=== PATIENT | female | born 1970 | race Caucasian/White ===

== ENCOUNTER → 2019-09-09 09:34 | Outpatient (CLI) | payer BC, SELFPAY ==
[2019-09-09 10:50] LABS: Anion Gap 9 (5-15); BUN 16 mg/dL (7-18); BUN/Creat Ratio 20.2 RATIO (10-20); Chloride 97 mmol/L (98-107); Creatinine, Serum 0.79 mg/dL (0.55-1.02); EST Glomerular Filtration Rate 81 mL/min (>60); Est Glom Filt Rate - Afr Amer 98 mL/min (>60); Glucose 99 mg/dL (74-106); Potassium 3.7 mmol/L (3.5-5.1); Sodium Level 136 mmol/L (136-145)
== END ==
PROVIDERS: Family Provider Family Medicine; PCP Family Medicine; Referring Provider Nurse Practitioner Adult Health; Visit Provider Nurse Practitioner Adult Health
DX: R11.0 Nausea (principal)
CPT/HCPCS: 36415; 80048

== ENCOUNTER → 2019-12-26 10:57 | Outpatient (CLI) | payer BC, SELFPAY ==
[2019-12-26 13:06] LABS: Anion Gap 6 (5-15); BUN 17 mg/dL (7-18); BUN/Creat Ratio 21.9 RATIO (10-20); Calcium,Total 9.4 mg/dL (8.5-10.1); Chloride 108 mmol/L (98-107); Creatinine, Serum 0.78 mg/dL (0.55-1.02); EST Glomerular Filtration Rate 83 mL/min (>60); Est Glom Filt Rate - Afr Amer 101 mL/min (>60); Glucose 98 mg/dL (74-106); Potassium 3.8 mmol/L (3.5-5.1); Sodium Level 141 mmol/L (136-145)
[2019-12-26 13:08] LABS: Vitamin D,25 Hydroxy 19.8 ng/mL
== END ==
PROVIDERS: PCP Family Medicine; Referring Provider Family Medicine; Visit Provider Family Medicine
DX: I10 Essential (primary) hypertension (principal); E55.9 Vitamin D deficiency, unspecified
CPT/HCPCS: 36415; 80048; 82306

== ENCOUNTER → 2020-04-18 14:22 | Outpatient (CLI) | payer BC, SELFPAY ==
[2020-04-19 10:42] LABS: Hepatitis B Surface Antibody Non-Reactive; Hepatitis B Surface Antigen Non-Reactive (Nonreactive); Hepatitis C Antibody Non-Reactive (Nonreactive)
[2020-04-20 11:34] LABS: Hepatitis B Core AB IgM Negative (Negative)
[2020-04-20 15:19] LABS: ANTINUCLEAR ANTIBODIES DIRECT Negative (Negative)
== END ==
PROVIDERS: PCP Family Medicine; Referring Provider Internal Medicine Rheumatology; Visit Provider Internal Medicine Rheumatology
DX: M06.4 Inflammatory polyarthropathy (principal); I10 Essential (primary) hypertension; M79.7 Fibromyalgia; J45.909 Unspecified asthma, uncomplicated; R51 Headache; L30.9 Dermatitis, unspecified
CPT/HCPCS: 36415; 86038; 86705; 86706; 86803; 87340

== ENCOUNTER → 2020-05-10 | Outpatient (CLI) | payer BC, SELFPAY ==
[2020-05-16 03:51] LABS: Calprotectin, Stool 19 ug/g (0-120); Fats, Neutral Normal (.); Fats, Total Normal (.)
== END | disposition home or self-care (01) ==
PROVIDERS: Referring Provider Internal Medicine; Visit Provider Internal Medicine
DX: Z12.11 Encounter for screening for malignant neoplasm of colon (principal); K52.9 Noninfective gastroenteritis and colitis, unspecified; R10.84 Generalized abdominal pain
CPT/HCPCS: 82705; 83993; 87493

== ENCOUNTER → 2020-05-23 12:01 | Outpatient (CLI) | payer BC, SELFPAY ==
[2020-05-23 15:20] LABS: Absolute Lymphocyte Count 2.48 X10^3/uL (0.83-4.51); Absolute Neutrophil Count 4.9 X10^3/uL (2.0-7.7); Basophil# 0.04 X10^3/uL; Basophil% 0.5 % (0-1); Eosinophils% 2.5 % (0-5); Hematocrit 43.4 % (37-47); Hemoglobin 13.4 g/dL (12.0-15.0); Lymphocyte # 2.48 X10^3/ul (4.0); Lymphocyte % 30.5 % (19-41); Mean Corp Hgb Conc 30.9 g/dL (32-36); Mean Corpuscular Hgb 25.3 pg (27.0-32.0); Mean Platelet Vol. 9.3 fl (6.2-12.0); Monocyte# 0.45 X10^3/uL; Monocyte% 5.5 % (0-10); NRBC Flagged by Analyzer 0 % (0-5); Neutrophil # 4.94 X10^3/uL (2.7-7.7); Neutrophil % 60.6 % (47-70); Platelet Count 310 K/mm3 (150-450); RBC Distribution Width CV 15.1 % (11.6-14.6); RBC Distribution Width SD 44.2 fl (35.1-43.9); Red Blood Count 5.29 M/mm3 (4.2-5.4); White Blood Count 8.1 K/mm3 (4.4-11.0)
[2020-05-23 15:40] LABS: ALB/GLOB Ratio 0.8 RATIO (0.9-2.4); AST(SGOT) 11 U/L (15-37); Alanine Aminotransfer ALT/SGPT 19 U/L (13-56); Albumin, Serum 3.4 g/dL (3.2-5.0); Alkaline Phosphatase 101 U/L (45-117); Anion Gap 6 (5-15); BUN 10 mg/dL (7-18); BUN/Creat Ratio 13.4 RATIO (10-20); Calcium,Total 8.8 mg/dL (8.5-10.1); Chloride 106 mmol/L (98-107); Creatinine, Serum 0.74 mg/dL (0.55-1.02); EST Glomerular Filtration Rate 87 mL/min (>60); Est Glom Filt Rate - Afr Amer 105 mL/min (>60); Globulin 4.5 g/dL (2.2-4.2); Glucose 81 mg/dL (74-106); Potassium 3.8 mmol/L (3.5-5.1); Protein, Total 7.9 g/dL (6.4-8.2); Sodium Level 137 mmol/L (136-145)
== END ==
PROVIDERS: Referring Provider Internal Medicine Rheumatology; Visit Provider Internal Medicine Rheumatology
DX: M06.4 Inflammatory polyarthropathy (principal); M79.7 Fibromyalgia; I10 Essential (primary) hypertension; J45.909 Unspecified asthma, uncomplicated; R51 Headache; L30.9 Dermatitis, unspecified; Z79.899 Other long term (current) drug therapy
CPT/HCPCS: 36415; 80053; 85025

== ENCOUNTER → 2020-07-24 16:03 | Outpatient (CLI) | payer BC, SELFPAY ==
[2020-07-24 18:11] LABS: Absolute Lymphocyte Count 2.43 X10^3/uL (0.83-4.51); Absolute Neutrophil Count 6.4 X10^3/uL (2.0-7.7); Basophil# 0.05 X10^3/uL; Basophil% 0.5 % (0-1); Eosinophil# 0.18 X10^3/uL; Eosinophils% 1.9 % (0-5); Hematocrit 44.4 % (37-47); Hemoglobin 13.5 g/dL (12.0-15.0); Lymphocyte # 2.43 X10^3/ul (4.0); Lymphocyte % 25.6 % (19-41); Mean Corp Hgb Conc 30.4 g/dL (32-36); Mean Corpuscular Hgb 25.8 pg (27.0-32.0); Mean Corpuscular Volume 84.7 fL (81-99); Mean Platelet Vol. 8.9 fl (6.2-12.0); Monocyte# 0.37 X10^3/uL; Monocyte% 3.9 % (0-10); NRBC Flagged by Analyzer 0 % (0-5); Neutrophil # 6.44 X10^3/uL (2.7-7.7); Neutrophil % 67.8 % (47-70); Platelet Count 337 K/mm3 (150-450); RBC Distribution Width CV 15.3 % (11.6-14.6); RBC Distribution Width SD 46.8 fl (35.1-43.9); Red Blood Count 5.24 M/mm3 (4.2-5.4); White Blood Count 9.5 K/mm3 (4.4-11.0)
[2020-07-24 18:34] LABS: ALB/GLOB Ratio 0.7 RATIO (0.9-2.4); AST(SGOT) 16 U/L (15-37); Alanine Aminotransfer ALT/SGPT 18 U/L (13-56); Albumin, Serum 3.4 g/dL (3.2-5.0); Alkaline Phosphatase 112 U/L (45-117); Anion Gap 6 (5-15); BUN 7 mg/dL (7-18); Chloride 105 mmol/L (98-107); Creatinine, Serum 0.77 mg/dL (0.55-1.02); EST Glomerular Filtration Rate 83 mL/min (>60); Est Glom Filt Rate - Afr Amer 101 mL/min (>60); Globulin 4.6 g/dL (2.2-4.2); Glucose 86 mg/dL (74-106); Sodium Level 137 mmol/L (136-145)
== END ==
PROVIDERS: Referring Provider Internal Medicine Rheumatology; Visit Provider Internal Medicine Rheumatology
DX: M06.4 Inflammatory polyarthropathy (principal); I10 Essential (primary) hypertension; J45.909 Unspecified asthma, uncomplicated; M79.7 Fibromyalgia; L30.9 Dermatitis, unspecified; R51 Headache; Z79.899 Other long term (current) drug therapy
CPT/HCPCS: 36415; 80053; 85025

== ENCOUNTER → 2023-02-06 | Outpatient (CLI) | payer BC, SELFPAY ==
--- NOTE | 2023-02-06 15:46 | MRI_ITS ---
STUDY: MRA OF THE HEAD WITHOUT CONTRAST REASON FOR EXAM: Female, 52 years old. POLYCYSTIC KIDNEY TECHNIQUE: 3-D [id number] (TOF) imaging was performed with MIPs. The study was performed unenhanced. COMPARISON: None. FINDINGS: Normal bilateral petrous carotid arteries. Normal right cavernous carotid artery with a normal supraclinoid bifurcation. Normal left cavernous carotid artery with a normal supraclinoid bifurcation. Normal right A1 segments of the anterior cerebral artery. Normal left A1 segments of the anterior cerebral artery. Normal intact anterior communicating artery (ACOM). Normal bilateral A2 segments of the anterior cerebral arteries. Normal right M1 and M2 segments of the middle cerebral arteries, with a normal M1 bifurcation. Normal left M1 and M2 segments of the middle cerebral arteries, with a normal M1 bifurcation. Posterior communicating arteries are not visualized consistent with normal variant Normal bilateral vertebral arteries. Normal basilar artery with a normal basilar bifurcation. The visualized bilateral superior cerebellar (SCA) arteries are normal. Normal bilateral P1, P2 and visualized P3 segments of the posterior cerebral arteries. There is no demonstrated aneurysm of the [place]. There is no major vessel occlusion or hemodynamically significant stenosis. There is no demonstrated abnormality of the visualized brain. MRI/MRA Head ONLY without Contrast IMPRESSION: Normal MRA of the head Electronically Signed: Faraz Boo MD at 16:21 EDT ,
== END | disposition home or self-care (01) ==
DX: Q61.3 Polycystic kidney, unspecified (principal)
CPT/HCPCS: 70544

== ENCOUNTER → 2024-08-22 | Outpatient (CLI) | payer BC, SELFPAY ==
--- NOTE | 2024-08-22 15:40 | MRI_ITS ---
STUDY: MRI BRAIN WITH AND WITHOUT CONTRAST REASON FOR EXAM: Female, 54 years old. NEW ONSET HEADACHE TECHNIQUE: Standardized multiplanar fat and water weighted pulse sequences were obtained. IV 27cc clariscan was administered for the contrast portion of the examination. COMPARISON: None. FINDINGS: Normal size of the ventricles and extra-axial spaces for the patient''s age. Normal white matter tracts of the supratentorial brain. Normal bilateral basal ganglia. Normal thalami. There is no extra-axial fluid accumulation. Normal flow voids within the major intracranial circulation suggesting patency by spin echo criteria. Normal venous enhancement. There is no enhancing intra-axial or extra-axial abnormality. Partial empty sella deformity of uncertain clinical significance. Normal, infundibular stalk, optic chiasm and hypothalamus. Normal tectal plate and pineal gland. Normal midbrain, becki and medulla. Normal cerebellum. Normal basal cisterns. Normal bilateral temporal bones. Normal bilateral internal auditory canals. No demonstrated orbital abnormality, within the constraints of a routine brain study. Normal visualized paranasal sinuses. Normal calvarium and skull base. Normal visualized soft tissue structures. Normal visualized upper cervical spine. MRI/Brain W/WO Contrast IMPRESSION: Partial empty sella deformity of uncertain clinical significance. Otherwise normal unenhanced MRI of the brain. Electronically Signed: Faraz Boo MD at 17:02 EDT ,
[2024-08-22 16:17] LABS: CREATININE FINGERSTICK < 1.0 mg/dL (0.55-1.02); EGFR FINGERSTICK > 60.0000 mL/min (>60)
--- OUTSIDE RECORDS SUMMARY | 2024-08-22 19:30 | XMS RPT_ITS | CCD ---
Author Organization [facility] ion Partnership [facility] Care Team Providers Care Night Shift Manager Name Role Phone Sayda Fall Primary Care Provider Dy DO, Emma Primary Care Provider [phone] Unavailable Primary Care Provider Unavailabl e Dy DO, Emma Primary Care Provider [phone] DY, EMMA Primary Care Unavailable SUZE VILLARREAL Attending Unavailable Dy DO, Emma K Primary Care Provider Pascual Sanchez MD Unavailable Dy DO, Emma K Primary Care Provider Pascual Sanchez MD A Unavailable Jackie DE - Anna LU Unavailable [phone] PASCUAL SANCHEZ Attending Unavailable DY, EMMA Primary Care Unavailable PASCUAL SANCHEZ Attending Unavailable DY, EMMA Primary Care Unavailable DY, EMMA Primary Care Unavailable ANNA RODRIGUEZ Attending Unavailable PASCUAL SANCHEZ Attending Unavailable DY, EMMA Primary Care Unavailable PASCUAL SANCHEZ Attending Unavailable PASCUAL SANCHEZ Admitting Unavailable DY, EMMA Primary Care Unavailable PASCUAL SANCHEZ Referring Unavailable DY, EMMA Primary Care Unavailable Dy DO, Emma Primary Care Provider [phone] DY, EMMA Primary Care Unavailable DY, EMMA Referring Unavailable ALAMIR, AMIR Referring Unavailable DY, EMMA Primary Care Unavailable ALAMIR, AMIR Referring Unavailable DY, EMMA Primary Care Unavailable DY, EMMA Primary Care Unavailable ALAMIR, AMIR Attending Unavailable DY, EMMA Primary Care Unavailable ALAMIR, AMIR Referring Unavailable YULIANA CUBA Attending Unavailable EMMA CONTE Primary Care Unavailable Allergies Allergy Classification Reported Allergen(s) Allergy Type Date of Onset Reaction(s) Facility (20 sources) Codeine; Translations: [CODEINE] Drug Allergy 7 Vomiting [facility] Work Phone: (13 sources) Penicillins; Translations: [PENICILLINS] Propensity to adverse reactions [facility] Work Phone: (18 sources) all cillins [Other] Propensity to adverse reactions 7 [facility] Work Phone: (15 sources) Penicillins Propensity to adverse reactions 7 [facility] Work Phone: (1 source) OTHER; Translations: [OTHER] Propensity to adverse reactions (disorder) 7 [facility] Other [facility] (11 sources) Penicillins Drug Intolerance 7 [facility] Medications Current Medications Medication Drug Class(es) Dates Sig (Normalized) Sig (Original) acetaminophen 500 mg oral tablet (11 sources) Start: 03-09-2023 take 2 tablets by mouth every eight hours as needed for pain acetaminophen (Tylenol) 500 MG tablet Take 2 tablets (1,000 mg) by mouth every 8 hours as needed for mild pain (1-3). 30 tablet 0 03/09/2023 Active Start: 03-09-2023 End: 03-09-2023 acetaminophen (Tylenol) tabl et 1,000 mg take 1 tablet by sis th every eight hours as needed acetaminophen (TYLENOL ARTHRITIS PAIN) 650 mg CR tablet Take 650 mg by mouth every 8 hours as needed for pain. Active End: 03-09-2023 acetaminophen (Tylenol) 500 MG tablet Take by mouth every 8 hours as needed for mild pain (1-3). 0 03/09/2023 Discontinued (Reorder) albuterol 0.83 mg/ml inhalation solution (6 sources) beta2-Adrenergic Agonist Start: 03-09-2023 albut jaden (2.5 MG/3ML) 0.083% nebulizer solution 2.5 mg take 2 puff(s) by in halation every six hours as needed for wheezing albuterol 108 (90 Base) MCG/ACT inhaler Inhale 2 puffs every 6 hours as needed for wheezing. 0 Active allopurinol 300 mg oral tablet (20 sources) Xanthine Oxidase Inhibitor Start: 04-22-2022 End: 12-03-2022 take 1 tablet by mouth once daily allopurinol (ZYLOPRIM) 300 mg tablet Take 1 tablet by mouth once daily. 90 tablet 3 12/03/2022 Active Comment on above: Take 1 tablet by sis th once daily. 24 hr buPROPion hydrochloride 150 mg extended release oral tablet (14 sources) Aminoketone Start: 05-30-2023 take 1 tablet by mouth once daily in the morning buPROPion XL (WELLBUTRIN XL) 150 mg 24 hr tablet Take 150 mg by mouth every morning. 05/30/2023 Active buPROPion (Wellb utrin) 100 MG tablet Take 150 mg by mouth every morning. 0 Active Comment on above: Take 150 mg by mouth every morning. docusate sodium 100 mg oral capsule (2 sources) Start : 03-09 End: 03-19 take 1 capsule by mouth twice daily as needed for constipation docusate sodium (Colace) 100 MG capsule Take 1 capsule (100 mg) by mouth 2 times daily as needed for constipation for up to 10 days. 20 capsule 0 03/09/2023 03/19/2023 Active doxycycline monohydrate 100 mg oral tablet (1 source) Tetracycline-clas s Drug Start : 06-26 End: 07-03 take 1 tablet by mouth twice daily doxycycline monohydrate 100 mg tablet Indications: Other acute nonsuppurative otitis media of left ear, recurrence not specified Take 1 tablet by mouth twice daily for 7 days. 14 tablet 0 06/26/2023 07/03/2023 Active Comment on above: Take 1 tablet by sis th twice daily for 7 days. escitalopram 20 mg oral tablet (20 sources) Serotonin Reuptake Inhibitor Start : 02-11 take 1 tablet by mouth once daily escitalopram oxalate (LEXAPRO) 20 mg tablet Take 1 tablet by mouth once daily. 02/11/2022 Active Comment on above: Take 1 tablet by sis once daily. ferrous sulfate 325 mg oral tablet (1 source) Start : 08-01 take 1 tablet by mouth twice daily ferrous sulfate 325 mg (65 mg iron) tablet Take 1 tablet by mouth two times a day. 180 tablet 3 08/01/2024 Active 120 actuat fluticasone propionate 0.115 mg/actuat / salmeterol 0.021 mg/actuat metered dose inhaler (4 sources) Corticosteroid, beta2-Adrenergic Agonist take 2 puff(s) by inhalation in the morning fluticasone-salmeterol (Advair) 115-21 MCG/ACT inhaler Inhale 2 puffs in the morning and 2 puffs in the evening. Rinse mouth with water after use to reduce aftertaste and incidence of candidiasis. Do not swallow.. 0 Active hydroCHLOROthiazide 12.5 mg oral capsule (1 source) Thiazide Diuretic hydroCHLOROthi azide 12.5 mg capsule Take 12.5 mg by mouth as needed. Active ibuprofen 600 mg oral tablet (8 sources) Nonsteroidal Anti-inflammatory Drug Start : 03-09 End: 03-24 take 1 tablet by mouth every six hours as needed for pain ibuprofen 600 MG tablet Take 1 tablet (600 mg) by mouth every 6 hours as needed for mild pain (1-3) for up to 15 days. 30 tablet 0 03/09/2023 03/24/2023 Active End: 12-03-2022 take 2 capsules by mouth every six hours as needed Ibuprofen 200 mg cap Take 400 mg by mouth every 6 hours as needed for pain. 0 12/03/2022 Discontinued Comment on above: Take 400 mg by mouth every 6 hours as needed for pain. lidocaine hydrochloride 0.02 mg/mg topical gel (1 source) Antiarrhythmic, Amide Local Anesthetic Start: 2 End: 2 lidocaine urojet 2 % 6 mL topical gel (XYLOCAINE, GLYDO) lisinopril 20 mg oral tablet (20 sources) Angiotensin Converting Enzyme Inhibitor Start: 4 End: 5 take 1 tablet by mouth once daily lisinopril (ZESTRIL) 20 mg tablet Take 1 tablet by mouth once daily. 90 tablet 3 04/25/2024 04/25/2025 Active Start: 12-03-2022 End: 04-25-2024 take 1 tablet by mouth once daily lisinopril (ZESTRIL, PRINIVIL) 10 mg tablet Take 1 tablet by mouth once daily. 90 tablet 3 12/03/2022 04/25/2024 Discontinued Comment on above: Take 1 tablet by sis th once daily. 24 hr metoprolol succinate 50 mg extended release oral tablet (20 sources) beta-Adrenergic Rd Start: 04-25-2024 End: 04-25-2025 take 1 tablet by mouth once daily metoprolol succinate ER (TOPROL XL) 50 mg 24 hr tablet Take 1 tablet by mouth once daily. 90 tablet 3 04/25/2024 04/25/2025 Active Start: 12-03-2022 End: 04-25-2024 take 1 tablet by mouth once daily metoprolol succinate ER (TOPROL XL) 25 mg 24 hr tablet Take 1 tablet by mouth once daily. 90 tablet 3 12/03/2022 04/25/2024 Discontinued Start: 12-03-2022 take 1 tablet by sis th every twenty-four hours in the morning metoprolol succinate XL (Toprol-XL) 25 MG 24 hr tablet Take 25 mg by mouth in the morning. 0 12/03/2022 Active End: 12-03-2022 take 1 tablet by mouth once daily metoprolol succinate ER (TOPROL XL) 50 mg 24 hr tablet Take 50 mg by mouth once daily. 0 12/03/2022 Discontinued Comment on above: Take 50 mg by mouth once daily. Take 1 tablet by sis th once daily. nortriptyline 10 mg oral capsule (1 source) Tricyclic Antidepressant take 1 capsule by mouth once daily at bedtime nortriptyline (PAMELOR) 10 mg capsule Take 10 mg by mouth daily at bedtime. Active ofloxacin 3 mg/ml otic solution (1 source) Quinolone Antimicrobial Start: 06-26-20 End: 07-03-20 ofloxacin (FLOXIN) 0.3 % otic solution Indications: Acute otitis externa of left ear, unspecified type Use 5 Drops in both ears twice daily for 7 days. 4 mL 0 06/26/2023 07/03/2023 Active Comment on above: Use 5 Drops in both ears twice daily for 7 days. oxyCODONE hydrochloride 5 mg oral tablet (2 sources) Opioid Agonist Start: 03-09-20 End: 03-14-20 take 1 tablet by mouth every six hours as needed for pain oxyCODONE (Roxicodone) 5 MG immediate release tablet Indications: Acute post-operative pain Take 1 tablet (5 mg) by mouth every 6 hours as needed for moderate pain (4-6) or severe pain (7-10) for up to 5 days. 20 tablet 0 03/09/2023 03/14/2023 Active rosuvastatin calcium 5 mg oral tablet (14 sources) HMG-CoA Reductase Inhibitor Start: 05-30-20 take 1 tablet by mouth once rosuvastatin (CRESTOR) 5 mg tablet Take 1 tablet by mouth every afternoon. 05/30/2023 Active take 1 tablet by mouth once gloria y rosuvastatin (Crestor) 5 MG tablet Take 5 mg by mouth daily. 0 Active Comment on above: Take 1 tablet by sis th every afternoon. traMADol hydrochloride 50 mg oral tablet (20 sources) Opioid Agonist Start: End: 4 take 1 tablet by mouth every four hours as needed for pain traMADol (ULTRAM) 50 mg tablet Indications: Chronic bilateral thoracic back pain Take 1 tablet by mouth every 4 hours as needed for pain for up to 183 days. for pain. 40 tablet 5 04/25/2024 10/25/2024 Active Comment on above: Take 1 tablet by sis th every 4 hours as needed for pain. for pain. Completed/Discontinued Medications Medication Drug Class(es) Dates Sig (Normalized) Sig (Original) ALPRAZolam 0.25 mg disintegrating oral tablet (2 sources) Benzodiazepine Start: 03-09-2023 End: 03-09-2023 ALPRAZolam (Xanax) disintegrating tablet 0.25 mg calcium chloride 0.0014 meq/ml / potassium chloride 0.004 meq/ml / sodium chloride 0.103 meq/ml / sodium lactate 0.028 meq/ml injectable solution (4 sources) Start: 03-09-2023 End: 03-09-2023 lactated ringers infusion ciprofloxacin 500 mg oral tablet (1 source) Quinolone Antimicrobial Start: 03-05-2022 End: 03-05-2022 ciprofloxacin HCl 500 mg tab(s) (CIPRO) 1 ml diphenhydrAMINE hydrochloride 50 mg/ml cartridge (2 sources) Histamine-1 Receptor Antagonist Start: 03-09-2023 End: 03-09-2023 diphenhydrAMINE (BENADryl) injection 12.5 mg Ethinyl Estradiol / Levonorgestrel (4 sources) Progestin, Estrogen, Progestin-containin g Intrauterine Device Start: 12-12-2014 End: 02-11-2022 take 1 tablet by mouth once daily Levonorgestrel-Ethi nyl Estrad (JOLESSA) 0.15-30 mg-mcg per tablet Take 1 tablet by mouth once daily. 1 Package 0 12/12/2014 02/11/2022 Discontinued (Course of therapy completed) Start: 12-12-2014 take 1 tablet by sis th once daily Levonorgestrel-Ethinyl Estrad (JOLESSA) 0.15-30 mg-mcg per tablet Take 1 tablet by mouth once daily. 1 Package 0 12/12/2014 Active Comment on above: Take 1 tablet by sis th once daily. famotidine 20 mg oral tablet (2 sources) Histamine-2 Receptor Antagonist Start: 03-09-2023 End: 03-09-2023 famotidine (Pepcid) tablet 20 mg gabapentin 100 mg oral capsule (2 sources) Anti-epileptic Agent Start: 03-09-2023 End: 03-09-2023 gabapentin (Neurontin) capsule 100 mg 1 ml HYDROmorphone hydrochloride 1 mg/ml cartridge (4 sources) Opioid Agonist Start: 03-09-2023 End: 03-09-2023 HYDROmorphone (Dilaudid) injection 0.5 mg Start: 03-09-2023 End: 03-09-2023 HYDROmorphone (Dilaudid) inj ection 0.25 mg hyoscyamine sulfate 0.125 mg sublingual tablet (12 sources) Start: 02-21-2022 End: 12-03-2022 take 0.125 mg under the tongue every eight hours as needed hyoscyamine sublingual (LEVSIN/SL) 0.125 mg Dissolve 1 tablet under the tongue every 8 hours as needed (bladder spasms) for up to 30 doses. 30 tablet 0 02/21/2022 12/03/2022 Discontinued Comment on above: Dissolve 1 tablet un aileen the tongue every 8 hours as needed (bladder spasms) for up to 30 doses. isopropyl alcohol 0.7 ml/ml medicated pad (2 sources) Start: 03-09-2023 End: 03-09-2023 Nozin Nasal [employer] Developer Popswab 2 Swab labetalol (Normodyne,Trandate) injection 5 mg (2 sources) Start: 03-09-2023 End: 03-09-2023 labetalol (Normodyne,Trandate) injection 5 mg 1 ml LORazepam 2 mg/ml injection (2 sources) Benzodiazepine Start: 03-09-2023 End: 03-09-2023 LORazepam (Ativan) injection 0.5 mg 1 ml meperidine hydrochloride 25 mg/ml cartridge (2 sources) Opioid Agonist Start: 03-09-2023 End: 03-09-2023 meperidine (Demerol) injection 12.5 mg 2 ml ondansetron 2 mg/ml injection (2 sources) Serotonin-3 Receptor Antagonist Start: 03-09-2023 End: 03-09-2023 ondansetron (Zofran) injection 4 mg phenazopyridine hydrochloride 200 mg oral tablet (12 sources) Start: 02-21-2022 End: 12-03-2022 take 1 tablet by mouth every eight hours as needed phenazopyridine (PYRIDIUM) 200 mg tablet Take 1 tablet by mouth three times daily as needed (dysuria) for up to 10 doses. 10 tablet 0 02/21/2022 12/03/2022 Discontinued Comment on above: Take 1 tablet by sis three times daily as needed (dysuria) for up to 10 doses. 5 ml sodium chloride 9 mg/ml injection (20 sources) Start: 03-09-2023 End: 03-09-2023 sodium chloride 0.9% (NS) flush 10 mL Start: 03-09-2023 End: 03-09-2023 sodium chloride 0.9% (NS) fl ush 10 mL Start: 03-09-2023 End: 03-09-2023 sodium chloride 0.9 % bolus 500 mL Start: 03-09-2023 End: 03-09-2023 sodium chloride 0.9 % infusi on Start: 03-09-2023 End: 03-09-2023 sodium chloride 0.9% (NS) fl ush 10 mL tamsulosin hydrochloride 0.4 mg oral capsule (12 sources) alpha-Adrenergic Rd Start: 10-09-2022 End: 08-01-2024 take 1 capsule by mouth once daily at bedtime tamsulosin (FLOMAX) 0.4 mg Take 1 capsule by mouth daily at bedtime for 7 days. 7 capsule 10/09/2022 08/01/2024 Discontinued Comment on above: Take 1 capsule by mo uth daily at bedtime for 7 days. Problems Active Problems Problem Classification Problem Date Documented Date Episodic/Chronic Anxiety disorders (20 sources) Anxiety; Translations: [Anxiety disorder, unspecified] Onset: 2 02-11-2022 Chronic Chronic kidney disease (17 sources) Chronic kidney disease stage 3A ; Translations: [Stage 3a chronic kidney disease (HCC)] Onset: 3 Chronic Chronic kidney disease (2 sources) Chronic kidney disease; Translations: [Stage 3a chronic kidney disease (HCC)] Onset: 3 Deficiency and other anemia (2 sources) Anemia in chronic kidney disease; Translations: [Anemia of renal disease] Onset: 4 Chronic Deficiency and other anemia (1 source) Iron deficiency anemia, unspecified; Translations: [Iron deficiency anemia, unspecified iron deficiency anemia type] Onset: 4 Episodic Deficiency and other anemia (1 source) Iron deficiency anemia; Translations: [Iron deficiency anemia, unspecified] 08-01-2024 Episodic Diseases of mouth; excluding dental (1 source) Glossopyrosis ; Translations: [Glossodynia] Episodic Disorders of lipid metabolism (6 sources) Hyperlipidemia; Translations: [Hyperlipidemia, unspecified] Onset: 4 Chronic Essential hypertension (14 sources) Essential hypertension; Translations: [Essential (primary) hypertension] Onset: 3 Chronic Genitourinary congenital anomalies (20 sources) Cyst of kidney; Translations: [Cystic kidney disease, unspecified] Onset: 2 Chronic Menopausal disorders (5 sources) Postmenopausal bleeding; Translations: [Postmenopausal bleeding] Onset: 3 Chronic Nutritional deficiencies (7 sources) Vitamin D deficiency; Translations: [Vitamin D deficiency, unspecified] Onset: 4 Chronic Other aftercare (1 source) H/O: high risk medication; Translations: [Other lobsterman (current) drug therapy] 04-25-2024 Episodic Other diseases of kidney and ureters (1 source) Hyperparathyroidism due to renal insufficiency; Translations: [Secondary hyperparathyroidism of renal origin] Chronic Other ear and sense organ disorders (1 source) Impacted cerumen in left ear; Translations: [Impacted cerumen, left ear] Episodic Other ear and sense organ disorders (1 source) Acute otitis externa of left ear; Translations: [Unspecified acute noninfective otitis externa, left ear] 06-26-2023 Episodic Other gastrointestinal disorders (16 sources) Irritable bowel syndrome with diarrhea; Translations: [Irritable bowel syndrome with diarrhea] Onset: 2 Chronic Other nervous system disorders (1 source) Other chronic pain; Translations: [Chronic bilateral thoracic back pain] Onset: 3 Chronic Other nervous system disorders (1 source) Numbness of tongue; Translations: [Anesthesia of skin] Episodic Other nervous system disorders (2 sources) Acute postoperative pain; Translations: [Other acute postprocedural pain] Episodic Other nervous system disorders (2 sources) Other acute postprocedural pain; Translations: [Other acute postprocedural pain] Onset: 3 Episodic Other nutritional; endocrine; and metabolic disorders (20 sources) Severe obesity; Translations: [Morbid (severe) obesity due to excess calories] Onset: 2 02-11-2022 Chronic Other nutritional; endocrine; and metabolic disorders (1 source) Body mass index (BMI) 45.0-49.9, adult; Translations: [Class 3 severe obesity due to excess calories without serious comorbidity with body mass index (BMI) of 45.0 to 49.9 in adult ([facility])] Onset: 2 Chronic Other nutritional; endocrine; and metabolic disorders (1 source) Morbid (severe) obesity due to excess calories; Translations: [Class 3 severe obesity due to excess calories without serious comorbidity with body mass index (BMI) of 45.0 to 49.9 in adult ([facility])] Onset: 2 Chronic Other screening for suspected conditions (not mental disorders or infectious disease) (1 source) Mammography abnormal; Translations: [Other abnormal and inconclusive findings on diagnostic imaging of breast] 11-28-2022 Episodic Otitis media and related conditions (1 source) Acute secretory otitis media; Translations: [Other acute nonsuppurative otitis media, left ear] 06-26-2023 Episodic Residual codes; unclassified (20 sources) Obstructive sleep apnea syndrome; Translations: [Obstructive sleep apnea (adult) (pediatric)] Onset: 2 02-11-2022 Chronic Residual codes; unclassified (2 sources) Postoperative state; Translations: [Other specified postprocedural states] 04-02-2023 Episodic Residual codes; unclassified (2 sources) Other specified postprocedural states; Translations: [Other specified postprocedural states] Onset: 3 Episodic Residual codes; unclassified (1 source) FH: Cardiovascular disease; Translations: [Family history of ischemic heart disease and other diseases of the circulatory system] 05-21-2024 Episodic Residual codes; unclassified (1 source) Family history of ischemic heart disease and other diseases of the circulatory system; Translations: [Family history of ischemic heart disease and other diseases of the circulatory system] Onset: 4 Episodic Rheumatoid arthritis and related disease (17 sources) Rheumatoid arthritis of multiple joints; Translations: [Rheumatoid arthritis, unspecified] Onset: 2 Chronic Unclassified (2 sources) Post-op Visit; Translations: [Post-op Visit] Onset: 3 Unclassified (1 source) Class 3 severe obesity due to excess calories without serious comorbidity with body mass index (BMI) of 45.0 to 49.9 in adult (HCC); Translations: [Class 3 severe obesity due to excess calories without serious comorbidity with body mass index (BMI) of 45.0 to 49.9 in adult (HCC)] Onset: 2 Past or Other Problems Problem Classification Problem Date Documented Da te Episodic/Chronic Abdominal pain (5 sources) Pain in pelvis; Translations: [Pelvic and perineal pain] Onset: 02-05-2023 Episodic Calculus of urinary tract (20 sources) Kidney stone; Translations: [Calculus of kidney] Onset: 02-11-2022 Episodic Genitourinary symptoms and ill-defined conditions (13 sources) Polyuria; Translations: [Polyuria] Onset: 12-03-2022 Episodic Other aftercare (1 source) Other usp (current) drug therapy; Translations: [Long-term use of high-risk medication] Onset: 04-25-2024 Episodic Other connective tissue disease (16 sources) Fibromyalgia; Translations: [Fibromyalgia] Onset: 04-22-2022 Episodic Spondylosis; intervertebral disc disorders; other back problems (14 sources) Chronic thoracic back pain; Translations: [Pain in thoracic spine] Onset: 12-03-2022 Episodic Results Test Name Value Interpretation Reference Range Facility [facility] 08-01-2024 CNOV Office Visit ([id number]) JONNA CASILLAS ([id number]) 1970 F Date Time Provider Department 08/01/24 2:20 PM YULIANA CUBA [id number] During your visit today, we recorded the following information about you: Pulse Blood pressure Weight Height 86/minute 140/81 142 kg 1.702 m Yuliana Cuba MD 08/01/2024 3:18 PM Signed [facility] Subjective: No chest pain, no SOB, no fever or chills, no dysuria, no problems with urination, no nocturia, no nausea , no vomiting, no diarrhea, no change in physical activity, patient has very stressful work environment. She is about to start Mounjaro by her primary care physician. Physical Exam: General Appearance: alert oriented x3 NAD Head: normal cephalic Mucosa:moist Neck Veins:normal Heart:RRR and no M/R/G Chest::CTA Abdomen: Soft, nontender Extremities: Edema trace, Edema below knee, and Bilateral Radial Pulses: Normal Access: Not applicable Skin: Intact, Warm, Dry, and Good skin turgor Labs and X-rays reviewed I spent a total of 40/45 minutes on the date of the service which included [id number] patient care. ASSESSMENT/PLAN: 1. Stage 3a chronic kidney disease (HCC) - ICD9: 585.3, ICD10: N18.31 (primary diagnosis) Stable. - RENAL FUNCTION PANEL 2. ADPKD (autosomal dominant polycystic kidney disease) - ICD9: 753.13, ICD10: Q61.2 Long discussion took place today about the differences between PKD 1 and PKD 2 and the progression to kidney failure. I explained to the patient that her prognosis seems to be good considering that she has PKD 2 and also that she has no proteinuria and continued to have normal creatinine. Pt is asked for - Tight BP control - Tight BS control. - Tight Lipid control. - Diet with 70 gm's protein,2 gm salt, 2000 ADA calori and referred to dentition for that. - Avoidence of nephrotoxic agents. - Pt is on lisinopril. Keep the same dose for now. 3. Polyuria - ICD9: 788.42, ICD10: R35.89 Stable. 4. Kidney stone - ICD9: 592.0, ICD10: N20.0 No symptoms. 5. Essential hypertension - ICD9: 401.9, ICD10: I10 - Controlled. Patient had a fight with her daughter before she came and she came late so she was rushing in and that is why she explained that her blood pressure is elevated. Patient is not checking her blood pressure at home and I encouraged her to do it at least twice a week and told her the right conditions to check her blood pressure and to let me know if the majority of her blood pressure are not below 130/80. - Recommend home blood pressure monitoring, to bring results to next visit - Encouraged sodium restriction, DASH or Mediterranean diet - Recommend regular aerobic exercise 6. Chronic bilateral thoracic back pain - ICD9: 724.1, 338.29, ICD10: M54.6, G89.29 Patient has been using very little tramadol and she uses Tylenol when needed. Patient is encouraged to lose weight as that may help the most with her chronic lower back pain. 7. Class 3 severe obesity due to excess calories without serious comorbidity with body mass index (BMI) of 45.0 to 49.9 in adult (HCC) - ICD9: 278.01, V85.42, ICD10: E66.813, Z68.42, E66.01 Patient is considering going on Mounjaro as mentioned above. 8. Iron deficiency anemia, unspecified iron deficiency anemia type - ICD9: 280.9, ICD10: D50.9 Patient is asked to avoid taking iron with daily products. - COMPLETE BLOOD COUNT - IRON AND TIBC 9. Vitamin D deficiency - ICD9: 268.9, ICD10: E55.9 - VITAMIN D 25 HYDROXY - PTH INTACT 10. Hyperlipidemia, unspecified hyperlipidemia type - ICD9: 272.4, ICD10: E78.5 - LIPID PANEL BASIC Yuliana Cuba MD Allergies As of Date: 08/01/2024 Noted Allergy Reaction CODEINE 01/08/2007 11 - Vomiting PENICILLINS 11/02/2006 4 - Hives Date Reviewed: 08/01/2024 Reviewed by: Radha Garcia MA - Fully Assessed Reason for Visit: Chronic Kidney Disease [4078] Primary Visit Diagnosis:Stage 3a chronic kidney disease (HCC) [N18.31] Other Visit Diagnoses:ADPKD (autosomal dominant polycystic kidney disease) [Q61.2] Polyuria [R35.89] Kidney stone [N20.0] Essential hypertension [I10] Chronic bilateral thoracic back pain [M54.6, G89.29] Class 3 severe obesity due to excess calories without serious comorbidity with body mass index (BMI) of 45.0 to 49.9 in adult (HCC) [E66.813, Z68.42, E66.01] Iron deficiency anemia, unspecified iron deficiency anemia type [D50.9] Vitamin D deficiency [E55.9] Hyperlipidemia, unspecified hyperlipidemia type [E78.5] Order(s):ferrous sulfate 325 mg (65 mg iron) tabletTake 1 tablet by mouth two times a day.Disp: 180 tabletRfl: 3 RENAL FUNCTION PANEL [SQRFP] Order #: [id number] STANDING COMPLETE BLOOD COUNT [SQCBC] Order #: [id number] STANDING IRON AND TIBC [SQIRON] Order #: [id number] STANDING VITAMIN D 25 HYDROXY [SQVITD] Orde (more content not included)... [facility] SCREENINGon 07-29-2024 [facility] SCREENING * * *Final Report* * * DATE OF EXAM: Jul 29 2024 2:59PM KELLY 0581 - [facility] SCREENING / PROCEDURE REASON: screening * * * * Physician Interpretation * * * * RESULT: [address] [address] [place] [address] HISTORY: Patient is 54 years old and is seen for screening and is asymptomatic in both breasts. The patient has no personal history of cancer. COMPARISON STUDIES: The present examination has been compared to prior imaging studies dated 11/27/2022 (mammogram) and 12/30/2022 (mammogram). MAMMOGRAM TECHNIQUE: The study was acquired using full field digital technology and interpreted from soft copy. Digital Breast Tomosynthesis (DBT) images were obtained and used to assist in the interpretation of this examination. Computer-aided detection was utilized by the radiologist in the interpretation of this examination. MAMMOGRAM FINDINGS: There are scattered areas of fibroglandular density. There is a focal asymmetry in the middle depth region of the left breast at 12 o'clock. In the right breast, no suspicious masses, calcifications or other abnormalities are seen. IMPRESSION: Focal asymmetry in the left breast requires additional evaluation. A DIAGNOSTIC mammogram and possible ultrasound is recommended. BI-RADS Category 0: Incomplete: Needs Additional Imaging Evaluation RISK: Based on the Tyrer-Cuzick (TC) risk assessment model, this patient has a 7.7% lifetime risk of developing breast cancer, meaning they are at average risk for developing breast cancer. However, this is only an estimate based on available history provided on the patient's questionnaire. We encourage all patients talk with their providers about these results, further recommendations for managing breast health, and appropriate supplemental screening options if the patient has dense breast tissue. Interpreting Radiologist: Fahad Nieves M.D. Electronically signed on: 07/31/2024 Management Specialist: DANIEL Transcribe Date/Time: Jul 29 2024 2:31P Dictated by: FAHAD NIEVES MD This examination was interpreted and the report reviewed and electronically signed by: FAHAD NIEVES MD on Jul 31 2024 3:09PM EST [id number] CN Normal [facility] [place] 06-28-2024 SIN Telephone ([id number]) JONNA CASILLAS ([id number]) 1970 F Date Time Provider Department 06/28/24 YULIANA CUBA [id number] During your visit today, we recorded the following information about you: Brayan EdwardCHELLY 06/28/2024 2:30 PM Signed Pt call requesting a call back to go over lab work. [phone] Allergies As of Date: 06/28/2024 Noted Allergy Reaction CODEINE 01/08/2007 11 - Vomiting PENICILLINS 11/02/2006 4 - Hives Date Reviewed: 04/25/2024 Reviewed by: Radha Garcia MA - Fully Assessed Reason for Visit: Patient Question [3935] Prescriptions as of 06/28/2024 - lisinopril (ZESTRIL) 20 mg tablet Take 1 tablet by mouth once daily. - metoprolol succinate ER (TOPROL XL) 50 mg 24 hr tablet Take 1 tablet by mouth once daily. - traMADol (ULTRAM) 50 mg tablet Take 1 tablet by mouth every 4 hours as needed for pain for up to 183 days. for pain. - buPROPion XL (WELLBUTRIN XL) 150 mg 24 hr tablet Take 150 mg by mouth every morning. - rosuvastatin (CRESTOR) 5 mg tablet Take 1 tablet by mouth every afternoon. - allopurinol (ZYLOPRIM) 300 mg tablet Take 1 tablet by mouth once daily. - tamsulosin (FLOMAX) 0.4 mg Take 1 capsule by mouth daily at bedtime for 7 days. - escitalopram oxalate (LEXAPRO) 20 mg tablet Take 1 tablet by mouth once daily. Problem List As Of Date 06/28/2024 Noted Resolved Class 3 severe obesity due to excess calories w*02/11/2022 Anxiety [F41.9] 02/11/2022 Kidney stone [N20.0] 02/11/2022 RUPESH (obstructive sleep apnea) [G47.33] 02/11/2022 ADPKD (autosomal dominant polycystic kidney dis*04/22/2022 Irritable bowel syndrome with diarrhea [K58.0] 04/22/2022 Fibromyalgia [M79.7] 04/22/2022 Rheumatoid arthritis involving multiple sites (*04/22/2022 Polyuria [R35.89] 12/03/2022 Essential hypertension [I10] 12/03/2022 Stage 3a chronic kidney disease (HCC) [N18.31] 12/03/2022 Chronic bilateral thoracic back pain [M54.6, G8*12/03/2022 Encounter Status:Closed by EDWARD SCHMIDT on 06/28/24 [facility] MR Brain WO contraston 05-21 IMPRESSION: No evidence of an acute intracranial process. Minimal white matter hyperintensities which are nonspecific. Management Specialist: [facility] Transcribe Date/Time: May 21 2024 3:02P Dictated by : NICCI MONTEMAYOR MD This examination was interpreted and the report reviewed and electronically signed by: NICCI MONTEMAYOR MD on May 21 2024 3:05PM [facility] * * *Final Report* * * DATE OF EXAM: May 21 2024 2:28PM MM 0294 - MRI BRAIN WO IVCON / PROCEDURE REASON: Family history of ischemic heart disease and other diseases of the circulatory s * * * * Physician Interpretation * * * * EXAMINATION: MRI BRAIN WO IVCON CLINICAL HISTORY: Family history of ischemic heart disease and other diseases of the circulatory system TECHNIQUE: Routine noncontrast MRI protocol including diffusion images. MQ: MRBWO_2 COMPARISON: None. RESULT: Acute Change: There is no evidence of restricted diffusion to suggest an acute infarct. Hemorrhage: No evidence of prior parenchymal hemorrhage on the gradient echo images. Mass Lesion/ Mass Effect: No evidence of an intracranial mass or extra-axial fluid collection. No significant mass effect. Chronic Change: Bilateral frontal punctate T2/FLAIR hyperintensities, nonspecific but may reflect chronic microvascular disease, migraines among other etiologies. Parenchyma: No significant volume loss for age. The brain parenchyma is otherwise within normal limits of signal intensity and morphology. Ventricles: Normal caliber and morphology. Skull Base: Hypothalamic and pituitary region are grossly normal. Craniocervical junction is normal. No significant marrow replacement process. Vasculature: Major intracranial arterial structures, and dural venous sinuses show typical flow void, suggesting patency by spin echo criteria. Other: The visualized paranasal sinuses and mastoid air cells are clear. The orbits and extracranial soft tissues are unremarkable. Hyperostosis frontalis interna [facility] Provider, [facility] - 05/21/2024 * * *Final Report* * * DATE OF EXAM: May 21 2024 2:28PM MMM 0294 - MRI BRAIN WO IVCON / PROCEDURE REASON: Family history of ischemic heart disease and other diseases of the circulatory s * * * * Physician Interpretation * * * * EXAMINATION: MRI BRAIN WO IVCON CLINICAL HISTORY: Family history of ischemic heart disease and other diseases of the circulatory system TECHNIQUE: Routine noncontrast MRI protocol including diffusion images. MQ: MRBWO_2 COMPARISON: None. RESULT: Acute Change: There is no evidence of restricted diffusion to suggest an acute infarct. Hemorrhage: No evidence of prior parenchymal hemorrhage on the gradient echo images. Mass Lesion/ Mass Effect: No evidence of an intracranial mass or extra-axial fluid collection. No significant mass effect. Chronic Change: Bilateral frontal punctate T2/FLAIR hyperintensities, nonspecific but may reflect chronic microvascular disease, migraines among other etiologies. Parenchyma: No significant volume loss for age. The brain parenchyma is otherwise within normal limits of signal intensity and morphology. Ventricles: Normal caliber and morphology. Skull Base: Hypothalamic and pituitary region are grossly normal. Craniocervical junction is normal. No significant marrow replacement process. Vasculature: Major intracranial arterial structures, and dural venous sinuses show typical flow void, suggesting patency by spin echo criteria. Other: The visualized paranasal sinuses and mastoid air cells are clear. The orbits and extracranial soft tissues are unremarkable. Hyperostosis frontalis interna IMPRESSION IMPRESSION: No evidence of an acute intracranial process. Minimal white matter hyperintensities which are nonspecific. Management Specialist: [facility] Transcribe Date/Time: May 21 2024 3:02P Dictated by : NICCI MONTEMAYOR MD This examination was interpreted and the report reviewed and electronically signed by: NICCI MONTEMAYOR MD on May 21 2024 3:05PM EST [facility] Radiology Study observation (narrative) [facility] MR Brain WO contrastOrdered By: [facility] Provider on 05-21-2024 [facility] MRI BRAIN WO IVCONon 024 MRI BRAIN WO IVCON * * *Final Report* * * DATE OF EXAM: May 21 2024 2:28PM MMM 0294 - MRI BRAIN WO IVCON / PROCEDURE REASON: Family history of ischemic heart disease and other diseases of the circulatory s * * * * Physician Interpretation * * * * EXAMINATION: MRI BRAIN WO IVCON CLINICAL HISTORY: Family history of ischemic heart disease and other diseases of the circulatory system TECHNIQUE: Routine noncontrast MRI protocol including diffusion images. MQ: MRBWO_2 COMPARISON: None. RESULT: Acute Change: There is no evidence of restricted diffusion to suggest an acute infarct. Hemorrhage: No evidence of prior parenchymal hemorrhage on the gradient echo images. Mass Lesion/ Mass Effect: No evidence of an intracranial mass or extra-axial fluid collection. No significant mass effect. Chronic Change: Bilateral frontal punctate T2/FLAIR hyperintensities, nonspecific but may reflect chronic microvascular disease, migraines among other etiologies. Parenchyma: No significant volume loss for age. The brain parenchyma is otherwise within normal limits of signal intensity and morphology. Ventricles: Normal caliber and morphology. Skull Base: Hypothalamic and pituitary region are grossly normal. Craniocervical junction is normal. No significant marrow replacement process. Vasculature: Major intracranial arterial structures, and dural venous sinuses show typical flow void, suggesting patency by spin echo criteria. Other: The visualized paranasal sinuses and mastoid air cells are clear. The orbits and extracranial soft tissues are unremarkable. Hyperostosis frontalis interna IMPRESSION: No evidence of an acute intracranial process. Minimal white matter hyperintensities which are nonspecific. Management Specialist: [facility] Transcribe Date/Time: May 21 2024 3:02P Dictated by : NICCI MONTEMAYOR MD This examination was interpreted and the report reviewed and electronically signed by: NICCI MONTEMAYOR MD on May 21 2024 3:05PM EST [id number] [facility] 05-16-2024 [facility] Telephone ([id number]) JONNA CASILLAS ([id number]) 1970 F Date Time Provider Department 05/16/24 YULIANA CUBA [id number] During your visit today, we recorded the following information about you: Yuliana Cuba MD 05/16/2024 10:10 AM Signed I did speak with Mrs. Casillas on 05/13/2024 about recurrent headaches that she is having and I told her that I will be worried about any potential brain aneurysm considering that she has polycystic kidney disease. I did place the order for MRI of her brain and I asked the patient to come to the emergency room if the headache continues to be significant. MD Korey Dumont Amir, MD 05/16/2024 10:17 AM Signed I called patient again today and she informed me that she is scheduled to have the MRI of her brain on next Thursday. Patient told me that the headaches are not excruciating and she is able to tolerate them. I asked the patient if the pain is extreme and if she has any visual changes or any other neurological symptoms that she needs to come to the emergency room and get the MRI on an emergency basis. The patient does not think that her condition needs that urgency even though I explained to her that polycystic kidney disease brain aneurysm and possible rupture can potentially be disabling or life-threatening or fatal. The patient will think about this if she has any more symptoms and come to the emergency room otherwise patient will wait and get her MRI on next Thursday. I told patient that I will be out of town and that my partner Dr. Strong or our nurse practitioner covering for me will be available for her to discuss the results. Yuliana Cuba MD Allergies As of Date: 05/16/2024 Noted Allergy Reaction CODEINE 01/08/2007 11 - Vomiting PENICILLINS 11/02/2006 4 - Hives Date Reviewed: 04/25/2024 Reviewed by: Radha Garcia MA - Fully Assessed Prescriptions as of 05/18/2024 - lisinopril (ZESTRIL) 20 mg tablet Take 1 tablet by mouth once daily. - metoprolol succinate ER (TOPROL XL) 50 mg 24 hr tablet Take 1 tablet by mouth once daily. - traMADol (ULTRAM) 50 mg tablet Take 1 tablet by mouth every 4 hours as needed for pain for up to 183 days. for pain. - buPROPion XL (WELLBUTRIN XL) 150 mg 24 hr tablet Take 150 mg by mouth every morning. - rosuvastatin (CRESTOR) 5 mg tablet Take 1 tablet by mouth every afternoon. - allopurinol (ZYLOPRIM) 300 mg tablet Take 1 tablet by mouth once daily. - tamsulosin (FLOMAX) 0.4 mg Take 1 capsule by mouth daily at bedtime for 7 days. - escitalopram oxalate (LEXAPRO) 20 mg tablet Take 1 tablet by mouth once daily. Problem List As Of Date 05/16/2024 Noted Resolved Class 3 severe obesity due to excess calories w*02/11/2022 Anxiety [F41.9] 02/11/2022 Kidney stone [N20.0] 02/11/2022 RUPESH (obstructive sleep apnea) [G47.33] 02/11/2022 ADPKD (autosomal dominant polycystic kidney dis*04/22/2022 Irritable bowel syndrome with diarrhea [K58.0] 04/22/2022 Fibromyalgia [M79.7] 04/22/2022 Rheumatoid arthritis involving multiple sites (*04/22/2022 Polyuria [R35.89] 12/03/2022 Essential hypertension [I10] 12/03/2022 Stage 3a chronic kidney disease (HCC) [N18.31] 12/03/2022 Chronic bilateral thoracic back pain [M54.6, G8*12/03/2022 Encounter Status:Closed by YULIANA CUBA on 05/18/[address] [facility] [address] FLANK WO IVCONon 05-09-20 CT FLANK WO IVCON * * *Final Report* * * * * * SEE BOTTOM OF REPORT FOR ADDENDED TEXT * * * DATE OF EXAM: May 09 2024 3:54PM [facility] 0529 - CT FLANK WO IVCON / PROCEDURE REASON: Calculus of kidney * * * * Physician Interpretation * * * * * * * * * * * * ORIGINAL REPORT * * * * * * * * EXAMINATION: CT ABDOMEN AND PELVIS WITHOUT IV CONTRAST (Renal stone protocol) CLINICAL HISTORY: Unspecified flank pain. Hematuria. TECHNIQUE: Non-contrast imaging of the abdomen and pelvis was performed through the urinary tract. Study performed without intravenous or oral contrast to evaluate for urinary tract calculus. MQ: CTAbdPelvF_1 Contrast: IV contrast: None Oral contrast: None CT Radiation dose: Integrated dose-length product (DLP) for this visit = 699 mGy*cm. CT Dose Reduction Employed: Automated exposure control(AEC) and iterative recon COMPARISON: 10/09/2022 CT scan. RESULT: Limitations: Unenhanced imaging is limited for the evaluation of some renal and other intra-abdominal and pelvic pathology. Urinary Tract: Bilateral renal cysts are seen. Additional low-density foci cannot be characterized with certainty on these unenhanced scans and are likely additional cysts. Largest on the left is 6.6 cm. Right kidney and ureter: No calculus. No hydronephrosis. No finding to suggest solid mass in the unenhanced kidney. Left kidney and ureter: No calculus. No hydronephrosis. No finding to suggest solid mass in the unenhanced kidney. Bladder: No calculus. Abdomen and Pelvis: Liver: Numerous hepatic cysts are again seen. Grossly stable Biliary: The gallbladder is unremarkable. No biliary dilatation Spleen: No splenomegaly. Pancreas: Unremarkable. Adrenals: Normal. GI Tract: No bowel dilation. Lymph Nodes: No lymphadenopathy. Mesentery/peritoneum : No ascites. Vasculature: Arterial atherosclerotic disease without aneurysm. Pelvis: No mass or ascites. Bones and Soft Tissues: No acute abnormality. Lower thorax: Unremarkable. Localizer images: No additional findings. IMPRESSION: NO URINARY TRACT CALCULUS. NO HYDRONEPHROSIS. Multiple renal and hepatic cysts No persistent ureterolithiasis * * * * * * * * ADDENDUM #1 * * * * * * * * Right kidney measures 6.7 x 5.6 x 10.9 cm. In AP, transverse and sagittal dimensions respectively. Left kidney measures 9.9 x 6.5 x 11.7 cm. In AP, transverse and sagittal dimensions respectively. Management Specialist: [facility] Transcribe Date/Time: May 13 2024 10:04A Dictated by : IVY GONZALES MD This examination was interpreted and the report reviewed and electronically signed by: IVY GONZALES MD on May 10 2024 1:40PM EST This document has been addended by: IVY GONZALES MD on May 13 2024 10:07AM EST [id number] CN Normal [facility](OH[facility] 25-hydroxyvitamin D3 [Mass/Vol] 26.0 ng/mL Low 31.0-80.0 [facility] Comment on above: Order Comment: Speci men Type: BLOOD SPECIMEN Ordering Facility: [facility] Address: [address] [place] [address] Performed By: #### 1 989-3 #### [facility] CLIA [id number] [address] [place] [address] [place] ALBUMIN/CREATININE RATIO, UR INEon 04-26-2024 Albumin DL <= 20 mg/L (U) [Mass/Vol] mg/dL Normal [facility] Comment on above: Order Comment: Speci men Type: URINE SPECIMEN Ordering Facility: [facility] Address: [address] [place] [address] Performed By: #### U ACR #### [facility] CLIA [id number] [address] [place] [address] [place] Albumin/Creatinine (U) [Mass ratio] <11 Normal <30 [facility] Comment on above: Order Comment: Speci men Type: URINE SPECIMEN Ordering Facility: [facility] Address: [address] [place] [address] Result Comment: Adul t Male and Female Nephrotic Criteria: <30 mg/g is considered normal to mildly increased 30-300 mg/g is considered moderately increased >300 mg/g is considered severely increased KDIGO. (2013). KDIGO 2012 Clinical Practice Guideline for the Evaluation and Management of Chronic Kidney Disease. Official Journal of the International Society of Nephrology, 3(1), 1-150. Performed By: #### U ACR #### [facility] CLIA [id number] [address] [place] [address] [place] Creatinine (U) [Mass/Vol] 111.9 mg/dL Normal 20.0-300.0 [facility] Comment on above: Order Comment: Speci men Type: URINE SPECIMEN Ordering Facility: [facility] Address: [address] [place] [address] Performed By: #### U ACR #### [facility] CLIA [id number] [address] [place] [address] [place] CBC panel Auto (Bld)on 04-26 Erythrocyte distribution width (RBC) [Ratio] 15.6 % High 11.5-15.0 [facility] Comment on above: Order Comment: Speci men Type: BLOOD SPECIMEN Ordering Facility: [facility] Address: [address] [place] [address] Performed By: #### 5 8410-2 #### [facility] CLIA [id number] [address] [place] [address] [place] Hematocrit (Bld) [Volume fraction] 41.6 % Normal 36.0-46.0 [facility] Comment on above: Order Comment: Speci men Type: BLOOD SPECIMEN Ordering Facility: [facility] Address: [address] [place] [address] Performed By: #### 5 8410-2 #### [facility] [id number] [address] [place] [address] [place] Hemoglobin (Bld) [Mass/Vol] 12.9 g/dL Normal 11.5-15.5 [facility] Comment on above: Order Comment: Speci men Type: BLOOD SPECIMEN Ordering Facility: [facility] Address: [address] [place] [address] Performed By: #### 5 8410-2 #### [facility] [id number] [address] [place] [address] [place] MCH (RBC) [Entitic mass] 24.6 pg Low 26.0-34.0 [facility] Comment on above: Order Comment: Speci men Type: BLOOD SPECIMEN Ordering Facility: [facility] Address: [address] [place] [address] Performed By: #### 5 8410-2 #### [facility] [id number] [address] [place] [address] [place] MCHC (RBC) [Mass/Vol] 31.0 g/dL Normal 30.5-36.0 [facility] Comment on above: Order Comment: Speci men Type: BLOOD SPECIMEN Ordering Facility: [facility] Address: [address] [id number] Performed By: #### 5 8410-2 #### [facility] CLIA [id number] [address] [place] [address] [place] MCV (RBC) [Entitic vol] 79.2 fL Low 80.0-100.0 [facility] Comment on above: Order Comment: Speci men Type: BLOOD SPECIMEN Ordering Facility: [facility] Address: [address] [place], [place] [id number] Performed By: #### 5 8410-2 #### [facility] CLIA [id number] [address] [place] [address] [place] Nucleated RBC (Bld) [#/Vol] 10*3/uL Normal <0.01 [facility] Comment on above: Order Comment: Speci men Type: BLOOD SPECIMEN Ordering Facility: [facility] Address: [address] [place] [address] Performed By: #### 5 8410-2 #### [facility] CLIA [id number] [address] [place] [address] [place] Platelet mean volume (Bld) [Entitic vol] 8.9 fL Low 9.0-12.7 [facility] Comment on above: Order Comment: Speci men Type: BLOOD SPECIMEN Ordering Facility: [facility] Address: [address] [place] [address] Performed By: #### 5 8410-2 #### [facility] CLIA [id number] [address] [place] [address] [place] Platelets (Bld) [#/Vol] 285 10*3/uL Normal 150-400 [facility] Comment on above: Order Comment: Speci men Type: BLOOD SPECIMEN Ordering Facility: [facility] Address: [address] [place] [address] Performed By: #### 5 8410-2 #### [facility] CLIA [id number] [address] [place] [address] [place] RBC (Bld) [#/Vol] 5.25 10*6/uL High 3.90-5.20 [facility] Comment on above: Order Comment: Speci men Type: BLOOD SPECIMEN Ordering Facility: [facility] Address: [address] [place] [address] Performed By: #### 5 8410-2 #### [facility] CLIA [id number] [address] [place] [address] [place] WBC (Bld) [#/Vol] 7.15 10*3/uL Normal 3.70-11.00 [facility] Comment on above: Order Comment: Speci men Type: BLOOD SPECIMEN Ordering Facility: [facility] Address: [address] [place] [address] Performed By: #### 5 8410-2 #### [facility] CLIA [id number] [address] [place] [address] [place] Iron and Iron binding capaci ty panelon 04-26-2024 Iron [Mass/Vol] 44 ug/dL Normal 41-186 [facility] Comment on above: Order Comment: Speci men Type: BLOOD SPECIMEN Ordering Facility: [facility] Address: [address] [place] [address] Performed By: #### 2 4331-1 #### [facility] CLIA [id number] [address] [place] [address] [place] [facility] CLIA [id number] [address] [place] [address] [place] #### 97496-6, 2731-8 #### [facility] CLIA [id number] [address] [place] [address] [place] Iron binding capacity [Mass/Vol] 324 ug/dL Normal 232-386 [facility] Comment on above: Order Comment: Speci men Type: BLOOD SPECIMEN Ordering Facility: [facility] Address: [address] [place] [address] Performed By: #### 2 4331-1 #### [facility] CLIA [id number] [address] [place] [address] [place] [facility] CLIA [id number] [address] [place] [address] [place] #### 26063-3, 8 #### [facility] CLIA [id number] [address] [place] [address] [place] Iron/TIBC [Molar ratio] 13.6 % Low 15.0-57.0 [facility] Comment on above: Order Comment: Speci men Type: BLOOD SPECIMEN Ordering Facility: [facility] Address: [address] [place] [address] Performed By: #### 2 4331-1 #### [facility] CLIA [id number] [address] [place] [address] [place] [facility] CLIA [id number] [address] [place] [address] [place] #### 66382-1, 2731-05 #### [facility] CLIA [id number] [address] [place] [address] [place] Lipid 1996 panelon 4 Cholesterol [Mass/Vol] 194 mg/dL Normal <200 [facility] Comment on above: Order Comment: Speci men Type: BLOOD SPECIMEN Ordering Facility: [facility] Address: [address] [place] [address] Result Comment: <200 mg/dL, Desirable 200-239 mg/dL, Borderline high >239 mg/dL, High Performed By: #### 2 4331-1 #### [facility] CLIA [id number] [address] [id number] [place] [facility] CLIA [id number] [address] [place] [address] [place] #### 91979-9, 2738 #### [facility] CLIA [id number] [facility] [place] [address] [place] Cholesterol in HDL [Mass/Vol] 37 mg/dL Low >39 [facility] Comment on above: Order Comment: Speci men Type: BLOOD SPECIMEN Ordering Facility: [facility] Address: [address] [place] [address] Result Comment: 40-5 9 mg/dL, Acceptable >59 mg/dL, High: Negative risk factor for coronary heart disease <40 mg/dL, Low: Positive risk factor for coronary heart disease Performed By: #### 2 4331-1 #### [facility] CLIA [id number] [address] [place] [address] [place] [facility] CLIA [id number] [address] [place] [address] [place] #### 84110-1, 2731-05 #### [facility] CLIA [id number] [address] [place] [address] [place] Cholesterol in LDL [Mass/Vol] 111 mg/dL High <100 [facility] Comment on above: Order Comment: Speci men Type: BLOOD SPECIMEN Ordering Facility: [facility] Address: [address] [id number] Result Comment: <100 mg/dL, Optimal 100-129 mg/dL, Near optimal/above optimal 130-159 mg/dL, Borderline high 160-189 mg/dL, High >189 mg/dL, Very high Secondary prevention optimal LDL Cholesterol levels are recommended to be < 70 mg/dL Performed By: #### 2 4331-1 #### [facility] CLIA [id number] [address] [place] [address] [place] [facility] CLIA [id number] [address] [place] [address] [place] #### 49816-9, 2731-05 #### [facility] CLIA [id number] [facility] [place] [address] [place] Cholesterol in LDL/Cholesterol in HDL [Mass ratio] 3.00 {ratio} High <2.54 [facility] Comment on above: Order Comment: Speci men Type: BLOOD SPECIMEN Ordering Facility: [facility] Address: [address] [place] [address] Result Comment: Tatyana horan: 1. National Cholesterol Education Program ATP III Guideline At-A-Glance Quick Desk Reference: National Heart, Lung, and Blood Prosperity. National Institutes of Health. 2001: NIH Publication No. 01-3305. 2. An International Atherosclerosis Society position paper: global recommendations for the management of dyslipidemia: executive summary, Atherosclerosis. 2014: 232(2):410-413. Performed By: #### 2 4331-1 #### [facility] CLIA [id number] [address] [place] [address] [place] [facility] CLIA [id number] [address] [place] [address] [place] #### 80645-2, 2731-05 #### [facility] CLIA [id number] [address] [place] [address] [place] Cholesterol in VLDL [Mass/Vol] 46 mg/dL High <30 [facility] Comment on above: Order Comment: Speci men Type: BLOOD SPECIMEN Ordering Facility: [facility] Address: [address] [place] [address] Performed By: #### 2 4331-1 #### [facility] CLIA [id number] [facility] [place] [address] [place] [facility] CLIA [id number] [address] [place] [address] [place] #### 19845-9, 2731-05 #### [facility] CLIA [id number] [address] [place] [address] [place] Cholesterol non HDL [Mass/Vol] 157 mg/dL High <130 [facility] Comment on above: Order Comment: Speci men Type: BLOOD SPECIMEN Ordering Facility: [facility] Address: [address] [place] [address] Result Comment: <130 mg/dL, Optimal 130-159 mg/dL, Near optimal/above optimal 160-189 mg/dL, Borderline high 190-219 mg/dL, High >219 mg/dL, Very high Secondary prevention optimal non HDL Cholesterol levels are recommended to be <100 mg/dL Performed By: #### 2 4331-1 #### [facility] CLIA [id number] [address] [place] [address] [place] [facility] CLIA [id number] [address] [place] [address] [place] #### 34187-2, 2731-05 #### [facility] CLIA [id number] [address] [place] [address] [place] Cholesterol.total/Chol esterol in HDL [Mass ratio] 5.24 {ratio} High <5.10 [facility] Comment on above: Order Comment: Speci men Type: BLOOD SPECIMEN Ordering Facility: [facility] Address: [address] [place] [address] Performed By: #### 2 4331-1 #### [facility] CLIA [id number] [address] [place] [address] [place] [facility] CLIA [id number] [address] [place] [address] [place] #### 74386-7, 2731-05 #### [facility] CLIA [id number] [address] [place] [address] [place] FASTING TIME 12 hrs Normal [facility] Comment on above: Order Comment: Speci men Type: BLOOD SPECIMEN Ordering Facility: [facility] Address: [address] [place] [address] Performed By: #### 2 4331-1 #### [facility] CLIA [id number] [address] [place] [address] [place] [facility] CLIA [id number] [address] [place] [address] [place] #### 39071-9, 2738 #### [facility] CLIA [id number] [address] [place] [address] [place] Triglyceride [Mass/Vol] 232 mg/dL High <150 [facility] Comment on above: Order Comment: Speci men Type: BLOOD SPECIMEN Ordering Facility: [facility] Address: [address] [place], [place] [address] Result Comment: <150 mg/dL, Normal 150-199 mg/dL, Borderline high 200-499 mg/dL, High >499 mg/dL, Very high Performed By: #### 2 4331-1 #### [facility] CLIA [id number] [address] [place] [address] [place] [facility] CLIA [id number] [address] [place] [address] [place] #### 78320-8, 2738 #### [facility] CLIA [id number] [address] [place] [address] [place] PTH-Intact SerPl-ncon 07-0 Parathyrin.intact [Mass/Vol] 79 pg/mL High 15-65 [facility] Comment on above: Order Comment: Speci men Type: BLOOD SPECIMEN Ordering Facility: [facility] Address: [address] [id number] Performed By: #### 2 4331-1 #### [facility] CLIA [id number] [address] [place], [place] [address] [place] [address] [place] [facility] CLIA [id number] [address] [place] [address] [place] #### 39367-9, 2731-8 #### [facility] CLIA [id number] [address] [place] [address] [place] [address] [place] Renal function 2000 panelon 04-26-2024 Albumin [Mass/Vol] 4.0 g/dL Normal 3.9-4.9 [facility] Comment on above: Order Comment: Speci men Type: BLOOD SPECIMEN Ordering Facility: [facility] Address: [address] [place] [address] Performed By: #### 2 4362-6 #### [facility] CLIA [id number] [address] [place] [address] [place] Anion gap [Moles/Vol] 13 mmol/L Normal 8-15 [facility] Comment on above: Order Comment: Speci men Type: BLOOD SPECIMEN Ordering Facility: [facility] Address: [address] [place] [address] Performed By: #### 2 4362-6 #### [facility] CLIA [id number] [address] [place] [address] [place] Calcium [Mass/Vol] 9.3 mg/dL Normal 8.5-10.2 [facility] Comment on above: Order Comment: Speci men Type: BLOOD SPECIMEN Ordering Facility: [facility] Address: [address] [place] [address] Performed By: #### 2 4362-6 #### [facility] CLIA [id number] [address] [place] [address] [place] Chloride [Moles/Vol] 103 mmol/L Normal 98-107 [facility] Comment on above: Order Comment: Speci men Type: BLOOD SPECIMEN Ordering Facility: [facility] Address: [address] [place] [address] Performed By: #### 2 4362-6 #### [facility] [id number] [address] [place] [address] [place] CO2 [Moles/Vol] 23 mmol/L Normal 22-30 [facility] Comment on above: Order Comment: Speci men Type: BLOOD SPECIMEN Ordering Facility: [facility] Address: [address] [place] [address] Performed By: #### 2 4362-6 #### [facility] CLIA [id number] [address] [place] [address] [place] Creatinine [Mass/Vol] 0.65 mg/dL Normal 0.58-0.96 [facility] Comment on above: Order Comment: Speci men Type: BLOOD SPECIMEN Ordering Facility: [facility] Address: [address] [place] [address] Performed By: #### 2 4362-6 #### [facility] [id number] [address] [place] [address] Creatinine and Glomerular filtration rate.predicted panel (S/P/Bld) 104 mL/min/1.73m??? Normal >=60 [facility] Comment on above: Order Comment: Speci men Type: BLOOD SPECIMEN Ordering Facility: [facility] Address: [address] [place] [address] Result Comment: Ana Maria mated Glomerular Filtration Rate (eGFR) is calculated using the 2020 CKD-EPI creatinine equation. This equation utilizes serum creatinine, sex, and age as parameters. The creatinine assay has traceable calibration to isotope dilution-mass spectrometry. Refer to KDIGO guidelines for clinical interpretation. In patients with unstable renal function, e.g. those with acute kidney injury, the eGFR may not accurately reflect actual GFR. Performed By: #### 2 4362-6 #### [facility] [id number] [address] [place] [address] [place] Glucose [Mass/Vol] 124 mg/dL High 74-99 [facility] Comment on above: Order Comment: Yanelis kinney Type: BLOOD SPECIMEN Ordering Facility: [facility] Address: [address] [place] [address] Result Comment: The [place] Diabetes Association (ADA) provides guidance for cutoff values for fasting glucose and random glucose. The ADA defines fasting as no caloric intake for at least 8 hours. Fasting plasma glucose results between 100 to 125 mg/dL indicate increased risk for diabetes (prediabetes). Fasting plasma glucose results greater than or equal to 126 mg/dL meet the criteria for diagnosis of diabetes. In the absence of unequivocal hyperglycemia, results should be confirmed by repeat testing. In a patient with classic symptoms of hyperglycemia or hyperglycemic crisis, random plasma glucose results greater than or equal to 200 mg/dL meet the criteria for diagnosis of diabetes. Reference: Standards of Medical Care in Diabetes 2016, [place] [employer] Association. Diabetes Care. 2016.39(Suppl 1). Performed By: #### 2 4362-6 #### [facility] [id number] [address] [place] [address] [place] Phosphate [Mass/Vol] 2.8 mg/dL Normal 2.7-4.8 [facility] Comment on above: Order Comment: Yanelis kinney Type: BLOOD SPECIMEN Ordering Facility: [facility] Address: [address] [place] [address] Performed By: #### 2 4362-6 #### [facility] [id number] [address] [place] [address] [place] Potassium [Moles/Vol] 4.2 mmol/L Normal 3.7-5.1 [facility] Comment on above: Order Comment: Yanelis kinney Type: BLOOD SPECIMEN Ordering Facility: [facility] Address: [address] [place] [address] Performed By: #### 2 4362-6 #### [facility] CLIA [id number] [address] [place] [address] [place] Sodium [Moles/Vol] 139 mmol/L Normal 136-144 [facility] Comment on above: Order Comment: Speci men Type: BLOOD SPECIMEN Ordering Facility: [facility] Address: [address] [place] [address] Performed By: #### 2 4362-6 #### [facility] CLIA [id number] [address] [place] [address] [place] Urea nitrogen [Mass/Vol] 13 mg/dL Normal 7-21 [facility] Comment on above: Order Comment: Speci men Type: BLOOD SPECIMEN Ordering Facility: [facility] Address: [address] [place] [address] Performed By: #### 2 4362-6 #### [facility] CLIA [id number] [address] [place] [address] [place] Urinalysis complete panel (U )on 04-26-2024 BACTERIA UL 4755.6 uL High Negative [facility] Comment on above: Order Comment: Speci men Type: URINE SPECIMEN Ordering Facility: [facility] Address: [address] [place] [address] Performed By: #### 2 4356-8 #### [facility] CLIA [id number] [address] [place] [address] [place] Bilirubin Ql (U) Negative Normal Negative [facility] Comment on above: Order Comment: Speci men Type: URINE SPECIMEN Ordering Facility: [facility] Address: [address] [place] [address] Performed By: #### 2 4356-8 #### [facility] CLIA [id number] [address] [place] [address] [place] Clarity (Unsp spec) Clear Normal Clear [facility] Comment on above: Order Comment: Speci men Type: URINE SPECIMEN Ordering Facility: [facility] Address: [address] [place] [address] Performed By: #### 2 4356-8 #### [facility] CLIA [id number] [address] [place] [address] [place] [facility] Color (U) Yellow Normal Yellow [facility] Comment on above: Order Comment: Speci men Type: URINE SPECIMEN Ordering Facility: [facility] Address: [address] [place] [address] Performed By: #### 2 4356-8 #### [facility] CLIA [id number] [address] [place] [address] [place] Epithelial cells LM.HPF (Urine sed) [#/Area] Moderate Normal [facility] Comment on above: Order Comment: Speci men Type: URINE SPECIMEN Ordering Facility: [facility] Address: [address] [place] [address] Performed By: #### 2 4356-8 #### [facility] CLIA [id number] [address] [place] [address] [place] Glucose Test strip (U) [Mass/Vol] Negative Normal Negative [facility] Comment on above: Order Comment: Speci men Type: URINE SPECIMEN Ordering Facility: [facility] Address: [address] [place] [address] Performed By: #### 2 4356-8 #### [facility] CLIA [id number] [address] [place] [address] [place] Hemoglobin Ql (U) Negative Normal Negative [facility] Comment on above: Order Comment: Speci men Type: URINE SPECIMEN Ordering Facility: [facility] Address: [address] [place] [address] Performed By: #### 2 4356-8 #### [facility] CLIA [id number] [address] [place] [address] [place] Hyaline casts (Urine sed) [#/Area] 0 /[LPF] Normal 0 /LPF [facility] Comment on above: Order Comment: Speci men Type: URINE SPECIMEN Ordering Facility: [facility] Address: [address] [place] [address] Performed By: #### 2 4356-8 #### [facility] CLIA [id number] [address] [place], [place] [address] [place] Ketones Ql (U) Negative Normal Negative [facility] Comment on above: Order Comment: Speci men Type: URINE SPECIMEN Ordering Facility: [facility] Address: [address] [place] [address] Performed By: #### 2 4356-8 #### [facility] CLIA [id number] [address] [place] [address] [place] Leukocyte esterase Test strip Ql (U) Negative Normal Negative [facility] Comment on above: Order Comment: Speci men Type: URINE SPECIMEN Ordering Facility: [facility] Address: [address] [place] [address] Performed By: #### 2 4356-8 #### [facility] CLIA [id number] [address] [place] [address] [place] Nitrite Ql (U) Negative Normal Negative [facility] Comment on above: Order Comment: Speci men Type: URINE SPECIMEN Ordering Facility: [facility] Address: [address] [place] [address] Performed By: #### 2 4356-8 #### [facility] CLIA [id number] [address] [place], [place] [address] [place] pH (U) 5.5 [pH] Normal <8.5 [facility] Comment on above: Order Comment: Speci men Type: URINE SPECIMEN Ordering Facility: [facility] Address: [address] [place] [address] Performed By: #### 2 4356-8 #### [facility] CLIA [id number] [address] [place], [place] [address] [place] Protein (U) [Mass/Vol] Negative Normal Negative [facility] Comment on above: Order Comment: Speci men Type: URINE SPECIMEN Ordering Facility: [facility] Address: [address] [place] [address] Performed By: #### 2 4356-8 #### [facility] CLIA [id number] [address] [place] [address] [place] RBC LM.HPF (Urine sed) [#/Area] 0-2 /HPF Normal 0-2 /HPF [facility] Comment on above: Order Comment: Speci men Type: URINE SPECIMEN Ordering Facility: [facility] Address: [address] [place] [address] Performed By: #### 2 4356-8 #### [facility] CLIA [id number] [address] [place] [address] [place] Specific gravity (U) [Rel density] 1.019 Normal 1.005-1.030 [facility] Comment on above: Order Comment: Speci men Type: URINE SPECIMEN Ordering Facility: [facility] Address: [address] [place] [address] Performed By: #### 2 4356-8 #### [facility] CLIA [id number] [address] [place] [address] [place] Urobilinogen Ql (U) 0.2 EU/dL Normal 0.2-1.0 EU/dL [facility] Comment on above: Order Comment: Speci men Type: URINE SPECIMEN Ordering Facility: [facility] Address: [address] [place] [address] Performed By: #### 2 4356-8 #### [facility] CLIA [id number] [address] [place] [address] [place] WBC LM.HPF (Urine sed) [#/Area] 0-5 /HPF Normal 0-5 /HPF [facility] Comment on above: Order Comment: Speci men Type: URINE SPECIMEN Ordering Facility: [facility] Address: [address] [place] [address] Performed By: #### 2 4356-8 #### [facility] CLIA [id number] [address] [place] [address] [place] [address] [place] CNOVon 04-25-2024 CNOV Office Visit ([id number]) JONNA CASILLAS ([id number]) 1970 F Date Time Provider Department 04/25/24 1:40 PM YULIANA CUBA [id number] During your visit today, we recorded the following information about you: Pulse Blood pressure Weight Height 104/minute 143/81 142.4 kg 1.702 m Yuliana Cuba MD 04/25/2024 2:12 PM Signed [facility] Subjective: No chest pain, no SOB, no fever or chills, no dysuria, no problems with urination, no nocturia, no nausea , no vomiting, no diarrhea, no change in physical activity, patient had total abdominal hysterectomy in February 2023 because of fibroid tumors and concern about cancer but there was no cancer according to her. Patient also has irritable bowel syndrome. Patient continues to complain of significant and continuous pain in her back and abdomen day and night that does not seem to be episodic and denies any gross hematuria. Physical Exam: General Appearance: alert oriented x3 NAD Head: normal cephalic Mucosa:moist Neck Veins:normal Heart:RRR and no M/R/G Chest::CTA Abdomen: Soft, very mild generalized tenderness that is nonspecific and with no rigidity or rebound. Extremities: No Edema Radial Pulses: Normal Access: Not applicable Skin: Intact, Warm, Dry, and Good skin turgor Labs and X-rays reviewed I spent a total of 40/45 minutes on the date of the service which included [id number] patient care. ASSESSMENT/PLAN: 1. Stage 3a chronic kidney disease (HCC) - ICD9: 585.3, ICD10: N18.31 (primary diagnosis) No recent laboratory data. Clinically patient seems to be stable. - RENAL FUNCTION PANEL - URINALYSIS, WITH MICROSCOPIC - ALBUMIN/CREATININE RATIO, URINE - CT VOLUME MEASUREMENT -I ordered renasight testing for genetic checks. I recommended that patient does that with her daughter as well. 2. Kidney stone - ICD9: 592.0, ICD10: N20.0 No symptoms to suggest kidney stones. 3. Essential hypertension - ICD9: 401.9, ICD10: I10 - Uncontrolled -Because of mild tachycardia and also ADPKD, I asked patient to increase lisinopril to 20 mg daily and Toprol-XL to 50 mg daily. - Recommend home blood pressure monitoring, to bring results to next visit - Encouraged sodium restriction, DASH or Mediterranean diet - Recommend regular aerobic exercise 4. Chronic bilateral thoracic back pain - ICD9: 724.1, 338.29, ICD10: M54.6, G89.29 Observe. Patient is being followed by her PCP for pain management. 5. ADPKD (autosomal dominant polycystic kidney disease) - ICD9: 753.13, ICD10: Q61.2 - Kidney CT scan to check for kidney stones and also to measure CT volume for the polycystic kidney disease. - CT VOLUME MEASUREMENT 6. Anemia of renal disease - ICD9: 285.21, ICD10: N18.9, D63.1 - COMPLETE BLOOD COUNT - IRON AND TIBC 7. Hyperlipidemia, unspecified hyperlipidemia type - ICD9: 272.4, ICD10: E78.5 - LIPID PANEL BASIC 8. Vitamin D deficiency - ICD9: 268.9, ICD10: E55.9 - VITAMIN D 25 HYDROXY - PTH INTACT 9. Calculus of kidney - ICD9: 592.0, ICD10: N20.0 - CT FLANK WO IVCON 10. Long-term use of high-risk medication - ICD9: V58.69, ICD10: Z79.899 MD Korey Dumont Amir, MD 04/25/2024 2:22 PM Signed Addended by: YULIANA CUBA on: 04/25/2024 02:22 PM Modules accepted: Orders Yuliana Cuba MD 05/13/2024 10:20 AM Signed Addended by: YULIANA CUBA on: 05/13/2024 10:20 AM Modules accepted: Orders Allergies As of Date: 04/25/2024 Noted Allergy Reaction CODEINE 01/08/2007 11 - Vomiting PENICILLINS 11/02/2006 4 - Hives Date Reviewed: 04/25/2024 Reviewed by: Radha Garcia MA - Fully Assessed Reason for Visit: Chronic Kidney Disease [4078] Primary Visit Diagnosis:Stage 3a chronic kidney disease (HCC) [N18.31] Other Visit Diagnoses:Kidney stone [N20.0] Essential hypertension [I10] Chronic bilateral thoracic back pain [M54.6, G89.29] ADPKD (autosomal dominant polycystic kidney disease) [Q61.2] Anemia of renal disease [N18.9, D63.1] Hyperlipidemia, unspecified hyperlipidemia type [E78.5] Vitamin D deficiency [E55.9] Calculus of kidney [N20.0] Long-term use of high-risk medication [Z79.899] Family history of ischemic heart disease and other diseases of the circulatory system [Z82.49] Order(s):lisinopril (ZESTRIL) 20 mg tabletTake 1 tablet by mouth once daily.Disp: 90 tabletRfl: 3 metoprolol succinate ER (TOPROL XL) 50 mg 24 hr tabletTake 1 tablet by mouth once daily.Disp: 90 tabletRfl: 3 RENAL FUNCTION PANEL [SQRFP] Order #: [id number] STANDING URINALYSIS, WITH MICROSCOPIC [SQUAWMIC] Order #: [id number] STANDING ALBUMIN/CREATININE RATIO, URINE [SQUACR] Order #: [id number] STANDING COMPLETE BLOOD COUNT [SQCBC] Order #: [id number] STANDING IRON AND TIBC [SQIRON] Order #: [id number] STANDING LIPID PANEL BASIC [SQLIPB] Order #: [id number] STANDING VITAMIN D 25 HYDROXY (more content not included)... [address] 05-15-2023 36 Letter written and faxed to the number provided [facility] 05-14-2023 36 Name of caller: Jonna Contact phone number: [phone] Relationship to Patient: patient Provider: Dr. Bailey Practice: Drs. 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 None Family History Problem Relation Age of Onset Diabetes Mother Stroke Mother Heart murmur Father Hypertension Father Pancreatic cancer Brother 60 SIDS Brother 2 Polycystic kidney disease Daughter Thyroid cancer Maternal Grandmother 45 Family Status - Relation Status Age at Mother Alive Father Sister Alive Brother Brother Daughter Alive Maternal Grandmother Level of Service:09693 MS POSTOP FOLLOW UP VISIT RELATED TO ORIGINAL PX Reason for Visit and Comments: Follow-up [612286] - 4 week check Normal [facility] Progress Noteon 04-30-2023 Progress Note Chief Complaint Patient presents with Follow-up 4 week check History of the Present Illness: Jonna Casillas is a 52 y.o. who presents to the office for post-operative evaluation. She underwent ROBOTIC ASSISTED TOTAL LAPAROSCOPIC HYSTERECTOMY, BILATERAL SALPINGO OOPHORECTOMY, STAGING, BILATERAL SENTINEL LYMPHADENECTOMY on 03/09/23 and final pathology showed: Final Diagnosis A. UTERUS, HYSTERECTOMY AND BILATERAL SALPINGO-OOPHORECTOM Y: DISORDERED PROLIFERATIVE ENDOMETRIUM - ADENOMYOSIS - UNREMARKABLE CERVIX - UNREMARKABLE BILATERAL FALLOPIAN TUBES AND OVARIES - NEGATIVE FOR MALIGNANCY B. SENTINEL LYMPH NODE, LEFT PELVIC, SAMPLING: ONE LYMPH NODE, NEGATIVE FOR METASTATIC CARCINOMA C. SENTINEL LYMPH NODE, RIGHT PELVIC, SAMPLING: TWO LYMPH NODES, NEGATIVE FOR METASTATIC CARCINOMA Interval History: Since her surgery she has been doing well and is without complaints. She denies fevers, chills, nausea, vomiting, bowel or bladder dysfunction. Pain is well controlled. No drainage from incisions. No abnormal vaginal bleeding or discharge. Has been very fatigued. Has been walking everyday. Having some intermittent diarrhea. Requesting to have two more weeks off of work. Still having tenderness in right lower quadrant. Past Medical History: Diagnosis Date Anxiety Asthma Eczema Gout Headache Hyperlipidemia Irritable bowel syndrome RUPESH on CPAP Osteoarthritis hips Polycystic kidney disease Prediabetes Recurrent kidney stones Rheumatoid arthritis (HCC) no meds per pt preference Past Surgical History: Procedure Laterality Date BREAST BIOPSY Right benign SECTION (HISTORICAL) 2001 COLONOSCOPY 05/11/2020 CYST REMOVAL 1991 cyst removal from stomach HYSTERECTOMY KIDNEY STONE SURGERY 01/2022 very large LAPAROSCOPIC TOTAL HYSTERECTOMY (HISTORICAL) 03/09/2023 bilateral lymph node biopsies @MEDCMED@ Allergies Allergen Reactions Codeine Other reaction(s): Vomiting, Vomiting Penicillins Hives Review of Systems: As per the HPI, otherwise negative Vitals: 04/30/23 0802 BP: 132/84 Body mass index is 44.85 kg/m?. Physical Exam Constitutional: Appearance: Normal appearance. Pulmonary: Effort: Pulmonary effort is normal. Abdominal: General: Abdomen is flat. Palpations: Abdomen is soft. Comments: Well-healing laparoscopic incision's, without erythema, warmth, induration, or discharge. Genitourinary: Comments: .Surgically absent uterus, cervix and adnexa, the vagina is healthy healing well, no suture visible. Vaginal cuff is well-healed on speculum and bimanual examination. Vaginal cuff intact without erythema and discharge. Neurological: General: No focal deficit present. Mental Status: She is alert and oriented to person, place, and time. Psychiatric: Mood and Affect: Mood normal. Behavior: Behavior normal. Assessment/Plan: 52 y.o. s/p ROBOTIC ASSISTED TOTAL LAPAROSCOPIC HYSTERECTOMY, BILATERAL SALPINGO OOPHORECTOMY, STAGING, BILATERAL SENTINEL LYMPHADENECTOMY for Postmenopausal bleeding Pelvic and perineal pain. Doing well from a post-operative standpoint. Post-operative instructions reviewed. Patient was given a copy of the pathology report for her records. The patient had an opportunity to ask questions, all of which were answered to the best of my ability. She is in agreement with the above noted plan. 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 Answers submitted by the patient for this visit: Abdominal Pain Questionnaire (Submitted on 04/23/2023) Chief Complaint: Abdominal pain Chronicity: new Onset: more than 1 month ago Onset quality: sudden Frequency: daily Episode duration: 24 Hours Progression since onset: waxing and waning Pain location: generalized abdominal region Pain - numeric: 5/10 Pain quality: aching Radiates to: periumbilical region, left flank anorexia: No arthralgias: No belching: No constipation: No diarrhea: Yes dysuria: No fever: Yes flatus: No frequency: No headaches: Yes hematochezia: No hematuria: No melena: No myalgias: No nausea: Yes weight loss: No vomiting: No Aggravated by: certain positions Relieved by: nothing [facility] 36on 04-17-2023 36 Reports nephew landed on abd a few days ago, abd is sore, no discharge with incisions. No vomiting. Occasional nausea. Taking Tylenol and Motrin prn 4/10 pain currently. Abd is not larger, no discoloration. No vaginal discharge or bleeding. OV with Dr. Bailey 04/30/23. Pt has no further concerns, just wanted to update us with how she is feeling. Pt to call if she has any further concerns or questions. Pt verbalized understanding, no further questions. [facility] 36 Pt was last seen in [place] on April 02 with Anna. Pt mentioned that she is having a set back. Pt have some questions about her time off and questions about her April 02 appointment. Pt will like a call back [facility] Office Visiton 04-02-2023 Follow-up visit [id number] Jonna Casillas 1970 F Date Provider Department Center 04/02/2023 [id number], ROBIN*[facility] GASOLINE CATALYST OPERATOR None Family History Problem Relation Age of Onset Diabetes Mother Stroke Mother Heart murmur Father Hypertension Father Pancreatic cancer Brother 60 SIDS Brother 2 Polycystic kidney disease Daughter Thyroid cancer Maternal Grandmother 45 Family Status - Relation Status Age at Mother Alive Father Sister Alive Brother Brother Daughter Alive Maternal Grandmother Level of Service:[id number] MS POSTOP FOLLOW UP VISIT RELATED TO ORIGINAL PX Reason for Visit and Comments: Post-op Visit [559] - Post op [facility] Progress Noteon 04-02-2023 Progress Note Chief Complaint Patient presents with Post-op Visit Post op History of the Present Illness: Jonna Casillas is a 52 y.o. who presents to the office for post-operative evaluation. She underwent ROBOTIC ASSISTED TOTAL LAPAROSCOPIC HYSTERECTOMY, BILATERAL SALPINGO OOPHORECTOMY, STAGING, BILATERAL SENTINEL LYMPHADENECTOMY on 03/09/23 and final pathology showed: Final Diagnosis A. UTERUS, HYSTERECTOMY AND BILATERAL SALPINGO-OOPHORECTOM Y: DISORDERED PROLIFERATIVE ENDOMETRIUM - ADENOMYOSIS - UNREMARKABLE CERVIX - UNREMARKABLE BILATERAL FALLOPIAN TUBES AND OVARIES - NEGATIVE FOR MALIGNANCY B. SENTINEL LYMPH NODE, LEFT PELVIC, SAMPLING: ONE LYMPH NODE, NEGATIVE FOR METASTATIC CARCINOMA C. SENTINEL LYMPH NODE, RIGHT PELVIC, SAMPLING: TWO LYMPH NODES, NEGATIVE FOR METASTATIC CARCINOMA Interval History: Since her surgery she has been doing well and is without complaints. She denies fevers, chills, nausea, vomiting, bowel or bladder dysfunction. Pain is well controlled. No drainage from incisions. No abnormal vaginal bleeding or discharge. Patient states she recently carried in multiple bags of groceries and felt very tender in her abdominal area. Encouraged patient to rotate Advil and Tylenol. Past Medical History: Diagnosis Date Anxiety Asthma Eczema Gout Headache Hyperlipidemia Irritable bowel syndrome RUPESH on CPAP Osteoarthritis hips Polycystic kidney disease Prediabetes Recurrent kidney stones Rheumatoid arthritis (HCC) no meds per pt preference Past Surgical History: Procedure Laterality Date BREAST BIOPSY Right benign SECTION (HISTORICAL) 2001 COLONOSCOPY 05/11/2020 CYST REMOVAL 1991 cyst removal from stomach HYSTERECTOMY KIDNEY STONE SURGERY 01/2022 very large LAPAROSCOPIC TOTAL HYSTERECTOMY (HISTORICAL) 03/09/2023 bilateral lymph node biopsies @MEDCMED@ Allergies Allergen Reactions Codeine Other reaction(s): Vomiting, Vomiting Penicillins Hives Review of Systems: As per the HPI, otherwise negative Vitals: 04/02/23 1052 BP: 122/82 Temp: 36.3 ?C (97.3 ?F) Body mass index is 45.58 kg/m?. Physical Exam Constitutional: Appearance: Normal appearance. Pulmonary: Effort: Pulmonary effort is normal. Abdominal: General: Abdomen is flat. Palpations: Abdomen is soft. Comments: Well-healing laparoscopic incision's, without erythema, warmth, induration, or discharge. Genitourinary: Comments: deferred Neurological: General: No focal deficit present. Mental Status: She is alert and oriented to person, place, and time. Psychiatric: Mood and Affect: Mood normal. Behavior: Behavior normal. Assessment/Plan: 52 y.o. s/p ROBOTIC ASSISTED TOTAL LAPAROSCOPIC HYSTERECTOMY, BILATERAL SALPINGO OOPHORECTOMY, STAGING, BILATERAL SENTINEL LYMPHADENECTOMY for Postmenopausal bleeding Pelvic and perineal pain. Doing well from a post-operative standpoint. Post-operative instructions reviewed. Patient was given a copy of the pathology report for her records. The patient had an opportunity to ask questions, all of which were answered to the best of my ability. She is in agreement with the above noted plan. Follow up in 4 weeks to assess vaginal cuff. [facility] 36on 03-16-2023 36 Pt called in with questions to cytology atypical cells. Pt doing better everyday. Pt now has had diarrhea since doing MOM and prune juice. Pt states cleaned her out. Pain is under control. [facility] 36 Pt have a question about her hysterectomy on March 09. PT will like a call back [facility] 36on 03-11-2023 36 Pt called with benign pathology results and no further treatment indicated. Pt has not had BM in two days with stool softener and taking pain medication. Pt given the MOM and prune juice regimen. Pt to call back with no BM after taking. [facility] 36 ----- Message from Pascual Sanchez MD sent at 03/10/2023 4:34 PM EDT ----- Please call with BENIGN pathology results! No additional treatment indicated. Thanks! [facility] ABO and Rh group Confirm Nom (Bld)on 03-09-2023 ABO group Nom (Bld) O [facility] D Ag Ql (RBC) Negative [facility] Basic metabolic 1998 panelon 03-09-2023 Anion gap [Moles/Vol] 8 mmol/L 3 - 13 mmol/L [facility] Calcium [Mass/Vol] 9.0 mg/dL 8.4 - 10. 4 mg/dL [facility] Chloride [Moles/Vol] 103 mmol/L 98 - 10 7 mmol/L [facility] CO2 [Moles/Vol] 26 mmol/L 22 - 30 mmol/L [facility] Creatinine [Mass/Vol] 0.66 mg/dL 0.52 - 1.04 mg/dL [facility] GFR/1.73 sq M.predicted MDRD (S/P/Bld) [Vol rate/Area] - PINF [facility] Comment on above: Calculation based on the Chronic Kidney Disease Epidemiology Collaboration (CKD-EPI) equation refit without adjustment for race Glucose [Mass/Vol] 107 mg/dL High 70 - 100 mg/dL [facility] Interpretation and review of laboratory results Abnormal [facility] Potassium [Moles/Vol] 4.1 mmol/L 3.5 - 5.1 mmol/L [facility] Sodium [Moles/Vol] 138 mmol/L 135 - 145 mmol/L [facility] Urea nitrogen [Mass/Vol] 15 mg/dL 7 - 17 mg/dL [facility] Blood type and Crossmatch pa monica (Bld)on 03-09-2023 ABO group Nom (Bld) O [facility] Blood group antibody screen GEL Ql Negative [facility] [employer] D Ag Ql (RBC) Negative [facility] [employer]oy[employer] h [facility] ECG 12-LEADon 03-09-2023 ECG 12-LEAD IMPRESSION: Sinus rhythm Nonspecific T abnormalities, anterior leads Electronically Signed On 03-09-2023 12:32:48 EDT by Jamey Cooley Normal [facility] SHS HCG ( test) Ql (U)o n 03-09-2023 Beta HCG ( test) Ql (U) [id number] [facility] Interpretation and review of laboratory results Normal [facility] NEGATIVE QC Pass [facility] POSITIVE QC Pass [facility] Preg Test, Ur Negative Negative [facility] h [facility] Hemoglobin (Bld) [Mass/Vol]o n 03-09-2023 Hematocrit (Bld) [Volume fraction] 39.4 % 35.0 - 47.0 % [facility] Interpretation and review of laboratory results Normal [facility] - Hematology and Cell countson 03-09-2023 Hemoglobin (Bld) [Mass/Vol] 13.0 g/dL 11.7 - 16.0 g/dL [facility] No Panel InformationOrdered By: Jamey Cooley on 03-09-2023 P [place] 47 degrees [employer] Work Phone: MS Interval 156 ms [employer] Work Phone: QRS [place] 25 degrees [employer] Work Phone: QRSD Interval 96 ms [employer] Work Phone: QT Interval 374 ms [employer] Work Phone: QTC Interval 443 ms [employer] Work Phone: T Wave [place] 47 degrees [facility] [employer] Work Phone: [facility] [employer] Work Phone: No Panel Informationon 03-09 Sinus rhythm Nonspecific T abnormalities, anterior leads Electronically Signed On 03-09-2023 12:32:48 EDT by Jamey Cooley CV Jamey Sherman MD - 03/09/2023 IMPRESSION: Sinus rhythm Nonspecific T abnormalities, anterior leads Electronically Signed On 03-09-2023 12:32:48 EDT by Jamey Cooley [facility] Nursing Noteon 03-09-2023 Nursing Note Discharge instructions have been given, pt and daughter have verbalized understanding Normal [facility] Nursing Note Dr. Dominguez has been contacted about SpO2 and has given the Ok for discharge. Normal [facility] Nursing Note Pt has ambulated, voided, and tolerated both acts well. No visible clots were seen. Pts SpO2 was 87% after ambulation and 94% on 1L of O2. Normal [facility] Nursing Note Pt daughter at bedside, Pt using incentive spirometer. Normal [facility] Nursing Note Patient family/visitor updated by RN at this time. [facility] Nursing Note Daughter Kassandra has been updated via smart call messenger [facility] Op Noteon 03-09-2023 Op Note Date: 03/09/2023 Location: [facility] OR Name: Jonna Casillas, : 1970, Diagnosis Pre-op Diagnosis * Postmenopausal bleeding [N95.0] * Pelvic and perineal pain [R10.2] Post-op Diagnosis * Postmenopausal bleeding [N95.0] * Pelvic and perineal pain [R10.2] Procedures ROBOTIC ASSISTED TOTAL LAPAROSCOPIC HYSTERECTOMY, BILATERAL SALPINGO OOPHORECTOMY, STAGING, BILATERAL SENTINEL LYMPHADENECTOMY 65295 - MS LAPS TOTAL HYSTERECT 250 GM/< W/RMVL TUBE/OVARY Intraoperative injection of dye for sentinel lymph node identification Bilateral pelvic sentinel lymphadenectomy Surgeons * Pascual Sanchez - Primary Procedure Summary Anesthesia: General ASA: III Estimated Blood Loss: 50 mL Drains: [REMOVED] Urethral Catheter 16 Fr. (Removed) Specimens ID Source Type Tests Collected By Collected At [facility]? Priority Lab ID 1 Peritoneal Washings Wash NON-GYNECOLOGIC CYTOLOGY Pascual Sanchez MD 03/09/23 1027 No Routine Description: PELVIC WASHINGS 2 Uterus Tissue TISSUE EXAM Pascual Sanchez MD 03/09/23 1104 No Routine Description: UTERUS, CERVIX, AND BILATERAL TUBES AND OVARIES 3 Lymph Node, [place], All sites Tissue TISSUE EXAM Pascual Sanchez MD 03/09/23 1110 No Routine Description: LEFT PELVIC SENTINEL LYMPH NODE 4 Lymph Node, [place], All sites Tissue TISSUE EXAM Pascual Sanchez MD 03/09/23 1117 No Routine Description: RIGHT PELVIC SENTINEL LYMPH NODE Staff: Pipe Straightener: Fe Cruz RN; Karen Rosen RN Relief Scrub: Shivani Morton Scrub Person: Neel Scruggs Findings: Normal external genitalia, vagina and cervix. The uterus was normal size. Significant laparoscopic findings included a grossly normal upper abdomen including bilateral hemidiaphragms, liver capsule, stomach and omentum. Within the pelvis, the tubes and ovaries were grossly normal in appearance as was the uterine serosa. There were several enlarged lymph nodes noted in the bilateral obturator letitia basins. The sentinel lymph node on the left pelvic lymph node basin was along the external iliac vessels and slightly deeper on the right side more in the obturator letitia basin. The uterus was opened off the operative field. The endometrium was thickened and the side of the endometrium was firm. The differential diagnosis included malignancy and therefore the sentinel lymphadenectomy was performed. Complications: None apparent; patient tolerated the procedure well. Specimens Collected: Order Name Source Comment Collection Info Order Time BLOOD TYPE AND SCREEN GEL Blood, Venous HOLD. Specimen is valid for 3 days - nurse to verify valid specimen Collected By: Ibis Marin RN 03/09/2023 8:38 AM PROTHROMBIN TIME If patient on coumadin within 4 days prior. 03/09/2023 8:38 AM BASIC METABOLIC PANEL Blood, Venous Collected By: Ibis Marin RN 03/09/2023 8:38 AM HEMOGLOBIN AND HEMATOCRIT, BLOOD Blood, Venous Collected By: Ibis Marin RN 03/09/2023 8:38 AM NON-GYNECOLOGIC CYTOLOGY Peritoneal Washings Pre-op diagnosis: Postmenopausal bleeding [N95.0] Pelvic and perineal pain [R10.2] Collected By: Pascual Sanchez MD 03/09/2023 10:27 AM TISSUE EXAM Uterus Pre-op diagnosis: Postmenopausal bleeding [N95.0] Pelvic and perineal pain [R10.2] Collected By: Pascual Sanchez MD 03/09/2023 11:05 AM Wound Class: Class II: Clean-Contaminated Blood Products: None Prophylactic Antibiotics: Procedure appropriate prophylactic antibiotic(s) given within 1 hour of surgical incision (two hours if receiving Vancomycin or flouroquinolone) Description of procedure: After informed, written consent was obtained, the patient was identified in the preoperative holding area and taken to the operating room where anesthesia was found be adequate. She was then prepped and draped in the usual sterile fashion in the dorsal lithotomy position with Cullen stirrups. Care was taken to neither hyperextend or hyperflex the patient's hips or knees and her arms were tucked at the sides in a neutral position. A bivalve speculum was placed in patient's vagina and the anterior lip of the cervix was grasped with a single-tooth tenaculum. Indocyanine green was injected into the cervix at the 9 and 3 o'clock locations both 1 cm deep into the submucosal tissue. A total of 4 mL was injected. A VCare uterine manipulator was placed without difficulty and all other instruments were removed from the patient's vagina. The Cespedes catheter was placed using sterile technique. Attention was then turned to the patient's abdomen. Entry into the abdominal cavity was performed via the left upper quadrant approach with a 5 mm blunt Optiview trocar under direct visualization. Intra-abdominal placement confirmed prior to insufflating the abdomen with CO2 gas to a pressure of 15 mmHg. A survey of the patient's abdomen revealed the above-noted findings. The camera port, right lower quadrant and (more content not included)... [facility] Op Note Date: 03/09/2023 Location: [facility] OR Name: Jonna Casillas, : 1970, Diagnosis Pre-op Diagnosis * Postmenopausal bleeding [N95.0] * Pelvic and perineal pain [R10.2] Post-op Diagnosis * Postmenopausal bleeding [N95.0] * Pelvic and perineal pain [R10.2] Procedures ROBOTIC ASSISTED TOTAL LAPAROSCOPIC HYSTERECTOMY, BILATERAL SALPINGO OOPHORECTOMY, STAGING, BILATERAL SENTINEL LYMPHADENECTOMY 04747 - MS LAPS TOTAL HYSTERECT 250 GM/< W/RMVL TUBE/OVARY LYMPHADENECTOMY FOR STAGING PELVIC AND PARA-AORTIC 65898 - MS LMTD LMPHADEC STAGING SPX PEL&PARA-AORTIC Surgeons * Pascual Sanchez - Primary Procedure Summary Anesthesia: General ASA: III Estimated Blood Loss: 50 mL Drains: [REMOVED] Urethral Catheter 16 Fr. (Removed) Specimens ID Source Type Tests Collected By Collected At Frozen? Priority Lab ID 1 Peritoneal Washings Wash NON-GYNECOLOGIC CYTOLOGY Pascual Sanchez MD 03/09/23 1027 No Routine Description: PELVIC WASHINGS 2 Uterus Tissue TISSUE EXAM Pascual Sanchez MD 03/09/23 1104 No Routine Description: UTERUS, CERVIX, AND BILATERAL TUBES AND OVARIES 3 Lymph Node, [place], All sites Tissue TISSUE EXAM Pascual Sanchez MD 03/09/23 1110 No Routine Description: LEFT PELVIC SENTINEL LYMPH NODE 4 Lymph Node, [place], All sites Tissue TISSUE EXAM Pascual Sanchez MD 03/09/23 1117 No Routine Description: RIGHT PELVIC SENTINEL LYMPH NODE Staff: Pipe Straightener: Fe Cruz RN; Karen Rosen RN Relief Scrub: Shivani Morton Scrub Person: Neel Scruggs Findings: See dictated report Complications: None apparent; patient tolerated the procedure well. Specimens Collected: Order Name Source Comment Collection Info Order Time BLOOD TYPE AND SCREEN GEL Blood, Venous HOLD. Specimen is valid for 3 days - nurse to verify valid specimen Collected By: Ibis Marin RN 03/09/2023 8:38 AM PROTHROMBIN TIME If patient on coumadin within 4 days prior. 03/09/2023 8:38 AM BASIC METABOLIC PANEL Blood, Venous Collected By: Ibis Marin RN 03/09/2023 8:38 AM HEMOGLOBIN AND HEMATOCRIT, BLOOD Blood, Venous Collected By: Ibis aMrin RN 03/09/2023 8:38 AM NON-GYNECOLOGIC CYTOLOGY Peritoneal Washings Pre-op diagnosis: Postmenopausal bleeding [N95.0] Pelvic and perineal pain [R10.2] Collected By: Pascual Sanchez MD 03/09/2023 10:27 AM TISSUE EXAM Uterus Pre-op diagnosis: Postmenopausal bleeding [N95.0] Pelvic and perineal pain [R10.2] Collected By: Pascual Sanchez MD 03/09/2023 11:05 AM Wound Class: Class II: Clean-Contaminated Blood Products: None Prophylactic Antibiotics: Procedure appropriate prophylactic antibiotic(s) given within 1 hour of surgical incision (two hours if receiving Vancomycin or flouroquinolone) [facility] Vital signsOrdered By: Jamey Cooley on 03-09-2023 Heart rate 84 /min bpm [facility] [employer] Phone: 36on 03-02-2023 36 Patient does NOT want you to give any medical info to patients daughter after surgery. Patient said daughter was very upset and patient does Not want any further medical shared with her daughter. [facility] 36 Dagny please call Marlon in Pre adm testing [facility] PREPROCINSon 03-02-2023 PREPROCINS Medication List Accurate as of March 02, 2023 10:05 AM. Always use your most recent med list. acetaminophen 500 MG tablet Commonly known as: Tylenol Medication Adjustments for Surgery: Take morning of surgery Notes to patient: If needed albuterol 108 (90 Base) MCG/ACT inhaler Medication Adjustments for Surgery: Take morning of surgery Notes to patient: If needed allopurinol 300 MG tablet Commonly known as: Zyloprim Medication Adjustments for Surgery: Take night before surgery buPROPion 100 MG tablet Commonly known as: Wellbutrin Medication Adjustments for Surgery: Take morning of surgery escitalopram 20 MG tablet Commonly known as: Lexapro Medication Adjustments for Surgery: Take night before surgery fluticasone-salmeter ol 115-21 MCG/ACT inhaler Commonly known as: Advair Medication Adjustments for Surgery: Take morning of surgery Notes to patient: If needed lisinopril 10 MG tablet Medication Adjustments for Surgery: Take night before surgery metoprolol succinate XL 25 MG 24 hr tablet Commonly known as: Toprol-XL Medication Adjustments for Surgery: Take night before surgery rosuvastatin 5 MG tablet Commonly known as: Crestor Medication Adjustments for Surgery: Take night before surgery traMADol 50 MG tablet Commonly known as: Ultram Medication Adjustments for Surgery: Take morning of surgery Notes to patient: If needed Additional Instructions: NO SOLID FOOD AFTER MIDNIGHT; DRINK CLEAR LIQUIDS UNTIL 2 HOURS BEFORE SURGERY. NO ORANGE JUICE, NO DAIRY, NO BROTH, NO JELLO. DRINK [address] TO HOSPITAL. You may take your prescription pain medication. You may take Tylenol for pain. NO Motrin, ibuprofen or Advil for 24 hours prior to surgery or longer if instructed by your surgeon. NO Aleve or Naprosyn for 3 days prior to surgery or longer if instructed by your surgeon. DO NOT take aspirin or aspirin containing products for 5 days before surgery, or longer if instructed by your surgeon. Follow any instructions given to you by Dr. Bailey; call her office with any questions. Shower with an antibacterial soap such as Dial or Safeguard before coming to the hospital. No makeup, lotion, powder, deodorant or body spays. No hair products. Remove all jewelry and leave it at home. Wear loose comfortable clothing to go home in. You may brush your teeth morning of surgery. Do not wear contacts day of surgery. No marijuana (THC), smoking or alcohol for 24 hours prior to surgery. Please arrange for a responsible adult to drive you home after your surgery and that there is a responsible adult with you for 24 hours post discharge. If you have specific questions, please call your surgeon. You will receive a call the day before your surgery to verify your arrival time and date. You will be asked to arrive at least two hours prior to your scheduled surgery time. We encourage you to write down any questions you may have for the surgeon, anesthesiologist, or other members of the surgical team and bring it with you the day of surgery. Please bring photo ID and insurance information. GRAB SETTER AND PARKING IN THE MAIN DECK ARE FREE DAY OF SURGERY. PARKING IN THE DECK-- AFTER PARKING TAKE THE ELEVATOR TO LEVEL ONE AND TAKE THE BRIDGE TO THE HOSPITAL. GO TO THE RIGHT AND GO AROUND THE CORNER TO THE SAME DAY SURGERY DESK AND CHECK IN THERE. IF GOING IN THE MAIN ENTRANCE-- TURN LEFT AND GO DOWN THE HOWELL TO THE H ELEVATORS AND TAKE THEM TO ONE, LEFT OFF THE ELEVATOR AND GO AROUND TO THE SAME DAY DESK AND CHECK IN. [facility] 02-18-[address] Bailey's phone call. [facility] 36on 02-17-2023 36 Pt is returning a call for up coming surgery [address] 02-13-2023 36 Patient scheduled for hyst 03.09.2023 all info mailed to patient as well as spoke to her over the phone. [facility] 36 PAT: by phone 03.02.2023 at 9:30 am SX: 03.09.2023 at 10 am arrival at 8 am Post op 04.02.2023 at 10:20 am Folder and instructions given [place] [address]on 02-12-2023 36 You can call her. Let her know I am out of the office and will call her early next week to discuss in more detail. Thanks! [facility] 36 Is this Ok for me to call or does a nurse need to or MA? [place] [address] Message was NOT released to patient as written. Patient's further questions if applicable: Jonna states she would like a call back tomorrow, 02/13/23, any time between 7:30a - 4:00p to discuss her results. Please contact Jonna and advise. Were all questions from office addressed or relayed to the patient from encounter: No [place] [address] LM for patient to call to discuss U/S results. Markedly thickened. I would recommend robotic hysterectomy, bilateral salpingo-oophorectom y, possible staging based on intra-operative pathology. [facility] US PELVIS TRANSVAGINALon US PELVIS TRANSVAGINAL --- Gynecological Report (Signed Final 02/10/2023 01:29 pm) PATIENT INFO: ID #: [id number] : [birth year] (52 yrs)(F) Name: JONNA CASILLAS Visit Date: 02/09/2023 04:04 pm PERFORMED BY: Attending: Gurvinder Cartagena MD Performed By: Evelia Ledesma RDMS Referred By: PASCUAL SANCHEZ MD Location: [facility] [place] PHOTOGRAPHY INSTRUCTOR [facility] Visit Type: [facility] – [place] PHOTOGRAPHY INSTRUCTOR SERVICE(S) PROVIDED: Wire Spinner Transvaginal 89650 INDICATIONS: Postmenopausal bleeding N95.0 TECHNIQUE/SCAN QUALITY: Technique: Transvaginal and Transabdominal Approach Scan Quality: Technically poor study Technically limited due to body habitus / overlying bowel HISTORY: Age: 52 P: 2 Menses: Postmenopausal ;spotting since 07/2022 PREVIOUS PELVIC SURGERY: X 1 VITAL SIGNS: Weight (lb): 299 Height: 5'8 BMI: 45.46 HX COMMENTS: Non latex cover used.; spotting since 07/2022. UTERUS: Uterus: Heterogeneous Position: Anteverted Size (cm) L: 7.46 W: 5.06 H: 3.88 ENDOMETRIUM: Endometrium: Thickened and irregular Thickness(mm): 35.12 CERVIX: Nabothian cysts seen: CUL-DE-SAC: No free fluid was visualized RIGHT OVARY: Status: Not visualized Comment: The left/right ovary was not visualized transvaginally or transabdominally secondary to prominent bowel and/or patient body habitus. LEFT OVARY: Status: Not visualized Comment: The left/right ovary was not visualized transvaginally or transabdominally secondary to prominent bowel and/or patient body habitus. RECOMMENDATIONS: Images very limited. Consider endometrial sampling. Gurvinder Cartagena MD Electronically Signed Final Report 02/10/2023 01:29 pm IMPRESSION: ? Limited views / difficult to evaluate based on PBH and overlying bowel artifacts. Mottled echogenicity of the uterus with no discrete masses identified. This appearance may be seen with diffuse fibroid disease or adenomyosis. Endometrium thick irregular = 35.12 mm, minimal color doppler flow to endometrium. The presence of an endometrial polyp cannot be excluded. An SIS may be helpful if clinically indicated. Bilateral ovaries are not visualized transvaginal or transabdominal secondary to prominent bowel and/or patient body habitus. Follow up as clinically indicated. *Ultrasound cannot detect all pelvic or GASOLINE CATALYST OPERATOR abnormalities and normal findings cannot guarantee the absence of a problem.* Normal [facility] Office Visiton 02-05-2023 Follow-up visit [id number] Jonna Casillas 1970 F Date Provider Department Center 02/05/2023 [id number] SANCHEZ*[facility] GASOLINE CATALYST OPERATOR None No family history on file Level of Service:65855 MS OFFICE/OUTPATIENT NEW MODERATE MDM 45-59 MINUTES Reason for Visit and Comments: Other [Other] - Postmenopausal bleeding, patient is having abdominal pain Normal [facility] Progress Noteon 02-05-2023 Progress Note Chief Complaint Patient presents with Other Postmenopausal bleeding, patient is having abdominal pain HISTORY OF THE PRESENT ILLNESS: Jonna Casillas is a pleasant 52 y.o. female who presents in consultation at the request of Dr. Conte for evaluation and management of the above. She initially presented with complaints of postmenopausal bleeding. This has been present for approximately 8 months. Goes through several pads a day. Bright red. Pap 12/2022 - NILM, HR HPV negative CT A/P - left ureteral stone and hydronephrosis. Bilateral renal cysts were noted on CT however there was no measurements of the overall size of the kidneys. Nothing abnormal in terms of gynecologic organs. Patient unsure the size of her kidneys and liver. Had a lot of pain in back and flanks. Has pain in her her mid-pelvis and left groin. No past medical history on file. Nephrolithiasis Polycystic kidney disease Rheumatoid arthritis Hypertension Asthma Fibromyalgia Obstructive sleep apnea Prediabetes Hyperlipidemia No past surgical history on file. Cyst removal from abdominal wall (superficial) in 1990 delivery Pfannensteil Colonoscopy 2020 Lithotripsy Does well with anesthesia, no PONV. Gynecologic History: No LMP recorded. Menopause: 9 years ago HRT use: No Duration: N/A History of abnormal pap smears? Yes - follow up were normal. No h/o LEEP or CKC Last mammogram: history of abnormal mammogram. Has a metal clip in the right breat. Last colonoscopy: UTD and wnl. Obstetrical History: - daughter, 27 G2 - daughter, 21 planned surgery for uterine fibroids. No family history on file. Father-kidney disease which required renal transplant Paternal uncle with kidney disease status post renal transplant Daughter with polycystic kidney disease Pancreatic cancer - brother diagnosed at the age of 60, 7 weeks later. Thyroid cancer - maternal grandmother, at the age of 42 or 43 from the cancer. Social History Socioeconomic History Marital status: Single Spouse name: Not on file Number of children: Not on file Years of education: Not on file Highest education level: Not on file Occupational History Not on file Tobacco Use Smoking status: Never Smokeless tobacco: Never Substance and Sexual Activity Alcohol use: Never Drug use: Never Sexual activity: Not on file Other Topics Concern Not on file Social History Narrative Not on file Social Determinants of Health Financial Resource Strain: Not on file Food Insecurity: Not on file Transportation Needs: Not on file Physical Activity: Not on file Stress: Not on file Social Connections: Not on file Intimate Partner Violence: Not on file Housing Stability: Not on file 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 Current Outpatient Medications on File Prior to Visit Medication Sig Dispense Refill allopurinol (Zyloprim) 300 MG tablet Take 300 mg by mouth in the morning. lisinopril 10 MG tablet Take by mouth daily. metoprolol succinate XL (Toprol-XL) 25 MG 24 hr tablet Take 25 mg by mouth in the morning. traMADol (Ultram) 50 MG tablet Take 50 mg by mouth every 4 hours as needed. No current facility-administere d medications on file prior to visit. Lexapro 20mg daily Wellbutrin 150mg daily Allergies as of 02/05/2023 - Reviewed 02/05/2023 Allergen Reaction Noted Codeine 01/08/2007 Penicillins Hives 11/02/2006 Review of Systems A 12 point review of systems was performed and is as per the history of the present illness, all other systems were reviewed and are negative. Vitals: 02/05/23 1356 BP: (!) 134/90 Body mass index is 45.46 kg/m?. Physical Exam Vitals reviewed. Constitutional: General: She is not in acute distress. Appearance: Normal appearance. She is not ill-appearing, toxic-appearing or diaphoretic. HENT: Head: Normocephalic and atraumatic. Eyes: General: No scleral icterus. Extraocular Movements: Extraocular movements intact. Cardiovascular: Rate and Rhythm: Normal rate. Pulmonary: Effort: Pulmonary effort is normal. No respiratory distress. Abdominal: General: There is no distension. Palpations: Abdomen is soft. There is no mass. Tenderness: There is no abdominal tenderness. There is no guarding or rebound. Hernia: No hernia is present. Musculoskeletal: Right lower leg: No edema. Left lower leg: No edema. Skin: General: Skin is warm and dry. Coloration: Skin is not jaundiced or pale. Findings: No erythema. Neurological: General: No focal deficit present. Mental Status: She is alert. Motor: No weakness. Coordination: Coordination normal. Gait: Gait normal. Psychiatric: Mood and Affect: Mood normal. Behavior: Behavior normal. ASSESSMENT/PLAN: Diagnosis Plan 1. Post-menopausal bleeding US pelvis transvaginal 2. Pelvic pain Differential diagnosis discussed. Plan for pelvic u (more content not included)... Normal [facility] CRESENCIO ADARSHG W ABIMBOLA LTon 12-30-2 023 [facility] US BREAST LTD LTon 3 [facility] Comprehensive metabolic 2000 panelon 12-03-2022 Albumin [Mass/Vol] 4.2 g/dL 3.9 - 4.9 g/dL [facility] ALP [Catalytic activity/Vol] 118 U/L 34 - 123 U/L [facility] ALT [Catalytic activity/Vol] 8 U/L 7 - 38 U/L [facility] Anion gap [Moles/Vol] 11 mmol/L 9 - 18 mmol/L [facility] AST [Catalytic activity/Vol] 12 U/L Low 13 - 35 U/L [facility] Bilirubin [Mass/Vol] 0.3 mg/dL 0.2 - 1 .3 mg/dL [facility] Calcium [Mass/Vol] 9.4 mg/dL 8.5 - 10. 2 mg/dL [facility] Chloride [Moles/Vol] 103 mmol/L 97 - 10 5 mmol/L [facility] CO2 [Moles/Vol] 24 mmol/L 22 - 30 mmol/L [facility] Creatinine [Mass/Vol] 0.73 mg/dL 0.58 - 0.96 mg/dL [facility] Estimated Glomerular Filtration Rate 98 mL/min/1.73m >=60 mL/min/1.73m [facility] Glucose [Mass/Vol] 114 mg/dL High 74 - 99 mg/dL [facility] Potassium [Moles/Vol] 4.5 mmol/L 3.7 - 5.1 mmol/L [facility] Protein [Mass/Vol] 8.1 g/dL High 6.3 - 8.0 g/dL [facility] Sodium [Moles/Vol] 138 mmol/L 136 - 144 mmol/L [facility] Urea nitrogen [Mass/Vol] 13 mg/dL 7 - 21 mg/dL [facility] MAGNESIUM BLDon 12-03-2022 Magnesium [Mass/Vol] 2.0 mg/dL 1.7 - 2 .3 mg/dL [facility] PHOSPHORUS INORGANICon 12-03 Phosphate [Mass/Vol] 2.6 mg/dL Low 2.7 - 4 .8 mg/dL [facility] PTH INTACT BLDon 12-03-2022 Parathyrin.intact [Mass/Vol] 84 pg/mL High 15 - 65 pg/mL [facility] ALLIED HEALTHon 10-09-2022 ALLIED HEALTH HNO ID: [id number] Author: Estela Hudson RT(R) Service: Radiology Author Type: [employer] Broker Type: Allied Health Filed: 10/09/2022 2:08 PM Note Text: Radiology Service Progress Note PATIENT NAME: Jonna Casillas DATE OF SERVICE: October 09, 2022 TIME: 2:06 PM PATIENT IDENTITY VERIFICATION COMPLETED USING TWO (2) IDENTIFIERS: Name and Date of confirmed by patient verbally and Name and Date of confirmed by identification band. FALL SCREENING: Has the patient had 2 falls in the last year or 1 fall with injury or currently using an Ambulatory Assistive Device (Walker, Cane, Wheelchair, Crutches, etc.)? Emergency Room Patient: Screened in ED PATIENT GENDER DATA: Female. status: : No status: NO. PATIENT RELEVANT IMPLANT DATA REVIEWED: Not Applicable RADIOLOGY DEPARTMENT: CT; Exam(s) Completed: Abdomen/Pelvis PERIPHERAL IV DATA: Not applicable SIGNED BY: RT Fabiola(R)(CT) October 09, 2022 2:06 PM Normal [facility] Basic metabolic 2000 panelon 10-09-2022 Anion gap [Moles/Vol] 11 mmol/L Normal 9-18 [facility] Comment on above: Order Comment: Speci men Type: BLOOD SPECIMEN Ordering Facility: [facility] Address: [address] [place] [address] Performed By: #### 2 4321-2 #### [facility] CLIA [id number] [address] STATES OF [facility] Calcium [Mass/Vol] 9.3 mg/dL Normal 8.5-10.2 [facility] Comment on above: Order Comment: Speci men Type: BLOOD SPECIMEN Ordering Facility: [facility] Address: [address] [place] [address] Performed By: #### 2 4321-2 #### [facility] CLIA [id number] 1 [place] [address] [place] Chloride [Moles/Vol] 100 mmol/L Normal 97-105 [facility] Comment on above: Order Comment: Speci men Type: BLOOD SPECIMEN Ordering Facility: [facility] Address: [address] [address] Performed By: #### 2 4321-2 #### [facility] CLIA [id number] 1 [place] [address] [place] CO2 [Moles/Vol] 26 mmol/L Normal 22-30 [facility] Comment on above: Order Comment: Yanelis kinney Type: BLOOD SPECIMEN Ordering Facility: [facility] Address: [address] [address] Performed By: #### 2 4321-2 #### [facility] CLIA [id number] [address] Creatinine [Mass/Vol] 1.16 mg/dL High 0.58-0.96 [facility] Comment on above: Order Comment: Spectabby men Type: BLOOD SPECIMEN Ordering Facility: [facility] Address: [address] [place] [address] Performed By: #### 2 4321-2 #### [facility] CLIA [id number] [address] ESTIMATED GLOMERULAR FILTRATION RATE 56 mL/min/1.73m??? Low >=60 [facility] Comment on above: Order Comment: Yanelis men Type: BLOOD SPECIMEN Ordering Facility: [facility] Address: [address] [place] [address] Result Comment: Ana Maria mated Glomerular Filtration Rate (eGFR) is calculated using the 2020 CKD-EPI creatinine equation. This equation utilizes serum creatinine, sex, and age as parameters. The creatinine assay has traceable calibration to isotope dilution-mass spectrometry. Refer to KDIGO guidelines for clinical interpretation. In patients with unstable renal function, e.g. those with acute kidney injury, the eGFR may not accurately reflect actual GFR. Performed By: #### 2 4321-2 #### [facility] CLIA [id number] [address] Glucose [Mass/Vol] 106 mg/dL High 74-99 [facility] Comment on above: Order Comment: Yanelis kinney Type: BLOOD SPECIMEN Ordering Facility: [facility] Address: [address] [place] [address] Result Comment: The [place] Diabetes Association (ADA) provides guidance for cutoff values for fasting glucose and random glucose. The ADA defines fasting as no caloric intake for at least 8 hours. Fasting plasma glucose results between 100 to 125 mg/dL indicate increased risk for diabetes (prediabetes). Fasting plasma glucose results greater than or equal to 126 mg/dL meet the criteria for diagnosis of diabetes. In the absence of unequivocal hyperglycemia, results should be confirmed by repeat testing. In a patient with classic symptoms of hyperglycemia or hyperglycemic crisis, random plasma glucose results greater than or equal to 200 mg/dL meet the criteria for diagnosis of diabetes. Reference: Standards of Medical Care in Diabetes 2016, [place] [employer] Association. Diabetes Care. 2016.39(Suppl 1). Performed By: #### 2 4321-2 #### [facility] CLIA [id number] [address] STATES OF [facility] Potassium [Moles/Vol] 4.1 mmol/L Normal 3.7-5.1 [facility] Comment on above: Order Comment: Speci men Type: BLOOD SPECIMEN Ordering Facility: [facility] Address: [address] [place] [address] Performed By: #### 2 4321-2 #### [facility] CLIA [id number] [address] STATES [facility] Sodium [Moles/Vol] 137 mmol/L Normal 136-144 [facility] Comment on above: Order Comment: Speci nirmal Type: BLOOD SPECIMEN Ordering Facility: [facility] Address: [address] [place] [address] Performed By: #### 2 4321-2 #### [facility] CLIA [id number] [address] Urea nitrogen [Mass/Vol] 12 mg/dL Normal 7-21 [facility] Comment on above: Order Comment: Speci men Type: BLOOD SPECIMEN Ordering Facility: [facility] Address: [address] [place] [address] Performed By: #### 2 4321-2 #### [facility] CLIA [id number] [address] [place] CBC W Auto Differential pane l (Bld)on 10-09-2022 Basophils (Bld) [#/Vol] 0.04 10*3/uL Normal <0.11 [facility] Comment on above: Order Comment: Speci men Type: BLOOD SPECIMEN Ordering Facility: [facility] Address: [address] [place] [address] Performed By: #### 5 7021-8 #### [facility] CLIA [id number] [address] Basophils/100 WBC (Bld) 0.4 % Normal [facility] Comment on above: Order Comment: Speci men Type: BLOOD SPECIMEN Ordering Facility: [facility] Address: [address] [place] [address] Performed By: #### 5 7021-8 #### [facility] CLIA [id number] [address] Differential cell count method Nom (Bld) Auto Normal [facility] Comment on above: Order Comment: Speci men Type: BLOOD SPECIMEN Ordering Facility: [facility] Address: [address] [place] [address] Performed By: #### 5 7021-8 #### [facility] CLIA [id number] [address] Eosinophils (Bld) [#/Vol] 0.10 10*3/uL Normal <0.46 [facility] Comment on above: Order Comment: Speci men Type: BLOOD SPECIMEN Ordering Facility: [facility] Address: [address] [place] [address] Performed By: #### 5 7021-8 #### [facility] CLIA [id number] [address] [place] [address] Eosinophils/100 WBC (Bld) 1.0 % Normal [facility] Comment on above: Order Comment: Speci men Type: BLOOD SPECIMEN Ordering Facility: [facility] Address: [address] [place] [address] Performed By: #### 5 7021-8 #### [facility] CLIA [id number] [address] Erythrocyte distribution width (RBC) [Ratio] 15.0 % Normal 11.5-15.0 [facility] Comment on above: Order Comment: Speci men Type: BLOOD SPECIMEN Ordering Facility: [facility] Address: [address] [place] [address] Performed By: #### 5 7021-8 #### [facility] CLIA [id number] [address] OF [place] Hematocrit (Bld) [Volume fraction] 41.8 % Normal 36.0-46.0 [facility] Comment on above: Order Comment: Speci men Type: BLOOD SPECIMEN Ordering Facility: [facility] Address: [address] [place] [address] Performed By: #### 5 7021-8 #### [facility] CLIA [id number] [address] [place] Hemoglobin (Bld) [Mass/Vol] 13.4 g/dL Normal 11.5-15.5 [facility] Comment on above: Order Comment: Speci men Type: BLOOD SPECIMEN Ordering Facility: [facility] Address: [address] [place] [address] Performed By: #### 5 7021-8 #### [facility] CLIA [id number] [address] OF [facility] Immature granulocytes (Bld) [#/Vol] 0.03 10*3/uL Normal <0.10 [facility] Comment on above: Order Comment: Speci men Type: BLOOD SPECIMEN Ordering Facility: [facility] Address: [address] [place] [address] Performed By: #### 5 7021-8 #### [facility] CLIA [id number] [address] [place] Immature granulocytes/100 WBC (Bld) 0.3 % Normal [facility] Comment on above: Order Comment: Speci men Type: BLOOD SPECIMEN Ordering Facility: [facility] Address: [address] [place] [address] Performed By: #### 5 7021-8 #### [facility] CLIA [id number] [address] Lymphocytes (Bld) [#/Vol] 1.73 10*3/uL Normal 1.00-4.00 [facility] Comment on above: Order Comment: Speci men Type: BLOOD SPECIMEN Ordering Facility: [facility] Address: [address] [place] [address] Performed By: #### 5 7021-8 #### [facility] CLIA [id number] [address] Lymphocytes/100 WBC (Bld) 17.2 % Normal [facility] Comment on above: Order Comment: Speci men Type: BLOOD SPECIMEN Ordering Facility: [facility] Address: [address] [place] [address] Performed By: #### 5 7021-8 #### [facility] CLIA [id number] [address] MCH (RBC) [Entitic mass] 25.2 pg Low 26.0-34.0 [facility] Comment on above: Order Comment: Speci men Type: BLOOD SPECIMEN Ordering Facility: [facility] Address: [address] [place] [address] Performed By: #### 5 7021-8 #### [facility] CLIA [id number] [address] OF [facility] MCHC (RBC) [Mass/Vol] 32.1 g/dL Normal 30.5-36.0 [facility] Comment on above: Order Comment: Speci men Type: BLOOD SPECIMEN Ordering Facility: [facility] Address: [address] [place] [address] Performed By: #### 5 7021-8 #### [facility] CLIA [id number] [address] MCV (RBC) [Entitic vol] 78.6 fL Low 80.0-100.0 [facility] Comment on above: Order Comment: Speci men Type: BLOOD SPECIMEN Ordering Facility: [facility] Address: [address] [place] [address] Performed By: #### 5 7021-8 #### [facility] CLIA [id number] [address] [place] Monocytes (Bld) [#/Vol] 0.46 10*3/uL Normal <0.87 [facility] Comment on above: Order Comment: Speci men Type: BLOOD SPECIMEN Ordering Facility: [facility] Address: [address] [place] [address] Performed By: #### 5 7021-8 #### [facility] CLIA [id number] [address] Monocytes/100 WBC (Bld) 4.6 % Normal [facility] Comment on above: Order Comment: Speci men Type: BLOOD SPECIMEN Ordering Facility: [facility] Address: [address] [place] [address] Performed By: #### 5 7021-8 #### [facility] CLIA [id number] [address] [place] Neutrophils (Bld) [#/Vol] 7.67 10*3/uL High 1.45-7.50 [facility] Comment on above: Order Comment: Speci men Type: BLOOD SPECIMEN Ordering Facility: [facility] Address: [address] [place] [address] Performed By: #### 5 7021-8 #### [facility] CLIA [id number] [address] [place] Neutrophils/100 WBC (Bld) 76.5 % Normal [facility] Comment on above: Order Comment: Speci men Type: BLOOD SPECIMEN Ordering Facility: [facility] Address: [address] [place] [address] Performed By: #### 5 7021-8 #### [facility] CLIA [id number] [address] [place] Nucleated RBC (Bld) [#/Vol] 10*3/uL Normal <0.01 [facility] Comment on above: Order Comment: Speci men Type: BLOOD SPECIMEN Ordering Facility: [facility] Address: [address] [place] [address] Performed By: #### 5 7021-8 #### [facility] CLIA [id number] [address] Nucleated RBC/100 WBC (Bld) [Ratio] 0.0 /100 WBC Normal [facility] Comment on above: Order Comment: Speci men Type: BLOOD SPECIMEN Ordering Facility: [facility] Address: [address] [place] [address] Performed By: #### 5 7021-8 #### [facility] CLIA [id number] [address] [place] Platelet mean volume (Bld) [Entitic vol] 8.8 fL Low 9.0-12.7 [facility] Comment on above: Order Comment: Speci men Type: BLOOD SPECIMEN Ordering Facility: [facility] Address: [address] [address] Performed By: #### 5 7021-8 #### [facility] CLIA [id number] [address] [place] Platelets (Bld) [#/Vol] 281 10*3/uL Normal 150-400 [facility] Comment on above: Order Comment: Speci men Type: BLOOD SPECIMEN Ordering Facility: [facility] Address: [address] [place] [address] Performed By: #### 5 7021-8 #### [facility] CLIA [id number] [address] [place] RBC (Bld) [#/Vol] 5.32 10*6/uL High 3.90-5.20 [facility] Comment on above: Order Comment: Speci men Type: BLOOD SPECIMEN Ordering Facility: [facility] Address: [address] [place] [address] Performed By: #### 5 7021-8 #### [facility] CLIA [id number] [address] [place] [address] [place] WBC (Bld) [#/Vol] 10.03 10*3/uL Normal 3.70-11.00 [facility] Comment on above: Order Comment: Speci men Type: BLOOD SPECIMEN Ordering Facility: [facility] Address: [place] [address] Performed By: #### 5 7021-8 #### [facility] CLIA [id number] 1 [place] [address] [facility] CT FLANK WO IVCONon 10-09-[address] FLANK WO IVCON * * *Final Report* * * DATE OF EXAM: Oct 09 2022 2:08PM [facility] 0529 - CT FLANK WO IVCON / PROCEDURE REASON: Flank pain, kidney stone suspected * * * * Physician Interpretation * * * * EXAMINATION: CT ABDOMEN AND PELVIS WITHOUT IV CONTRAST (Renal stone protocol) CLINICAL HISTORY: Left flank pain radiates to the left lower quadrant Hematuria. TECHNIQUE: Non-contrast imaging of the abdomen and pelvis was performed through the urinary tract. Study performed without intravenous or oral contrast to evaluate for urinary tract calculus. MQ: [id number] Contrast: IV contrast: None Oral contrast: None CT Radiation dose: Integrated dose-length product (DLP) for this visit = 1321 mGy*cm. CT Dose Reduction Employed: Automated exposure control(AEC) and iterative recon COMPARISON: Ultrasound kidneys 04/04/[address] abdomen January 2022 RESULT: Limitations: Unenhanced imaging is limited for the evaluation of some renal and other intra-abdominal and pelvic pathology. Urinary Tract: Right kidney and ureter: No calculus. No hydronephrosis. There are a few small cysts, similar compared to prior CT. Left kidney and ureter: There is a 4 mm x 2 mm calculus at the left ureteropelvic junction. There appears to be mild hydronephrosis. Mild inflammatory change within Gerota's fascia. There are multiple cysts. The largest measures up to 7.3 cm. Bladder: No calculus. Abdomen and Pelvis: Liver: There are numerous cysts of varying size throughout the liver. No significant change. Biliary: Gallbladder is unremarkable. Spleen: No splenomegaly. Pancreas: Unremarkable. Adrenals: Normal. GI Tract: The stomach, small bowel and large intestine are unremarkable. Appendix is not visualized. Lymph Nodes: No lymphadenopathy. Mesentery/peritoneum : No ascites. Vasculature: No aortic aneurysm. Pelvis: No mass or ascites. Tubal ligation clips are present. Bones and Soft Tissues: Grade 1 anterolisthesis L4-L5. There is a possible posterior disc protrusion and suspected central canal stenosis. This is poorly assessed by CT. No acute osseous abnormality is seen. Lower thorax: Unremarkable. Supervisor Hardboard (topogram) images: IMPRESSION: 1. Mild left-sided hydronephrosis which appears to be secondary to a small 4 mm calculus at the left ureteropelvic junction. 2. Bilateral renal cysts 3. Possible central canal stenosis at L4-L5. Nonemergent follow-up with MRI could be considered. Management Specialist: [facility] Transcribe Date/Time: Oct 09 2022 2:18P Dictated by : JEFFRY BUTCHER MD This examination was interpreted and the report reviewed and electronically signed by: JEFFRY BUTCHER MD on Oct 09 2022 2:39PM EST [id number] Normal [facility] ED PROV NOTEon 10-09-2022 ED PROV NOTE HNO ID: [id number] Author: Suze Villarreal MD Service: Emergency Medicine Author Type: Physician Type: ED Provider Notes Filed: 10/26/2022 6:25 PM Note Text: ED Provider Note Patient Name: Jonna Casillas : 1970 SERVICE DATE: 10/09/22 History Patient presents with: Flank Pain: Pt reports L-flank pain that radiates to L-lower ABD that started last night and cont into today, pt reports N/V, pt denies any urinary symptoms. Pt with hx of stones and reports pain feeling similar. Pt A/OX3 at this time. This is a 52-year-old female with past medical history as below including history of ureterolithiasis, kidney stones requiring intervention most recently in January 2022 coming in with acute onset of left flank pain radiating to the left lower quadrant for 2 days now. History is provided by the patient reports onset of symptoms yesterday morning with sharp pains in her left flank radiating into her left lower quadrant. Also reporting hematuria. Has some associated nausea, chills but no fevers or vomiting. States that current symptoms felt similar to prior kidney stone symptoms and so she presents for ED evaluation. Has not had any relief with OTC medications at home. No fevers or recent surgeries. No known sick contacts. PAST MEDICAL HISTORY Diagnosis Date - Kidney stone - Morbid obesity (HCC) - RUPESH (obstructive sleep apnea) - Rheumatoid arthritis(714.0) 07/26/2007 dr. buckley PAST SURGICAL HISTORY Procedure Laterality Date - DELIVERY ONLY - LIG/TRNSXJ FLP TUBE ABDL/VAG APPR UNI/BI - PAST SURGICAL HISTORY OF cyst off stomach wall - PAST SURGICAL HISTORY OF 03/03 cyst removed fibroid tumor removed from her cervix FAMILY HISTORY Problem Relation Age of Onset - Thyroid Maternal Grandmother passed at thyroid cancer at the age of 45 yrs - Heart Father murmur - Thyroid Mother - Stroke Mother - Heart Maternal Aunt chf - Diabetes Mother - Diabetes Maternal Uncle - Diabetes Maternal Uncle - other (Hypoglycemia [Other]) Sister Social History Tobacco Use - Smoking status: Never - Smokeless tobacco: Never Substance and Sexual Activity - Alcohol use: No - Drug use: No - Sexual activity: Not Currently Partners: Male control/protection: Tubal Ligation ALLERGIES Allergen Reactions - All Cillins [Other] Hives severe hives - Codeine Vomiting - Penicillins Hives Review of Systems Constitutional: Negative for chills and fever. HENT: Negative for congestion, sinus pressure and sore throat. Eyes: Negative for photophobia and visual disturbance. Respiratory: Negative for cough and shortness of breath. Cardiovascular: Negative for chest pain and palpitations. Gastrointestinal: Positive for abdominal pain. Negative for nausea and vomiting. Genitourinary: Positive for flank pain and hematuria. Negative for dysuria and frequency. Musculoskeletal: Negative for back pain and neck pain. Skin: Negative for rash and wound. Neurological: Negative for dizziness, weakness and headaches. Physical Exam Vitals [10/09/22 1331] BP Pulse Temp Temp src Resp SpO2 Weight Height 142/68 77 36.8 ?C (98.2 ?F) Oral 15 98 % 136.1 kg (300 lb) 1.727 m (5' 8 ) Physical Exam Vitals and nursing note reviewed. Constitutional: General: She is not in acute distress. Appearance: She is well-developed. HENT: Head: Normocephalic and atraumatic. Eyes: Conjunctiva/sclera: Conjunctivae normal. Neck: Trachea: No tracheal deviation. Cardiovascular: Rate and Rhythm: Normal rate and regular rhythm. Heart sounds: Normal heart sounds. Pulmonary: Effort: Pulmonary effort is normal. No respiratory distress. Breath sounds: Normal breath sounds. Abdominal: General: Bowel sounds are normal. Palpations: Abdomen is soft. Comments: Obese, soft, nondistended. Minor left lower quadrant pain. Positive left-sided CVA tenderness. No peritoneal signs. Musculoskeletal: General: Normal range of motion. Cervical back: Normal range of motion. Skin: General: Skin is warm and dry. Neurological: Mental Status: She is alert and oriented to person, place, and time. Diagnostic Testing ED Labs Ordered and Reviewed BASIC METABOLIC PNL - Abnormal; Notable for the following components: Result Value Ref Range Glucose 106 (*) 74 - 99 mg/dL Creatinine 1.16 (*) 0.58 - 0.96 mg/dL Estimated Glomerular Filtration Rate 56 (*) >=60 mL/min/1.73m? All other components within normal limits CBC + DIFF - Abnormal; Notable for the following components: RBC 5.32 (*) 3.90 - 5.20 m/uL MCV 78.6 (*) 80.0 - 100.0 fL MCH 25.2 (*) 26.0 - 34.0 pg MPV 8.8 (*) 9.0 - 12.7 fL Abs Neut 7.67 (*) 1.45 - 7.50 k/uL All other components within normal limits Narrative: This is an appended report. These results have been appended to a previously verified report. URINALYSIS WITH MICROSCOPIC, REFLEX CULTURE - Abnormal; Notable for the following c (more content not included)... Normal [facility] ED Triage Noteon 10-09-2022 ED Triage Note HNO ID: [id number] Author: Abiel Fleming APRN.ALY Service: Emergency Medicine Author Type: Nurse Practitioner Type: ED Triage Notes Filed: 10/09/2022 1:37 PM Note Text: ED INTAKE NOTE Patient Name: Jonna Casillas Service Date: 10/09/22 BRIEF HPI: 52-year-old female with history of prior kidney stones presents emergency department for left-sided flank pain starting yesterday morning along with nausea, vomiting, chills. She feels that her symptoms are similar to when she had her previous kidney stones. BRIEF EXAM: Awake and Alert RRR CTAB Abd soft/NT/ND; no rebound/guarding INTAKE WORKUP: Bloodwork: CBC BMP Urinalysis Test Imaging: CT: Flank SIGNATURE: Abiel Fleming APRN.CNP ABIEL FLEMING [facility] [phone] Normal [facility] HCG Preg Ur Qlon 10-09-2022 HCG ( test) Ql (U) Negative Normal Negative [facility] Comment on above: Order Comment: Speci men Type: URINE SPECIMEN Ordering Facility: [facility] Address: [address] [place] [address] Result Comment: This test is intended to aid in the early detection of . Very dilute urine samples, as indicated by a low specific gravity, may not contain employee representative levels of hCG. This test detects intact hCG only. This test does not reliably detect hCG degradation products, including free-beta subunit and beta-core fragment. Therefore, this test may show reduced reactivity in urine after 8 weeks gestation. A number of conditions other than , including trophoblastic disease and certain non-trophoblastic neoplasms cause elevated levels of hCG. As with any assay employing mouse antibodies, the possibility exists for interference by human anti-mouse antibodies (HAMA) in the specimen. The test provides a presumptive diagnosis for . Performed By: #### 2 106-3 #### [facility] CLIA [id number] [address] [place] [address] STATES [facility] Specific gravity (U) [Rel density] 1.005 Normal 1.005-1.030 [facility] Comment on above: Order Comment: Speci men Type: URINE SPECIMEN Ordering Facility: [facility] Address: [address] [place] [address] Result Comment: If s pecific gravity is <1.005 then results may be falsely negative. Serum HCG is recommended. Performed By: #### 2 106-3 #### [facility] CLIA [id number] [address] [place] [address] [place] Performed By: #### 2 4356-8 #### [facility] CLIA [id number] [address] [place] [address] [place] Urinalysis complete panel (U )on 10-09-2022 Bacteria LM.HPF (Urine sed) [#/Area] Many Abnormal None Seen [facility] Comment on above: Order Comment: Speci men Type: URINE SPECIMEN Ordering Facility: [facility] Address: [address] [place] [address] Performed By: #### 2 4356-8 #### [facility] CLIA [id number] [address] Bilirubin Ql (U) Negative Normal Negative [facility] Comment on above: Order Comment: Speci men Type: URINE SPECIMEN Ordering Facility: [facility] Address: [address] [place] [address] Performed By: #### 2 4356-8 #### [facility] CLIA [id number] [address] Clarity (Unsp spec) Turbid Abnormal Clear [facility] Comment on above: Order Comment: Speci men Type: URINE SPECIMEN Ordering Facility: [facility] Address: [address] [address] Performed By: #### 2 4356-8 #### [facility] CLIA [id number] [address] Color (U) Colorless Normal yellow [facility] Comment on above: Order Comment: Speci men Type: URINE SPECIMEN Ordering Facility: [facility] Address: [address] [place] [address] Performed By: #### 2 4356-8 #### [facility] CLIA [id number] [address] Epithelial cells LM.HPF (Urine sed) [#/Area] Moderate Normal [facility] Comment on above: Order Comment: Speci men Type: URINE SPECIMEN Ordering Facility: [facility] Address: [address] [place] [address] Result Comment: Few Performed By: #### 2 4356-8 #### [facility] CLIA [id number] [address] Glucose Test strip (U) [Mass/Vol] Negative Normal Trace, Negative [facility] Comment on above: Order Comment: Speci men Type: URINE SPECIMEN Ordering Facility: [facility] Address: [address] [place] [address] Performed By: #### 2 4356-8 #### [facility] CLIA [id number] [address] Hemoglobin Ql (U) 2+ Abnormal Negative, Trace [facility] Comment on above: Order Comment: Speci men Type: URINE SPECIMEN Ordering Facility: [facility] Address: [address] [place] [address] Performed By: #### 2 4356-8 #### [facility] CLIA [id number] [address] Ketones Ql (U) Negative Normal Negative, Trace [facility] Comment on above: Order Comment: Speci men Type: URINE SPECIMEN Ordering Facility: [facility] Address: [address] [place] [address] Performed By: #### 2 4356-8 #### [facility] CLIA [id number] [address] Leukocyte esterase Test strip Ql (U) Negative Normal Negative, 25 Dereck/mL [facility] Comment on above: Order Comment: Speci men Type: URINE SPECIMEN Ordering Facility: [facility] Address: [address] [place] [address] Performed By: #### 2 4356-8 #### [facility] CLIA [id number] [address] [place] Nitrite Ql (U) Negative Normal Negative [facility] Comment on above: Order Comment: Speci men Type: URINE SPECIMEN Ordering Facility: [facility] Address: [address] [place] [address] Performed By: #### 2 4356-8 #### [facility] CLIA [id number] [address] [place] pH (U) 6.0 [pH] Normal 5.0-8.0 [facility] Comment on above: Order Comment: Speci men Type: URINE SPECIMEN Ordering Facility: [facility] Address: [address] [place] [address] Performed By: #### 2 4356-8 #### [facility] CLIA [id number] [address] Protein (U) [Mass/Vol] Negative Normal Trace , Negative [facility] Comment on above: Order Comment: Speci men Type: URINE SPECIMEN Ordering Facility: [facility] Address: [address] [place] [address] Performed By: #### 2 6-8 #### [facility] CLIA [id number] [address] RBC LM.HPF (Urine sed) [#/Area] 3-5 /HPF Abnormal 0-3 /HPF [facility] Comment on above: Order Comment: Speci men Type: URINE SPECIMEN Ordering Facility: [facility] Address: [address] [place] [address] Performed By: #### 2 4356-8 #### [facility] CLIA [id number] [address] Urobilinogen Ql (U) Normal Normal Negative [facility] Comment on above: Order Comment: Speci men Type: URINE SPECIMEN Ordering Facility: [facility] Address: [address] [place] [address] Performed By: #### 2 4356-8 #### [facility] CLIA [id number] [address] [place] [address] WBC LM.HPF (Urine sed) [#/Area] 0-5 /HPF Normal 0-5 /HPF [facility] Comment on above: Order Comment: Speci men Type: URINE SPECIMEN Ordering Facility: [facility] Address: [address] [place] [address] Performed By: #### 2 4356-8 #### [facility] CLIA [id number] [address] CR Hip w/ Pelvis Bilateral 5 + Viewson 05-12-2022 CR Hip w/ Pelvis Bilateral 5+ Views Patient Name: JONNA CASILLAS [facility]#: [id number] Diagnostic Radiology ACCESSION EXAM DATE/TIME PROCEDURE ORDERING PROVIDER [id number] 05/12/2022 16:34 EDT CR Hip w/ Pelvis DY, DO, EMMA K Bilateral 5+ View CPT code 92800 Reason For Exam (CR Hip w/ Pelvis Bilateral 5+ View) hip pain Report SINGLE VIEW OF THE PELVIS AND TWO VIEWS OF THE BILATERAL HIPS CLINICAL INDICATION: hip pain TECHNIQUE: Single view of the pelvis and two views of the bilateral hips. COMPARISON: None FINDINGS: Pelvis: SI joints and pubic symphysis appear intact. Bilateral hip joint spaces appear normal. Femoral head and femoral neck appear normal bilaterally. No acute fracture or dislocation seen. Right hip: Right hip joint space appears normal. Right femoral head and neck appear normal. No fracture or dislocation seen. Left hip: Left hip joint space appears normal. Left femoral head and neck appear normal. No fracture or dislocation seen. Mild spurring lateral acetabular rim. IMPRESSION: 1. No acute finding. Mild left hip osteoarthrosis. Report Dictated on Workstation: MAYUR Final Dictated: 05/13/2022 9:29 pm Dictating Physician: MD NUNEZ JOHN R Signed Date and Time: 05/13/2022 9:34 pm Signed by: MD NUNEZ JOHN R Transcribed Date and Time: 05/13/2022 9:29 Normal [facility] US KIDNEY/BLADDERon 04-04-20 [facility] XR ABDOMEN 1V SUPINEon 04-04 [facility] UA DIP, URINE (POC)on 2021 BILIRUBIN UA (POCT) Negative Negative [facility] CLARITY UA (POCT) Clear [facility] COLOR UA (POCT) Yellow [facility] GLUCOSE UA (POCT) Negative Negative mg/dL [facility] HEMOGLOBIN/BLOOD UA (POCT) Large Abnormal Negative [facility] KETONE UA (POCT) Negative Negative mg/dL [facility] LEUKOCYTES UA (POCT) Small Abnormal Negative [facility] NITRITE UA (POCT) Negative Negative [facility] PH UA (POCT) 5.5 4.5 - 8.0 [facility] Protein Ql (U) 30 mg/dL Abnormal Negative mg/dL [facility] SPECIFIC GRAVITY UA (POCT) >=1.030 1.005 - 1.030 [facility] UROBILINOGEN UA (POCT) 0.2 E.U./dL Lindsay l E.U./dL [facility] CNPNon 02-11-2022 CNPN Telephone (AVPANE) JONNA CASILLAS ([id number]) 1970 F Date Time Provider Department 02/11/22 FARRAH ESTRADA During your visit today, we recorded the following information about you: Farrah Estrada PA-C 02/11/2022 8:32 AM Signed Patient was scheduled for virtual PACC appt at 8:20am today. Patient did not check in for visit. Called patient at 8:30 am to see if they needed any assistance logging in and left voicemail. This message routed to [facility]ACC schedulers to contact patient to reschedule PACC appt. Farrah Estrada PA-C Allergies As of Date: 02/11/2022 Noted Allergy Reaction all cillins [Other] 01/08/2007 4 - Hives Comments: severe hives CODEINE 01/08/2007 11 - Vomiting PENICILLINS 11/02/2006 4 - Hives Date Reviewed: 02/10/2022 Reviewed by: Lu Patrick LPN - Fully Assessed Reason for Visit: Pre-Op Exam [87] Cmt: No show for apt 02/11 at 8:20 Prescriptions as of 02/11/2022 - Levonorgestrel-Ethin yl Estrad (JOLESSA) 0.15-30 mg-mcg per tablet Take 1 tablet by mouth once daily. Problem List As Of Date: 02/11/2022 (None) Encounter Status:Closed by FARRAH ESTRADA on 02/11/22 [facility] CBC panel Auto (Bld)on 02-10 Erythrocyte distribution width (RBC) [Ratio] 14.5 % Normal 11.5-15.0 [facility] Comment on above: Order Comment: Speci men Type: BLOOD SPECIMEN Ordering Facility: [facility] Address: [address] [place] [address] Performed By: #### 5 8410-2 #### [facility] CLIA [id number] [address] OF [facility] Hematocrit (Bld) [Volume fraction] 43.2 % Normal 36.0-46.0 [facility] Comment on above: Order Comment: Speci men Type: BLOOD SPECIMEN Ordering Facility: [facility] Address: [address] [place] [address] Performed By: #### 5 8410-2 #### [facility] CLIA [id number] [place] [address] [place] Hemoglobin (Bld) [Mass/Vol] 13.5 g/dL Normal 11.5-15.5 [facility] Comment on above: Order Comment: Speci men Type: BLOOD SPECIMEN Ordering Facility: [facility] Address: [address] [place] [address] Performed By: #### 5 8410-2 #### [facility] CLIA [id number] [place] [address] [place] MCH (RBC) [Entitic mass] 25.2 pg Low 26.0-34.0 [facility] Comment on above: Order Comment: Speci men Type: BLOOD SPECIMEN Ordering Facility: [facility] Address: [address] [place] [address] Performed By: #### 5 8410-2 #### [facility] CLIA [id number] [place] [address] [place] MCHC (RBC) [Mass/Vol] 31.3 g/dL Normal 30.5-36.0 [facility] Comment on above: Order Comment: Speci men Type: BLOOD SPECIMEN Ordering Facility: [facility] Address: [address] [place], [place] [address] Performed By: #### 5 8410-2 #### [facility] CLIA [id number] [place] [address] [place] MCV (RBC) [Entitic vol] 80.6 fL Normal 80.0-100.0 [facility] Comment on above: Order Comment: Speci men Type: BLOOD SPECIMEN Ordering Facility: [facility] Address: [address] [place], [place] [address] Performed By: #### 5 8410-2 #### [facility] CLIA [id number] [place] [address] [place] Nucleated RBC (Bld) [#/Vol] 10*3/uL Normal <0.01 [facility] Comment on above: Order Comment: Speci men Type: BLOOD SPECIMEN Ordering Facility: [facility] Address: [address] [place], [place] [address] Performed By: #### 5 8410-2 #### [facility] CLIA [id number] [place] [address] [place] Platelet mean volume (Bld) [Entitic vol] 8.5 fL Low 9.0-12.7 [facility] Comment on above: Order Comment: Speci men Type: BLOOD SPECIMEN Ordering Facility: [facility] Address: [address] [place], [place] [address] Performed By: #### 5 8410-2 #### [facility] CLIA [id number] [place] [address] [place] Platelets (Bld) [#/Vol] 272 10*3/uL Normal 150-400 [facility] Comment on above: Order Comment: Speci men Type: BLOOD SPECIMEN Ordering Facility: [facility] Address: [address] [place], [place] [address] Performed By: #### 5 8410-2 #### [facility] CLIA [id number] [place] [address] [place] RBC (Bld) [#/Vol] 5.36 10*6/uL High 3.90-5.20 [facility] Comment on above: Order Comment: Speci men Type: BLOOD SPECIMEN Ordering Facility: [facility] Address: [address] [place] [address] Performed By: #### 5 8410-2 #### [facility] CLIA [id number] [address] [place] WBC (Bld) [#/Vol] 8.12 10*3/uL Normal 3.70-11.00 [facility] Comment on above: Order Comment: Speci men Type: BLOOD SPECIMEN Ordering Facility: [facility] Address: [address] [place] [address] Performed By: #### 5 8410-2 #### [facility] CLIA [id number] [address] [place] Erythrocyte distribution width (RBC) [Ratio] 14.5 % 11.5 - 15.0 % [facility] Hematocrit (Bld) [Volume fraction] 43.2 % 36.0 - 46.0 % [facility] Hemoglobin (Bld) [Mass/Vol] 13.5 g/dL 11.5 - 15.5 g/dL [facility] MCH (RBC) [Entitic mass] 25.2 pg Low 26.0 - 34.0 pg [facility] MCHC (RBC) [Mass/Vol] 31.3 g/dL 30.5 - 36.0 g/dL [facility] MCV (RBC) [Entitic vol] 80.6 fL 80.0 - 100.0 fL [facility] Nucleated RBC (Bld) [#/Vol] 10*3/uL <0.01 k/uL [facility] Platelet mean volume (Bld) [Entitic vol] 8.5 fL Low 9.0 - 12.7 fL [facility] Platelets (Bld) [#/Vol] 272 10*3/uL 150 - 400 k/uL [facility] RBC (Bld) [#/Vol] 5.36 10*6/uL High 3.90 - 5.2 0 m/uL [facility] WBC (Bld) [#/Vol] 8.12 10*3/uL 3.70 - 11. 00 k/uL [facility] Comprehensive metabolic 2000 panelon 02-10-2022 Albumin [Mass/Vol] 4.3 g/dL Normal 3.9-4.9 [facility] Comment on above: Order Comment: Speci men Type: BLOOD SPECIMEN Ordering Facility: [facility] Address: [address] [place] [address] Performed By: #### 2 4323-8 #### [facility] CLIA [id number] [place] [address] [place] ALP [Catalytic activity/Vol] 108 U/L Normal 34-123 [facility] Comment on above: Order Comment: Speci men Type: BLOOD SPECIMEN Ordering Facility: [facility] Address: [address] [place] [address] Performed By: #### 2 4323-8 #### [facility] CLIA [id number] [place] [address] [place] ALT [Catalytic activity/Vol] 11 U/L Normal 7-38 [facility] Comment on above: Order Comment: Speci men Type: BLOOD SPECIMEN Ordering Facility: [facility] Address: [address] [place] [address] Performed By: #### 2 4323-8 #### [facility] CLIA [id number] [place] [address] [place] Anion gap [Moles/Vol] 10 mmol/L Normal 9-18 [facility] Comment on above: Order Comment: Speci men Type: BLOOD SPECIMEN Ordering Facility: [facility] Address: [address] [place] [address] Performed By: #### 2 4323-8 #### [facility] CLIA [id number] [place] [address] [place] AST [Catalytic activity/Vol] 13 U/L Normal 13-35 [facility] Comment on above: Order Comment: Speci men Type: BLOOD SPECIMEN Ordering Facility: [facility] Address: [address] [place] [address] Performed By: #### 2 4323-8 #### [facility] CLIA [id number] [place] [address] [place] Bilirubin [Mass/Vol] 0.2 mg/dL Normal 0.2-1.3 [facility] Comment on above: Order Comment: Speci men Type: BLOOD SPECIMEN Ordering Facility: [facility] Address: [address] [place] [address] Performed By: #### 2 4323-8 #### [facility] CLIA [id number] [place] [address] [place] Calcium [Mass/Vol] 9.3 mg/dL Normal 8.5-10.2 [facility] Comment on above: Order Comment: Speci men Type: BLOOD SPECIMEN Ordering Facility: [facility] Address: [address] [place] [address] Performed By: #### 2 4323-8 #### [facility] CLIA [id number] [place] [address] [place] Chloride [Moles/Vol] 104 mmol/L Normal 97-105 [facility] Comment on above: Order Comment: Speci men Type: BLOOD SPECIMEN Ordering Facility: [facility] Address: [address] [place] [address] Performed By: #### 2 4323-8 #### [facility] CLIA [id number] [place] [address] [place] CO2 [Moles/Vol] 26 mmol/L Normal 22-30 [facility] Comment on above: Order Comment: Speci men Type: BLOOD SPECIMEN Ordering Facility: [facility] Address: [address] [place] [address] Performed By: #### 2 4323-8 #### [facility] CLIA [id number] [place] [address] [place] Creatinine [Mass/Vol] 1.00 mg/dL High 0.58-0.96 [facility] Comment on above: Order Comment: Yanelis kinney Type: BLOOD SPECIMEN Ordering Facility: [facility] Address: [address] [place] [address] [place] [address] Performed By: #### 2 4323-8 #### [facility] CLIA [id number] [address] [place] [address] [place] ESTIMATED GLOMERULAR FILTRATION RATE 68 mL/min/1.73m??? Normal >=60 [facility] Comment on above: Order Comment: Yanelis kinney Type: BLOOD SPECIMEN Ordering Facility: [facility] Address: [address] [place] [address] Result Comment: Ana Maria mated Glomerular Filtration Rate (eGFR) is calculated using the 2020 CKD-EPI creatinine equation. This equation utilizes serum creatinine, sex, and age as parameters. The creatinine assay has traceable calibration to isotope dilution-mass spectrometry. Refer to KDIGO guidelines for clinical interpretation. In patients with unstable renal function, e.g. those with acute kidney injury, the eGFR may not accurately reflect actual GFR. Performed By: #### 2 4323-8 #### [facility] CLIA [id number] [address] [place] [address] [place] Glucose [Mass/Vol] 113 mg/dL High 74-99 [facility] Comment on above: Order Comment: Yanelis nirmla Type: BLOOD SPECIMEN Ordering Facility: [facility] Address: [address] [place] [address] Result Comment: The [place] Diabetes [employer] (ADA) provides guidance for cutoff values for fasting glucose and random glucose. The ADA defines fasting as no caloric intake for at least 8 hours. Fasting plasma glucose results between 100 to 125 mg/dL indicate increased risk for diabetes (prediabetes). Fasting plasma glucose results greater than or equal to 126 mg/dL meet the criteria for diagnosis of diabetes. In the absence of unequivocal hyperglycemia, results should be confirmed by repeat testing. In a patient with classic symptoms of hyperglycemia or hyperglycemic crisis, random plasma glucose results greater than or equal to 200 mg/dL meet the criteria for diagnosis of diabetes. Reference: Standards of Medical Care in Diabetes 2016, [place] [employer]. Diabetes Care. 2016.39(Suppl 1). Performed By: #### 2 4323-8 #### [facility] CLIA [id number] [place] [address] [place] Potassium [Moles/Vol] 4.0 mmol/L Normal 3.7-5.1 [facility] Comment on above: Order Comment: Speci men Type: BLOOD SPECIMEN Ordering Facility: [facility] Address: [address] [place] [address] Performed By: #### 2 4323-8 #### [facility] CLIA [id number] [place] [address] [place] Protein [Mass/Vol] 7.7 g/dL Normal 6.3-8.0 [facility] Comment on above: Order Comment: Speci men Type: BLOOD SPECIMEN Ordering Facility: [facility] Address: [address] [place] [address] Performed By: #### 2 4323-8 #### [facility] CLIA [id number] [place] [address] [place] Sodium [Moles/Vol] 140 mmol/L Normal 136-144 [facility] Comment on above: Order Comment: Speci men Type: BLOOD SPECIMEN Ordering Facility: [facility] Address: [address] [place] [address] Performed By: #### 2 4323-8 #### [facility] CLIA [id number] [place] [address] [place] Urea nitrogen [Mass/Vol] 13 mg/dL Normal 7-21 [facility] Comment on above: Order Comment: Speci men Type: BLOOD SPECIMEN Ordering Facility: [facility] Address: [address] [place] [address] Performed By: #### 2 4323-8 #### [facility] CLIA [id number] [place] [address] [place] Albumin [Mass/Vol] 4.3 g/dL 3.9 - 4.9 g/dL [facility] ALP [Catalytic activity/Vol] 108 U/L 34 - 123 U/L [facility] ALT [Catalytic activity/Vol] 11 U/L 7 - 38 U/L [facility] Anion gap [Moles/Vol] 10 mmol/L 9 - 18 mmol/L [facility] AST [Catalytic activity/Vol] 13 U/L 13 - 35 U/L [facility] Bilirubin [Mass/Vol] 0.2 mg/dL 0.2 - 1 .3 mg/dL [facility] Calcium [Mass/Vol] 9.3 mg/dL 8.5 - 10. 2 mg/dL [facility] Chloride [Moles/Vol] 104 mmol/L 97 - 10 5 mmol/L [facility] CO2 [Moles/Vol] 26 mmol/L 22 - 30 mmol/L [facility] Creatinine [Mass/Vol] 1.00 mg/dL High 0.58 - 0.96 mg/dL [facility] Estimated Glomerular Filtration Rate 68 mL/min/1.73m >=60 mL/min/1.73m [facility] Glucose [Mass/Vol] 113 mg/dL High 74 - 99 mg/dL [facility] Potassium [Moles/Vol] 4.0 mmol/L 3.7 - 5.1 mmol/L [facility] Protein [Mass/Vol] 7.7 g/dL 6.3 - 8.0 g/dL [facility] Sodium [Moles/Vol] 140 mmol/L 136 - 144 mmol/L [facility] Urea nitrogen [Mass/Vol] 13 mg/dL 7 - 21 mg/dL [facility] Vital Signs Date Time Vital Sign Value Performing Clinician Mikaylai denzel 08-01-2024 14:39-0400 Body height 170.2 cm Yuliana Cuba MD Work Phone: [facility] 08-01-2024 14:39-0400 Body mass index (BMI) [Ratio] 49.02 kg/m2 Yuliana Cuba MD Work Phone: [facility] 08-01-2024 14:39-0400 Body weight 141.98 kg Yuliana Cuba MD Work Phone: [facility] 08-01-2024 14:39-0400 Diastolic blood pressure 81 mm[Hg] Yuliana Cuba MD Work Phone: [facility] 08-01-2024 14:39-0400 Heart rate 86 /min Yuliana Cuba MD Work Phone: [facility] 08-01-2024 14:39-0400 Systolic blood pressure 140 mm[Hg] Yuliana Cuba MD Work Phone: [facility] 04-25-2024 13:30-0400 Body height 170.2 cm Yuliana Cuba MD Work Phone: [facility] 04-25-2024 13:30-0400 Body mass index (BMI) [Ratio] 49.18 kg/m2 Yuliana Cuba MD Work Phone: [facility] 04-25-2024 13:30-0400 Body weight 142.43 kg Yuliana Cuba MD Work Phone: [facility] 04-25-2024 13:30-0400 Diastolic blood pressure 81 mm[Hg] Yuliana Cuba MD Work Phone: [facility] 04-25-2024 13:30-0400 Heart rate 104 /min Yuliana Cuba MD Work Phone: [facility] 04-25-2024 13:30-0400 Systolic blood pressure 143 mm[Hg] Yuliana Cuba MD Work Phone: [facility] 06-26-2023 15:04-0400 Body temperature 98.6 [degF] Seble Praisler-Wood RN [employer] Work Phone: [facility] 06-26-2023 15:04-0400 Body weight 134.45 kg Seble Praisler-Wood RN [employer]IFT [employer] Work Phone: [facility] 06-26-2023 15:04-0400 Diastolic blood pressure 92 mm[Hg] Seble Praisler-Wood RN [employer]IFT [employer] Work Phone: [facility] 06-26-2023 15:04-0400 Heart rate 109 /min Seble Praisler-Wood RN [employer]IFT [employer] Work Phone: [facility] 06-26-2023 15:04-0400 Respiratory rate 18 /min Seble Fontaine RN [employer]IFT [employer] Work Phone: [facility] 06-26-2023 15:04-0400 SaO2% (BldA) [Mass fraction] 96 % Seble Fontaine RN [employer] Work Phone: [facility] 06-26-2023 15:04-0400 Systolic blood pressure 121 mm[Hg] Seble Fontaine RN [employer]IFT [employer] Work Phone: [facility] 04-30-2023 08:02-0400 Body height 172.7 cm Anna Rodriguez RN [employer] Work Phone: [facility] 04-30-2023 08:02-0400 Body mass index (BMI) [Ratio] 44.85 kg/m2 Anna Rodriguez RN [employer] Work Phone: [facility] 04-30-2023 08:02-0400 Body weight 133.81 kg Anna Rodriguez RN [employer] Work Phone: [facility] 04-30-2023 08:02-0400 Diastolic blood pressure 84 mm[Hg] Anna Rodriguez RN [employer] Work Phone: [facility] 04-30-2023 08:02-0400 Systolic blood pressure 132 mm[Hg] Anna Rodriguez RN [employer] Work Phone: [facility] 04-02-2023 10:52-0400 Body mass index (BMI) [Ratio] 45.58 kg/m2 Pascual Sanchez MD Work Phone: [facility] 04-02-2023 10:52-0400 Body temperature 97.3 [degF] Pascual Sanchez MD Work Phone: [facility] 04-02-2023 10:52-0400 Body weight 135.99 kg Pascual Sanchez MD Work Phone: [facility] 04-02-2023 10:52-0400 Diastolic blood pressure 82 mm[Hg] Psacual Sanchez MD Work Phone: [facility] 04-02-2023 10:52-0400 Systolic blood pressure 122 mm[Hg] Pascual Sanchez MD Work Phone: [facility] 03-09-2023 15:30-0400 Diastolic blood pressure 84 mm[Hg] Pascual Sanchez MD Work Phone: [facility] 03-09-2023 15:30-0400 Heart rate 78 /min Pascual Sanchez MD Work Phone: [facility] 03-09-2023 15:30-0400 Respiratory rate 10 /min Pascual Sanchez MD Work Phone: [facility] 03-09-2023 15:30-0400 SaO2% (BldA) [Mass fraction] 99 % Pascual Sanchez MD Work Phone: [facility] 03-09-2023 15:30-0400 Systolic blood pressure 141 mm[Hg] Pascual Sanchez MD Work Phone: [facility] 03-09-2023 11:55-0400 Body temperature 97.2 [degF] Pascual Sanchez MD Work Phone: [facility] 03-09-2023 08:44-0400 Body height 172.7 cm Pascual Sanchez MD Work Phone: [facility] 03-09-2023 08:44-0400 Body mass index (BMI) [Ratio] 45.16 kg/m2 Pascual Sanchez MD Work Phone: [facility] 03-09-2023 08:44-0400 Body weight 134.72 kg Pascual Sanchez MD Work Phone: [facility] 02-05-2023 13:56-0400 Body height 172.7 cm Pascual Sanchez MD Work Phone: [facility] 02-05-2023 13:56-0400 Body mass index (BMI) [Ratio] 45.46 kg/m2 Pascual Sanchez MD Work Phone: [facility] 02-05-2023 13:56-0400 Body weight 135.63 kg Pascual Sanchez MD Work Phone: [facility] 02-05-2023 13:56-0400 Diastolic blood pressure 90 mm[Hg] Pascual Sanchez MD Work Phone: [facility] 02-05-2023 13:56-0400 Systolic blood pressure 134 mm[Hg] Pascual Sanchez MD Work Phone: [facility] 12-03-2022 08:44-0500 Body height 170.2 cm Yuliana Cuba MD Work Phone: [facility] 12-03-2022 08:44-0500 Body weight 136.08 kg Yuliana Cuba MD Work Phone: [facility] 12-03-2022 08:44-0500 Diastolic blood pressure 82 mm[Hg] Yuliana Cuba MD Work Phone: [facility] 12-03-2022 08:44-0500 Heart rate 98 /min Yuliana Cuba MD Work Phone: [facility] 12-03-2022 08:44-0500 Systolic blood pressure 132 mm[Hg] Yuliana Cuba MD Work Phone: [facility] 04-22-2022 07:57-0400 Body height 170.2 cm Yuliana Cuba MD Work Phone: [facility] 04-22-2022 07:57-0400 Body weight 139.71 kg Yuliana Cuba MD Work Phone: [facility] 04-22-2022 07:57-0400 Diastolic blood pressure 84 mm[Hg] Yuliana Cuba MD Work Phone: [facility] 04-22-2022 07:57-0400 Heart rate 84 /min Yuliana Cuba MD Work Phone: [facility] 04-22-2022 07:57-0400 Systolic blood pressure 138 mm[Hg] Yuliana Cuba MD Work Phone: [facility] 02-11-2022 10:26-0400 Body height 171.5 cm [facility] 1 Work Phone: [facility] 02-11-2022 10:26-0400 Body weight 136.08 kg [facility] 1 Work Phone: [facility] Encounters Encounter Date Encounter Type Care Provider Facility Start: 08-01-2024 End: 08-01-2024 ambulatory YULIANA CUBA Facility:[facility] Start: 08-01-2024 End: 08-01-2024 Patient encounter procedure Yuliana Cuba MD Work Phone: [facility] Comment on above: Stage 3a chronic kid matty disease (HCC) (Primary Dx); ADPKD (autosomal dominant polycystic kidney disease); Polyuria; Kidney stone; Essential hypertension; Chronic bilateral thoracic back pain; Class 3 severe obesity due to excess calories without serious comorbidity with body mass index (BMI) of 45.0 to 49.9 in adult (HCC); Iron deficiency anemia, unspecified iron deficiency anemia type; Vitamin D deficiency; Hyperlipidemia, unspecified hyperlipidemia type Start: 07-29-2024 End: 07-29-2024 ambulatory [facility] DY Facility:[facility] Start: 07-29-2024 End: 07-29-2024 Subsequent hospital visit by physician Screen Mammo [facility] W[facility] Mammogram Start: 06-28-2024 End: 06-28-2024 Telephone encounter Yuliana Cuba MD Work Phone: Kidney Medicine Comment on above: Patient Question Start: 05-21-2024 ambulatory [facility] DY Facility:[facility] Start: 05-21-2024 End: 05-21-2024 Subsequent hospital visit by physician Mri Radio [facility] (I-Stat/1.5t) Radiology Comment on above: Family history of is chemic heart disease and other diseases of the circulatory system [Z82.49] Start: 05-16-2024 Telephone encounter Yuliana nobles MD Work Phone: Kidney Medicine Start: 05-09-2024 End: 05-09-2024 [facility] Start: 05-09-2024 End: 05-09-2024 Subsequent hospital visit by physician Laurel [facility] W[facility] (I-Stat) Work Phone: Cat Scan Comment on above: Stage 3a chronic kid matty disease (HCC) [N18.31] Start: 04-26-2024 End: 04-26-2024 [facility] Start: 04-25-2024 End: 04-25-2024 Patient encounter procedure Yuliana Cuba MD Work Phone: Kidney Medicine Comment on above: Stage 3a chronic kid matty disease (HCC) (Primary Dx); Kidney stone; Essential hypertension; Chronic bilateral thoracic back pain; ADPKD (autosomal dominant polycystic kidney disease); Anemia of renal disease; Hyperlipidemia, unspecified hyperlipidemia type; Vitamin D deficiency; Calculus of kidney; Long-term use of high-risk medication Start: 04-25-2024 End: 04-25-2024 ambulatory [facility]MA DY Facility:[facility] Start: 06-26-2023 End: 06-26-2023 Patient encounter procedure Seble Fontaine APRN.MA[employer]GER [employer] Work Phone: [facility] Comment on above: Other acute nonsuppu rative otitis media of left ear, recurrence not specified (Primary Dx); Acute otitis externa of left ear, unspecified type Start: 04-30-2023 End: 04-30-2023 ambulatory [facility] DY [facility] Start: 04-30-2023 End: 04-30-2023 Postop follow up visit related to original px Anna Rodriguez APRN - [employer] Work Phone: [facility] Gynecologic Oncology Comment on above: Post-operative state (Primary Dx) Start: 04-02-2023 End: 04-02-2023 ambulatory PASCUAL SANCHEZ [facility] Start: 04-02-2023 End: 04-02-2023 Postop follow up visit related to original px Pascual Sanchez MD Work Phone: [facility] Gynecologic Oncology Comment on above: Post-operative state (Primary Dx) Start: 03-09-2023 End: 03-09-2023 ambulatory PASCUAL SANCHEZ [facility] Start: 03-09-2023 End: 03-09-2023 Subsequent hospital visit by physician Pascual Sanchez MD Work Phone: [facility] MAIN OR Comment on above: Acute post-operative pain (Primary Dx); Postmenopausal bleeding; Pelvic and perineal pain Start: 03-02-2023 Telephone encounter Pascual Sanchez MD Work Phone: [facility] Gynecologic Oncology Comment on above: surgery info Start: 03-02-2023 End: 03-02-2023 ambulatory PASCUAL SANCHEZ [facility] Start: 02-17-2023 Telephone encounter Pascual Sanchez MD Work Phone: [facility] Gynecologic Oncology Start: 02-13-2023 Telephone encounter Pascual Sanchez MD Work Phone: [facility] Gynecologic Oncology Comment on above: surgery scheduling ( Scheduled at [facility]) Start: 02-12-2023 Telephone encounter Pascual Sanchez MD Work Phone: [facility] General Surgery Comment on above: Results Start: 02-09-2023 End: 02-10-2023 ambulatory PASCUAL SANCHEZ [facility] Start: 02-05-2023 End: 02-05-2023 ambulatory PASCUAL SANCHEZ [facility] Start: 02-05-2023 End: 02-05-2023 Office outpatient new 45 minutes Pascual Sanchez MD Work Phone: [facility] Gynecologic Oncology Comment on above: Post-menopausal blee ding (Primary Dx); Pelvic pain Start: 12-30-2022 End: 12-30-2022 Subsequent hospital visit by physician Diagnostic Mammo [facility] W[facility] Mammogram Start: 12-03-2022 End: 12-03-2022 Patient encounter procedure Yuliana Cuba MD Work Phone: Kidney Medicine Comment on above: Stage 3a chronic kid matty disease (HCC) (Primary Dx); Kidney stone; ADPKD (autosomal dominant polycystic kidney disease); Polyuria; Essential hypertension; Rheumatoid arthritis involving multiple sites, unspecified whether rheumatoid factor present (HCC); Vitamin D deficiency; Chronic bilateral thoracic back pain Start: 11-28-2022 Telephone encounter Mayito coffman MD Work Phone: Mammography Comment on above: Mammogram Result Julio Cesar l Back Start: 11-03-2022 Refill Monica matias RN SHIFT MGR.[employer]GER [employer] Work Phone: Kidney Medicine Comment on above: Refill Request Start: 10-09-2022 End: 10-09-2022 Emergency department patient visit EMMA CONTE Facility:[facility] Start: 09-16-2022 Telephone encounter Monica nassar RN SHIFT MGR.[employer]GER [employer] Work Phone: Kidney Medicine Comment on above: Appointment; Orders Kidney stone (Primar y Dx); Cystic kidney disease, unspecified; Vitamin D deficiency; Hyperlipidemia, unspecified hyperlipidemia type; Hyperparathyroidism due to renal insufficiency (HCC) Start: 05-12-2022 End: 05-12-2022 Subsequent hospital visit by physician Emma Conte DO Work Phone: [address] X-Ray Start: 04-22-2022 End: 04-22-2022 Patient encounter procedure Yuliana Cuba MD Work Phone: Kidney Medicine Comment on above: Kidney stone (Primar y Dx); Cystic kidney disease, unspecified; RUPESH (obstructive sleep apnea); Anxiety; Class 3 severe obesity due to excess calories without serious comorbidity with body mass index (BMI) of 45.0 to 49.9 in adult (HCC); Irritable bowel syndrome with diarrhea; Fibromyalgia; Rheumatoid arthritis involving multiple sites, unspecified whether rheumatoid factor present (HCC); Vitamin D deficiency; Hyperlipidemia, unspecified hyperlipidemia type Start: 04-04-2022 End: 04-04-2022 Subsequent hospital visit by physician Min [facility] Modesta Andrews Work Phone: Radiology Comment on above: Kidney stone [N20.0] Start: 03-06-2022 End: 03-06-2022 Patient encounter procedure Gabi Marie RN SHIFT M[employer] Work Phone: Otolaryngology Comment on above: Numbness of tongue ( Primary Dx); Left ear impacted cerumen Start: 03-05-2022 End: 03-05-2022 Patient encounter procedure Enrique Viera DO Work Phone: Urology Comment on above: Kidney stone (Primar y Dx); Tongue burning sensation Start: 02-24-2022 Telephone encounter Enrique wilkes DO Work Phone: Urology Comment on above: Patient Question Start: 02-21-2022 Telephone encounter Enrique wilkes DO Work Phone: MM Provider Adult Comment on above: Appointment Start: 02-11-2022 Telephone encounter Farrah Estrada PA-C Work Phone: Pre Anesthesia Comment on above: Pre-Op Exam (No show for apt 02/11 at 8:20) Start: 02-11-2022 End: 02-11-2022 Admission to establishment [facility] 1 Work Phone: [place] Start: 02-11-2022 End: 02-11-2022 ambulatory Pacc 1 Work Phone: Pre Anesthesia Comment on above: Pre-op evaluation (P rimary Dx); Kidney stone; Class 3 severe obesity due to excess calories without serious comorbidity with body mass index (BMI) of 45.0 to 49.9 in adult (HCC); Anxiety; Kidney stone on left side; RUPESH (obstructive sleep apnea) Start: 02-11-2022 End: 02-11-2022 Preprocedural examination done Pac 1 Work Phone: Pre Anesthesia Start: 02-10-2022 E-mail encounter cady m caregiver Enrique Viera DO Work Phone: [facility] [place] Start: 02-10-2022 End: 02-10-2022 Patient encounter procedure Enrique Viera DO Work Phone: Urology Comment on above: Kidney stone (Primar y Dx) PACC APPOINTMENT Procedures Date Procedure Procedure Detail Performing Clinician Start: 05-21-2024 Mri brain brain stem w/o contrast material Yuliana Cuba MD Work Phone: Start: 04-26-2024 Lipid 1996 panel - S varinder or Plasma Ct (I-Stat) Work Phone: Start: 03-09-2023 Ecg routine ecg w/le ast 12 lds trcg only w/o i&r Hans Thomason MD Work Phone: Start: 03-09-2023 ABO and Rh group [Ty pe] in Blood by Confirmatory method Pascual Sanchez MD Work Phone: Start: 03-09-2023 Basic metabolic pane l calcium total Hans Thomason MD Work Phone: Start: 03-09-2023 Blood typing serologic abo Pascual Sanchez MD Work Phone: Start: 03-09-2023 Urine test visual color cmprsn meths Hans Thomason MD Work Phone: Start: 12-30-2022 Us breast uni real t parvez with image limited Mary Anne Bloom MD Work Phone: Start: 12-30-2022 Digital breast tomos ynthesis unilateral Mary Anne Bloom MD Work Phone: Start: 11-27-2022 Mammography Mayito Lo MD Work Phone: Start: 04-04-2022 Radiologic exam abdo men 1 view Enrique Viera DO Work Phone: Start: 04-04-2022 Us retroperitoneal r eal time w/image complete Enrique Viera DO Work Phone: Start: 03-05-2022 Urnls dip stick/tabl et rgnt auto w/o microscopy Enrique Viera DO Work Phone: Start: 10-07-2012 Mammography Enrique wilkes DO Work Phone: Plan of Treatment Date Care Activity Detail Author Start: 04-26-2029 Lipid panel Lipid Screening [facility] Start: 03-09-2026 Diabetes Screening Diabetes Screening [facility] Start: 12-03-2025 DIABETES SCREEN DIABETES SCREEN [facility] Start: 12-03-2025 Diabetes Screening Diabetes Screening [facility] Start: 10-09-2025 DIABETES SCREEN DIABETES SCREEN [facility] Start: 07-29-2025 Screening for malignant neoplasm of breast Mammogram Screening [facility] Start: 04-26-2025 Creatinine measurement Serum Creatinine [facility] Start: 04-04-2025 DIABETES SCREEN DIABETES SCREEN [facility] Start: 02-10-2025 DIABETES SCREEN DIABETES SCREEN [facility] Start: 12-26-2024 End: 12-26-2024 Patient encounter procedure 12/26/2024 1:20 PM EST Office Visit Kidney Medicine [address] [place] [address] [place] [address] [address] follow up Kidney Medicine Comment on above: follow up Start: 09-21-2024 End: 09-21-2024 Patient encounter procedure 09/21/2024 8:00 AM EST Office Visit Kidney Medicine [address] [place] [address] [place] [address] [address] follow up Kidney Medicine Comment on above: follow up Start: 08-01-2024 End: 08-01-2024 Patient encounter procedure 08/01/2024 2:20 PM EDT Office Visit Kidney Medicine [address] [place] [address] [place] [address] [address] follow up Kidney Medicine Comment on above: follow up Start: 06-26-2024 Covid-19 Vaccine ( season) Covid-19 Vaccine () [facility] Start: 06-26-2024 Covid-19 Vaccine () Covid-19 Vaccine () [facility] Start: 06-26-2024 Influenza vaccination Influenza Vaccine (#1) [place] Neli gonsales Start: 05-21-2024 End: 05-21-2024 Patient encounter procedure 05/21/2024 2:20 PM EDT Appointment Radiology [address] [place] [address] MRI BRAIN WO IVCON Radiology Comment on above: MRI BRAIN WO IVCON Start: 05-09-2024 End: 05-09-2024 Patient encounter procedure 05/09/2024 3:40 PM EDT Appointment Cat Scan [address] [place] [address] Calculus of kidney [N20.0] Cat Scan Comment on above: Calculus of kidney [N20.0] Start: 04-26-2024 End: 04-26-2024 ambulatory 04/26/2024 7:15 AM EDT Results Only [facility] [address] [place] [address] lab [facility] Comment on above: lab Start: 04-25-2024 End: 07-25-2024 TOXICOLOGY SCREEN, ROUTINE URINE TOXICOLOGY SCREEN, ROUTINE URINE Lab Routine Kidney stone Chronic bilateral thoracic back pain ADPKD (autosomal dominant polycystic kidney disease) Expected: 04/25/2024, Expires: 07/25/2024 [facility] Comment on above: Expected: 04/25/2024, Expires: Start: 03-09-2024 Creatinine measurement Serum Creatinine [facility] Start: 12-03-2023 SERUM CREATININE SERUM CREATININE [facility] Start: 11-27-2023 Mammography [facility] Start: 11-27-2023 Screening for malignant neoplasm of breast Mammogram Screening [facility] Start: 10-26-2023 Behavioral Health Screening Behavioral Health Screening [facility] Start: 06-26-2023 Covid-19 Vaccine () Covid-19 Vaccine () [facility] Start: 06-26-2023 Covid-19 Vaccine ( season) Covid-19 Vaccine () [facility] Start: 06-26-2023 Influenza vaccination [facility] Start: 04-30-2023 End: 04-30-2023 Patient encounter procedure 04/30/2023 8:00 AM EDT Office Visit [facility] Gynecologic Oncology [address] [facility] [address] [place] [address] Anna Rodriguez, RN SHIFT MGR - [employer] [address] [place], [place] [id number] [facility] Gynecologic Oncology Start: 04-02-2023 End: 04-02-2023 Patient encounter procedure 04/02/2023 Office Visit Gynecologic Oncology Pascual Sanchez MD [address] [place], [place] [id number] [facility] Gynecologic Oncology Start: 03-09-2023 End: 03-09-2023 Admission to same day surgery center 03/09/2023 Surgery Procedural Pascual Sanchez MD [address] [place] [address] ROBOTIC ASSISTED TOTAL LAPAROSCOPIC HYSTERECTOMY, BILATERAL SALPINGO OOPHORECTOMY, POSSIBLE STAGING [70062 (CPT )] [facility] MAIN OR Comment on above: ROBOTIC ASSISTED TOTAL LAPAROSCOPIC HYST ERECTOMY, BILATERAL SALPINGO OOPHORECTOMY, POSSIBLE STAGING [57160 (CPT )] Start: 03-09-2023 End: 03-09-2023 Laps total hysterect 250 gm/< w/rmvl tube/ovary ROBOTIC (XI) LAPAROSCOPY TOTAL HYSTERECTOMY FOR UTERUS 250 G OR LESS REMOVAL OF TUBE(S) AND OR OVARY(S) Postmenopausal bleeding Pelvic and perineal pain 03/09/2023 10:00 AM EDT [facility] Operating [facility] Start: 03-09-2023 End: 03-09-2023 Lmtd lmphadec staging spx pel&para-aortic LYMPHADENECTOMY FOR STAGING PELVIC AND PARA-AORTIC Postmenopausal bleeding Pelvic and perineal pain 03/09/2023 10:00 AM EDT [facility] Operating [facility] Start: 03-09-2023 Subsequent hospital visit by physician 03/09/2023 Hospital Encounter Procedural Pascual Sanchez MD [address] [facility] [place] [address] [facility] MAIN OR Start: 03-02-2023 End: 03-02-2023 Admission to establishment 03/02/2023 Pre-Admission Testing Pre-Admission Testing [facility] Pre-Admit Testing Start: 02-09-2023 End: 02-09-2023 Patient encounter procedure 02/09/2023 Office Visit Obstetrics and Gynecology [facility] Start: 02-05-2023 End: 02-06-2024 US Pelvis transvaginal US pelvis transvaginal Imaging Routine Post-menopausal bleeding Expected: 02/05/2023, Expires: 02/06/2024 [facility] Work Phone: Comment on above: Expected: 02/05/2023, Expires: 4 Start: 12-04-2022 End: 01-02-[address] VOLUME MEASUREMENT Radiology Routine ADPKD (autosomal dominant polycystic kidney disease) Expected: 12/04/2022, Expires: 01/02/2024 [facility] Work Phone: Comment on above: Expected: 12/04/2022, Expires: 4 Start: 10-26-2022 DEPRESSION ASSESSMENT DEPRESSION ASSESSMENT [facility] Start: 09-16-2022 End: 11-16-2022 25-hydroxyvitamin D3 [Mass/volume] in Serum or Plasma VITAMIN D 25 HYDROXY Lab Routine Vitamin D deficiency Expected: 09/16/2022, Expires: 11/16/2022 [facility] Work Phone: Comment on above: Expected: 09/16/2022, Expires: 3 Start: 09-16-2022 End: 11-16-2022 Comprehensive metabolic 2000 panel - Serum or Plasma COMP METABOLIC PANEL Lab Routine Cystic kidney disease, unspecified Expected: 09/16/2022, Expires: 11/16/2022 [facility] Work Phone: Comment on above: Expected: 09/16/2022, Expires: 3 Start: 09-16-2022 End: 11-16-2022 Lipid 1996 panel - Serum or Plasma LIPID PANEL BASIC Lab Routine Hyperlipidemia, unspecified hyperlipidemia type Expected: 09/16/2022, Expires: 11/16/2022 [facility] Work Phone: Comment on above: Expected: 09/16/2022, Expires: 3 Start: 09-16-2022 End: 11-16-2022 Parathyrin.intact [Mass/volume] in Serum or Plasma PTH INTACT BLD Lab Routine Hyperparathyroidism due to renal insufficiency (HCC) Expected: 09/16/2022, Expires: 11/16/2022 [facility] Work Phone: Comment on above: Expected: 09/16/2022, Expires: 3 Start: 09-16-2022 End: 11-16-2022 Urinalysis complete panel - Urine URINALYSIS, WITH MICROSCOPIC Lab Routine Cystic kidney disease, unspecified Expected: 09/16/2022, Expires: 11/16/2022 [facility] Work Phone: Comment on above: Expected: 09/16/2022, Expires: 3 Start: 06-26-2022 Influenza vaccination [facility] Start: 05-22-2022 End: 07-22-2022 25-hydroxyvitamin D3 [Mass/volume] in Serum or Plasma VITAMIN D 25 HYDROXY Lab Routine Vitamin D deficiency Expected: 05/22/2022 (Approximate), Expires: 07/22/2022 [facility] Work Phone: Comment on above: Expected: 05/22/2022 (Approximate), Expi res: 07/22/2022 Start: 05-22-2022 End: 07-22-2022 Comprehensive metabolic 2000 panel - Serum or Plasma COMP METABOLIC PANEL Lab Routine Cystic kidney disease, unspecified Kidney stone Expected: 05/22/2022 (Approximate), Expires: 07/22/2022 [facility] Work Phone: Comment on above: Expected: 05/22/2022 (Approximate), Expi res: 07/22/2022 Start: 05-22-2022 End: 07-22-2022 CREATININE CLEARANCE, UR 24HR CREATININE CLEARANCE, UR 24HR Lab Routine Cystic kidney disease, unspecified Kidney stone Expected: 05/22/2022 (Approximate), Expires: 07/22/2022 [facility] Work Phone: Comment on above: Expected: 05/22/2022 (Approximate), Expi res: 07/22/2022 Start: 05-22-2022 End: 07-22-2022 Lipid 1996 panel - Serum or Plasma LIPID PANEL BASIC Lab Routine Hyperlipidemia, unspecified hyperlipidemia type Expected: 05/22/2022 (Approximate), Expires: 07/22/2022 [facility] Work Phone: Comment on above: Expected: 05/22/2022 (Approximate), Expi res: 07/22/2022 Start: 05-22-2022 End: 07-22-2022 Parathyrin.intact [Mass/volume] in Serum or Plasma PTH INTACT BLD Lab Routine Vitamin D deficiency Expected: 05/22/2022 (Approximate), Expires: 07/22/2022 [facility] Work Phone: Comment on above: Expected: 05/22/2022 (Approximate), Expi res: 07/22/2022 Start: 05-22-2022 End: 07-22-2022 Protein [Mass/time] in 24 hour Urine PROTEIN 24 HR URINE Lab Routine Cystic kidney disease, unspecified Kidney stone Expected: 05/22/2022 (Approximate), Expires: 07/22/2022 [facility] Work Phone: Comment on above: Expected: 05/22/2022 (Approximate), Expi res: 07/22/2022 Start: 05-22-2022 End: 07-22-2022 STONE PANEL URINE STONE PANEL URINE Lab Routine Kidney stone Expected: 05/22/2022 (Approximate), Expires: 07/22/2022 [facility] Work Phone: Comment on above: Expected: 05/22/2022 (Approximate), Expi res: 07/22/2022 Start: 05-22-2022 End: 07-22-2022 Urinalysis complete panel - Urine URINALYSIS, WITH MICROSCOPIC Lab Routine Kidney stone Expected: 05/22/2022 (Approximate), Expires: 07/22/2022 [facility] Work Phone: Comment on above: Expected: 05/22/2022 (Approximate), Expi res: 07/22/2022 Start: 04-05-2022 End: 06-05-2022 Comprehensive metabolic 2000 panel - Serum or Plasma COMP METABOLIC PANEL Lab Routine Kidney stone Expected: 04/05/2022 (Approximate), Expires: 06/05/2022 [facility] Work Phone: Comment on above: Expected: 04/05/2022 (Approximate), Expi res: 06/05/2022 Start: 04-05-2022 End: 06-05-2022 PTH INTACT BLD PTH INTACT BLD Lab Routine Kidney stone Expected: 04/05/2022 (Approximate), Expires: 06/05/2022 [facility] Work Phone: Comment on above: Expected: 04/05/2022 (Approximate), Expi res: 06/05/2022 Start: 04-05-2022 End: 03-05-2023 STONE PANEL URINE STONE PANEL URINE Lab Routine Kidney stone Expected: 04/05/2022 (Approximate), Expires: 03/05/2023 [facility] Work Phone: Comment on above: Expected: 04/05/2022 (Approximate), Expi res: 03/05/2023 Start: 04-05-2022 End: 06-05-2022 Urate [Mass/volume] in Serum or Plasma URIC ACID BLOOD Lab Routine Kidney stone Expected: 04/05/2022 (Approximate), Expires: 06/05/2022 [facility] Work Phone: Comment on above: Expected: 04/05/2022 (Approximate), Expi res: 06/05/2022 Start: 04-05-2022 End: 04-05-2023 US KIDNEY/BLADDER US KIDNEY/BLADDER Radiology Routine Kidney stone Expected: 04/05/2022 (Approximate), Expires: 04/05/2023 [facility] Work Phone: Comment on above: Expected: 04/05/2022 (Approximate), Expi res: 04/05/2023 Start: 04-05-2022 End: 04-05-2023 XR ABDOMEN 1V SUPINE XR ABDOMEN 1V SUPINE Radiology Routine Kidney stone Expected: 04/05/2022 (Approximate), Expires: 04/05/2023 [facility] Work Phone: Comment on above: Expected: 04/05/2022 (Approximate), Expi res: 04/05/2023 Start: 11-20-2021 COVID-19 Vaccine (4 - Booster for Moderna series) COVID-19 Vaccine (4 - Booster for Moderna series) [facility] Start: 10-26-2021 DEPRESSION ASSESSMENT DEPRESSION ASSESSMENT [facility] Start: 07-31-2021 COVID-19 VACCINE (3 - Booster for Moderna series) COVID-19 VACCINE (3 - Booster for Moderna series) [facility] Start: 04-25-2021 COVID-19 VACCINE (3 - Booster for Moderna series) COVID-19 VACCINE (3 - Booster for Moderna series) [facility] Start: 04-25-2021 COVID-19 VACCINE (3 - Moderna series) COVID-19 VACCINE (3 - Moderna series) [facility] Start: 2018 SHINGRIX VACCINE (1 of 2) SHINGRIX VACCINE (1 of 2) [facility] Start: 2018 Zoster Vaccines (1 of 2) Zoster Vaccines (1 of 2) [facility] Start: 10-07-2017 HPV TESTING HPV TESTING [facility] Start: 10-07-2017 PAP TESTING PAP TESTING [facility] Start: 10-07-2017 Screening for malignant neoplasm of cervix Cervical Cancer Screening [facility] Start: 10-07-2013 Mammography MAMMOGRAM [facility] Start: 08-18-2013 MMR Vaccines (1 of 1 - Standard series) MMR Vaccines (1 of 1 - Standard series) [facility] Start: 2013 COLOGUARD (FIT-DNA) COLOGUARD (FIT-DNA) [facility] Start: 2013 Colonoscopy COLONOSCOPY [facility] Start: 2013 COLORECTAL CANCER SCREENING COLORECTAL CANCER SCREENING [facility] Start: [address] COLONOGRAPHY [facility] Start: 2013 FECAL OCCULT BLOOD FECAL OCCULT BLOOD [facility] Start: 2013 Lipid 1996 panel - Serum or Plasma Lipid Screening [facility] Start: 2013 Lipid panel Lipid Screening [facility] Start: 2013 LIPID SCREEN LIPID SCREEN [facility] Start: 2013 Screening for malignant neoplasm of colon [facility] Start: 2013 SIGMOIDOSCOPY SIGMOIDOSCOPY [facility] Start: 2008 Screening for malignant neoplasm of breast Mammogram [facility] Start: 1998 Screening for malignant neoplasm of cervix [facility] Start: 1989 Screening for malignant neoplasm of cervix Pap Smear [facility] Start: 1987 DTaP/Tdap/Td vaccine (1 - Tdap) DTaP/Tdap/Td vaccine (1 - Tdap) [facility] Start: 1987 DTaP/Tdap/Td Vaccines (1 - Tdap) DTaP/Tdap/Td Vaccines (1 - Tdap) [facility] Start: 1987 Hepatitis B Vaccine (1 of 3 - 19+ 3-dose series) Hepatitis B Vaccine (1 of 3 - 19+ 3-dose series) [facility] [facility] Start: 1987 Urine microalbumin profile [facility] Start: 1986 ANNUAL PCP TEAM CHRONIC DISEASE VISIT ANNUAL PCP TEAM CHRONIC DISEASE VISIT [facility] Start: 1986 BP CONTROLLED (<130/80) BP CONTROLLED (<130/80) [facility] Start: 1986 Depression Screening Depression Screening [facility] Start: 1986 Diabetes mellitus screening Diabetes Screening [facility] Start: 1986 HEPATITIS C SCREENING HEPATITIS C SCREENING [facility] Start: 1986 Hepatitis C screening Hepatitis C Screening [facility] Start: 1986 HIV SCREENING HIV SCREENING [facility] Start: 1986 HIV screening HIV Screening [facility] Start: 1980 Adult depression screening assessment DEPRESSION SCREENING [facility] Start: 1975 DTaP/Tdap/Td Vaccines (1 - Tdap) DTaP/Tdap/Td Vaccines (1 - Tdap) [facility] Start: 1968 COVID-19 Vaccine (#1) COVID-19 Vaccine (#1) [facility] Start: 1968 HEPATITIS B (1 of 3 - 3-dose series) HEPATITIS B (1 of 3 - 3-dose series) [facility] Start: 1968 Hepatitis B Vaccine (1 of 3 - 3-dose series) Hepatitis B Vaccine (1 of 3 - 3-dose series) [facility] Start: 1968 Hepatitis B Vaccines (1 of 3 - 3-dose series) Hepatitis B Vaccines (1 of 3 - 3-dose series) [facility] Start: 1968 HIV screening HIV Screening [facility] Start: 1968 Lipid panel Lipid Panel [facility] Start: 1968 Screening for malignant neoplasm of colon [facility] End: 12-03-2023 25-hydroxyvitamin D3 [Mass/volume] in Serum or Plasma VITAMIN D 25 HYDROXY Lab Routine Vitamin D deficiency 1 Occurrences starting 12/03/2022 until 12/03/2023 [facility] Work Phone: Comment on above: 1 Occurrences starting 12/03/2022 until 12/03/2023 25-hydroxyvitamin D3 [Mass/volume] in Serum or Plasma VITAMIN D 25 HYDROXY Lab Routine Vitamin D deficiency 12/03/2022 9:58 AM EST [facility] Work Phone: End: 04-25-2025 25-hydroxyvitamin D3 [Mass/volume] in Serum or Plasma VITAMIN D 25 HYDROXY Lab Routine Vitamin D deficiency 1 Occurrences starting 04/25/2024 until 04/25/2025 [facility] Comment on above: 1 Occurrences starting 04/25/2024 until 04/25/2025 End: 08-01-2025 25-hydroxyvitamin D3 [Mass/volume] in Serum or Plasma VITAMIN D 25 HYDROXY Lab Routine Vitamin D deficiency 1 Occurrences starting 08/01/2024 until 08/01/2025 [facility] Comment on above: 1 Occurrences starting 08/01/2024 until 08/01/2025 Bacteria identified in Urine by Culture URINE CULTURE Microbiology Routine Kidney stone Ordered: 02/10/2022 [facility] Work Phone: Comment on above: Ordered: 02/10/2022 CALCIUM 24 HR URINE CALCIUM 24 H R URINE Lab Routine Kidney stone Ordered: 09/16/2022 [facility] Work Phone: Comment on above: Ordered: 09/16/2022 End: 04-25-2025 CBC panel - Blood by Automated count COMPLETE BLOOD COUNT Lab Routine Anemia of renal disease 1 Occurrences starting 04/25/2024 until 04/25/2025 [facility] Comment on above: 1 Occurrences starting 04/25/2024 until 04/25/2025 End: 08-01-2025 CBC panel - Blood by Automated count COMPLETE BLOOD COUNT Lab Routine Iron deficiency anemia, unspecified iron deficiency anemia type 1 Occurrences starting 08/01/2024 until 08/01/2025 [facility] Comment on above: 1 Occurrences starting 08/01/2024 until 08/01/2025 Citrate [Mass/time] in 24 hour Urine CITRATE 24 HR URINE Lab Routine Kidney stone Ordered: 09/16/2022 [facility] Work Phone: Comment on above: Ordered: 09/16/2022 CREATININE 24 HR UR CREATININE 2 4 HR UR Lab Routine Kidney stone Ordered: 09/16/2022 [facility] Work Phone: Comment on above: Ordered: 09/16/2022 End: 12-03-2023 CREATININE CLEARANCE, UR 24HR CREATININE CLEARANCE, UR 24HR Lab Routine Stage 3a chronic kidney disease (HCC) 1 Occurrences starting 12/03/2022 until 12/03/2023 [facility] Work Phone: Comment on above: 1 Occurrences starting 12/03/2022 until 12/03/2023 CREATININE CLEARANCE , UR 24HR CREATININE CLEARANCE, UR 24HR Lab Routine Stage 3a chronic kidney disease (HCC) 12/03/2022 9:51 AM EST [facility] Work Phone: End: 05-25-2025 CT Abdomen and Pelvis WO contrast CT FLANK WO IVCON Radiology Routine Calculus of kidney 1 Occurrences starting 04/25/2024 until 05/25/2025 [facility] Comment on above: 1 Occurrences starting 04/25/2024 until 05/25/2025 CT Abdomen and Pelvi s WO contrast CT FLANK WO IVCON Radiology Routine Calculus of kidney 05/09/2024 3:54 PM EDT [facility] Work Phone: End: 05-26-2025 CT Unspecified body region 3D post processing CT VOLUME MEASUREMENT Radiology Routine Stage 3a chronic kidney disease (HCC) ADPKD (autosomal dominant polycystic kidney disease) 1 Occurrences starting 04/25/2024 until 05/26/2025 [facility] Comment on above: 1 Occurrences starting 04/25/2024 until 05/26/2025 End: 04-25-2025 Iron and Iron binding capacity panel - Serum or Plasma IRON AND TIBC Lab Routine Anemia of renal disease 1 Occurrences starting 04/25/2024 until 04/25/2025 [facility] Comment on above: 1 Occurrences starting 04/25/2024 until 04/25/2025 End: 08-01-2025 Iron and Iron binding capacity panel - Serum or Plasma IRON AND TIBC Lab Routine Iron deficiency anemia, unspecified iron deficiency anemia type 1 Occurrences starting 08/01/2024 until 08/01/2025 [facility] Comment on above: 1 Occurrences starting 08/01/2024 until 08/01/2025 End: 04-25-2025 Lipid 1996 panel - Serum or Plasma LIPID PANEL BASIC Lab Routine Hyperlipidemia, unspecified hyperlipidemia type 1 Occurrences starting 04/25/2024 until 04/25/2025 [facility] Comment on above: 1 Occurrences starting 04/25/2024 until 04/25/2025 End: 08-01-2025 Lipid 1996 panel - Serum or Plasma LIPID PANEL BASIC Lab Routine Hyperlipidemia, unspecified hyperlipidemia type 1 Occurrences starting 08/01/2024 until 08/01/2025 [facility] Comment on above: 1 Occurrences starting 08/01/2024 until 08/01/2025 End: 04-25-2025 Microalbumin/Creatinin e [Mass Ratio] in Urine ALBUMIN/CREATININE RATIO, URINE Lab Routine Stage 3a chronic kidney disease (HCC) 1 Occurrences starting 04/25/2024 until 04/25/2025 [facility] Comment on above: 1 Occurrences starting 04/25/2024 until 04/25/2025 Non-Gynecologic Cytology [facility] Work Phone: Comment on above: Release Upon Ordering for 1 Occurrences starting 03/09/2023 Oxalate [Mass/time] in 24 hour Urine OXALATE 24 HR URINE Lab Routine Kidney stone Ordered: 09/16/2022 [facility] Work Phone: Comment on above: Ordered: 09/16/2022 End: 04-25-2025 Parathyrin.intact [Mass/volume] in Serum or Plasma PTH INTACT Lab Routine Vitamin D deficiency 1 Occurrences starting 04/25/2024 until 04/25/2025 [facility] Comment on above: 1 Occurrences starting 04/25/2024 until 04/25/2025 End: 08-01-2025 Parathyrin.intact [Mass/volume] in Serum or Plasma PTH INTACT Lab Routine Vitamin D deficiency 1 Occurrences starting 08/01/2024 until 08/01/2025 [facility] Comment on above: 1 Occurrences starting 08/01/2024 until 08/01/2025 Protein [Mass/time] in 24 hour Urine PROTEIN 24 HR URINE Lab Routine Cystic kidney disease, unspecified Ordered: 09/16/2022 [facility] Work Phone: Comment on above: Ordered: 09/16/2022 End: 12-03-2023 Protein [Mass/time] in 24 hour Urine PROTEIN 24 HR URINE Lab Routine Stage 3a chronic kidney disease (HCC) 1 Occurrences starting 12/03/2022 until 12/03/2023 [facility] Work Phone: Comment on above: 1 Occurrences starting 12/03/2022 until 12/03/2023 Protein [Mass/time] in 24 hour Urine PROTEIN 24 HR URINE Lab Routine Stage 3a chronic kidney disease (HCC) 12/03/2022 9:51 AM EST [facility] Work Phone: End: 04-25-2025 Renal function 2000 panel - Serum or Plasma RENAL FUNCTION PANEL Lab Routine Stage 3a chronic kidney disease (HCC) 1 Occurrences starting 04/25/2024 until 04/25/2025 [facility] Work Phone: Comment on above: 1 Occurrences starting 04/25/2024 until 04/25/2025 End: 08-01-2025 Renal function 2000 panel - Serum or Plasma RENAL FUNCTION PANEL Lab Routine Stage 3a chronic kidney disease (HCC) 1 Occurrences starting 08/01/2024 until 08/01/2025 [facility] Work Phone: Comment on above: 1 Occurrences starting 08/01/2024 until 08/01/2025 Sodium [Moles/time] in 24 hour Urine SODIUM 24 HR URINE Lab Routine Kidney stone Ordered: 09/16/2022 [facility] Work Phone: Comment on above: Ordered: 09/16/2022 STONE PANEL URINE STONE PANEL UR INE Lab Routine Kidney stone Ordered: 09/16/2022 [facility] Work Phone: Comment on above: Ordered: 09/16/2022 End: 12-03-2023 STONE PANEL URINE STONE PANEL URINE Lab Routine Kidney stone 1 Occurrences starting 12/03/2022 until 12/03/2023 [facility] Work Phone: Comment on above: 1 Occurrences starting 12/03/2022 until 12/03/2023 STONE PANEL URINE STONE PANEL UR INE Lab Routine Kidney stone 12/03/2022 9:51 AM CX [facility] Work Phone: Tissue exam [facility] Comment on above: Release Upon Ordering for 1 Occurrences starting 03/09/2023, 1 completed Urate [Mass/time] in 24 hour Urine URIC ACID 24 HR UR Lab Routine Kidney stone Ordered: 09/16/2022 [facility] Work Phone: Comment on above: Ordered: 09/16/2022 End: 12-03-2023 Urate [Mass/volume] in Serum or Plasma URIC ACID BLOOD Lab Routine Kidney stone 1 Occurrences starting 12/03/2022 until 12/03/2023 [facility] Work Phone: Comment on above: 1 Occurrences starting 12/03/2022 until 12/03/2023 Urate [Mass/volume] in Serum or Plasma URIC ACID BLOOD Lab Routine Kidney stone 12/03/2022 9:58 AM CX [facility] Work Phone: End: 04-25-2025 Urinalysis complete panel - Urine URINALYSIS, WITH MICROSCOPIC Lab Routine Stage 3a chronic kidney disease (HCC) 1 Occurrences starting 04/25/2024 until 04/25/2025 [facility] Comment on above: 1 Occurrences starting 04/25/2024 until 04/25/2025 End: 05-12-2022 XR HIP W PELVIS MIN 5 VWS BILATERAL [facility] Work Phone: Comment on above: Once for 1 Occurrences starting 05/12/20 22 until 05/12/2022 [facility] Immunizations Immunization Date Immunization Notes Care Provider Fa estuardo 09-01-2023 influenza virus vaccine, unspecified formulation Yuliana Cuba MD Work Phone: [facility] 07-20-2020 influenza virus vaccine, unspecified formulation Pascual Sanchez MD Work Phone: [facility] 07-21-2013 influenza virus vaccine, live, attenuated, for intranasal use Enrique Viera DO Work Phone: [facility] Payers Date Payer Category Payer Unknown [employer] PPO [id number] 2010-Present [phone] [id number] [place] [address] PPO [id number] 2010 Unknown [id number] 2010 Unknown [id number] Social History Date Type Detail Facility Start: 10-07-2012 End: 02-05-2023 Tobacco smoking status ORIS Never smoked tobacco [facility] Work Phone: Start: 02-10-2022 End: 06-26-2023 Alcohol intake Current non-drinker of alcohol (finding) [facility] Start: 1970 Sex Assigned At Female [facility] Start: 01-24-2022 End: 02-03-2022 Exposure to SARS-CoV-2 (event) Unable to assess [facility] Start: 01-31-2022 End: 04-30-2023 Exposure to SARS-CoV-2 (event) Not sure [facility] Tobacco smoking status NHIS Tobacco smoking consumption unknown [facility] Start: 1970 Sex Assigned At Not on file [facility] Work Phone: Start: 10-07-2012 End: 02-05-2023 Tobacco use and exposure Smokeless tobacco non-user [facility] Start: 02-08-2023 End: 04-30-2023 Alcohol intake Lifetime non-drinker (finding) [facility] Start: 04-02-2023 End: 04-25-2024 History of Social function [facility] Start: 04-02-2023 End: 04-25-2024 Tobacco use panel [facility] National Score (1-100), lower number is lower risk 50 [facility] Start: 02-07-2022 Gender identity Identifies as female gender (finding) [facility] Medical Equipment Procedure Code Equipment Code Equipment Origin al Text Equipment Identifier Dates Stent Inlay Opti ma 4.7fr Taper [employer] Phreecoat 22-32cm - [id number] Start: 02-21-2022 Clinical Notes 02-10-2022 to 08-01-2024 Yuliana Cuba MD - 08/01/2024 3:14 PM EDJacquelin [place], RT(R) - 07/29/2024 2:30 PM EDTTelephone Encounter - Edward Schmidt [facility] - 06/28/2024 2:29 PM Yuliana Arias MD - 04/25/2024 2:07 PM EDT Note Date & Type Note Facility 08-01-2024 Note HNO ID: [id number] Author: YULIANA CUBA MD Service: ? Author Type: Physician Type: Progress Notes Filed: 08/01/2024 15:18 Note Text: [facility] Subjective: No chest pain, no SOB, no fever or chills, no dysuria, no problems with urination, no nocturia, no nausea , no vomiting, no diarrhea, no change in physical activity, patient has very stressful work environment. She is about to start Mounjaro by her primary care physician. Physical Exam: General Appearance: alert oriented x3 NAD Head: normal cephalic Mucosa:moist Neck Veins:normal Heart:RRR and no M/R/G Chest::CTA Abdomen: Soft, nontender Extremities: Edema trace, Edema below knee, and Bilateral Radial Pulses: Normal Access: Not applicable Skin: Intact, Warm, Dry, and Good skin turgor Labs and X-rays reviewed I spent a total of 40/45 minutes on the date of the service which included [id number] patient care. ASSESSMENT/PLAN: 1. Stage 3a chronic kidney disease (HCC) - ICD9: 585.3, ICD10: N18.31 (primary diagnosis) Stable. - RENAL FUNCTION PANEL 2. ADPKD (autosomal dominant polycystic kidney disease) - ICD9: 753.13, ICD10: Q61.2 Long discussion took place today about the differences between PKD 1 and PKD 2 and the progression to kidney failure. I explained to the patient that her prognosis seems to be good considering that she has PKD 2 and also that she has no proteinuria and continued to have normal creatinine. Pt is asked for - Tight BP control - Tight BS control. - Tight Lipid control. - Diet with 70 gm's protein,2 gm salt, 2000 ADA calori and referred to dentition for that. - Avoidence of nephrotoxic agents. - Pt is on lisinopril. Keep the same dose for now. 3. Polyuria - ICD9: 788.42, ICD10: R35.89 Stable. 4. Kidney stone - ICD9: 592.0, ICD10: N20.0 No symptoms. 5. Essential hypertension - ICD9: 401.9, ICD10: I10 - Controlled. Patient had a fight with her daughter before she came and she came late so she was rushing in and that is why she explained that her blood pressure is elevated. Patient is not checking her blood pressure at home and I encouraged her to do it at least twice a week and told her the right conditions to check her blood pressure and to let me know if the majority of her blood pressure are not below 130/80. - Recommend home blood pressure monitoring, to bring results to next visit - Encouraged sodium restriction, DASH or Mediterranean diet - Recommend regular aerobic exercise 6. Chronic bilateral thoracic back pain - ICD9: 724.1, 338.29, ICD10: M54.6, G89.29 Patient has been using very little tramadol and she uses Tylenol when needed. Patient is encouraged to lose weight as that may help the most with her chronic lower back pain. 7. Class 3 severe obesity due to excess calories without serious comorbidity with body mass index (BMI) of 45.0 to 49.9 in adult (HCC) - ICD9: 278.01, V85.42, ICD10: E66.813, Z68.42, E66.01 Patient is considering going on Mounjaro as mentioned above. 8. Iron deficiency anemia, unspecified iron deficiency anemia type - ICD9: 280.9, ICD10: D50.9 Patient is asked to avoid taking iron with daily products. - COMPLETE BLOOD COUNT - IRON AND TIBC 9. Vitamin D deficiency - ICD9: 268.9, ICD10: E55.9 - VITAMIN D 25 HYDROXY - PTH INTACT 10. Hyperlipidemia, unspecified hyperlipidemia type - ICD9: 272.4, ICD10: E78.5 - LIPID PANEL BASIC Yuliana Cuba MD [facility] 08-01-2024 History of Presen t illness Narrative [facility] Subjective: No chest pain, no SOB, no fever or chills, no dysuria, no problems with urination, no nocturia, no nausea , no vomiting, no diarrhea, no change in physical activity, patient has very stressful work environment. She is about to start Mounjaro by her primary care physician. Physical Exam: General Appearance: alert oriented x3 NAD Head: normal cephalic Mucosa:moist Neck Veins:normal Heart:RRR and no M/R/G Chest::CTA Abdomen: Soft, nontender Extremities: Edema trace, Edema below knee, and Bilateral Radial Pulses: Normal Access: Not applicable Skin: Intact, Warm, Dry, and Good skin turgor Labs and X-rays reviewed I spent a total of 40/45 minutes on the date of the service which included [id number] patient care. ASSESSMENT/PLAN: 1. Stage 3a chronic kidney disease (HCC) - ICD9: 585.3, ICD10: N18.31 (primary diagnosis) Stable. - RENAL FUNCTION PANEL 2. ADPKD (autosomal dominant polycystic kidney disease) - ICD9: 753.13, ICD10: Q61.2 Long discussion took place today about the differences between PKD 1 and PKD 2 and the progression to kidney failure. I explained to the patient that her prognosis seems to be good considering that she has PKD 2 and also that she has no proteinuria and continued to have normal creatinine. Pt is asked for - Tight BP control - Tight BS control. - Tight Lipid control. - Diet with 70 gm's protein,2 gm salt, 2000 ADA calori and referred to dentition for that. - Avoidence of nephrotoxic agents. - Pt is on lisinopril. Keep the same dose for now. 3. Polyuria - ICD9: 788.42, ICD10: R35.89 Stable. 4. Kidney stone - ICD9: 592.0, ICD10: N20.0 No symptoms. 5. Essential hypertension - ICD9: 401.9, ICD10: I10 - Controlled. Patient had a fight with her daughter before she came and she came late so she was rushing in and that is why she explained that her blood pressure is elevated. Patient is not checking her blood pressure at home and I encouraged her to do it at least twice a week and told her the right conditions to check her blood pressure and to let me know if the majority of her blood pressure are not below 130/80. - Recommend home blood pressure monitoring, to bring results to next visit - Encouraged sodium restriction, DASH or Mediterranean diet - Recommend regular aerobic exercise 6. Chronic bilateral thoracic back pain - ICD9: 724.1, 338.29, ICD10: M54.6, G89.29 Patient has been using very little tramadol and she uses Tylenol when needed. Patient is encouraged to lose weight as that may help the most with her chronic lower back pain. 7. Class 3 severe obesity due to excess calories without serious comorbidity with body mass index (BMI) of 45.0 to 49.9 in adult (HCC) - ICD9: 278.01, V85.42, ICD10: E66.813, Z68.42, E66.01 Patient is considering going on Mounjaro as mentioned above. 8. Iron deficiency anemia, unspecified iron deficiency anemia type - ICD9: 280.9, ICD10: D50.9 Patient is asked to avoid taking iron with daily products. - COMPLETE BLOOD COUNT - IRON AND TIBC 9. Vitamin D deficiency - ICD9: 268.9, ICD10: E55.9 - VITAMIN D 25 HYDROXY - PTH INTACT 10. Hyperlipidemia, unspecified hyperlipidemia type - ICD9: 272.4, ICD10: E78.5 - LIPID PANEL BASIC Yuliana Cuba MD documented in this encounter [facility] 07-29-2024 History of Presen t illness Narrative Radiology Service Progress Note PATIENT NAME: Jonna Casillas DATE OF SERVICE: July 29, 2024 TIME: 3:09 PM PATIENT IDENTITY VERIFICATION COMPLETED USING TWO (2) IDENTIFIERS: Name and Date of confirmed by patient verbally. FALL SCREENING: Has the patient had 2 falls in the last year or 1 fall with injury or currently using an Ambulatory Assistive Device (Walker, Cane, Wheelchair, Crutches, etc.)? No PATIENT GENDER DATA: Female. status: : No status: NO. PATIENT RELEVANT IMPLANT DATA REVIEWED: Not Applicable PATIENT PRESENTS WITH AN IMPLANTABLE OR ATTACHED POLITICAL ADVISOR: No RADIOLOGY DEPARTMENT: Mammography PERIPHERAL IV DATA: Not applicable SIGNED BY: RT Michael(Aaron) July 29, 2024 3:09 PM documented in this encounter [facility] 07-29-2024 Note HNO ID: [id number] Author: JACQUELIN ARBOLEDA RT(R) Service: ? Author Type: Technologist Type: Progress Notes Filed: 07/29/2024 15:09 Note Text: Radiology Service Progress Note PATIENT NAME: Jonna Casillas DATE OF SERVICE: July 29, 2024 TIME: 3:09 PM PATIENT IDENTITY VERIFICATION COMPLETED USING TWO (2) IDENTIFIERS: Name and Date of confirmed by patient verbally. FALL SCREENING: Has the patient had 2 falls in the last year or 1 fall with injury or currently using an Ambulatory Assistive Device (Walker, Cane, Wheelchair, Crutches, etc.)? No PATIENT GENDER DATA: Female. status: : No status: NO. PATIENT RELEVANT IMPLANT DATA REVIEWED: Not Applicable PATIENT PRESENTS WITH AN IMPLANTABLE OR ATTACHED POLITICAL ADVISOR: No RADIOLOGY DEPARTMENT: Mammography PERIPHERAL IV DATA: Not applicable SIGNED BY: RT Michael(R) July 29, 2024 3:09 PM [facility] 06-28-2024 Telephone encount er Note Pt call requesting a call back to go over lab work. [phone] [facility] 06-28-2024 Miscellaneous Notes Formattin g of this note might be different from the original. Pt call requesting a call back to go over lab work. [phone] documented in this encounter [facility] 05-21-2024 History of Presen t illness Narrative Radiology Service Progress Note PATIENT NAME: Jonna Casillas DATE OF SERVICE: May 21, 2024 TIME: 2:16 PM PATIENT IDENTITY VERIFICATION COMPLETED USING TWO (2) IDENTIFIERS: Name and Date of confirmed by patient verbally and Name and Date of confirmed by identification band. FALL SCREENING: Has the patient had 2 falls in the last year or 1 fall with injury or currently using an Ambulatory Assistive Device (Walker, Cane, Wheelchair, Crutches, etc.)? No PATIENT GENDER DATA: Female. status: : No status: NO. PATIENT RELEVANT IMPLANT DATA REVIEWED: Yes PATIENT PRESENTS WITH AN IMPLANTABLE OR ATTACHED POLITICAL ADVISOR: No RADIOLOGY DEPARTMENT: MR; Exam(s) Completed: Head: Routine Brain PERIPHERAL IV DATA: Not applicable SIGNED BY: RT Bianca(R) May 21, 2024 2:16 PM documented in this encounter [facility] 05-21-2024 Note HNO ID: [id number] Author: MERCEDES MOON RT(R) Service: Radiology Author Type: [employer] Bro[employer] Type: Progress Notes Filed: 05/21/2024 14:16 Note Text: Radiology Service Progress Note PATIENT NAME: Jonna Casillas DATE OF SERVICE: May 21, 2024 TIME: 2:16 PM PATIENT IDENTITY VERIFICATION COMPLETED USING TWO (2) IDENTIFIERS: Name and Date of confirmed by patient verbally and Name and Date of confirmed by identification band. FALL SCREENING: Has the patient had 2 falls in the last year or 1 fall with injury or currently using an Ambulatory Assistive Device (Walker, Cane, Wheelchair, Crutches, etc.)? No PATIENT GENDER DATA: Female. status: : No status: NO. PATIENT RELEVANT IMPLANT DATA REVIEWED: Yes PATIENT PRESENTS WITH AN IMPLANTABLE OR ATTACHED POLITICAL ADVISOR: No RADIOLOGY DEPARTMENT: MR; Exam(s) Completed: Head: Routine Brain PERIPHERAL IV DATA: Not applicable SIGNED BY: RT Bianca(R) May 21, 2024 2:16 PM [facility] 05-16-2024 Telephone encount er Note I called patient again today and she informed me that she is scheduled to have the MRI of her brain on next Thursday. Patient told me that the headaches are not excruciating and she is able to tolerate them. I asked the patient if the pain is extreme and if she has any visual changes or any other neurological symptoms that she needs to come to the emergency room and get the MRI on an emergency basis. The patient does not think that her condition needs that urgency even though I explained to her that polycystic kidney disease brain aneurysm and possible rupture can potentially be disabling or life-threatening or fatal. The patient will think about this if she has any more symptoms and come to the emergency room otherwise patient will wait and get her MRI on next Thursday. I told patient that I will be out of town and that my partner Dr. Strong or our nurse practitioner covering for me will be available for her to discuss the results. Yuliana Cuba MD [facility] 05-16-2024 Miscellaneous Notes Formattin g of this note might be different from the original. I called patient again today and she informed me that she is scheduled to have the MRI of her brain on next Thursday. Patient told me that the headaches are not excruciating and she is able to tolerate them. I asked the patient if the pain is extreme and if she has any visual changes or any other neurological symptoms that she needs to come to the emergency room and get the MRI on an emergency basis. The patient does not think that her condition needs that urgency even though I explained to her that polycystic kidney disease brain aneurysm and possible rupture can potentially be disabling or life-threatening or fatal. The patient will think about this if she has any more symptoms and come to the emergency room otherwise patient will wait and get her MRI on next Thursday. I told patient that I will be out of town and that my partner Dr. Strong or our nurse practitioner covering for me will be available for her to discuss the results. Yuliana Cuba MD I did speak with Mrs. Casillas on 05/13/2024 about recurrent headaches that she is having and I told her that I will be worried about any potential brain aneurysm considering that she has polycystic kidney disease. I did place the order for MRI of her brain and I asked the patient to come to the emergency room if the headache continues to be significant. Yuliana Cuba MD documented in this encounter [facility] 05-16-2024 Telephone encount er Note I did speak with Mrs. Casillas on 05/13/2024 about recurrent headaches that she is having and I told her that I will be worried about any potential brain aneurysm considering that she has polycystic kidney disease. I did place the order for MRI of her brain and I asked the patient to come to the emergency room if the headache continues to be significant. Yuliana Cuba MD [facility] 05-09-2024 History of Presen t illness Narrative Radiology Service Progress Note PATIENT NAME: Jonna Casillas DATE OF SERVICE: May 09, 2024 TIME: 3:56 PM PATIENT IDENTITY VERIFICATION COMPLETED USING TWO (2) IDENTIFIERS: Name and Date of confirmed by patient verbally. FALL SCREENING: Has the patient had 2 falls in the last year or 1 fall with injury or currently using an Ambulatory Assistive Device (Walker, Cane, Wheelchair, Crutches, etc.)? No PATIENT GENDER DATA: Female. status: : No status: NO. PATIENT RELEVANT IMPLANT DATA REVIEWED: Yes PATIENT PRESENTS WITH AN IMPLANTABLE OR ATTACHED POLITICAL ADVISOR: No RADIOLOGY DEPARTMENT: CT; Exam(s) Completed: Abdomen/Pelvis PERIPHERAL IV DATA: Not applicable SIGNED BY: RT Dillon(R) May 09, 2024 3:56 PM documented in this encounter [facility] 05-09-2024 Note HNO ID: [id number] Author: ESHA DOWNS RT(R) Service: ? Author Type: [employer] Type: Progress Notes Filed: 05/09/2024 15:56 Note Text: Radiology Service Progress Note PATIENT NAME: Jonna Casillas DATE OF SERVICE: May 09, 2024 TIME: 3:56 PM PATIENT IDENTITY VERIFICATION COMPLETED USING TWO (2) IDENTIFIERS: Name and Date of confirmed by patient verbally. FALL SCREENING: Has the patient had 2 falls in the last year or 1 fall with injury or currently using an Ambulatory Assistive Device (Walker, Cane, Wheelchair, Crutches, etc.)? No PATIENT GENDER DATA: Female. status: : No status: NO. PATIENT RELEVANT IMPLANT DATA REVIEWED: Yes PATIENT PRESENTS WITH AN IMPLANTABLE OR ATTACHED POLITICAL ADVISOR: No RADIOLOGY DEPARTMENT: CT; Exam(s) Completed: Abdomen/Pelvis PERIPHERAL IV DATA: Not applicable SIGNED BY: RT Dillon(R) May 09, 2024 3:56 PM [facility] 04-25-2024 Note Addended by: YULIANA CUBA on: 04/25/2024 02:22 PM Modules accepted: Orders [facility] 04-25-2024 Miscellaneous Notes Addended by: YULIANA CUBA on: 04/25/2024 02:22 PM Modules accepted: Orders documented in this encounter [facility] 04-25-2024 Note HNO ID: [id number] Author: YULIANA CUBA MD Service: ? Author Type: Physician Type: Progress Notes Filed: 04/25/2024 14:12 Note Text: [facility] Subjective: No chest pain, no SOB, no fever or chills, no dysuria, no problems with urination, no nocturia, no nausea , no vomiting, no diarrhea, no change in physical activity, patient had total abdominal hysterectomy in February 2023 because of fibroid tumors and concern about cancer but there was no cancer according to her. Patient also has irritable bowel syndrome. Patient continues to complain of significant and continuous pain in her back and abdomen day and night that does not seem to be episodic and denies any gross hematuria. Physical Exam: General Appearance: alert oriented x3 NAD Head: normal cephalic Mucosa:moist Neck Veins:normal Heart:RRR and no M/R/G Chest::CTA Abdomen: Soft, very mild generalized tenderness that is nonspecific and with no rigidity or rebound. Extremities: No Edema Radial Pulses: Normal Access: Not applicable Skin: Intact, Warm, Dry, and Good skin turgor Labs and X-rays reviewed I spent a total of 40/45 minutes on the date of the service which included [id number] patient care. ASSESSMENT/PLAN: 1. Stage 3a chronic kidney disease (HCC) - ICD9: 585.3, ICD10: N18.31 (primary diagnosis) No recent laboratory data. Clinically patient seems to be stable. - RENAL FUNCTION PANEL - URINALYSIS, WITH MICROSCOPIC - ALBUMIN/CREATININE RATIO, URINE - CT VOLUME MEASUREMENT -I ordered renasight testing for genetic checks. I recommended that patient does that with her daughter as well. 2. Kidney stone - ICD9: 592.0, ICD10: N20.0 No symptoms to suggest kidney stones. 3. Essential hypertension - ICD9: 401.9, ICD10: I10 - Uncontrolled -Because of mild tachycardia and also ADPKD, I asked patient to increase lisinopril to 20 mg daily and Toprol-XL to 50 mg daily. - Recommend home blood pressure monitoring, to bring results to next visit - Encouraged sodium restriction, DASH or Mediterranean diet - Recommend regular aerobic exercise 4. Chronic bilateral thoracic back pain - ICD9: 724.1, 338.29, ICD10: M54.6, G89.29 Observe. Patient is being followed by her PCP for pain management. 5. ADPKD (autosomal dominant polycystic kidney disease) - ICD9: 753.13, ICD10: Q61.2 - Kidney CT scan to check for kidney stones and also to measure CT volume for the polycystic kidney disease. - CT VOLUME MEASUREMENT 6. Anemia of renal disease - ICD9: 285.21, ICD10: N18.9, D63.1 - COMPLETE BLOOD COUNT - IRON AND TIBC 7. Hyperlipidemia, unspecified hyperlipidemia type - ICD9: 272.4, ICD10: E78.5 - LIPID PANEL BASIC 8. Vitamin D deficiency - ICD9: 268.9, ICD10: E55.9 - VITAMIN D 25 HYDROXY - PTH INTACT 9. Calculus of kidney - ICD9: 592.0, ICD10: N20.0 - CT FLANK WO IVCON 10. Long-term use of high-risk medication - ICD9: V58.69, ICD10: Z79.899 Yuliana Cuba MD [facility] 04-25-2024 History of Presen t illness Narrative [facility] Subjective: No chest pain, no SOB, no fever or chills, no dysuria, no problems with urination, no nocturia, no nausea , no vomiting, no diarrhea, no change in physical activity, patient had total abdominal hysterectomy in February 2023 because of fibroid tumors and concern about cancer but there was no cancer according to her. Patient also has irritable bowel syndrome. Patient continues to complain of significant and continuous pain in her back and abdomen day and night that does not seem to be episodic and denies any gross hematuria. Physical Exam: General Appearance: alert oriented x3 NAD Head: normal cephalic Mucosa:moist Neck Veins:normal Heart:RRR and no M/R/G Chest::CTA Abdomen: Soft, very mild generalized tenderness that is nonspecific and with no rigidity or rebound. Extremities: No Edema Radial Pulses: Normal Access: Not applicable Skin: Intact, Warm, Dry, and Good skin turgor Labs and X-rays reviewed I spent a total of 40/45 minutes on the date of the service which included [id number] patient care. ASSESSMENT/PLAN: 1. Stage 3a chronic kidney disease (HCC) - ICD9: 585.3, ICD10: N18.31 (primary diagnosis) No recent laboratory data. Clinically patient seems to be stable. - RENAL FUNCTION PANEL - URINALYSIS, WITH MICROSCOPIC - ALBUMIN/CREATININE RATIO, URINE - CT VOLUME MEASUREMENT -I ordered renasight testing for genetic checks. I recommended that patient does that with her daughter as well. 2. Kidney stone - ICD9: 592.0, ICD10: N20.0 No symptoms to suggest kidney stones. 3. Essential hypertension - ICD9: 401.9, ICD10: I10 - Uncontrolled -Because of mild tachycardia and also ADPKD, I asked patient to increase lisinopril to 20 mg daily and Toprol-XL to 50 mg daily. - Recommend home blood pressure monitoring, to bring results to next visit - Encouraged sodium restriction, DASH or Mediterranean diet - Recommend regular aerobic exercise 4. Chronic bilateral thoracic back pain - ICD9: 724.1, 338.29, ICD10: M54.6, G89.29 Observe. Patient is being followed by her PCP for pain management. 5. ADPKD (autosomal dominant polycystic kidney disease) - ICD9: 753.13, ICD10: Q61.2 - Kidney CT scan to check for kidney stones and also to measure CT volume for the polycystic kidney disease. - CT VOLUME MEASUREMENT 6. Anemia of renal disease - ICD9: 285.21, ICD10: N18.9, D63.1 - COMPLETE BLOOD COUNT - IRON AND TIBC 7. Hyperlipidemia, unspecified hyperlipidemia type - ICD9: 272.4, ICD10: E78.5 - LIPID PANEL BASIC 8. Vitamin D deficiency - ICD9: 268.9, ICD10: E55.9 - VITAMIN D 25 HYDROXY - PTH INTACT 9. Calculus of kidney - ICD9: 592.0, ICD10: N20.0 - CT FLANK WO IVCON 10. Long-term use of high-risk medication - ICD9: V58.69, ICD10: Z79.899 Yuliana Cuba MD documented in this encounter [facility] 04-25-2024 Evaluation note Diagnosis Stage 3a chronic kidney disease (HCC)- Primary Kidney stone Calculus of kidney Essential hypertension Unspecified essential hypertension Chronic bilateral thoracic back pain ADPKD (autosomal dominant polycystic kidney disease) Polycystic kidney, autosomal dominant Anemia of renal disease Anemia in chronic kidney disease Hyperlipidemia, unspecified hyperlipidemia type Vitamin D deficiency Unspecified vitamin D deficiency Calculus of kidney Long-term use of high-risk medication documented in this encounter [facility]09-01-2023 History of Present illness Narrative* Seble Fontaine, KENISHA.MANAGER [employer]ES [employer]ETING - 06/26/2023 3:16 PM EDT Subjective Ear Pain Associated symptoms include congestion. Pertinent negatives include no coughing, fever, headaches or sore throat. Jonna Casillas is a 53 year old female who presents with left ear pain and swelling. She notes pain has been present for 3 weeks but swelling and decreased hearing started a couple days ago. Initially she had URI symptoms and most of those have resolved except for some nasal congestion. She has noted some swelling in front of her left ear and an increased temperature at night of 99.8 degrees F.She has taken tylenol at home for pain. Currently rates pain 04/04. Review of Systems Constitutional: Negative for fever and malaise/fatigue. HENT: Positive for congestion, ear pain and hearing loss. Negative for sore throat. Respiratory: Negative for cough. Cardiovascular: Negative. Neurological: Negative for headaches. BP 121/92 Pulse 109 Temp 37 C (98.6 F) Resp 18 Wt 134.4 kg (296 lb 6.4 oz) LMP 10/26/2015(Approximate) SpO2 96% BMI 46.42 kg/m PAST MEDICAL HISTORY Diagnosis Date Kidney stone Morbid obesity (HCC) RUPESH (obstructive sleep apnea) Rheumatoid arthritis(714.0) 07/26/2007 dr. buckley PAST SURGICAL HISTORY Procedure Laterality Date DELIVERY ONLY LIG/TRNSXJ FLP TUBE ABDL/VAG APPR UNI/BI PAST SURGICAL HISTORY OF cyst off stomach wall PAST SURGICAL HISTORY OF 03/03 cyst removed fibroid tumor removed from her cervix ALLERGIES All Cillins [Other], Codeine, and Penicillins MEDICATIONS buPROPion XL (WELLBUTRIN XL) 150 mg 24 hr tablet Take 150 mg by mouth every morning. rosuvastatin (CRESTOR) 5 mg tablet Take 1 tablet by mouth every afternoon. allopurinol (ZYLOPRIM) 300 mg tablet Take 1 tablet by mouth once daily. lisinopril (ZESTRIL, PRINIVIL) 10 mg tablet Take 1 tablet by mouth once daily. metoprolol succinate ER (TOPROL XL) 25 mg 24 hr tablet Take 1 tablet by mouth once daily. traMADol (ULTRAM) 50 mg tablet Take 1 tablet by mouth every 4 hours as needed for pain. for pain. escitalopram oxalate (LEXAPRO) 20 mg tablet Take 1 tablet by mouth once daily. doxycycline monohydrate 100 mg tablet Take 1 tablet by mouth twice daily for 7 days. ofloxacin (FLOXIN) 0.3 % otic solution Use 5 Drops in both ears twice daily for 7 days. tamsulosin (FLOMAX) 0.4 mg Take 1 capsule by mouth daily at bedtime for 7 days. FAMILY HISTORY Problem Relation Age of Onset Thyroid Maternal Grandmother passed at thyroid cancer at the age of 45 yrs Heart Father murmur Thyroid Mother Stroke Mother Heart Maternal Aunt chf Diabetes Mother Diabetes Maternal Uncle Diabetes Maternal Uncle other (Hypoglycemia [Other]) Sister Social History Tobacco Use Smoking status: Never Smokeless tobacco: Never Substance Use Topics Alcohol use: No Drug use: No Objective Physical Exam Vitals and nursing note reviewed. Constitutional: Appearance: Normal appearance. She is not ill-appearing. HENT: Right Ear: Tympanic membrane, ear canal and external ear normal. Left Ear: Decreased hearing noted. Swelling and tenderness present. Ears: Comments: Left ear canal is swollen, TM cannot be fully visualized due to swelling. Nose: Congestion present. Mouth/Throat: Pharynx: Uvula midline. No oropharyngeal exudate or posterior oropharyngeal erythema. Cardiovascular: Rate and Rhythm: Normal rate and regular rhythm. Heart sounds: Normal heart sounds. Pulmonary: Effort: Pulmonary effort is normal. No respiratory distress. Breath sounds: Normal breath sounds. No wheezing or rales. Musculoskeletal: Cervical back: Neck supple. Lymphadenopathy: Cervical: No cervical adenopathy. Skin: General: Skin is warm and dry. Findings: No erythema or rash. Neurological: Mental Status: She is alert. ASSESSMENT/PLAN: 1. Other acute nonsuppurative otitis media of left ear, recurrence not specified - ICD9: 381.00, ICD10: H65.192 (primary diagnosis) - Will begin treatment with as per antibiotic as written, see orders - Supportive care with plenty of fluids, rest, and analgesia prn. - DOXYCYCLINE MONOHYDRATE 100 MG TABLET 2. Acute otitis externa of left ear, unspecified type - ICD9: 380.10, ICD10: H60.502 - OFLOXACIN 0.3 % EAR DROPS - Follow-up with your PCP in 3-5 days if symptoms have not improved or sooner if symptoms worsen - Discussed red flags and need for immediate medical evaluation if any occur. - Discussed supportive care treatment with fluids, rest and analgesia. - Discussed expected course of illness Seble Fontaine APRN.CNP [facility] Instructions* Patient Instructions* Seble Fontaine APRN.CNP - 06/26/2023 3:16 PM EDT ASSESSMENT/PLAN: 1. Other acute nonsuppurative otitis media of left ear, recurrence not specified - ICD9: 381.00, ICD10: H65.192 (primary diagnosis) - Will begin treatment with as per antibiotic as written, see orders - Supportive care with plenty of fluids, rest, and analgesia prn. - DOXYCYCLINE MONOHYDRATE 100 MG TABLET 2. Acute otitis externa of left ear, unspecified type - ICD9: 380.10, ICD10: H60.502 - OFLOXACIN 0.3 % EAR DROPS - Follow-up with your PCP in 3-5 days if symptoms have not improved or sooner if symptoms worsen - Discussed red flags and need for immediate medical evaluation if any occur. - Discussed supportive care treatment with fluids, rest and analgesia. - Discussed expected course of illness Seble Fontaine APRN.[employer] EXTERNAL OTITIS OVERVIEW External otitis is a condition that occurs when the ear canal becomes irritated. The ear canal is the part of the ear that leads from the outer ear to the ear drum. External otitis can develop as a result of an infection, allergy, or skin problem. Swimmer's ear is the name for external otitis that occurs in a person who swims frequently. External otitis is different from otitis media (middle ear infections). When a person says that they have an ear infection, they usually mean that they have otitis media. This article will discuss external otitis that is caused by an infection, as well as ways to prevent future episodes of external otitis. EXTERNAL OTITIS RISK FACTORS Several factors can increase your risk of developing external otitis. Cleaning the ear canal removes ear wax. Ear wax serves to protect the ears from water, bacteria, and injury. Excessive cleaning or scratching can injure the skin, potentially leading to infection. Swimming on a regular basis removes some of the ear wax, allowing water to soften the skin. Bacteria, which normally live in the ear canal, can then enter the skin more easily. Wearing devices that block the ear canals, such as hearing aids, headphones, or ear plugs, can increase the risk of external otitis (if worn frequently) by injuring the skin. EXTERNAL OTITIS SYMPTOMS The most common symptoms of external otitis include: Pain in the outer ear, especially when the ear is pulled or moved Itchiness of the ear Fluid or pus leaking from the ear Difficulty hearing clearly EXTERNAL OTITIS TREATMENT Treatment of external otitis aims to reduce pain and eliminate the infection. In some cases, your healthcare provider will flush out your ear with water and hydrogen peroxide before you begin treatment; this speeds healing by removing skin cells and excess ear wax. Ear drops -- Ear drops are usually prescribed to reduce pain and swelling caused by external otitis. It is important to apply the ear drops correctly so that they reach the ear canal: Lie on your side or tilt your head towards the opposite shoulder. Fill the ear canal with drops. Lie on your side for [address] cotton ball in the ear canal for 20 minutes. Finish the entire course of treatment, even if you begin to feel better within a few days. You should begin to feel better within 36 to 48 hours of starting treatment. If your pain worsens or does not improve within this time period, call your healthcare provider. Pain medication -- If you have bothersome ear pain, you can take a non- prescription pain medication. Avoid getting ears wet -- During treatment, you should avoid getting the inside of your ears wet. While showering, you can place a cotton ball coated with petroleum jelly in the ear. However, you should not swim for 7 to 10 days after starting treatment. Avoid wearing hearing aids and in-ear headphones until pain improves. EXTERNAL OTITIS PREVENTION The old saying, Don't put anything smaller than your elbow in your ear to clean the ear is true. The ear is self-cleaning; fingers, towels, cotton-tipped applicators, and other devices should not be used to clean the inside of the ears. If you feel that you need to clean excessive wax from your ears, talk to your healthcare provider first. S/he may want to examine your ears to see if the ear wax is excessive. It is normal to have some ear wax (also called cerumen). If you have an excessive amount of ear wax, talk to your healthcare provider about safe ways to clean your ears. If you swim frequently, experts recommend the following tips to reduce the chance of developing external otitis. Shake your ears dry after swimming Blow dry your ears on a low setting, holding the dryer 12 inches away. Use ear drops after swimming to prevent ear infections; these are available at most pharmacies without a prescription. Consider wearing ear plugs made for swimming. [facility] History of Present illness Narrative* KENISHA Varghese CNP - 04/30/2023 8:00 AM EDT Chief Complaint Patient presents with Follow-up 4 week check History of the Present Illness: Jonna Casillas is a 52 y.o. who presents to the office for post-operative evaluation. She underwentROBOTIC ASSISTED TOTAL LAPAROSCOPIC HYSTERECTOMY, BILATERAL SALPINGO OOPHORECTOMY, STAGING, BILATERAL SENTINEL LYMPHADENECTOMY on 03/09/23 and final pathology showed: Final Diagnosis A. UTERUS, HYSTERECTOMY AND BILATERAL SALPINGO-OOPHORECTOMY: DISORDERED PROLIFERATIVE ENDOMETRIUM - ADENOMYOSIS - UNREMARKABLE CERVIX - UNREMARKABLE BILATERAL FALLOPIAN TUBES AND OVARIES - NEGATIVE FOR MALIGNANCY B. SENTINEL LYMPH NODE, LEFT PELVIC, SAMPLING: ONE LYMPH NODE, NEGATIVE FOR METASTATIC CARCINOMA C. SENTINEL LYMPH NODE, RIGHT PELVIC, SAMPLING: TWO LYMPH NODES, NEGATIVE FOR METASTATIC CARCINOMA Interval History: Since her surgery she has been doing well and is without complaints. She denies fevers, chills, nausea, vomiting, bowel or bladder dysfunction. Pain is well controlled. No drainage from incisions. Noabnormal vaginal bleeding or discharge. Has been very fatigued. Has been walking everyday. Having some intermittent diarrhea. Requesting tohave two more weeks off of work. Still having tenderness in right lower quadrant. Past Medical History: Diagnosis Date Anxiety Asthma Eczema Gout Headache Hyperlipidemia Irritable bowel syndrome RUPESH on CPAP Osteoarthritis hips Polycystic kidney disease Prediabetes Recurrent kidney stones Rheumatoid arthritis (HCC) no meds per pt preference Past Surgical History: Procedure Laterality Date BREAST BIOPSY Right benign SECTION (HISTORICAL) 2001 COLONOSCOPY 05/11/2020 CYST REMOVAL 1990 cyst removal from stomach HYSTERECTOMY KIDNEY STONE SURGERY 01/2022 very large LAPAROSCOPIC TOTAL HYSTERECTOMY (HISTORICAL) 03/09/2023 bilateral lymph node biopsies @[email or web address]@ Allergies Allergen Reactions Codeine Other reaction(s): Vomiting, Vomiting Penicillins Hives Review of Systems: As per the HPI, otherwise negative Vitals: 04/30/23 0802 BP: 132/84 Body mass index is 44.85 kg/m . Physical Exam Constitutional: Appearance: Normal appearance. Pulmonary: Effort: Pulmonary effort is normal. Abdominal: General: Abdomen is flat. Palpations: Abdomen is soft. Comments: Well-healing laparoscopic incision's, without erythema, warmth, induration, or discharge. Genitourinary: Comments: .Surgically absent uterus, cervix and adnexa, the vagina is healthy healing well, no suture visible. Vaginal cuff is well-healed on speculum and bimanual examination. Vaginal cuff intact without erythema and discharge. Neurological: General: No focal deficit present. Mental Status: She is alert and oriented to person, place, and time. Psychiatric: Mood and Affect: Mood normal. Behavior: Behavior normal. Assessment/Plan: 52 y.o. s/p ROBOTIC ASSISTED TOTAL LAPAROSCOPIC HYSTERECTOMY, BILATERAL SALPINGO OOPHORECTOMY, STAGING, BILATERAL SENTINEL LYMPHADENECTOMY for Postmenopausal bleeding Pelvic and perineal pain. Doing well from a post-operative standpoint. Post-operative instructions reviewed. Patient was given a copy of the pathology report for her records. The patient had an opportunity to ask questions, all of which were answered to the best of my ability. She is in agreement with the above noted plan. 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 Answers submitted by the patient for this visit: Abdominal Pain Questionnaire (Submitted on 04/23/2023) Chief Complaint: Abdominal pain Chronicity: new Onset: more than 1 month ago Onset quality: sudden Frequency: daily Episode duration: 24 Hours Progression since onset: waxing and waning Pain location: generalized abdominal region Pain - numeric: 5/10 Pain quality: aching Radiates to: periumbilical region, left flank anorexia: No arthralgias: No belching: No constipation: No diarrhea: Yes dysuria: No fever: Yes flatus: No frequency: No headaches: Yes hematochezia: No hematuria: No melena: No myalgias: No nausea: Yes weight loss: No vomiting: No Aggravated by: certain positions Relieved by: nothing documented in this [facility]06-08-2023 History of Present illness Narrative* KENISHA Varghese CNP - 04/02/2023 10:20 AM EDT Chief Complaint Patient presents with Post-op Visit Post op History of the Present Illness: Jonna Casillas is a 52 y.o. who presents to the office for post-operative evaluation. She underwentROBOTIC ASSISTED TOTAL LAPAROSCOPIC HYSTERECTOMY, BILATERAL SALPINGO OOPHORECTOMY, STAGING, BILATERAL SENTINEL LYMPHADENECTOMY on 03/09/23 and final pathology showed: Final Diagnosis A. UTERUS, HYSTERECTOMY AND BILATERAL SALPINGO-OOPHORECTOMY: DISORDERED PROLIFERATIVE ENDOMETRIUM - ADENOMYOSIS - UNREMARKABLE CERVIX - UNREMARKABLE BILATERAL FALLOPIAN TUBES AND OVARIES - NEGATIVE FOR MALIGNANCY B. SENTINEL LYMPH NODE, LEFT PELVIC, SAMPLING: ONE LYMPH NODE, NEGATIVE FOR METASTATIC CARCINOMA C. SENTINEL LYMPH NODE, RIGHT PELVIC, SAMPLING: TWO LYMPH NODES, NEGATIVE FOR METASTATIC CARCINOMA Interval History: Since her surgery she has been doing well and is without complaints. She denies fevers, chills, nausea, vomiting, bowel or bladder dysfunction. Pain is well controlled. No drainage from incisions. Noabnormal vaginal bleeding or discharge. Patient states she recently carried in multiple bags of groceries and felt very tender in her abdominal area. Encouraged patient to rotate Advil and Tylenol. Past Medical History: Diagnosis Date Anxiety Asthma Eczema Gout Headache Hyperlipidemia Irritable bowel syndrome RUPESH on CPAP Osteoarthritis hips Polycystic kidney disease Prediabetes Recurrent kidney stones Rheumatoid arthritis (HCC) no meds per pt preference Past Surgical History: Procedure Laterality Date BREAST BIOPSY Right benign SECTION (HISTORICAL) 2001 COLONOSCOPY 05/11/2020 CYST REMOVAL 1990 cyst removal from stomach HYSTERECTOMY KIDNEY STONE SURGERY 01/2022 very large LAPAROSCOPIC TOTAL HYSTERECTOMY (HISTORICAL) 03/09/2023 bilateral lymph node biopsies @[facility]@ Allergies Allergen Reactions Codeine Other reaction(s): Vomiting, Vomiting Penicillins Hives Review of Systems: As per the HPI, otherwise negative Vitals: 04/02/23 1052 BP: 122/82 Temp: 36.3 C (97.3 F) Body mass index is 45.58 kg/m . Physical Exam Constitutional: Appearance: Normal appearance. Pulmonary: Effort: Pulmonary effort is normal. Abdominal: General: Abdomen is flat. Palpations: Abdomen is soft. Comments: Well-healing laparoscopic incision's, without erythema, warmth, induration, or discharge. Genitourinary: Comments: deferred Neurological: General: No focal deficit present. Mental Status: She is alert and oriented to person, place, and time. Psychiatric: Mood and Affect: Mood normal. Behavior: Behavior normal. Assessment/Plan: 52 y.o. s/p ROBOTIC ASSISTED TOTAL LAPAROSCOPIC HYSTERECTOMY, BILATERAL SALPINGO OOPHORECTOMY, STAGING, BILATERAL SENTINEL LYMPHADENECTOMY for Postmenopausal bleeding Pelvic and perineal pain. Doing well from a post-operative standpoint. Post-operative instructions reviewed. Patient was given a copy of the pathology report for her records. The patient had an opportunity to ask questions, all of which were answered to the best of my ability. She is in agreement with the above noted plan. Follow up in 4 weeks to assess vaginal cuff. documented in this encounterSHigh[facility] [id number] Note* Perioperative Nursing Note - Isac Kendall RN - 03/09/2023 4:22 PM EDT Discharge instructions have been given, pt and daughter have verbalized understanding [facility] [id number] Note* Perioperative Nursing Note - Isac Kendall RN - 03/09/2023 4:22 PM EDT Discharge instructions have been given, pt and daughter have verbalized understanding [facility] [id number] Miscellaneous Notes* Perioperative Nursing Note - Isac Kendall RN - 03/09/2023 4:22 PM EDT Discharge instructions have been given, pt and daughter have verbalized understanding * Perioperative Nursing Note - Isac Kendall RN - 03/09/2023 4:[address] Dominguez has been contacted about SpO2 and has given the Ok for discharge. * Perioperative Nursing Note - Isac Kendall RN - 03/09/2023 4:09 PM EDT Pt has ambulated, voided, and tolerated both acts well. No visible clots were seen. Pts SpO2 was 87% after ambulation and 94% on 1L of O2. * Perioperative Nursing Note - Isac Kendall RN - 03/09/2023 2:34 PM EDT Pt daughter at bedside, Pt using incentive spirometer. * Perioperative Nursing Note - Isac Kendall RN - 03/09/2023 1:00 PM EDT Patient family/visitor updated by RN at this time. * Perioperative Nursing Note - Isac Kendall RN - 03/09/2023 12:04 PM EDT Daughter Kassandra has been updated via Save22 * Op Note - Pascual Sanchez MD - 03/09/2023 9:36 AM EDT Images from the original note were not included. Date: 03/09/2023 Location: [facility] OR Name: Jonna Casillas, : 1970, Diagnosis Pre-op Diagnosis * Postmenopausal bleeding [N95.0] * Pelvic and perineal pain [R10.2] Post-op Diagnosis * Postmenopausal bleeding [N95.0] * Pelvic and perineal pain [R10.2] Procedures ROBOTIC ASSISTED TOTAL LAPAROSCOPIC HYSTERECTOMY, BILATERAL SALPINGO OOPHORECTOMY, STAGING, BILATERAL SENTINEL LYMPHADENECTOMY 02833 - MS LAPS TOTAL HYSTERECT 250 GM/< W/RMVL TUBE/OVARY Intraoperative injection of dye for sentinel lymph node identification Bilateral pelvic sentinel lymphadenectomy Surgeons * Pascual Sanchez - Primary Procedure Summary Anesthesia: General ASA: III Estimated Blood Loss: 50 mL Drains: [REMOVED] Urethral Catheter 16 Fr. (Removed) Specimens ID Source Type Tests Collected By Collected At Frozen? Priority Lab ID 1 Peritoneal Washings Wash NON-GYNECOLOGIC CYTOLOGY Pascual Sanchez MD 03/09/23 1027 No Routine Description: PELVIC WASHINGS 2 Uterus Tissue TISSUE EXAM Pascual Sanchez MD 03/09/23 1104 No Routine Description: UTERUS, CERVIX, AND BILATERAL TUBES AND OVARIES 3 Lymph Node, [place], All sites Tissue TISSUE EXAM Pascual Sanchez MD 03/09/23 1110 No Routine Description: LEFT PELVIC SENTINEL LYMPH NODE 4 Lymph Node, [place], All sites Tissue TISSUE EXAM Pascual Sanchez MD 03/09/23 1117 No Routine Description: RIGHT PELVIC SENTINEL LYMPH NODE Staff: Pipe Straightener: Fe Cruz RN; Karen Rosen RN Relief Scrub: Shivani Morton Scrub Person: Neel Scruggs Findings: Normal external genitalia, vagina and cervix. The uterus was normal size. Significant laparoscopic findings included a grossly normal upper abdomen including bilateral hemidiaphragms, livercapsule, stomach and omentum. Within the pelvis, the tubes and ovaries were grossly normal in appearance as was the uterine serosa. There were several enlarged lymph nodes noted in the bilateral obturator letitia basins. The sentinel lymph node on the left pelvic lymph node basin was along the external iliac vessels and slightly deeper on the right side more in the obturator letitia basin. The uteruswas opened off the operative field. The endometrium was thickened and the side of the endometrium was firm. The differential diagnosis included malignancy and therefore the sentinel lymphadenectomy was performed. Complications: None apparent; patient tolerated the procedure well. Specimens Collected: Order Name Source Comment Collection Info Order Time BLOOD TYPE AND SCREEN GEL Blood, Venous HOLD. Specimen is valid for 3 days - nurse to verify valid specimen Collected By: Ibis Marin RN 03/09/2023 8:38 AM PROTHROMBIN TIME If patient on coumadin within 4 days prior. 03/09/2023 8:38 AM BASIC METABOLIC PANEL Blood, Venous Collected By: Ibis Marin RN 03/09/2023 8:38 AM HEMOGLOBIN AND HEMATOCRIT, BLOOD Blood, Venous Collected By: Ibis Marin RN 03/09/2023 8:38 AM NON-GYNECOLOGIC CYTOLOGY Peritoneal Washings Pre-op diagnosis: Postmenopausal bleeding [N95.0] Pelvic and perineal pain [R10.2] Collected By: Pascual Sanchez MD 03/09/2023 10:27 AM TISSUE EXAM Uterus Pre-op diagnosis: Postmenopausal bleeding [N95.0] Pelvic and perineal pain [R10.2] Collected By: Pascual Sanchez MD 03/09/2023 11:05 AM Wound Class: Class II: Clean-Contaminated Blood Products: None Prophylactic Antibiotics: Procedure appropriate prophylactic antibiotic(s) given within 1 hour of surgical incision (two hours if receiving Vancomycin or flouroquinolone) Description of procedure: After informed, written consent was obtained, the patient was identified in the preoperative holding area and taken to the operating room where anesthesia was found be adequate. She was then prepped and draped in the usual sterile fashion in the dorsal lithotomy position with Cullen stirrups. Care was taken to neither hyperextend or hyperflex the patient's hips or knees and her arms were tucked at the sides in a neutral position. A bivalve speculum was placed in patient's vagina and the anterior lip of the cervix was grasped with a single-tooth tenaculum. Indocyanine green was injected into the cervix at the 9 and 3 o'clock locations both 1 cm deep into the submucosal tissue. A total of 4 mL was injected. A VCare uterine manipulator was placed without difficulty and all other instruments were removed from the patient's vagina. The Cespedes catheter was placed usingsterile technique. Attention was then turned to the patient's abdomen. Entry into the abdominal cavity was performed via the left upper quadrant approach with a 5 mm blunt Optiview trocar under direct visualization. Intra-abdominal placement confirmed prior to insufflating the abdomen with CO2 gas to a pressure of 15mmHg. A survey of the patient's abdomen revealed the above-noted findings. The camera port, right lower quadrant and left lower quadrant robotic ports were then all placed under direct visualization with blunt trocars. The patient was then placed in steep Trendelenburg position and the bowel was displaced out of the pelvis. The robot was docked and all instruments were inserted under direct visualization. The pelvic washings were obtained. The left round ligament was identified, serially cauterized and transected and the left retroperitoneal space was opened and all anatomic landmarks were identified including the ureter. The near infrared technology was then used to identified the fluorescence fromthe indocyanine green. There was evidence of a lymphatic channel arising from the cervix, coursing through the parametrium and terminating in a sentinel pelvic lymph node. All anatomic landmarks wereidentified including the external and internal iliac vessels, superior vesical artery, obturator nerve, ureter. These structures were carefully identified and preserved. The perilymphatic tissue was grasped with the bipolar fenestrated grasper and carefully dissected from the surrounding structures. The sentinel lymph nodes were then placed the retroperitoneal space for later specimen removal through the vagina. The above procedure was repeated on the right side. The left infundibulopelvic ligament was then serially cauterized and transected and the posterior leaf of the broad ligament was taken down to the level of the cervico-vaginal junction. The bladder flap was created anteriorly using a combination of blunt dissection, sharp dissection, and intermittent bursts of monopolar cautery. The left uterine vessels were then skeletonized before being serially cauterized and transected. The above procedure was repeated on the right-hand side. The colpotomy incision was then made in a circumferential fashion with the monopolar edin using a combination ofcut and coag current on the colpotomy ring at the level of the cervical vaginal junction. The specimens were then removed through the patient's vagina. The vaginal cuff was then reapproximated with 0 V-lock. The pelvis was then copiously irrigated andall surgical sites were inspected and noted to be hemostatic. The instruments were removed under direct visualization. The robot was undocked and the abdomen was desufflated of CO2 gas prior to removing the ports. The skin incisions were closed with 4-0 Monocryl with a subcuticular stitch and dermabond. All instruments were removed from the patient's vagina and the Cespedes catheter was discontinued. The patient tolerated the procedure well. Sponge, lap, needle, and instrument counts were correct x2. The patient was awakened and taken to the recovery room in stable condition. She did receive preoperative antibiotics per SCIP guidelines. She receive DVT prophylaxis in the form of serial compression devices during the surgery. * Brief Op Note - Pascual Sanchez MD - 03/09/2023 9:36 AM EDT Date: 03/09/2023 Location: [facility] OR Name: Jonna Casillas, : 1970, Diagnosis Pre-op Diagnosis * Postmenopausal bleeding [N95.0] * Pelvic and perineal pain [R10.2] Post-op Diagnosis * Postmenopausal bleeding [N95.0] * Pelvic and perineal pain [R10.2] Procedures ROBOTIC ASSISTED TOTAL LAPAROSCOPIC HYSTERECTOMY, BILATERAL SALPINGO OOPHORECTOMY, STAGING, BILATERAL SENTINEL LYMPHADENECTOMY 82389 - MS LAPS TOTAL HYSTERECT 250 GM/< W/RMVL TUBE/OVARY LYMPHADENECTOMY FOR STAGING PELVIC AND PARA-AORTIC 84588 - MS LMTD LMPHADEC STAGING SPX PEL&PARA-AORTIC Surgeons * Pascual Sanchez - Primary Procedure Summary Anesthesia: General ASA: III Estimated Blood Loss: 50 mL Drains: [REMOVED] Urethral Catheter 16 Fr. (Removed) Specimens ID Source Type Tests Collected By Collected At Frozen? Priority Lab ID 1 Peritoneal Washings Wash NON-GYNECOLOGIC CYTOLOGY Pascual Sanchez MD 03/09/23 1027 No Routine Description: PELVIC WASHINGS 2 Uterus Tissue TISSUE EXAM Pascual Sanchez MD 03/09/23 1104 No Routine Description: UTERUS, CERVIX, AND BILATERAL TUBES AND OVARIES 3 Lymph Node, [place], All sites Tissue TISSUE EXAM Pascual Sanchez MD 03/09/23 1110 No Routine Description: LEFT PELVIC SENTINEL LYMPH NODE 4 Lymph Node, [place], All sites Tissue TISSUE EXAM Pascual Sanchez MD 03/09/23 1117 No Routine Description: RIGHT PELVIC SENTINEL LYMPH NODE Staff: Pipe Straightener: Fe Cruz, RN; Karen Rosen, RN Relief Scrub: Shivani Morton Scrub Person: Neel Scruggs Findings: See dictated report Complications: None apparent; patient tolerated the procedure well. Specimens Collected: Order Name Source Comment Collection Info Order Time BLOOD TYPE AND SCREEN GEL Blood, Venous HOLD. Specimen is valid for 3 days - nurse to verify valid specimen Collected By: Ibis Marin RN 03/09/2023 8:38 AM PROTHROMBIN TIME If patient on coumadin within 4 days prior. 03/09/2023 8:38 AM BASIC METABOLIC PANEL Blood, Venous Collected By: Ibis Marin RN 03/09/2023 8:38 AM HEMOGLOBIN AND HEMATOCRIT, BLOOD Blood, Venous Collected By: Ibis Marin RN 03/09/2023 8:38 AM NON-GYNECOLOGIC CYTOLOGY Peritoneal Washings Pre-op diagnosis: Postmenopausal bleeding [N95.0] Pelvic and perineal pain [R10.2] Collected By: Pascual Sanchez MD 03/09/2023 10:27 AM TISSUE EXAM Uterus Pre-op diagnosis: Postmenopausal bleeding [N95.0] Pelvic and perineal pain [R10.2] Collected By: Pascual Sanchez MD 03/09/2023 11:05 AM Wound Class: Class II: Clean-Contaminated Blood Products: None Prophylactic Antibiotics: Procedure appropriate prophylactic antibiotic(s) given within 1 hour of surgical incision (two hours if receiving Vancomycin or flouroquinolone) documented in this [facility]05-15-2023 Note* Perioperative Nursing Note - Isac Kendall RN - 03/09/2023 4:[address] Dominguez has been contacted about SpO2 and has given the Ok for discharge. [facility] HospitalTwzxwy17-14-1209 Note* Perioperative Nursing Note - Isac Kendall RN - 03/09/2023 4:[address] Dominguez has been contacted about SpO2 and has given the Ok for discharge. [facility] HospitalNtqchb04-45-0431 Note* Perioperative Nursing Note - Isac Kendall RN - 03/09/2023 4:09 PM EDT Pt has ambulated, voided, and tolerated both acts well. No visible clots were seen. Pts SpO2 was 87% after ambulation and 94% on 1L of O2. [facility] [id number] Note* Perioperative Nursing Note - Isac Kendall RN - 03/09/2023 4:09 PM EDT Pt has ambulated, voided, and tolerated both acts well. No visible clots were seen. Pts SpO2 was 87% after ambulation and 94% on 1L of O2. [facility] HospitalMlftmo96-07-0201 Note* Perioperative Nursing Note - Isac Kendall RN - 03/09/2023 2:34 PM EDT Pt daughter at bedside, Pt using incentive spirometer. [facility] [id number] Note* Perioperative Nursing Note - Isac Kendall RN - 03/09/2023 2:34 PM EDT Pt daughter at bedside, Pt using incentive spirometer. [facility] HospitalLfukud30-08-5113 NotePatient: Jonna Casillas Procedure Summary Date: 03/09/23 Room / Location: [facility] OR [address] [place] [address] Operating Room Anesthesia Start: 935 Anesthesia Stop: 1200 Procedures: ROBOTIC ASSISTED TOTAL LAPAROSCOPIC HYSTERECTOMY, BILATERAL SALPINGO OOPHORECTOMY, STAGING, BILATERAL SENTINEL LYMPHADENECTOMY (Abdomen) LYMPHADENECTOMY FOR STAGING PELVIC AND PARA-AORTIC (Abdomen) Diagnosis: Postmenopausal bleeding Pelvic and perineal pain (Postmenopausal bleeding [N95.0]) (Pelvic and perineal pain [R10.2]) Surgeons: Pascual Sanchez MD Responsible Provider: Palmer Schmidt MD Anesthesia Type: regional, general ASA Status: 3 Anesthesia Type: regional, general Vitals Value Taken Time BP 108/56 03/09/23 1155 Temp 97.2 03/09/23 1201 Pulse 82 03/09/23 1200 Resp 17 03/09/23 1200 SpO2 96 % 03/09/23 1200 Vitals shown include unvalidated device data. Anesthesia Post Evaluation Patient location during evaluation: PACU Patient participation: complete - patient participated Level of consciousness: awake and alert Pain management: satisfactory to patient Airway patency: patent Dental Injury: no Cardiovascular status: acceptable, blood pressure returned to baseline and hemodynamically stable Respiratory status: acceptable and spontaneous ventilation Hydration status: euvolemic Nausea/Vomiting: controlled No notable events documented. Patient can be discharged once all PACU criteria has been met.[facility]05-15-2023 NotePatient: Jonna Casillas Procedure Summary Date: 03/09/23 Room / Location: [facility] OR [address] [place] [address] Operating Room Anesthesia Start: 935 Anesthesia Stop: 1200 Procedures: ROBOTIC ASSISTED TOTAL LAPAROSCOPIC HYSTERECTOMY, BILATERAL SALPINGO OOPHORECTOMY, STAGING, BILATERAL SENTINEL LYMPHADENECTOMY (Abdomen) LYMPHADENECTOMY FOR STAGING PELVIC AND PARA-AORTIC (Abdomen) Diagnosis: Postmenopausal bleeding Pelvic and perineal pain (Postmenopausal bleeding [N95.0]) (Pelvic and perineal pain [R10.2]) Surgeons: Pascual Sanchez MD Responsible Provider: Palmer Schmidt MD Anesthesia Type: regional, general ASA Status: 3 Anesthesia Type: regional, general Vitals Value Taken Time BP 108/56 03/09/23 1155 Temp 97.2 03/09/23 1200 Pulse 82 03/09/23 1200 Resp 17 03/09/23 1200 SpO2 96 % 03/09/23 1200 Vitals shown include unvalidated device data. Anesthesia Post Evaluation Patient location during evaluation: PACU Patient participation: complete - patient participated Level of consciousness: awake and alert Pain management: satisfactory to patient Multimodal analgesia pain management approach Airway patency: patent Two or more strategies used to mitigate risk of obstructive sleep apnea Cardiovascular status: acceptable and hemodynamically stable Respiratory status: acceptable Hydration status: acceptable No notable events documented. MIPS #430 PONV Patient received an inhalational anesthetic (4554F) Patient exhibits three or more risk factors for PONV (4556F) Patient received at leaset 2 prophylactic Rx PONV anti-emtic agents of different classes preop and/or intraop (G9775) MIPS # 424 Perioperative Temperature Management Anesthesia time was 60 minutes or longer (4255F) Anesthesai administered was General (inhalational or TIVA) or Neuraxial block (X0424) At least one body temperature greater than 95.8F/35.5C achieved within the 30 mins immediately prior to or the 15 minutes immediately following anesthesia end time (G9771) MIPS #477 Multimodal Pain Management Not emergent case Patient was administered multimodal pain management (two or more drugs and/or interventions excluding systemic opioids) in the periopeartive period occurring at some time between 6 hours prior to anesthesia start time until discharged from PACU (G2148) MIPS #404 Anesthesiology Smoking Abstinence The patient is not a current smoker (e.g. cigarette, cigar, pipe, e-cigarette/vaping/marijuana) If no stop here (XX404) I completed my handoff to the receiving clinician during which we: 1. Identified the patient 2. Identified the responsible provider 3. Reviewed the pertinent medical history 4. Discussed the surgical course 5. Reviewed intra-op anesthesia management and issues during anesthesia 6. Set expectations for post-procedure period 7. Allowed opportunity for questions and acknowledgement of understanding.[facility]05-15-2023 Note* Perioperative Nursing Note - Isac Kendall RN - 03/09/2023 1:00 PM EDT Patient family/visitor updated by RN at this time. [facility] [id number] Note* Perioperative Nursing Note - Isac Kendall RN - 03/09/2023 1:00 PM EDT Patient family/visitor updated by RN at this time. [facility] HospitalBiugcz33-19-0555 NoteAirway Date/Time: 03/09/2023 9:48 AM Urgency: scheduled Airway not difficult General Information and Staff Patient location during procedure: Procedural Resident/FOOD PROCESSING PLANT MANAGER: Chase Fernandes APRN - FOOD PROCESSING PLANT MANAGER Performed: FOOD PROCESSING PLANT MANAGER Indications and Patient Condition Indications for airway management: anesthesia and airway protection Sedation level: Asleep Preoxygenated: yes Patient position: reverse Trendelenburg Mask difficulty assessment: 2 - vent by mask + OA or adjuvant +/- NMBA Final Airway Details Final airway type: endotracheal airway Successful airway: ETT Cuffed: yes Successful intubation technique: direct laryngoscopy Facilitating devices/methods: intubating stylet Endotracheal tube insertion site: oral Blade: Darshan Blade size: #3 ETT size (mm): 8.0 Cormack-Lehane Classification: grade I - full view of glottis Placement verified by: chest auscultation Measured from: lips ETT to lips (cm): 21 Number of attempts at approach: [address] [place], [place] [address]2005-15-2023 Note* Perioperative Nursing Note - Isac Kendall RN - 03/09/2023 12:04 PM EDT Tanya Cannon has been updated via smart call messenger [facility] HospitalWubrgp93-22-0221 Note* Perioperative Nursing Note - Isac Kendall RN - 03/09/2023 12:04 PM EDT Tanya Cannon has been updated via smart call messenger [facility] HospitalQwptbh48-20-3401 NotePeripheral Block Time Out: 03/09/2023 9:45 AM Patient location during procedure: Procedural Start time: 03/09/2023 9:46 AM End time: 03/09/2023 9:49 AM Reason for block: at surgeon's request and post-op pain management Staffing Performed: FOOD PROCESSING PLANT MANAGER Preanesthetic Checklist Completed: patient identified, IV checked, site marked, risks and benefits discussed, surgical consent, monitors and equipment checked, pre-op evaluation and timeout performed Region: [place] Primary: TAP (Bupivacaine 0.375%/ Epi 1:200,000/ Dex 0.1mg/mL 40ml divided evenly bilateral) Secondary: Upper rectus (Bupivacaine 0.375%/ Epi 1:200,000/ Dex 0.1mg/mL 20ml divided evenly bilateral) Peripheral Block Patient position: supine Prep: ChloraPrep Patient monitoring: heart rate, certified medical asst, continuous pulse ox and continuous capnometry O2: ETT/LMA Laterality: bilateral Injection technique: single-shot Guidance: ultrasound guided -image retained in chart, tip of the needle identified by ultraound during injection. Needle Needle: 21G X 110 mm Additional Notes 03/09/2023 9:46 AM Assessment Injection assessment: negative aspiration for heme, no paresthesia on injection and incremental injection Heart rate change: no Slow fractionated injection: yes Required Documentation: Relevant anatomy identified (Nerves, Vessels, Muscles), Negative for blood on aspiration, Local anesthetic injected incrementally with intermittent aspiration every 5 mL, Normal resistance with injection, No EKG changes noted, No symptoms of toxicity, Local anesthetic spread visualized around nerves or plane. and Local anesthetic injected without difficultyMedications jjrHKNSGkunma-dfkbztogkfl-orkuuutubeq (TAP) syringe - Injection 60 mL - 03/09/2023 9:46:00 [facility]05-15-2023 Hospital Discharge instructions* Discharge Instructions* Sandra Kovacs DO - 03/09/2023 11:37 AM EDT Please refer to discharge instructions provided by [facility] oncology office * Attachments The following attachments cannot be sent through Care Everywhere. 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 She is here for robotic hysterectomy, bilateral salpingo-oophorectomy, possible bilateral sentinel lymphadenectomy. The procedure risks and complications were reviewed. The labs, consent, and H&P were reviewed and updated as appropriate. The patient had all of her questions answered. OBSTETRICAL HISTORY: OB History No obstetric history on file. PAST MEDICAL HISTORY: has a past medical history of Anxiety, Asthma, Eczema, Gout, Headache, Hyperlipidemia, Irritable bowel syndrome, RUPESH on CPAP, Osteoarthritis, Polycystic kidney disease, Prediabetes, Recurrent kidney stones, and Rheumatoid arthritis (HCC). PAST SURGICAL HISTORY: has a past surgical history that includes Cyst Removal (1990); section (2001); Colonoscopy (05/11/2020); Kidney stone surgery (01/2022); and Breast biopsy (). ALLERGIES: Allergies as of 02/13/2023 - Reviewed 02/08/2023 Allergen Reaction Noted Codeine 01/08/2007 Penicillins Hives 11/02/2006 MEDICATIONS: @MEDCMED@ FAMILY HISTORY: family history includes Diabetes in her mother; Heart murmur in her father; Hypertension in her father; Pancreatic cancer (age of onset: 60) in her brother; Polycystic kidney disease in her daughter; SIDS (age of onset: 2) in her brother; Stroke in her mother; Thyroid cancer (age of onset: 45) in her maternal grandmother. SOCIAL HISTORY: reports that she has never smoked. She has never used smokeless tobacco. She reports that she does not drink alcohol and does not use drugs. VITALS: Vitals: 03/09/23 0844 BP: (!) 140/87 Pulse: 93 Resp: 18 Temp: 36.4 ?C (97.5 ?F) TempSrc: Temporal SpO2: 96% Weight: 297 lb (135 kg) Height: 5' 8 (1.727 m) PHYSICAL EXAM and ROS: Unchanged from Prior H&P LAB RESULTS: Admission on 03/09/2023 Component Date Value Ref Range Status Preg Test, Ur 03/09/2023 Negative Negative Final POSITIVE QC 03/09/2023 Pass Final NEGATIVE QC 03/09/2023 Pass Final HCG LOT NUMBER 03/09/2023 [id number] Final SODIUM 03/09/2023 138 135 - 145 mmol/L Final POTASSIUM 03/09/2023 4.1 3.5 - 5.1 mmol/L Final CHLORIDE 03/09/2023 103 98 - 107 mmol/L Final CARBON DIOXIDE 03/09/2023 26 22 - 30 mmol/L Final UREA NITROGEN 03/09/2023 15 7 - 17 mg/dL Final CREATININE 03/09/2023 0.66 0.52 - 1.04 mg/dL Final GLUCOSE 03/09/2023 107 (H) 70 - 100 mg/dL Final CALCIUM 03/09/2023 9.0 8.4 - 10.4 mg/dL Final ANION GAP 03/09/2023 8 3 - 13 mmol/L Final eGFR 03/09/2023 >90.0 >60.0 mL/min/1.73m*2 Final Calculation based on the Chronic Kidney Disease Epidemiology Collaboration (CKD-EPI) equation refit without adjustment for race Heart Rate 03/09/2023 84 bpm Final QRSD Interval 03/09/2023 96 ms Final QT Interval 03/09/2023 374 ms Final QTC Interval 03/09/2023 443 ms Final P [place] 03/09/2023 47 degrees Final QRS [place] 03/09/2023 25 degrees Final T Wave [place] 03/09/2023 47 degrees Final MS Interval 03/09/2023 156 ms Final Hemoglobin 03/09/2023 13.0 11.7 - 16.0 g/dL Final Hematocrit 03/09/2023 39.4 35.0 - 47.0 % Final DIAGNOSTICS: @RISRSLT@ DIAGNOSIS & PLAN: - Proceed with planned procedure: robotic hysterectomy, bilateral salpingo-oophorectomy, possible bilateral sentinel lymphadenectomy - Consent signed, on chart. - The patient is ready for transport to the operative suite. Pascual Bailey MD 03/09/2023, 9:29 [place] [id number] NotePatient: Jonna Casillas Procedure Information Date/Time: 03/09/23 1000 Procedures: ROBOTIC ASSISTED TOTAL LAPAROSCOPIC HYSTERECTOMY, BILATERAL SALPINGO OOPHORECTOMY, POSSIBLE STAGING (Abdomen) LYMPHADENECTOMY FOR STAGING PELVIC AND PARA-AORTIC (Abdomen) Location: [address] Operating Room Surgeons: Pascual Sanchez MD Relevant Problems No relevant active problems Past Medical History: Past Medical History: No date: Anxiety No date: Asthma No date: Eczema No date: Gout No date: Headache No date: Hyperlipidemia No date: Irritable bowel syndrome No date: RUPESH on CPAP No date: Osteoarthritis Comment: hips No date: Polycystic kidney disease No date: Prediabetes No date: Recurrent kidney stones No date: Rheumatoid arthritis (HCC) Comment: no meds per pt preference Past Surgical History: Past Surgical History: No date: BREAST BIOPSY; Right Comment: benign 2001: SECTION (HISTORICAL) 05/11/2020: COLONOSCOPY 1990: CYST REMOVAL Comment: cyst removal from stomach 01/2022: KIDNEY STONE SURGERY Comment: very large Social History: TOBACCO: reports that she has never smoked. She has never used smokeless tobacco. ETOH: reports no history of alcohol use. Social History Substance and Sexual Activity Drug Use Never Family History: Family History Problem Relation Name Age of Onset ? Diabetes Mother ? Stroke Mother ? Heart murmur Father ? Hypertension Father ? Pancreatic cancer Brother 60 ? SIDS Brother 2 ? Polycystic kidney disease Daughter ? Thyroid cancer Maternal Grandmother 45 Screening: Postmenopausal Clinical information reviewed: Tobacco Allergies Meds Med Hx Surg Hx OB Status Fam Hx Soc Hx Physical Exam Airway Mallampati: I TM distance: <3 FB Neck ROM: full Mouth Open: normal Cardiovascular Dental dentition normal Pulmonary Abdominal Anesthesia Plan ASA 3 regional and general (TAP) The patient is not a current smoker. Anesthetic plan and risks discussed with patient. Use of blood products discussed with who consented to blood products. patient is NPO RUPESH Screening Labs: Lab Results Component Value Date HGB 13.0 03/09/2023 HCT 39.4 03/09/2023 No results found for: NA, K, CL, CO2, BUN, CREATININE, GLUCOSE, CALCIUM, PROT, BILIRUBINFL, ALKPHOS, AST, ALT, EGFR, GLOB Pain Score: 3 No echocardiogram results found for the past 14 days 03/09/23 ECG 12-LEAD (Preliminary) This result has not been signed. Information might be incomplete. Impression Sinus rhythm Nonspecific T abnormalities, anterior [facility]05-15-2023 Note* Op Note - Pascual Sanchez MD - 03/09/2023 9:36 AM EDT Images from the original note were not included. Date: 03/09/2023 Location: [facility] OR Name: Jonna Casillas, : 1970, Diagnosis Pre-op Diagnosis * Postmenopausal bleeding [N95.0] * Pelvic and perineal pain [R10.2] Post-op Diagnosis * Postmenopausal bleeding [N95.0] * Pelvic and perineal pain [R10.2] Procedures ROBOTIC ASSISTED TOTAL LAPAROSCOPIC HYSTERECTOMY, BILATERAL SALPINGO OOPHORECTOMY, STAGING, BILATERAL SENTINEL LYMPHADENECTOMY 28013 - MS LAPS TOTAL HYSTERECT 250 GM/< W/RMVL TUBE/OVARY Intraoperative injection of dye for sentinel lymph node identification Bilateral pelvic sentinel lymphadenectomy Surgeons * Pascual Sanchez - Primary Procedure Summary Anesthesia: General ASA: III Estimated Blood Loss: 50 mL Drains: [REMOVED] Urethral Catheter 16 Fr. (Removed) Specimens ID Source Type Tests Collected By Collected At Frozen? Priority Lab ID 1 Peritoneal Washings Wash NON-GYNECOLOGIC CYTOLOGY Pascual Sanchez MD 03/09/23 1027 No Routine Description: PELVIC WASHINGS 2 Uterus Tissue TISSUE EXAM Pascual Sanchez MD 03/09/23 1104 No Routine Description: UTERUS, CERVIX, AND BILATERAL TUBES AND OVARIES 3 Lymph Node, [place], All sites Tissue TISSUE EXAM Pascual Sanchez MD 03/09/23 1110 No Routine Description: LEFT PELVIC SENTINEL LYMPH NODE 4 Lymph Node, [place], All sites Tissue TISSUE EXAM Pascual Sanchez MD 03/09/23 1117 No Routine Description: RIGHT PELVIC SENTINEL LYMPH NODE Staff: Pipe Straightener: Fe Cruz RN; Karne Rosen RN Relief Scrub: Shivani Morton Scrub Person: Neel destineedimaaaron Findings: Normal external genitalia, vagina and cervix. The uterus was normal size. Significant laparoscopic findings included a grossly normal upper abdomen including bilateral hemidiaphragms, livercapsule, stomach and omentum. Within the pelvis, the tubes and ovaries were grossly normal in appearance as was the uterine serosa. There were several enlarged lymph nodes noted in the bilateral obturator letitia basins. The sentinel lymph node on the left pelvic lymph node basin was along the external iliac vessels and slightly deeper on the right side more in the obturator letitia basin. The uteruswas opened off the operative field. The endometrium was thickened and the side of the endometrium was firm. The differential diagnosis included malignancy and therefore the sentinel lymphadenectomy was performed. Complications: None apparent; patient tolerated the procedure well. Specimens Collected: Order Name Source Comment Collection Info Order Time BLOOD TYPE AND SCREEN GEL Blood, Venous HOLD. Specimen is valid for 3 days - nurse to verify valid specimen Collected By: Ibis Marin RN 03/09/2023 8:38 AM PROTHROMBIN TIME If patient on coumadin within 4 days prior. 03/09/2023 8:38 AM BASIC METABOLIC PANEL Blood, Venous Collected By: Ibis Marin RN 03/09/2023 8:38 AM HEMOGLOBIN AND HEMATOCRIT, BLOOD Blood, Venous Collected By: Ibis Marin RN 03/09/2023 8:38 AM NON-GYNECOLOGIC CYTOLOGY Peritoneal Washings Pre-op diagnosis: Postmenopausal bleeding [N95.0] Pelvic and perineal pain [R10.2] Collected By: Pascual Sanchez MD 03/09/2023 10:27 AM TISSUE EXAM Uterus Pre-op diagnosis: Postmenopausal bleeding [N95.0] Pelvic and perineal pain [R10.2] Collected By: Pascual Sanchez MD 03/09/2023 11:05 AM Wound Class: Class II: Clean-Contaminated Blood Products: None Prophylactic Antibiotics: Procedure appropriate prophylactic antibiotic(s) given within 1 hour of surgical incision (two hours if receiving Vancomycin or flouroquinolone) Description of procedure: After informed, written consent was obtained, the patient was identified in the preoperative holding area and taken to the operating room where anesthesia was found be adequate. She was then prepped and draped in the usual sterile fashion in the dorsal lithotomy position with Cullen stirrups. Care was taken to neither hyperextend or hyperflex the patient's hips or knees and her arms were tucked at the sides in a neutral position. A bivalve speculum was placed in patient's vagina and the anterior lip of the cervix was grasped with a single-tooth tenaculum. Indocyanine green was injected into the cervix at the 9 and 3 o'clock locations both 1 cm deep into the submucosal tissue. A total of 4 mL was injected. A Effektifare uterine manipulator was placed without difficulty and all other instruments were removed from the patient's vagina. The Cespedes catheter was placed usingsterile technique. Attention was then turned to the patient's abdomen. Entry into the abdominal cavity was performed via the left upper quadrant approach with a 5 mm blunt Optiview trocar under direct visualization. Intra-abdominal placement confirmed prior to insufflating the abdomen with CO2 gas to a pressure of 15mmHg. A survey of the patient's abdomen revealed the above-noted findings. The camera port, right lower quadrant and left lower quadrant robotic ports were then all placed under direct visualization with blunt trocars. The patient was then placed in steep Trendelenburg position and the bowel was displaced out of the pelvis. The robot was docked and all instruments were inserted under direct visualization. The pelvic washings were obtained. The left round ligament was identified, serially cauterized and transected and the left retroperitoneal space was opened and all anatomic landmarks were identified including the ureter. The near infrared technology was then used to identified the fluorescence fromthe indocyanine green. There was evidence of a lymphatic channel arising from the cervix, coursing through the parametrium and terminating in a sentinel pelvic lymph node. All anatomic landmarks wereidentified including the external and internal iliac vessels, superior vesical artery, obturator nerve, ureter. These structures were carefully identified and preserved. The perilymphatic tissue was grasped with the bipolar fenestrated grasper and carefully dissected from the surrounding structures. The sentinel lymph nodes were then placed the retroperitoneal space for later specimen removal through the vagina. The above procedure was repeated on the right side. The left infundibulopelvic ligament was then serially cauterized and transected and the posterior leaf of the broad ligament was taken down to the level of the cervico-vaginal junction. The bladder flap was created anteriorly using a combination of blunt dissection, sharp dissection, and intermittent bursts of monopolar cautery. The left uterine vessels were then skeletonized before being serially cauterized and transected. The above procedure was repeated on the right-hand side. The colpotomy incision was then made in a circumferential fashion with the monopolar edin using a combination ofcut and coag current on the colpotomy ring at the level of the cervical vaginal junction. The specimens were then removed through the patient's vagina. The vaginal cuff was then reapproximated with 0 V-lock. The pelvis was then copiously irrigated andall surgical sites were inspected and noted to be hemostatic. The instruments were removed under direct visualization. The robot was undocked and the abdomen was desufflated of CO2 gas prior to removing the ports. The skin incisions were closed with 4-0 Monocryl with a subcuticular stitch and dermabond. All instruments were removed from the patient's vagina and the Cespedes catheter was discontinued. The patient tolerated the procedure well. Sponge, lap, needle, and instrument counts were correct x2. The patient was awakened and taken to the recovery room in stable condition. She did receive preoperative antibiotics per SCIP guidelines. She receive DVT prophylaxis in the form of serial compression devices during the surgery. [id number]* Brief Op Note - Pascual Sanchez MD - 03/09/2023 9:36 AM EDT Date: 03/09/2023 Location: [facility] OR Name: Jonna Casillas, : 1970, Diagnosis Pre-op Diagnosis * Postmenopausal bleeding [N95.0] * Pelvic and perineal pain [R10.2] Post-op Diagnosis * Postmenopausal bleeding [N95.0] * Pelvic and perineal pain [R10.2] Procedures ROBOTIC ASSISTED TOTAL LAPAROSCOPIC HYSTERECTOMY, BILATERAL SALPINGO OOPHORECTOMY, STAGING, BILATERAL SENTINEL LYMPHADENECTOMY 99109 - MS LAPS TOTAL HYSTERECT 250 GM/< W/RMVL TUBE/OVARY LYMPHADENECTOMY FOR STAGING PELVIC AND PARA-AORTIC 08810 - MS LMTD LMPHADEC STAGING SPX PEL&PARA-AORTIC Surgeons * Pascual Sanchez - Primary Procedure Summary Anesthesia: General ASA: III Estimated Blood Loss: 50 mL Drains: [REMOVED] Urethral Catheter 16 Fr. (Removed) Specimens ID Source Type Tests Collected By Collected At [facility]? Priority Lab ID 1 Peritoneal Washings Wash NON-GYNECOLOGIC CYTOLOGY Pascual Sanchez MD 03/09/23 1027 No Routine Description: PELVIC WASHINGS 2 Uterus Tissue TISSUE EXAM Pascual Sanchez MD 03/09/23 1104 No Routine Description: UTERUS, CERVIX, AND BILATERAL TUBES AND OVARIES 3 Lymph Node, [place], All sites Tissue TISSUE EXAM Pascual Sanchez MD 03/09/23 1110 No Routine Description: LEFT PELVIC SENTINEL LYMPH NODE 4 Lymph Node, [place], All sites Tissue TISSUE EXAM Pascual Sanchez MD 03/09/23 1117 No Routine Description: RIGHT PELVIC SENTINEL LYMPH NODE Staff: Pipe Straightener: Fe Cruz RN; Karen Rosen RN Relief Scrub: Shivani Morton Scrub Person: Neel mateusz Findings: See dictated report Complications: None apparent; patient tolerated the procedure well. Specimens Collected: Order Name Source Comment Collection Info Order Time BLOOD TYPE AND SCREEN GEL Blood, Venous HOLD. Specimen is valid for 3 days - nurse to verify valid specimen Collected By: Ibis Marin RN 03/09/2023 8:38 AM PROTHROMBIN TIME If patient on coumadin within 4 days prior. 03/09/2023 8:38 AM BASIC METABOLIC PANEL Blood, Venous Collected By: Ibis Marin RN 03/09/2023 8:38 AM HEMOGLOBIN AND HEMATOCRIT, BLOOD Blood, Venous Collected By: Ibis Marin RN 03/09/2023 8:38 AM NON-GYNECOLOGIC CYTOLOGY Peritoneal Washings Pre-op diagnosis: Postmenopausal bleeding [N95.0] Pelvic and perineal pain [R10.2] Collected By: Pascual Sanchez MD 03/09/2023 10:27 AM TISSUE EXAM Uterus Pre-op diagnosis: Postmenopausal bleeding [N95.0] Pelvic and perineal pain [R10.2] Collected By: Pascual Sanchez MD 03/09/2023 11:05 AM Wound Class: Class II: Clean-Contaminated Blood Products: None Prophylactic Antibiotics: Procedure appropriate prophylactic antibiotic(s) given within 1 hour of surgical incision (two hours if receiving Vancomycin or flouroquinolone) [facility] [id number] Note* Op Note - Pascual Sanchez MD - 03/09/2023 9:36 AM EDT Images from the original note were not included. Date: 03/09/2023 Location: [facility] OR Name: Jonna Casillas, : 1970, Diagnosis Pre-op Diagnosis * Postmenopausal bleeding [N95.0] * Pelvic and perineal pain [R10.2] Post-op Diagnosis * Postmenopausal bleeding [N95.0] * Pelvic and perineal pain [R10.2] Procedures ROBOTIC ASSISTED TOTAL LAPAROSCOPIC HYSTERECTOMY, BILATERAL SALPINGO OOPHORECTOMY, STAGING, BILATERAL SENTINEL LYMPHADENECTOMY 04525 - MS LAPS TOTAL HYSTERECT 250 GM/< W/RMVL TUBE/OVARY Intraoperative injection of dye for sentinel lymph node identification Bilateral pelvic sentinel lymphadenectomy Surgeons * Pascual Sanchez - Primary Procedure Summary Anesthesia: General ASA: III Estimated Blood Loss: 50 mL Drains: [REMOVED] Urethral Catheter 16 Fr. (Removed) Specimens ID Source Type Tests Collected By Collected At Frozen? Priority Lab ID 1 Peritoneal Washings Wash NON-GYNECOLOGIC CYTOLOGY Pascual Sanchez MD 03/09/23 1027 No Routine Description: PELVIC WASHINGS 2 Uterus Tissue TISSUE EXAM Pascual Sanchez MD 03/09/23 1104 No Routine Description: UTERUS, CERVIX, AND BILATERAL TUBES AND OVARIES 3 Lymph Node, [place], All sites Tissue TISSUE EXAM Pascual Sanchez MD 03/09/23 1110 No Routine Description: LEFT PELVIC SENTINEL LYMPH NODE 4 Lymph Node, [place], All sites Tissue TISSUE EXAM Pascual Sanchez MD 03/09/23 1117 No Routine Description: RIGHT PELVIC SENTINEL LYMPH NODE Staff: Pipe Straightener: Fe Cruz RN; Karen Rosen RN Relief Scrub: Shivani Morton Scrub Person: Neel mateusz Findings: Normal external genitalia, vagina and cervix. The uterus was normal size. Significant laparoscopic findings included a grossly normal upper abdomen including bilateral hemidiaphragms, livercapsule, stomach and omentum. Within the pelvis, the tubes and ovaries were grossly normal in appearance as was the uterine serosa. There were several enlarged lymph nodes noted in the bilateral obturator letitia basins. The sentinel lymph node on the left pelvic lymph node basin was along the external iliac vessels and slightly deeper on the right side more in the obturator letitia basin. The uteruswas opened off the operative field. The endometrium was thickened and the side of the endometrium was firm. The differential diagnosis included malignancy and therefore the sentinel lymphadenectomy was performed. Complications: None apparent; patient tolerated the procedure well. Specimens Collected: Order Name Source Comment Collection Info Order Time BLOOD TYPE AND SCREEN GEL Blood, Venous HOLD. Specimen is valid for 3 days - nurse to verify valid specimen Collected By: Ibis Marin RN 03/09/2023 8:38 AM PROTHROMBIN TIME If patient on coumadin within 4 days prior. 03/09/2023 8:38 AM BASIC METABOLIC PANEL Blood, Venous Collected By: Ibis Marin RN 03/09/2023 8:38 AM HEMOGLOBIN AND HEMATOCRIT, BLOOD Blood, Venous Collected By: Ibis Marin RN 03/09/2023 8:38 AM NON-GYNECOLOGIC CYTOLOGY Peritoneal Washings Pre-op diagnosis: Postmenopausal bleeding [N95.0] Pelvic and perineal pain [R10.2] Collected By: Pascual Sanchez MD 03/09/2023 10:27 AM TISSUE EXAM Uterus Pre-op diagnosis: Postmenopausal bleeding [N95.0] Pelvic and perineal pain [R10.2] Collected By: Pascual Sanchez MD 03/09/2023 11:05 AM Wound Class: Class II: Clean-Contaminated Blood Products: None Prophylactic Antibiotics: Procedure appropriate prophylactic antibiotic(s) given within 1 hour of surgical incision (two hours if receiving Vancomycin or flouroquinolone) Description of procedure: After informed, written consent was obtained, the patient was identified in the preoperative holding area and taken to the operating room where anesthesia was found be adequate. She was then prepped and draped in the usual sterile fashion in the dorsal lithotomy position with Cullen stirrups. Care was taken to neither hyperextend or hyperflex the patient's hips or knees and her arms were tucked at the sides in a neutral position. A bivalve speculum was placed in patient's vagina and the anterior lip of the cervix was grasped with a single-tooth tenaculum. Indocyanine green was injected into the cervix at the 9 and 3 o'clock locations both 1 cm deep into the submucosal tissue. A total of 4 mL was injected. A Effektifare uterine manipulator was placed without difficulty and all other instruments were removed from the patient's vagina. The Cespedes catheter was placed usingsterile technique. Attention was then turned to the patient's abdomen. Entry into the abdominal cavity was performed via the left upper quadrant approach with a 5 mm blunt Optiview trocar under direct visualization. Intra-abdominal placement confirmed prior to insufflating the abdomen with CO2 gas to a pressure of 15mmHg. A survey of the patient's abdomen revealed the above-noted findings. The camera port, right lower quadrant and left lower quadrant robotic ports were then all placed under direct visualization with blunt trocars. The patient was then placed in steep Trendelenburg position and the bowel was displaced out of the pelvis. The robot was docked and all instruments were inserted under direct visualization. The pelvic washings were obtained. The left round ligament was identified, serially cauterized and transected and the left retroperitoneal space was opened and all anatomic landmarks were identified including the ureter. The near infrared technology was then used to identified the fluorescence fromthe indocyanine green. There was evidence of a lymphatic channel arising from the cervix, coursing through the parametrium and terminating in a sentinel pelvic lymph node. All anatomic landmarks wereidentified including the external and internal iliac vessels, superior vesical artery, obturator nerve, ureter. These structures were carefully identified and preserved. The perilymphatic tissue was grasped with the bipolar fenestrated grasper and carefully dissected from the surrounding structures. The sentinel lymph nodes were then placed the retroperitoneal space for later specimen removal through the vagina. The above procedure was repeated on the right side. The left infundibulopelvic ligament was then serially cauterized and transected and the posterior leaf of the broad ligament was taken down to the level of the cervico-vaginal junction. The bladder flap was created anteriorly using a combination of blunt dissection, sharp dissection, and intermittent bursts of monopolar cautery. The left uterine vessels were then skeletonized before being serially cauterized and transected. The above procedure was repeated on the right-hand side. The colpotomy incision was then made in a circumferential fashion with the monopolar edin using a combination ofcut and coag current on the colpotomy ring at the level of the cervical vaginal junction. The specimens were then removed through the patient's vagina. The vaginal cuff was then reapproximated with 0 V-lock. The pelvis was then copiously irrigated andall surgical sites were inspected and noted to be hemostatic. The instruments were removed under direct visualization. The robot was undocked and the abdomen was desufflated of CO2 gas prior to removing the ports. The skin incisions were closed with 4-0 Monocryl with a subcuticular stitch and dermabond. All instruments were removed from the patient's vagina and the Cespedes catheter was discontinued. The patient tolerated the procedure well. Sponge, lap, needle, and instrument counts were correct x2. The patient was awakened and taken to the recovery room in stable condition. She did receive preoperative antibiotics per SCIP guidelines. She receive DVT prophylaxis in the form of serial compression devices during the surgery. [facility] [id number] Note* Brief Op Note - Pascual Sanchez MD - 03/09/2023 9:36 AM EDT Date: 03/09/2023 Location: [facility] OR Name: Jonna Casillas, : 1970, Diagnosis Pre-op Diagnosis * Postmenopausal bleeding [N95.0] * Pelvic and perineal pain [R10.2] Post-op Diagnosis * Postmenopausal bleeding [N95.0] * Pelvic and perineal pain [R10.2] Procedures ROBOTIC ASSISTED TOTAL LAPAROSCOPIC HYSTERECTOMY, BILATERAL SALPINGO OOPHORECTOMY, STAGING, BILATERAL SENTINEL LYMPHADENECTOMY 35284 - MS LAPS TOTAL HYSTERECT 250 GM/< W/RMVL TUBE/OVARY LYMPHADENECTOMY FOR STAGING PELVIC AND PARA-AORTIC 89581 - MS LMTD LMPHADEC STAGING SPX PEL&PARA-AORTIC Surgeons * Pascual Sanchez - Primary Procedure Summary Anesthesia: General ASA: III Estimated Blood Loss: 50 mL Drains: [REMOVED] Urethral Catheter 16 Fr. (Removed) Specimens ID Source Type Tests Collected By Collected At [facility]? Priority Lab ID 1 Peritoneal Washings Wash NON-GYNECOLOGIC CYTOLOGY Pascual Sanchez MD 03/09/23 1027 No Routine Description: PELVIC WASHINGS 2 Uterus Tissue TISSUE EXAM Pascual Sanchez MD 03/09/23 1104 No Routine Description: UTERUS, CERVIX, AND BILATERAL TUBES AND OVARIES 3 Lymph Node, [place], All sites Tissue TISSUE EXAM Pascual Sanchez MD 03/09/23 1110 No Routine Description: LEFT PELVIC SENTINEL LYMPH NODE 4 Lymph Node, [place], All sites Tissue TISSUE EXAM Pascual Sanchez MD 03/09/23 1117 No Routine Description: RIGHT PELVIC SENTINEL LYMPH NODE Staff: Pipe Straightener: Fe Cruz RN; Karen Rosen RN Relief Scrub: Shivani Morton Scrub Person: Neel Scruggs Findings: See dictated report Complications: None apparent; patient tolerated the procedure well. Specimens Collected: Order Name Source Comment Collection Info Order Time BLOOD TYPE AND SCREEN GEL Blood, Venous HOLD. Specimen is valid for 3 days - nurse to verify valid specimen Collected By: Ibis Marin RN 03/09/2023 8:38 AM PROTHROMBIN TIME If patient on coumadin within 4 days prior. 03/09/2023 8:38 AM BASIC METABOLIC PANEL Blood, Venous Collected By: Ibis Marin RN 03/09/2023 8:38 AM HEMOGLOBIN AND HEMATOCRIT, BLOOD Blood, Venous Collected By: Ibsi Marin RN 03/09/2023 8:38 AM NON-GYNECOLOGIC CYTOLOGY Peritoneal Washings Pre-op diagnosis: Postmenopausal bleeding [N95.0] Pelvic and perineal pain [R10.2] Collected By: Pascual Sanchez MD 03/09/2023 10:27 AM TISSUE EXAM Uterus Pre-op diagnosis: Postmenopausal bleeding [N95.0] Pelvic and perineal pain [R10.2] Collected By: Pascual Sanchez MD 03/09/2023 11:05 AM Wound Class: Class II: Clean-Contaminated Blood Products: None Prophylactic Antibiotics: Procedure appropriate prophylactic antibiotic(s) given within 1 hour of surgical incision (two hours if receiving Vancomycin or flouroquinolone) [facility] [id number] History and physical note* Pascual Sanchez MD - 03/09/2023 9:29 AM EDT Images from the original note were not included. 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 She is here for robotic hysterectomy, bilateral salpingo-oophorectomy, possible bilateral sentinel lymphadenectomy. The procedure risks and complications were reviewed. The labs, consent, and H&P were reviewed and updated as appropriate. The patient had all of her questions answered. OBSTETRICAL HISTORY: OB History No obstetric history on file. PAST MEDICAL HISTORY: has a past medical history of Anxiety, Asthma, Eczema, Gout, Headache, Hyperlipidemia, Irritable bowel syndrome, RUPESH on CPAP, Osteoarthritis, Polycystic kidney disease, Prediabetes, Recurrent kidney stones, and Rheumatoid arthritis (HCC). PAST SURGICAL HISTORY: has a past surgical history that includes Cyst Removal (1990); section (2001); Colonoscopy(05/11/2020); Kidney stone surgery (01/2022); and Breast biopsy (). ALLERGIES: Allergies as of 02/13/2023 - Reviewed 02/08/2023 Allergen Reaction Noted Codeine 01/08/2007 Penicillins Hives 11/02/2006 MEDICATIONS: @MEDCMED@ FAMILY HISTORY: family history includes Diabetes in her mother; Heart murmur in her father; Hypertension in her father; Pancreatic cancer (age of onset: 60) in her brother; Polycystic kidney disease in her daughter;SIDS (age of onset: 2) in her brother; Stroke in her mother; Thyroid cancer (age of onset: 45) in her maternal grandmother. SOCIAL HISTORY: reports that she has never smoked. She has never used smokeless tobacco. She reports that she does not drink alcohol and does not use drugs. VITALS: Vitals: 03/09/23 0844 BP: (!) 140/87 Pulse: 93 Resp: 18 Temp: 36.4 C (97.5 F) TempSrc: Temporal SpO2: 96% Weight: 297 lb (135 kg) Height: 5' 8 (1.727 m) PHYSICAL EXAM and ROS: Unchanged from Prior H&P LAB RESULTS: Admission on 03/09/2023 Component Date Value Ref Range Status Preg Test, Ur 03/09/2023 Negative Negative Final POSITIVE QC 03/09/2023 Pass Final NEGATIVE QC 03/09/2023 Pass Final HCG LOT NUMBER 03/09/2023 [id number] Final SODIUM 03/09/2023 138 135 - 145 mmol/L Final POTASSIUM 03/09/2023 4.1 3.5 - 5.1 mmol/L Final CHLORIDE 03/09/2023 103 98 - 107 mmol/L Final CARBON DIOXIDE 03/09/2023 26 22 - 30 mmol/L Final UREA NITROGEN 03/09/2023 15 7 - 17 mg/dL Final CREATININE 03/09/2023 0.66 0.52 - 1.04 mg/dL Final GLUCOSE 03/09/2023 107 (H) 70 - 100 mg/dL Final CALCIUM 03/09/2023 9.0 8.4 - 10.4 mg/dL Final ANION GAP 03/09/2023 8 3 - 13 mmol/L Final eGFR 03/09/2023 >90.0 >60.0 mL/min/1.73m*2 Final Calculation based on the Chronic Kidney Disease Epidemiology Collaboration (CKD- EPI) equation refitwithout adjustment for race Heart Rate 03/09/2023 84 bpm Final QRSD Interval 03/09/2023 96 ms Final QT Interval 03/09/2023 374 ms Final QTC Interval 03/09/2023 443 ms Final P [place] 03/09/2023 47 degrees Final QRS [place] 03/09/2023 25 degrees Final T Wave [place] 03/09/2023 47 degrees Final MS Interval 03/09/2023 156 ms Final Hemoglobin 03/09/2023 13.0 11.7 - 16.0 g/dL Final Hematocrit 03/09/2023 39.4 35.0 - 47.0 % Final DIAGNOSTICS: @RISRSLT@ DIAGNOSIS & PLAN: - Proceed with planned procedure: robotic hysterectomy, bilateral salpingo- oophorectomy, possible bilateral sentinel lymphadenectomy - Consent signed, on chart. - The patient is ready for transport to the operative suite. Pascual Bailey MD 03/09/2023, 9:29 AM [employer] Work Phone: 1(938) 441-303805-15-2023 History and physical note* Pascual Vazquez MD - 03/09/2023 9:29 AM EDT Images from the original note were not included. 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 She is here for robotic hysterectomy, bilateral salpingo-oophorectomy, possible bilateral sentinel lymphadenectomy. The procedure risks and complications were reviewed. The labs, consent, and H&P were reviewed and updated as appropriate. The patient had all of her questions answered. OBSTETRICAL HISTORY: OB History No obstetric history on file. PAST MEDICAL HISTORY: has a past medical history of Anxiety, Asthma, Eczema, Gout, Headache, Hyperlipidemia, Irritable bowel syndrome, RUPESH on CPAP, Osteoarthritis, Polycystic kidney disease, Prediabetes, Recurrent kidney stones, and Rheumatoid arthritis (HCC). PAST SURGICAL HISTORY: has a past surgical history that includes Cyst Removal (1990); section (2001); Colonoscopy(05/11/2020); Kidney stone surgery (01/2022); and Breast biopsy (Right). ALLERGIES: Allergies as of 02/13/2023 - Reviewed 02/08/2023 Allergen Reaction Noted Codeine 01/08/2007 Penicillins Hives 11/02/2006 MEDICATIONS: @MEDCMED@ FAMILY HISTORY: family history includes Diabetes in her mother; Heart murmur in her father; Hypertension in her father; Pancreatic cancer (age of onset: 60) in her brother; Polycystic kidney disease in her daughter;SIDS (age of onset: 2) in her brother; Stroke in her mother; Thyroid cancer (age of onset: 45) in her maternal grandmother. SOCIAL HISTORY: reports that she has never smoked. She has never used smokeless tobacco. She reports that she does not drink alcohol and does not use drugs. VITALS: Vitals: 03/09/23 0844 BP: (!) 140/87 Pulse: 93 Resp: 18 Temp: 36.4 C (97.5 F) TempSrc: Temporal SpO2: 96% Weight: 297 lb (135 kg) Height: 5' 8 (1.727 m) PHYSICAL EXAM and ROS: Unchanged from Prior H&P LAB RESULTS: Admission on 03/09/2023 Component Date Value Ref Range Status Preg Test, Ur 03/09/2023 Negative Negative Final POSITIVE QC 03/09/2023 Pass Final NEGATIVE QC 03/09/2023 Pass Final HCG LOT NUMBER 03/09/2023 [id number] Final SODIUM 03/09/2023 138 135 - 145 mmol/L Final POTASSIUM 03/09/2023 4.1 3.5 - 5.1 mmol/L Final CHLORIDE 03/09/2023 103 98 - 107 mmol/L Final CARBON DIOXIDE 03/09/2023 26 22 - 30 mmol/L Final UREA NITROGEN 03/09/2023 15 7 - 17 mg/dL Final CREATININE 03/09/2023 0.66 0.52 - 1.04 mg/dL Final GLUCOSE 03/09/2023 107 (H) 70 - 100 mg/dL Final CALCIUM 03/09/2023 9.0 8.4 - 10.4 mg/dL Final ANION GAP 03/09/2023 8 3 - 13 mmol/L Final eGFR 03/09/2023 >90.0 >60.0 mL/min/1.73m*2 Final Calculation based on the Chronic Kidney Disease Epidemiology Collaboration (CKD- EPI) equation refitwithout adjustment for race Heart Rate 03/09/2023 84 bpm Final QRSD Interval 03/09/2023 96 ms Final QT Interval 03/09/2023 374 ms Final QTC Interval 03/09/2023 443 ms Final P [place] 03/09/2023 47 degrees Final QRS [place] 03/09/2023 25 degrees Final T Wave [place] 03/09/2023 47 degrees Final MS Interval 03/09/2023 156 ms Final Hemoglobin 03/09/2023 13.0 11.7 - 16.0 g/dL Final Hematocrit 03/09/2023 39.4 35.0 - 47.0 % Final DIAGNOSTICS: @RISRSLT@ DIAGNOSIS & PLAN: - Proceed with planned procedure: robotic hysterectomy, bilateral salpingo- oophorectomy, possible bilateral sentinel lymphadenectomy - Consent signed, on chart. - The patient is ready for transport to the operative suite. Pascual Bailey MD 03/09/2023, 9:29 AM documented in this [facility]05-08-2023 NotePatient: Jonna Casillas Procedure Information Date/Time: 03/02/23929 Scheduled providers: Rachell Hardin RN Procedure: PAT OPTIMIZATION CALL Location: [facility] Pre-Admit Testing Relevant Problems No relevant active problems Past Medical History: Past Medical History: No date: Anxiety No date: Asthma No date: Eczema No date: Gout No date: Headache No date: Hyperlipidemia No date: Irritable bowel syndrome No date: RUPESH on CPAP No date: Osteoarthritis Comment: hips No date: Polycystic kidney disease No date: Prediabetes No date: Recurrent kidney stones No date: Rheumatoid arthritis (HCC) Comment: no meds per pt preference Past Surgical History: Past Surgical History: No date: BREAST BIOPSY; Right Comment: benign 2001: SECTION (HISTORICAL) 05/11/2020: COLONOSCOPY 1990: CYST REMOVAL Comment: cyst removal from stomach 01/2022: KIDNEY STONE SURGERY Comment: very large Social History: TOBACCO: reports that she has never smoked. She has never used smokeless tobacco. ETOH: reports no history of alcohol use. Social History Substance and Sexual Activity Drug Use Never Family History: Family History Problem Relation Name Age of Onset ? Diabetes Mother ? Stroke Mother ? Heart murmur Father ? Hypertension Father ? Pancreatic cancer Brother 60 ? SIDS Brother 2 ? Polycystic kidney disease Daughter ? Thyroid cancer Maternal Grandmother 45 Screening: Postmenopausal Clinical information reviewed: Tobacco Allergies Meds Med Hx Surg Hx OB Status Fam Hx Soc Hx Physical Exam Airway Mallampati: unable to assess Cardiovascular Dental Pulmonary Abdominal Anesthesia Plan ASA 3 general and regional (Chart info-PAT phone call T&S ordered DOS per surgeon ECG, BMP, and H&H ordered DOS ) The patient is not a current smoker. General ERAS RUPESH Screening Labs: No results found for: WBC, HGB, HCT, MCV, PLT No results found for: NA, K, CL, CO2, BUN, CREATININE, GLUCOSE, CALCIUM, PROT, BILIRUBINFL, ALKPHOS, AST, ALT, EGFR, GLOB Pain Score: 5 - Moderate pain No echocardiogram results found for the past 14 days No results found for this or any previous visit.[facility] 03-02-2023 Telephone encounter Note* Telephone Encounter - Kassidy Gordon - 03/02/2023 11:51 AM EDT Patient does NOT want you to give any medical info to patients daughter after surgery. Patient saiddaughter was very upset and patient does Not want any further medical shared with her daughter. [facility] [id number] Miscellaneous Notes* Telephone Encounter - Kassidy Gordon - 03/02/2023 11:51 AM EDT Patient does NOT want you to give any medical info to patients daughter after surgery. Patient saiddaughter was very upset and patient does Not want any further medical shared with her daughter. documented in this [facility]05-08-2023 Telephone encounter Note* Telephone Encounter - Marci Chapman - 03/02/2023 9:58 AM EDT Kassidy please call Marlon in Pre adm testing [facility] [id number] Miscellaneous Notes* Telephone Encounter - Marci Chapman - 03/02/2023 9:58 AM EDT Kassidy please call Marlon in Pre adm testing documented in this [facility]04-27-2023 NoteWe were finally able to talk on the phone. Discussed plan of care.[facility]04-27-2023 Telephone encounter Note* Telephone Encounter - Pascual Sanchez MD - 02/19/2023 8:49 AM EDT We were finally able to talk on the phone. Discussed plan of care. [facility] [id number] Miscellaneous Notes* Telephone Encounter - Pascual Sanchez MD - 02/19/2023 8:49 AM EDT We were finally able to talk on the phone. Discussed plan of care. * Telephone Encounter - Marci Chapman - 02/18/2023 9:20 AM EDT Jonna returned Dr. Bailey's phone call. * Telephone Encounter - Pascual Sanchez MD - 02/17/2023 10:07 AM EDT LM for patient to go over plan of care. * Telephone Encounter - Kassidy Gordon - 02/13/2023 8:50 AM EDT Patient scheduled for [facility] 03.09.2023 all info mailed to patient as well as spoke to her over the phone. * Telephone Encounter - Pascual Sanchez MD - 02/12/2023 8:34 PM EDT You can call her. Let her know I am out of the office and will call her early next week to discuss in more detail. Thanks! * Telephone Encounter - Kassidy Gordon - 02/12/2023 5:12 PM EDT Is this Ok for me to call or does a nurse need to or MA? * Telephone Encounter - Lamont Flaherty - 02/12/2023 4:58 PM EDT Message was NOT released to patient as written. Patient's further questions if applicable: Jonna states she would like a call back tomorrow, 02/13/23, any time between 7:30a - 4:00p to discuss her results. Please contact Jonna and advise. Were all questions from office addressed or relayed to the patient from encounter: No * Telephone Encounter - Pascual Sanchez MD - 02/12/2023 4:33 PM EDT LM for patient to call to discuss U/S results. Markedly thickened. I would recommend robotic hysterectomy, bilateral salpingo-oophorectomy, possible staging based on intra-operative pathology. documented in this encounterSHighland District [id number] Telephone encounter Note* Telephone Encounter - Marci Chapman - 02/18/2023 9:20 AM EDT Jonna returned Dr. Bailey's phone call. [facility] [id number] Miscellaneous Notes* Telephone Encounter - Marci Chapman - 02/18/2023 9:20 AM EDT Jonna returned Dr. Bailey's phone call. * Telephone Encounter - Pascual Sanchez MD - 02/17/2023 10:07 AM EDT LM for patient to go over plan of care. * Telephone Encounter - Kassidy Gordon - 02/13/2023 8:50 AM EDT Patient scheduled for [facility] 03.09.2023 all info mailed to patient as well as spoke to her over the phone. * Telephone Encounter - Pascual Sanchez MD - 02/12/2023 8:34 PM EDT You can call her. Let her know I am out of the office and will call her early next week to discuss in more detail. Thanks! * Telephone Encounter - Kassidy Gordon - 02/12/2023 5:12 PM EDT Is this Ok for me to call or does a nurse need to or MA? * Telephone Encounter - Lamont Flaherty - 02/12/2023 4:58 PM EDT Message was NOT released to patient as written. Patient's further questions if applicable: Jonna states she would like a call back tomorrow, 02/13/23, any time between 7:30a - 4:00p to discuss her results. Please contact Jonna and advise. Were all questions from office addressed or relayed to the patient from encounter: No * Telephone Encounter - Pascual Sanchez MD - 02/12/2023 4:33 PM EDT LM for patient to call to discuss U/S results. Markedly thickened. I would recommend robotic hysterectomy, bilateral salpingo-oophorectomy, possible staging based on intra-operative pathology. documented in this [place] [address]-25-2023 NoteLM for patient to go over plan of care.[facility]04-25-2023 Telephone encounter Note* Telephone Encounter - Delisa Pereira - 02/17/2023 11:42 AM EDT Pt is returning a call for up coming surgery [id number] Miscellaneous Notes* Telephone Encounter - Delisa Pereira - 02/17/2023 11:42 AM EDT Pt is returning a call for up coming surgery documented in this [facility]04-25-2023 Telephone encounter Note* Telephone Encounter - Pascual Sanchez MD - 02/17/2023 10:07 AM EDT LM for patient to go over plan of care. [place] [id number] Telephone encounter Note* Telephone Encounter - Kassidy Gordon - 02/13/2023 8:50 AM EDT Patient scheduled for [facility] 03.09.2023 all info mailed to patient as well as spoke to her over the phone. [id number] Telephone encounter Note* Telephone Encounter - Kassidy Gordon - 02/13/2023 8:49 AM EDT PAT: by phone 03.02.2023 at 9:30 am SX: 03.09.2023 at 10 am arrival at 8 am Post op 04.02.2023 at 10:20 am Folder and instructions given [place] [id number] Miscellaneous Notes* Telephone Encounter - Lee Annnevin Gordon - 02/13/2023 8:49 AM EDT PAT: by phone 03.02.2023 at 9:30 am SX: 03.09.2023 at 10 am arrival at 8 am Post op 04.02.2023 at 10:20 am Folder and instructions given documented in this encounterSHighland District [id number] Telephone encounter Note* Telephone Encounter - Pascual Sanchez MD - 02/12/2023 8:34 PM EDT You can call her. Let her know I am out of the office and will call her early next week to discuss in more detail. Thanks! [id number] Telephone encounter Note* Telephone Encounter - Kassidy Gordon - 02/12/2023 5:12 PM EDT Is this Ok for me to call or does a nurse need to or MA? [id number] Telephone encounter Note* Telephone Encounter - Lamont Flaherty - 02/12/2023 4:58 PM EDT Message was NOT released to patient as written. Patient's further questions if applicable: Jonna states she would like a call back tomorrow, 02/13/23, any time between 7:30a - 4:00p to discuss her results. Please contact Jonna and advise. Were all questions from office addressed or relayed to the patient from encounter: No [id number] Telephone encounter Note* Telephone Encounter - Pascual Sanchez MD - 02/12/2023 4:33 PM EDT LM for patient to call to discuss U/S results. Markedly thickened. I would recommend robotic hysterectomy, bilateral salpingo-oophorectomy, possible staging based on intra-operative pathology. [facility] [id number] History of Present illness Narrative* Pascual Vazquez MD - 02/05/2023 2:00 PM EDT Chief Complaint Patient presents with Other Postmenopausal bleeding, patient is having abdominal pain HISTORY OF THE PRESENT ILLNESS: Jonna Casillas is a pleasant 52 y.o. female who presents in consultation at the request of Dr. Conte for evaluation and management of the above. She initially presented with complaints of postmenopausalbleeding. This has been present for approximately 8 months. Goes through several pads a day. Brightred. Pap 12/2022 - NILM, HR HPV negative CT A/P - left ureteral stone and hydronephrosis. Bilateral renal cysts were noted on CT however there was no measurements of the overall size of the kidneys. Nothing abnormal in terms of gynecologic organs. Patient unsure the size of her kidneys and liver. Had a lot of pain in back and flanks. Has pain in her her mid-pelvis and left groin. No past medical history on file. Nephrolithiasis Polycystic kidney disease Rheumatoid arthritis Hypertension Asthma Fibromyalgia Obstructive sleep apnea Prediabetes Hyperlipidemia No past surgical history on file. Cyst removal from abdominal wall (superficial) in 1990 delivery Pfannensteil Colonoscopy 2019 Lithotripsy Does well with anesthesia, no PONV. Gynecologic History: No LMP recorded. Menopause: 9 years ago HRT use: No Duration: N/A History of abnormal pap smears? Yes - follow up were normal. No h/o LEEP or CKC Last mammogram: history of abnormal mammogram. Has a metal clip in the right breat. Last colonoscopy: UTD and wnl. Obstetrical History: - daughter, 27 G2 - daughter, 21 planned surgery for uterine fibroids. No family history on file. Father-kidney disease which required renal transplant Paternal uncle with kidney disease status post renal transplant Daughter with polycystic kidney disease Pancreatic cancer - brother diagnosed at the age of 60, 7 weeks later. Thyroid cancer - maternal grandmother, at the age of 42 or 43 from the cancer. Social History Socioeconomic History Marital status: Single Spouse name: Not on file Number of children: Not on file Years of education: Not on file Highest education level: Not on file Occupational History Not on file Tobacco Use Smoking status: Never Smokeless tobacco: Never Substance and Sexual Activity Alcohol use: Never Drug use: Never Sexual activity: Not on file Other Topics Concern Not on file Social History Narrative Not on file Social Determinants of Health Financial Resource Strain: Not on file Food Insecurity: Not on file Transportation Needs: Not on file Physical Activity: Not on file Stress: Not on file Social Connections: Not on file Intimate Partner Violence: Not on file Housing Stability: Not on file 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 Current Outpatient Medications on File Prior to Visit Medication Sig Dispense Refill allopurinol (Zyloprim) 300 MG tablet Take 300 mg by mouth in the morning. lisinopril 10 MG tablet Take by mouth daily. metoprolol succinate XL (Toprol-XL) 25 MG 24 hr tablet Take 25 mg by mouth in the morning. traMADol (Ultram) 50 MG tablet Take 50 mg by mouth every 4 hours as needed. No current facility-administered medications on file prior to visit. Lexapro 20mg daily Wellbutrin 150mg daily Allergies as of 02/05/2023 - Reviewed 02/05/2023 Allergen Reaction Noted Codeine 01/08/2007 Penicillins Hives 11/02/2006 Review of Systems A 12 point review of systems was performed and is as per the history of the present illness, all other systems were reviewed and are negative. Vitals: 02/05/23 1356 BP: (!) 134/90 Body mass index is 45.46 kg/m . Physical Exam Vitals reviewed. Constitutional: General: She is not in acute distress. Appearance: Normal appearance. She is not ill-appearing, toxic-appearing or diaphoretic. HENT: Head: Normocephalic and atraumatic. Eyes: General: No scleral icterus. Extraocular Movements: Extraocular movements intact. Cardiovascular: Rate and Rhythm: Normal rate. Pulmonary: Effort: Pulmonary effort is normal. No respiratory distress. Abdominal: General: There is no distension. Palpations: Abdomen is soft. There is no mass. Tenderness: There is no abdominal tenderness. There is no guarding or rebound. Hernia: No hernia is present. Musculoskeletal: Right lower leg: No edema. Left lower leg: No edema. Skin: General: Skin is warm and dry. Coloration: Skin is not jaundiced or pale. Findings: No erythema. Neurological: General: No focal deficit present. Mental Status: She is alert. Motor: No weakness. Coordination: Coordination normal. Gait: Gait normal. Psychiatric: Mood and Affect: Mood normal. Behavior: Behavior normal. ASSESSMENT/PLAN: Diagnosis Plan 1. Post-menopausal bleeding US pelvis transvaginal 2. Pelvic pain Differential diagnosis discussed. Plan for pelvic ultrasound. Likely hysteroscopy, dilation and curettage pending ultrasound results vs hysterectomy. Pt has a history of polycystic kidney disease. Will need to get CT images from [facility] to determine if this would impact surgical approach if hysterectomy is needed. The patient had an opportunity to ask questions, all of which were answered to the best of my ability. She is in agreement with the above noted plan. I spent a total time of 45 minutes reviewing previous notes, test results, obtaining history, communicating results to the patient as well as counseling the patient, documenting clinical information in the patient's electronic medical record and coordinating care for the patient. Disclaimer: This note was dictated by speech recognition. 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 documented in this [facility]03-07-2023 History of Present illness Narrative* Macey Jensen Mammo Tech - 12/30/2022 12:50 PM EST Radiology Service Progress Note PATIENT NAME: Jonna Casillas DATE OF SERVICE: December 30, 2022 TIME: 1:06 PM PATIENT IDENTITY VERIFICATION COMPLETED USING TWO (2) IDENTIFIERS: Name and Date of confirmedby patient verbally. FALL SCREENING: Has the patient had 2 falls in the last year or 1 fall with injury or currently using an Ambulatory Assistive Device (Walker, Cane, Wheelchair, Crutches, etc.)? No PATIENT GENDER DATA: Female. status: : No status: NO. PATIENT RELEVANT IMPLANT DATA REVIEWED: Not Applicable RADIOLOGY DEPARTMENT: Mammography PERIPHERAL IV DATA: Not applicable SIGNED BY: Martínez De [employer] Janet December 30, 2022 1:06 PM documented in this [facility] History of Present illness Narrative* Yuliana Cuba MD - 12/03/2022 8:45 AM EST [facility] Subjective: No chest pain, no SOB, no fever or chills, no dysuria, no problems with urination, no nocturia, no nausea , no vomiting, no diarrhea, no change in physical activity, current thinks that she may have passed a stone back in September 2022. She continues to have back pain that is sometimes severe and continue to use nonsteroidal anti-inflammatory drugs as needed. Physical Exam: General Appearance: alert oriented x3 NAD Head: normal cephalic Mucosa:moist Neck Veins:normal Heart:RRR and no M/R/G Chest::CTA Abdomen: Soft, nontender Extremities: No Edema Radial Pulses: Normal Access: Not applicable Skin: Intact, Warm, Dry, and Good skin turgor Labs and X-rays reviewed I spent a total of 40/45 minutes on the date of the service which included [id number] patient care. ASSESSMENT/PLAN: 1. Stage 3a chronic kidney disease (HCC) - ICD9: 585.3, ICD10: N18.31 (primary diagnosis) Due to ADPKD and also kidney stones. Pt is asked for - Tight BP control . - Tight Lipid control. - Diet with 70 gm's protein,2 gm salt. - Avoidence of nephrotoxic agents. - Cosider ACEI. - COMP METABOLIC PANEL - MAGNESIUM BLD - PHOSPHORUS INORGANIC - CREATININE CLEARANCE, UR 24HR - PROTEIN 24 HR URINE 2. Kidney stone - ICD9: 592.0, ICD10: N20.0 51 years old female who drove over an hour away to come to my clinic because of evaluation for uric acid kidney stones and also cystic kidney disease. Patient had severe left flank pain back in November and December 2021. She was found to have 1.3 x 0.7x 1.6 left UPJ stone with mild hydronephrosis on a CT scan done on 02/06/2022. Dr. Viera in urology did cystoscopy with laser direct lithotripsy followed by a stent placement and then subsequently removal of the stent. Patient was told that the stone analysis showed uric acid stones and was recommended large amounts of fluids intake. Follow-up renal ultrasound on 04/04/2022 showed no hydronephrosis, no stones and bilateral simple cysts. - Uric acid was 10.1 in March 2022 and patient is reporting that her kidney stone was uric acid. - I asked patient to continue with good fluid intake to guarantee at least 2.5 L of urine output. - Started allopurinol 300 mg daily. I would give it at least 3 to 6 months and repeat uric acid again. - Patient is asked to reduce salt intake and have no added salt. CT scan of abdomen and pelvis done on 10/09/2022: Left kidney with 4 mm x 2 mm calculus at the left UPJ with mild hydronephrosis. Multiple kidney cysts with the largest being 7.3 cm. Right kidney with no stones and no hydronephrosis. Few small cysts. Liver that has numerous cysts of different sizes. - URIC ACID BLOOD - STONE PANEL URINE 3. ADPKD (autosomal dominant polycystic kidney disease) - ICD9: 753.13, ICD10: Q61.2 51 years old female who drove over an hour away to come to my clinic because of evaluation for uric acid kidney stones and also cystic kidney disease. Patient had severe left flank pain back in November and December 2021. She was found to have 1.3 x 0.7x 1.6 left UPJ stone with mild hydronephrosis on a CT scan done on 02/06/2022. Patient was seen by Dr. Viear in urology and had cystoscopy with laser direct lithotripsy followed by a stent placement and then subsequently removal of the stent. Patient was told that the stone analysis showed uricacid stones and was recommended large amounts of fluids intake. Follow-up renal ultrasound on 04/04/2022 showed no hydronephrosis, no stones and bilateral simple cysts. Patient was found to have 2 cysts on the left side with a midpole cyst of 7 cm and upper pole cyst of 3 cm. She also was found to have 1 cyst in the mid right kidney that is about 2.4 cm. Patient's father had kidney transplant but she is not aware of the reasons for his kidney failure and she does not talk to him. Patient has 2 daughters 1 at age of 26 who was diagnosed with polycystic kidney disease. The other daughter is at the age of 19 and she was never tested with an ultrasound or any others to look for any polycystic kidney disease. Patient does not know if the father of her daughters had any polycystic kidney disease. I ordered volumetric measurement of the kidneys for the CT scan that was done in September 2022. Patient continues to have left flank pain that comes sometimes for a minute or so and sometimes for1 to 2 hours and it is sharp shooting pain that resolves after that. Patient has a history of fibromyalgia, rheumatoid arthritis, irritable bowel syndrome, and severe anxiety disorder. 4. Polyuria - ICD9: 788.42, ICD10: R35.89 With large amounts of fluids intake to help with kidney stones. Patient also has nocturia of 3-5 times at night. 5. Essential hypertension - ICD9: 401.9, ICD10: I10 - good control -Because the patient was somewhat orthostatic with blood pressure measurement and not symptomatic with it and because I need to have the patient on SYLVIA inhibitor I decided to cut down the metoprolol to 25 mg daily and start lisinopril 10 mg daily. - Recommended regular aerobic exercise. - Recommend home blood pressure monitoring, to bring results in on next visit - Goal of BP <130/80 6. Rheumatoid arthritis involving multiple sites, unspecified whether rheumatoid factor present (HCC) - ICD9: 714.0, ICD10: M06.9 Patient is advised to stop completely any NSAIDs and use Tylenol of any strength up to no more than2-1/2 g/day divided on multiple doses for a combination of Tylenol/tramadol. 7. Vitamin D deficiency - ICD9: 268.9, ICD10: E55.9 - VITAMIN D 25 HYDROXY - PTH INTACT BLD Yuliana Cuba MD documented [facility] this [facility] Evaluation note* Diagnosis Stage 3a chronic kidney disease (HCC)- Primary Kidney stone Calculus of kidney ADPKD (autosomal dominant polycystic kidney disease) Polycystic kidney, autosomal dominant Polyuria Essential hypertension Unspecified essential hypertension Rheumatoid arthritis involving multiple sites, unspecified whether rheumatoid factor present (HCC) Vitamin D deficiency Unspecified vitamin D deficiency Chronic bilateral thoracic back pain Abnormal mammogram of left breast- Primary documented in [facility] Miscellaneous Notes* Telephone Encounter - Radha Garcia Ma - 09/16/2022 1:52 PM EST Monica, Patient has an appointment with Dr. Cuba on Thursday and I am not sure if she did all of her labs done. Please check and let me know. Thanks, ALEX Garcia documented in this encounterT[facility]06-28-2022 Miscellaneous Notes* Addendum Note - Yuliana Cuba MD - 04/22/2022 9:01 AM EDT Addended by: YULIANA CUBA on: 04/22/2022 09:01 AM Modules accepted: Orders documented in this encounterT[facility]06-28-2022 History of Present illness Narrative* Yuliana Cuba MD - 04/22/2022 8:44 AM EDT [facility] Patient Information: 04/22/2022 Jonna Casillas,female,White [address] [id number],[phone] (home) Referring Physician: Emma Conte DO Patient is seen at the request of Emma Conte DO for my opinion regarding kidney stones and cystickidney disease. My final recommendations will be communicated back to the requesting physician by way of shared Medical Record and communication with consulting team Reason for consult: Kidney stones and cystic kidney disease. HPI: This is a 51 years old female who drove over an hour away to come to my clinic because of evaluation for uric acid kidney stones and also cystic kidney disease. Patient had severe left flank pain back in November and December 2021. She was found to have 1.3 x 0.7x 1.6 left UPJ stone with mild hydronephrosis on a CT scan done on 02/06/2022. Patient was seen by Dr. Viera in urology and had cystoscopy with laser direct lithotripsy followed by a stent placement and then subsequently removal of the stent. Patient was told that the stone analysis showed uricacid stones and was recommended large amounts of fluids intake. Follow-up renal ultrasound on 04/04/2022 showed no hydronephrosis, no stones and bilateral simple cysts. Patient was found to have 2 cysts on the left side with a midpole cyst of 7 cm and upper pole cyst of 3 cm. She also was found to have 1 cyst in the mid right kidney that is about 2.4 cm. Patient's father had kidney transplant but she is not aware of the reasons for his kidney failure and she does not talk to him. Patient has 2 daughters 1 at age of 26 who was diagnosed with polycystic kidney disease. The other daughter is at the age of 19 and she was never tested with an ultrasound or any others to look for any polycystic kidney disease. Patient does not know if the father of her daughters had any polycystic kidney disease. Patient continues to have left flank pain that comes sometimes for a minute or so and sometimes for1 to 2 hours and it is sharp shooting pain that resolves after that. Patient has a history of fibromyalgia, rheumatoid arthritis, irritable bowel syndrome, and severe anxiety disorder. Hesitancy: No. Urgency: No. Frequency: Yes. Patient was drinking large amounts of fluids as per urology advised and she goes tothe bathroom all the time. Nocturia: Yes. 3-5 times a night. Dysuria: No. Bladder Cancer: no. Kidney Cancer: no. Previous kidney disease: Yes. See above Protein in urine: No. Blood in urine: No. Kidney stones: Yes. See above Seen by kidney specialist in past: No. Diabetes Mellitus:No HTN: Yes, Age of onset 46 and Controlled over years : Yes. Heart Disease: No. Arthritis:Yes. Rheumatoid arthritis Use of pain killers such as Ibuprofen/Advil/Aleve/Day pro/ Voltaren/Naprosyn/Indocin/Feldene/Celebrex...etc: No. Weight Change: No. Frequent UTI, more than three per year: No. Hyperlipidemia: No. Vascular: negatve for carotid disease, negative for claudication. Respiratory: Patient had history of asthma for the last 5 years and she uses inhalers as needed. Gastrointestinal: No Skin: normal and negative for rashes, lesions. Hematology: negative for tendency to bruise or bleed easily. 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 buckley . PSH: PAST SURGICAL HISTORY Procedure Laterality Date DELIVERY ONLY LIG/TRNSXJ FLP TUBE ABDL/VAG APPR UNI/BI PAST SURGICAL HISTORY OF cyst off stomach wall PAST SURGICAL HISTORY OF 03/03 cyst removed fibroid tumor removed from her cervix . Medications: Current Outpatient Medications Medication Sig Dispense Refill Ibuprofen 200 mg cap Take 400 mg by mouth every 6 hours as needed for pain. metoprolol succinate ER (TOPROL XL) 50 mg 24 hr tablet Take 50 mg by mouth once daily. hyoscyamine sublingual (LEVSIN/SL) 0.125 mg Dissolve 1 tablet under the tongue every 8 hours as needed (bladder spasms) for up to 30 doses. 30 tablet 0 phenazopyridine (PYRIDIUM) 200 mg tablet Take 1 tablet by mouth three times daily as needed (dysuria) for up to 10 doses. 10 tablet 0 escitalopram oxalate (LEXAPRO) 20 mg tablet Take 1 tablet by mouth once daily. allopurinol (ZYLOPRIM) 300 mg tablet Take 1 tablet by mouth once daily. 30 tablet 5 No current facility-administered medications for this visit. . Allergies: ALLERGIES Allergen Reactions All Cillins [Other] Hives severe hives Codeine Vomiting Penicillins Hives . Social History: Social History Tobacco Use Smoking status: Never Smoker Smokeless tobacco: Never Used Substance Use Topics Alcohol use: No Drug use: No . Family Medical History: FAMILY HISTORY Problem Relation Age of Onset Thyroid Maternal Grandmother passed at thyroid cancer at the age of 45 yrs Heart Father murmur Thyroid Mother Stroke Mother Heart Maternal Aunt chf Diabetes Mother Diabetes Maternal Uncle Diabetes Maternal Uncle other (Hypoglycemia [Other]) Sister Physical Exam General Appearance: alert oriented x3 NAD Head: normal cephalic Mucosa:moist Neck Veins:normal Heart:RRR and no M/R/G Lungs:Clear to auscultation Abdomen: Soft, nontender Extremities: Edema +1, Edema below knee and Bilateral Radial Pulses: Normal Access: Not applicable Skin: Intact, Warm, Dry and Good skin turgor LABS Glucose 103 04/04/2022 BUN 11 04/04/2022 Creatinine 0.72 04/04/2022 Sodium 137 04/04/2022 Potassium 4.1 04/04/2022 Chloride 101 04/04/2022 CO2 25 04/04/2022 Protein, Total 7.2 04/04/2022 Albumin 4.0 04/04/2022 Calcium, Total 9.4 04/04/2022 Alkaline Phosphatase 107 04/04/2022 Bilirubin, Total 0.3 04/04/2022 AST 11 04/04/2022 ALT 8 04/04/2022 Recent Labs 04/04/22 1051 02/10/22 0855 NA 137 140 K 4.1 4.0 CHLOR 101 104 CO2 25 26 BUN 11 13 CREAT 0.72 1.00* GLUC 103* 113* ANION 11 10 CA 9.4 9.3 BMP Latest Ref Rng & Units 04/04/2022 02/10/2022 GLUCOSE 74 - 99 mg/dL 103(H) 113(H) BUN 7 - 21 mg/dL 11 13 CREATININE 0.58 - 0.96 mg/dL 0.72 1.00(H) SODIUM 136 - 144 mmol/L 137 140 POTASSIUM 3.7 - 5.1 mmol/L 4.1 4.0 CHLORIDE 97 - 105 mmol/L 101 104 CO2 22 - 30 mmol/L 25 26 ANION GAP 9 - 18 mmol/L 11 10 CALCIUM, TOTAL 8.5 - 10.2 mg/dL 9.4 9.3 eGFR >=60 mL/min/1.73m 100 68 Hemoglobin (g/dL) Date Value 02/10/2022 13.5 Hematocrit (%) Date Value 02/10/2022 43.2 WBC (k/uL) Date Value 02/10/2022 8.12 Platelet Count (k/uL) Date Value 02/10/2022 272 I spent a total of 60 minutes on the date of the service which included [id number] patient care. ASSESSMENT/PLAN: 1. Kidney stone - ICD9: 592.0, ICD10: N20.0 (primary diagnosis) Patient uric acid is significantly elevated and patient is reporting that her kidney stone was uricacid. -I asked patient to continue with good fluid intake to guarantee at least 2-1/2 L of urine output but not to exceed that by 4 because of the difficulty with going to the bathroom so frequently at night and having reduced night sleep. - Start allopurinol 300 mg daily. I would give it at least 3 to 6 months and repeat uric acid again. -Patient is asked to reduce salt intake and have no added salt. - STONE PANEL URINE - CREATININE CLEARANCE, UR 24HR - PROTEIN 24 HR URINE - URINALYSIS, WITH MICROSCOPIC - COMP METABOLIC PANEL 2. Cystic kidney disease, unspecified - ICD9: 753.10, ICD10: Q61.9 It is not clear to whether patient has polycystic kidney disease but the fact that her daughter haspolycystic kidney disease and her father had a kidney transplant of an known kidney problem and thefact that she has 3 simple cysts 2 on the left side and 1 on the right side may suggest that the patient has a slow form of polycystic kidney disease. The fact that the patient's kidney size is within normal range is against any aggressive polycystic kidney disease. -With next visit I will consider having the patient on SYLVIA inhibitor and then also a statin. -I recommended to patient to get her 19 years old daughter being evaluated as well even though we need to have her daughter at the age of 30 and do an ultrasound before we can say for sure that the patient does not have polycystic kidney disease. - CREATININE CLEARANCE, UR 24HR - PROTEIN 24 HR URINE - COMP METABOLIC PANEL 3. RUPESH (obstructive sleep apnea) - ICD9: 327.23, ICD10: G47.33 PCP is following. 4. Anxiety - ICD9: 300.00, ICD10: F41.9 PCP is following. 5. Class 3 severe obesity due to excess calories without serious comorbidity with body mass index (BMI) of 45.0 to 49.9 in adult (HCC) - ICD9: 278.01, V85.42, ICD10: E66.01, Z68.42 Stable PCP is following. 6. Irritable bowel syndrome with diarrhea - ICD9: 564.1, ICD10: K58.0 PCP is following. 7. Fibromyalgia - ICD9: 729.1, ICD10: M79.7 PCP is following. 8. Rheumatoid arthritis involving multiple sites, unspecified whether rheumatoid factor present (HCC) - ICD9: 714.0, ICD10: M06.9 PCP is following. 9. Vitamin D deficiency - ICD9: 268.9, ICD10: E55.9 - VITAMIN D 25 HYDROXY - PTH INTACT BLD Yuliana Cuba MD documented in this [facility]06-10-2022 History of Present illness Narrative* RT Sidney(R) - 04/04/2022 10:50 AM EDT Radiology Service Progress Note PATIENT NAME: Jonna Casillas DATE OF SERVICE: April 04, 2022 TIME: 11:28 AM PATIENT IDENTITY VERIFICATION COMPLETED USING TWO (2) IDENTIFIERS: Name and Date of confirmedby patient verbally. FALL SCREENING: Has the patient had 2 falls in the last year or 1 fall with injury or currently using an Ambulatory Assistive Device (Walker, Cane, Wheelchair, Crutches, etc.)? No PATIENT GENDER DATA: Female. status: : No status: NO. PATIENT RELEVANT IMPLANT DATA REVIEWED: Not Applicable RADIOLOGY DEPARTMENT: General X-ray: Exam(s) Completed: Abdomen X-Ray: Abdomen PERIPHERAL IV DATA: Not applicable SIGNED BY: RT Sidney(R) April 04, 2022 11:28 AM documented in this encounterT[facility]05-12-2022 History of Present illness Narrative* Gabi Marie APRN.MANAGER SALES [employer] MARKETING - 03/06/2022 1:22 PM EDT Surgery two weeks ago. Had a kidney stone. She was intubated tongue has been numb since however improving. Just here to make sure all is okay. Not a smoker. Does not drink alcohol. Right lateral/tip of tongue is the only portion that is number. No history of diabetes. Not aware of any vitamin B12 deficiencies, or zinc. Left cerumen impaction Reassuring symptoms are improving Follow up virtually in one month if not better CC: Jonna Casillas is 51 year old female who is seen at the request of Enrique Viera for evaluation of tongue issues. My findings and recommendations will be communicated to the referring provider via the shared electronic medical record. Assessment and Plan: Left ear impacted cerumen Numbness of tongue (primary encounter diagnosis) Reassuring tongue symptoms are/have improved. I recommend we monitor as my guess is that it will likely resolve in time. She had a left cerumen impaction which was removed under otoscopy with suction. Follow up in a month should symptoms persist HPI: Jonna is a 51 year old who reports surgery two weeks ago. Had a kidney stone. She was intubated tongue has been numb since however improving. Just here to make sure all is okay. Not a smoker. Does not drink alcohol. Right lateral/tip of tongue is the only portion that is number. No history ofdiabetes. Not aware of any vitamin B12 deficiencies, or zinc. ALLERGIES Allergen Reactions All Cillins [Other] Hives severe hives Codeine Vomiting Penicillins Hives Current Outpatient Medications Medication Sig metoprolol succinate ER (TOPROL XL) 50 mg 24 hr tablet Take 50 mg by mouth once daily. hyoscyamine sublingual (LEVSIN/SL) 0.125 mg Dissolve 1 tablet under the tongue every 8 hours as needed (bladder spasms) for up to 30 doses. escitalopram oxalate (LEXAPRO) 20 mg tablet Take 1 tablet by mouth once daily. phenazopyridine (PYRIDIUM) 200 mg tablet Take 1 tablet by mouth three times daily as needed (dysuria) for up to 10 doses. (Patient not taking: Reported on 03/05/2022 ) No current facility-administered medications for this visit. PAST MEDICAL HISTORY Diagnosis Date Kidney stone Morbid obesity (HCC) RUPESH (obstructive sleep apnea) Rheumatoid arthritis(714.0) 07/26/2007 dr. buckley PAST SURGICAL HISTORY Procedure Laterality Date DELIVERY ONLY LIG/TRNSXJ FLP TUBE ABDL/VAG APPR UNI/BI PAST SURGICAL HISTORY OF cyst off stomach wall PAST SURGICAL HISTORY OF 03/03 cyst removed fibroid tumor removed from her cervix Social History: Social History Tobacco Use Smoking status: Never Smoker Smokeless tobacco: Never Used Substance Use Topics Alcohol use: No Drug use: No FAMILY HISTORY Problem Relation Age of Onset Thyroid Maternal Grandmother passed at thyroid cancer at the age of 45 yrs Heart Father murmur Thyroid Mother Stroke Mother Heart Maternal Aunt chf Diabetes Mother Diabetes Maternal Uncle Diabetes Maternal Uncle other (Hypoglycemia [Other]) Sister PHYSICAL EXAM: LMP 10/26/2015 (Approximate) No weight on file for this encounter. General appearance: Well appearing, alert, in no acute distress, well-hydrated, well nourished. Cranial Nerves: III, IV, : EOM normal VII: Normal strength in all divisions. IX, X: Normal voice, palatal elevation and sensation XII: Tongue mobility normal Skin: Skin color, texture, turgor normal, no suspicious rashes or lesions Head: normocephalic, no masses, lesions, tenderness or abnormalities Ears: Bilateral external ear(s) normal, external auditory canal(s) clear, right tympanic membrane normal. Left tympanic membrane obstructed by cerumen Nose/Sinuses: Nares normal. Oral Cavity / Oropharynx: Lips, oral mucosa, hard and soft palates, tongue and posterior pharngeal wall are without lesions Neck: The neck appears symmetric without scars. On palpation, there are no masses or lymphadenopathy. The thyroid is not palpable and was free of masses. No salivary gland masses or hypertrophy is noted. Neuro: Gait normal. Mental status revealed patient to be alert and oriented. Mood is appropriate Gabi Marie APRN.MANAGER SALES [employer] MARKETING documented in this encounterT[facility]05-11-2022 Nurse Note* Macey Garnica Ma - 03/05/2022 11:25 AM EDT NURSE POST PROCEDURE ASSESSMENT Level of Consciousness: Alert and Oriented Transferred: via Ambulation Post Procedure Vital Signs: Not indicated Specimens obtained: None Post Procedure: Cystoscopy stent extraction Discharge Notes: Patient returns to pre-procedure mental status. Patient alert and oriented on discharge. Discharge Pain level: 0 on a scale of 0-10. THE FOLLOWING WAS EVALUATED Motivation To Learn: Interested Family/Significant Other Support: High : Family not present. Cognitive Ability: Alert and oriented Patient Learns Best By:Individual Instruction and Written Material The Following Influencing Factors Were Barriers To This Education Session: Christian Factors: No barriers The Following Physical Limitations Were Barriers To This Education Session: None Instruction Provided To: Patient Patient Evaluation:Verbalizes understanding Follow Up Plan: as instructed Supplemental Material Given:Written Material Macey Garnica Ma UNIVERSAL PROTOCOL / SAFETY CHECKLIST Procedure to be Performed: cysto stent extraction Sign In: A Moment of CARE was completed. Personnel directly involved with the procedure wore the appropriate PPE (Personal Protective Equipment). Special equipment: stent extraction set up Patient/Surrogate Stated/Verified: PATIENT VERIFIED(optional for EMERGENT procedures): Patient name, Date of , Relevant allergies and The intended procedure Time Out Communication: Intended patient and procedure match the source documents. Consent documented and matches the intended procedure. Relevant labs, photos, and/or imaging studies have been reviewed. No correct side/site applicable for marking and visibility. Medications required for procedure verified. Fire risk assessed and interventions discussed. No implant(s) inserted. Sign Out: SIGN OUT (optional for EMERGENT procedures): No specimen collected. No instruments, equipment or retained foreign bodies applicable. Post-procedure follow-up management communicated and Plan of Care Visit completed when applicable. Macey Garniac Ma * Macey Garnica Ma - 03/05/2022 11:24 AM EDT PRE CYSTO PROCEDURE ID Verified by: Macey Garnica Ma Procedure Indication:Cystoscopy and Stent Extraction Latex Allergy: No Betadine Allergy: No Lidocaine allergy: No Allergies reviewed and updated. Pre-Procedure Vital Signs: Last menstrual period 10/26/2015. Heart valve replacement:No Joint replacement: No Pre-Procedure Antibiotics: Cipro 500 mg po, given now @ 11:15am , by Macey Garnica Ma Verified by; Rosa Maria Parkinson MA Patient Prep: Betadine Scrub to perineum and placement of Sterile Drape. Anesthetic Given: 5 cc 2% Lidocaine Jelly Macey Garnica Ma documented in this encounterT[facility]05-11-[facility]22 Instructions* Patient Instructions* Enrique Viera DO - 03/05/2022 11:06 AM EDT You had your stent removed today. Drink a lot of water. Some blood in the urine, urgency, frequencycan be expected. If you have a fever, go to the ER and call the office. You made Uric acid kidney stones. These are more rare. They can be dissolved but they can also formquickly. We will do a workup. Drink at least 2L of fluid a day. Avoid excess red meats or salt. Addlemons/limes/oranges to your diet. We will do bloodwork (PTH/CMP/Uric acid) and a 24 hour urine study in a month, not sooner as I want your kidneys and diet back to normal Please get an xray (KUB) and renal ultrasound in one month to make sure there is no residual swelling or stones. Knowing why you make your kidney stones can be personalized by using the stone analysis of previously passed stones and the urine collected over 24 hours. This is called a 24 hour urine or sometimes called a Litholink. This tests for various salts in the urine such as oxalate, uric acid, calcium, sodium and citrate. This is done by going to any [facility] lab after the order is placed. They will give you a large jug to collect your urine for 24 hours. This should start AFTER your first void of the day (so do not include your first urination when you wake up) and then collect the urine the rest of the day and night toinclude the next days first morning urination (hence 24 hours in total). You will then return the jug to the lab the next day. When they do the assessment, if something is outside of the normal range, it is possible that we may be able to change your diet or give you a medication to prevent stones.24 hour urine testing is usually done for patients who have had multiple stone episodes. The majority of stones can be prevented by increasing your fluid intake to >2.5 liters a day and increasingcitrate containing foods/drinks including karina/limes/oranges. documented in this encounterTus[facility]05-11-2022 History of Present illness Narrative* Enrique Viera DO - 03/05/2022 10:30 AM EDT FLEXIBLE CYSTOURETHROSCOPY UROLOGY OUTPATIENT PROCEDURE NOTE UNIVERSAL PROTOCOL AND SAFETY CHECKLIST UNIVERSAL PROTOCOL / SAFETY CHECKLIST UNIVERSAL PROTOCOL / SAFETY CHECKLIST Procedure to be Performed: Cystoscopy, left JJ stent removal Sign In: A Moment of CARE was completed. Personnel directly involved with the procedure wore the appropriate PPE (Personal Protective Equipment). Patient/Surrogate Stated/Verified: PATIENT VERIFIED(optional for EMERGENT procedures): Patient name, Date of , Relevant allergies and The intended procedure Time Out Communication: Intended patient and procedure match the source documents. Consent documented and matches the intended procedure. Sign Out: SIGN OUT (optional for EMERGENT procedures): All instruments, equipment, possible retained foreign bodies accounted for. Enrique Viera DO PHYSICIAN NOTE: FLEXIBLE CYSTOURETHROSCOPY PROCEDURE DATE: March 05, 2022 FINDINGS Urethra: Normal Sphincter: Normal / Coapted Bladder Neck: normal Urothelium: normal appearing, no evidence of tumor, no erythema, +left JJ stent mild encrustation Trabeculation: Yes mild Inflammation: No Diverticulum: No Ureteral Orifices: normal appearing, orthotopic position, left JJ stent Trigone: normal appearing Vagina: Mild atrophy, redundant vaginal mucosa JJ stent removed intact with flexible graspers Procedure: Flexible cystoscopy Anesthesia: Lidocaine Gel Procedure Details: In the cystoscopy suite, the patient was placed in the dorsal lithotomy position, prepped, and draped in the usual manner. Lidocaine gel was placed per urethra for local anasthesia. Cipro chanda-procedural antibiotics were given. Cystourethroscopy was performed using a flexible scope. Sterile technique was maintained throughout. The urethra and bladder were inspected in their entirety. Specific findings from the procedure are detailed in the corresponding section of this note. The left JJ stent was grasped with flexible graspers and the stent and cystoscope was carefully removed intact. The patient tolerated the procedure well and was subsequently discharged in good condition. Complications: None Estimated Blood Loss: None Preoperative diagnosis: Retained left JJ stent Postoperative diagnosis: Same Disposition / Plan: She had a 100% uric acid stone. She will get metabolic workup. She was instructed to drink > 2L of fluid a day, and add karina/limes/oranges to her diet. KUB/RBUS in 1 month with PTH/CMP/Uric acid and 24 hour urine. Will have her see Nephrology due to cystic kidneys and daughter with PKD at patients requets as well as ENT for small right sided area of tongue that's numb since surgery, but improving. Enrique Viera DO Associate Staff, Department of Urology [facility] documented in this encounterTuscaraw[facility]05-02-2022 Miscellaneous Notes* Telephone Encounter - Enrique Viera DO - 02/24/2022 11:32 AM EDT Discussed with patient having some mild nausea but eating nad drinking normally, some fatigue, somechanges of sensation on tongue without any difficulty with movement of tongue, arms, leagues, confusion. She will hydrate. I offered antiemetic but she declined. Will see on 03/12 for stent removal * Telephone Encounter - Luis Eduardo Gaytan Pss - 02/24/2022 10:45 AM EDT Patient is asking if we can do stent removal on March 05, it's close to 2 weeks from her surgery. She also asks that if it is normal to have dizziness after surgery and her right side of her tongue is numb. Weekend dizziness is worst than today, every day is getting better and improving. documented in this encounterTuscaraw[facility]04-29-2022 Miscellaneous Notes* Telephone Encounter - Enrique Viera DO - 02/21/2022 4:09 PM EDT Please make appointment for cysto[facility]ent [facility] 03/10 documented in this encounterTuscarawas Hospital04-19-2022 Instructions* Patient Instructions* Elsie Lisa PA-C - 02/11/2022 10:32 AM EDT PATIENT PREOPERATIVE INSTRUCTIONS Enrique Viera DO has scheduled you for your procedure at this surgery center: [facility]: [phone] -- [address] [place] [address]. Please read below carefully for your personalized instructions. Dietary Restrictions: - No solid food after midnight. - You may have 12 ounces of clear liquids (water, clear juices such as apple juice or gatorade, carbonated beverages, clear tea, black coffee, jello) until 2 hours before scheduled arrival at facility. Medications: Unless instructed differently below, stay on all of your medications until your surgery. Approved medications to take the morning of surgery with a sip of water: NONE If you start any new medications after today's visit, please contact the surgeon's office. Blood Thinning Medications: - Stop NSAIDS (Ibuprofen, Advil, Aleve, Motrin, Celebrex, Mobic, etc.) 7 days before surgery, as directed by your surgeon. - Stop Aspirin 7 days before surgery, as directed by your surgeon. - Stop Vitamin E, ALL multi-vitamins, herbals and dietary supplements 7 days before surgery. - You may take Tylenol (Acetaminophen) or any of your pain medications that do not contain aspirin or NSAIDS as needed. Important Reminders: - If you use CPAP/BIPAP, bring the machine with you to the surgery center. - Candy, mints, and tobacco products are NOT permitted the morning of surgery. - Hearing aids, dentures and glasses may be worn the morning of surgery. - NO jewelry, body piercings, makeup, hairpins or contacts are to be worn the day of surgery. If you develop symptoms such as a fever, cold, or flu, or have other changes to your health within TWO DAYS of scheduled surgery or the morning of surgery, please contact the surgery center above. Personal Belongings: -Please have photo ID and insurance cards. -If you do not have a copy of advance directives on file with us, please bring a copy with you on the day of surgery. - Leave ALL valuables and money at home or with family members. For Outpatient Procedures: - YOU MUST HAVE A RESPONSIBLE MD OPHTHALMOLOGIST TAKE YOU HOME. A BIOMATHEMATICIAN OR PLANER MILL GRADER CANNOT BE MADE A RESPONSIBLE MD OPHTHALMOLOGIST. - We recommend that a responsible person stays with you overnight to take care of you. - You cannot stay in a hotel alone after outpatient surgery. You will not be permitted to have yoursurgery, if you do not have someone to take care of you. Arrival Time for Surgery: - The Surgery Center or hospital where you are having surgery will call the afternoon before surgery (or Thursday for Thursday surgery) with a scheduled arrival time. - If you have not heard by 4 pm, please contact the surgery center above. Please be aware that emergency situations arise, which may delay or change your surgical time. If this happens, we will notify you as soon as possible and regret any inconvenience. If you already have an Advance Directive, please fax a copy to [phone] or email to for it to be added to your chart. If you do not have an Advance Directive, you can find the appropriate form and more information at [email or web address]. We recommend that youcomplete the Advance Directive form found on the website and bring it with you the day of your surgery. It can be witnessed and scanned into your chart that day. documented in this encounterTuscarawas [facility]04-19-2022 History and physical note * Elsie Lisa PA-C - 02/11/2022 10:24 AM EDT PREANESTHESIA CONSULT CLINIC TELEHEALTH VISIT Patient has been identified by name and date of : Yes This is a virtual visit using Alternative video platform. It require patient- provider interaction for the medical decision making as documented below. Reason for contact: PACC visit Accompanied by: Self Scheduled Surgery:CYSTOURETHROSCOPY W/ URETEROSCOPY AND/OR PYELOSCOPY W/ LITHOTRIPSY INCLUDE INSERTION OF INDWELLING URETERAL STENT LEFT Subjective CHIEF COMPLAINT: Patient presents with: Pre-Op Visit HPI: This is a 51 year old female who presents with c/o large kidney stone left UPJ. She c/o pain for 2 months; no fever, chills. Denies dysuria, hematuria, urinary frequency or urgency. No previous kidney stones. Has been recommended for procedure listed above; patient electing to proceed. ACTIVE PROBLEM LIST Class 3 Severe Obesity Due to Excess Calories Without Serious Comorbidity With Body Mass Index (Bmi) of 45.0 to 49.9 in Adult (Hcc) Anxiety Kidney Stone On Left Side Rupesh (Obstructive Sleep Apnea) PAST MEDICAL HISTORY Diagnosis Date PMH - PAST MEDICAL HISTORY OF reumatoid arthritis Rheumatoid arthritis(714.0) 07/2007 dr. buckley PAST SURGICAL HISTORY Procedure Laterality Date DELIVERY ONLY LIG/TRNSXJ FLP TUBE ABDL/VAG APPR UNI/BI PAST SURGICAL HISTORY OF cyst off stomach wall PAST SURGICAL HISTORY OF 03/03 cyst removed fibroid tumor removed from her cervix FAMILY HISTORY Problem Relation Age of Onset Thyroid Maternal Grandmother passed at thyroid cancer at the age of 45 yrs Heart Father murmur Thyroid Mother Stroke Mother Heart Maternal Aunt chf Diabetes Mother Diabetes Maternal Uncle Diabetes Maternal Uncle other (Hypoglycemia [Other]) Sister Social History Tobacco Use Smoking status: Never Smoker Smokeless tobacco: Never Used Substance Use Topics Alcohol use: No Drug use: No ALLERGIES Allergen Reactions All Cillins [Other] Hives severe hives Codeine Vomiting Penicillins Hives MEDICATIONS: Current Outpatient Medications Medication Sig escitalopram oxalate (LEXAPRO) 20 mg tablet Take 1 tablet by mouth once daily. No current facility-administered medications for this visit. COVID VACCINATION STATUS: Fully vaccinated REVIEW OF SYSTEMS: General: No weight loss, malaise or fevers. Neuro: No history of TIA's, stroke, LINOLEUM LAYER APPRENTICE tumor, impaired sensorium, hemiplegia, paraplegia or quadraplegia. No neurological symptoms or problems. Respiratory: No history of current cough or dyspnea, or pneumonia in the past 6 weeks. No history of respiratory/pulmonary symptoms or problems. Cardiovascular: No history of HTN requiring medication, no history of angina, CHF, NC, cardiac surgery or stents. Denies rest pain, gangrene or revascularization/amputation for PVD. No history of cardiovascular symptoms or problems. GI: No history of GI symptoms or problems. No history of esophageal varices, recent ascites, or ETOH greater than 2 drinks per day. 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 : N/A, Patient's last menstrual period was 09/12/2013. Endocrine: No history of diabetes. Has not taken steroids within the past 30 days. No history of endocrinological symptoms or problems. Hematology: No history of bleeding or clotting disorder. Pt is not taking anti- coagulation or platelet medications. No history of hematological symptoms or problems. Oncology: No history of CA metastasis, chemo within 30 days, or radiotherapy within 90 days. Has not lost 10% of body wt in 6 months. No history of oncological symptoms or problems. Psych: Anxiety on Lexapro Musculoskeletal: +Rheumatoid arthritis no medication; +Fibromyalgia no medication Skin: Negative for lesions, rash and itching. Objective PHYSICAL EXAM: Ht 5' 7.5 [patient reported[ (1.72m) Wt 300 lb (136.1kg) LMP 09/12/2013 BMI 46.27 kg/(m^2). VIDEO EXAM: (if completed, performed via video enabled technology) GENERAL: alert and appropriate, in no distress, well-hydrated, well nourished, happy, smiling, interactive and overweight EYES: no injection, PERRL and EOMI OROPHARYNX: moist mucus membranes, no tonsillar hypertrophy/exudate, uvula midline and pharynx non-erythematous, lips, teeth and gums are without obvious lesion NECK: full ROM, no cervical LNs noted RESPIRATORY: breathing non-labored CHEST: equal chest rise with normal respiratory effort HEART: Regular radial pulse based on tempo of count Diagnostic tests reviewed for today's visit: Lab Value Units Date High Low HB 13.5 g/dL 02/10/2022 15.5 11.5 HCT 43.2 % 02/10/2022 46.0 36.0 WBC 8.12 k/uL 02/10/2022 11.00 3.70 PLT 272 k/uL 02/10/2022 400 150 NA 140 mmol/L 02/10/2022 144 136 K 4.0 mmol/L 02/10/2022 5.1 3.7 GLUC 113 mg/dL 02/10/2022 99 74 BUN 13 mg/dL 02/10/2022 21 7 CREAT 1.00 mg/dL 02/10/2022 0.96 0.58 PTSEC No results within date range. INR No results within date range. APTT No results within date range. ALT 11 U/L 02/10/2022 38 7 AST 13 U/L 02/10/2022 35 13 TBILI 0.2 mg/dL 02/10/2022 1.3 0.2 TSH No results within date range. Lab Value Units Date High Low HCGQT No results within date range. UHCG No results within date range. HCG, BODY* No results within date range. Lab Value Units Date High Low ABORHD No results within date range. ABSCREEN No results within date range. Impression/Recommendations ASSESSMENT: Class 3 severe obesity due to excess calories without serious comorbidity with body mass index (BMI) of 45.0 to 49.9 in adult (HCC) Assessment: BMI 46.29 per patient reported height and weight Anxiety Assessment: mood stable per patient on Lexapro Kidney stone on left side Assessment: scheduled for surgery 02/21/2022 RUPESH (obstructive sleep apnea) Assessment: unable to tolerate CPAP METS: Walk a block or two on level ground (2.75 METs) Climb a flight of stairs or walk up a hill (5.50 METs) Patient denies any chest pain or undue shortness of breath with the above physical activity. ASA Class: 3 ANESTHESIA FINDINGS: Intubation History: No history of difficult intubation Significant Anesthesia Considerations: None Airway Exam: General: Morbid obesity Mallampati Score is CLASS II ULBT: Class I - Lower incisors can bite the upper lip above the briseida line Neck: Normal appearance and function, Distance from hyoid to mentum during neck extension is at least 3 finger breaths Mouth: Normal tongue size and Mouth opening greater than 2 finger breaths Dentition: Intact Airway History: No abnormal airway history STOP BANG Score: RUPESH does not use CPAP/BiPAP PLAN: This patient is optimally prepared for surgery. CONSULTS: Patient does not require consults for optimization at this time. The Following Tests/Procedures Have Been Initiated: Labs available in Epic Planned Anesthetic: Per anesthesia choice Instructions Given to Patient: Patient given verbal instructions and voices comprehension and compliance. Copy sent electronically via My Chart, email, or mobile device. I spent more than 0-20 minutes [id number] with the patient and over half the time was devoted to counseling and/or coordination of care. This is a virtual visit. It required patient-provider interaction for the medical decision making as documented above. SIGNATURE: Elsie Lisa PA-C PATIENT NAME: Jonna Casillas DATE: 02/11/2022 TIME: 10:29 AM PAGER/CONTACT #: documented in this encounterTuscarawas Hospital04-19-2022 Miscellaneous Notes* Telephone Encounter - Farrah Estrada PA-C - 02/11/2022 8:31 AM EDT Patient was scheduled for virtual PACC appt at 8:20am today. Patient did not check in for visit. Called patient at 8:30 am to see if they needed any assistance logging in and left voicemail. This message routed to PACC schedulers to contact patient to reschedule PACC appt. Farrah Estrada PA-C documented in this encounterTuscarawas Hospital04-18-2022 Instructions* Patient Instructions* Enrique Viera, - 02/10/2022 8:30 AM EDT Images from the original note were not included. 02/21 we will plan on stone removal at [facility] 1. Medical expulsive therapy (MET) -Typically for stones < 1 cm in the ureter -Includes Flomax to help the stone pass easier, increased fluid intake, pain medication -If no infection and pain relatively controlled can attempt this for up to 4 weeks -You are to strain your urine and save the stone if it passes to send for analysis -Will often follow the stone with Xray and Ultrasound 2. Ureteroscopy with laser lithotripsy -This is a minimally invasive procedure done through the urethra (cystoscopy) in the operating roomunder general anesthesia. -Often a ureteral or Double J stent is placed in a separate procedure prior when you are at the hospital if you have an infection or uncontrolled pain to allow the urine to drain and infection to resolve -Stents are made of soft plastic and are not meant to be permanent, they should not stay in >3 months and typically are removed in < 1 month. The stent should not be removed until the stone hasbeen definitively treated. -A small camera called a ureteroscope is passed into the ureter or kidney to find the stone and then broken up with a laser into several pieces or dust. -At the end of the procedure a stent is typically placed for a week or so to allow the ureter to heal, swelling to resolve, and stone dust to pass. -The stent is removed in the office under local anesthesia (numbing jelly in the urethra) with a cystoscopy (camera in the bladder). This typically takes 1-2 minutes [address] you can drive yourself to andfrom your appointment. 3. Extracorporeal Shockwave Lithotripsy (ESWL or lithotripsy ) -This used to involve sitting in a bathtub but now you are placed under anesthesia and the kidney stone is broken up under ultrasound -Stones need to be able to be seen on Xray (KUB) -Some stones are too hard and do not break up well -This works best on stones in the kidney still rather than the ureter -You still need to pass the stones if they break up into multiple pieces there is still a risk of blockage requiring a stent or nephrostomy tube 4. Percutaneous Nephrolithotomy (PCNL) -Typically reserved for large renal stones (>1.5 cm), staghorn calculi, or calculi in diverticulum -Involved having a nephrostomy tube (percutaneous urine drainage tube) placed by interventional radiology Preoperatively -Then involved a procedure through the back/flank area. Typically a stent and/or nephrostomy tube is left at the end of the procedure. You often stay 1-2 nights in the hospital. documented in this encounterTuscarawas Hospital04-18-2022 History of Present illness Narrative* Enrique Viera DO - 02/10/2022 8:02 AM EDT [facility] FEMALE PATIENT - HISTORY AND PHYSICAL EXAMINATION PATIENT: Jonna Casillas (51 year old) : 1970 PCP: Sayda Fall MD CHIEF COMPLAINT: Kidney stone HISTORY OF PRESENT ILLNESS: Jonna Casillas is a 51 year old year old female with left kidney stone. She has had pain for two months. No prior stones. NO fevers chill. She is on cipro by Her PCP Flaco case her pain was UTI related.. Was a telemedicine appointment no labs done REVIEW OF SYSTEMS: Reviewed and otherwise non-contributory HISTORY: PAST MEDICAL HISTORY Diagnosis Date PMH - PAST MEDICAL HISTORY OF reumatoid arthritis Rheumatoid arthritis(714.0) 07/2007 dr. buckley PAST SURGICAL HISTORY Procedure Laterality Date DELIVERY ONLY LIG/TRNSXJ FLP TUBE ABDL/VAG APPR UNI/BI PAST SURGICAL HISTORY OF cyst off stomach wall PAST SURGICAL HISTORY OF 03/03 cyst removed fibroid tumor removed from her cervix Social History Tobacco Use Smoking status: Never Smoker Smokeless tobacco: Never Used Substance Use Topics Alcohol use: No Drug use: No FAMILY HISTORY Problem Relation Age of Onset Thyroid Maternal Grandmother passed at thyroid cancer at the age of 45 yrs Heart Father murmur Thyroid Mother Stroke Mother Heart Maternal Aunt chf Diabetes Mother Diabetes Maternal Uncle Diabetes Maternal Uncle other (Hypoglycemia [Other]) Sister MEDICATIONS: Current Outpatient Medications Medication Sig Levonorgestrel-Ethinyl Estrad (JOLESSA) 0.15-30 mg-mcg per tablet Take 1 tablet by mouth once daily. No current facility-administered medications for this visit. PHYSICAL EXAMINATION: VITALS: LMP 09/12/2013 GENERAL: alert, no distress, normal affect RESPIRATORY: normal effort, no audible wheeze ABDOMEN: soft, non-tender, non-distended GENITOURINARY: Mild left flank tenderness EXTREMITIES: warm, no dependent edema, no malformations SKIN: no abnormal bruising, no rashes, no cyanosis NEUROLOGIC: normal gait, good manual dexterity, no paralysis OFFICE DATA: POST-VOID RESIDUAL BLADDER VOLUME: NA URINE POC OTHER DATA: No results found for: CREAT No results found for: CULTURE CT ABD/PEL W IVCON Result Date: 02/06/2022 IMPRESSION: Large calculus at the left ureteropelvic junction. Mild left hydronephrosis Bilateral renal cysts and additional subcentimeter low-density foci which are too small to characterize and likely represent additional cysts Hepatic cysts and additional subcentimeter low-density foci which aretoo small to characterize and likely benign. Management Specialist: MARI Transcribe Date/Time: Feb 06 2022 3:43P Dictated by : IVY GONZALES MD This examination was interpreted and the report reviewed and electronically signed by: IVY GONZALES MD on Feb 06 2022 3:53PM EST ASSESSMENT/PLAN: 1. Kidney stone - ICD9: 592.0, ICD10: N20.0 -CT 02/06 showed left UPJ 1.6 cm stone with mild left hydro as well as bilateral renal cysts -No recent urines -> send culture -Get CMP/CBC -Left cyst somewhat displaces renal pelvis -Plan left stoneworks at [facility] 02/21 discussed may just be stent if unable to reafch stone -Discussed ER precautions (fevers, uncontrolled pain) RTO after stoneworks 02/21 MM for stent removal Enrique Viera DO Associate Staff, Department of Urology [facility] Decision Making [facility] [place] [facility]* Diagnosis Kidney stone- Primary Calculus of kidney Pre-op examination- Primary Preoperative examination, unspecified Kidney stones Calculus of kidney Class 3 severe obesity due to excess calories without serious comorbidity with body mass index (BMI) of 45.0 to 49.9 in adult (HCC) Kidney stone Calculus of kidney [facility] Diagnosis Pre-op evaluation- Primary Preoperative examination, unspecified Kidney stone Calculus of kidney Class 3 severe obesity due to excess calories without serious comorbidity with body mass index (BMI) of 45.0 to 49.9 in adult (HCC) Anxiety Anxiety state, unspecified Kidney stone on left side Calculus of kidney RUPESH (obstructive sleep apnea) Obstructive sleep apnea (adult) (pediatric) Kidney stone Calculus of kidney [facility] [place] [facility]* Diagnosis Kidney stone- Primary Calculus of kidney Tongue burning sensation Glossodynia [facility] Diagnosis Numbness of tongue- Primary Disturbance of skin sensation Left ear impacted cerumen Impacted cerumen [facility] Diagnosis Kidney stone Calculus of kidney [facility] [place] [facility]* Diagnosis Kidney stone Calculus of kidney [facility] Diagnosis Kidney stone- Primary Calculus of kidney Cystic kidney disease, unspecified RUPESH (obstructive sleep apnea) Obstructive sleep apnea (adult) (pediatric) Anxiety Anxiety state, unspecified Class 3 severe obesity due to excess calories without serious comorbidity with body mass index (BMI) of 45.0 to 49.9 in adult ([facility]) Irritable bowel syndrome with diarrhea Irritable bowel syndrome Fibromyalgia Mylagia and myositis, unspecified Rheumatoid arthritis involving multiple sites, unspecified whether rheumatoid factor present ([facility]) Vitamin D deficiency Unspecified vitamin D deficiency Hyperlipidemia, unspecified hyperlipidemia type [facility] [place] [facility]* Diagnosis Kidney stone- Primary Calculus of kidney Cystic kidney disease, unspecified Vitamin D deficiency Unspecified vitamin D deficiency Hyperlipidemia, unspecified hyperlipidemia type Hyperparathyroidism due to renal insufficiency ([facility]) Secondary hyperparathyroidism (of renal origin) documented in this encounter [facility] note* Diagnosis Post-menopausal bleeding- Primary Postmenopausal bleeding Pelvic pain documented in this encounter [facility] note* Diagnosis Acute post-operative pain- Primary Postmenopausal bleeding Pelvic and perineal pain documented in this encounter [facility] note* Diagnosis Post-operative state- Primary Other postprocedural status documented in this encounter [facility] note* Diagnosis Post-operative state- Primary Other postprocedural status documented in this encounter [facility] note* Diagnosis Other acute nonsuppurative otitis media of left ear, recurrence not specified- Primary Acute otitis externa of left ear, unspecified type documented in this encounter [facility] note* Diagnosis Abnormal mammogram of left breast- Primary documented in this encounter [facility] note* Diagnosis Stage 3a chronic kidney disease (HCC) ADPKD (autosomal dominant polycystic kidney disease) Polycystic kidney, autosomal dominant Calculus of kidney documented in this encounter [facility] note* Diagnosis Family history of ischemic heart disease and other diseases of the circulatory system documented in this encounter [facility] note* Diagnosis Pre-op evaluation- Primary Preoperative examination, unspecified Kidney stone Calculus of kidney Class 3 severe obesity due to excess calories without serious comorbidity with body mass index (BMI) of 45.0 to 49.9 in adult (HCC) Anxiety Anxiety state, unspecified Kidney stone on left side Calculus of kidney RUPESH (obstructive sleep apnea) Obstructive sleep apnea (adult) (pediatric) Stage 3a chronic kidney disease (HCC)- Primary ADPKD (autosomal dominant polycystic kidney disease) Polycystic kidney, autosomal dominant Polyuria Kidney stone Calculus of kidney Essential hypertension Unspecified essential hypertension Chronic bilateral thoracic back pain Class 3 severe obesity due to excess calories without serious comorbidity with body mass index (BMI) of 45.0 to 49.9 in adult (HCC) Iron deficiency anemia, unspecified iron deficiency anemia type Vitamin D deficiency Unspecified vitamin D deficiency Hyperlipidemia, unspecified hyperlipidemia type documented in this encounter [facility] for referral (narrative)* Diagnostic Procedure Only (Routine) - Closed Specialty Diagnoses / Procedures Referred By Jolene t Referred To Contact XR IMAGING Diagnoses Kidney stone Procedures XR ABDOMEN 1V SUPINE RADIOLOGIC EXAM ABDOMEN 1 VIEW Enrique Viera DO [address] [place] [address] Xr Imaging Referral ID Status Reason Start Date Expiration Date V isits Requested Visits Authorized [id number] Closed Auto-Generate d Referral 04/05/2022 04/04/2023 1 1 [facility] for referral (narrative)* Diagnostic Procedure Only (Routine) - Closed Specialty Diagnoses / Procedures Referred By Contac t Referred To Contact US IMAGING Diagnoses Kidney stone Procedures US KIDNEY/BLADDER US RETROPERITONEAL REAL TIME W/IMAGE COMPLETE Enrique Viera DO [address] [place] [address] Us Imaging Referral ID Status Reason Start Date Expiration Date V isits Requested Visits Authorized [id number] Closed Auto-Generate d Referral 04/05/2022 04/04/2023 1 1 [facility] for visit Narrative* Diagnostic Procedure Only (Routine) - Closed Specialty Diagnoses / Procedures Referred By Contac t Referred To Contact XR IMAGING Diagnoses Kidney stone Procedures XR ABDOMEN 1V SUPINE RADIOLOGIC EXAM ABDOMEN 1 VIEW Enrique Viera DO [address] [place] [address] Xr Imaging Referral ID Status Reason Start Date Expiration Date V isits Requested Visits Authorized [id number] Closed Auto-Generate d Referral 04/05/2022 04/04/2023 1 1 [facility] for visit Narrative* Diagnostic Procedure Only (Routine) - Closed Specialty Diagnoses / Procedures Referred By Contac t Referred To Contact US IMAGING Diagnoses Kidney stone Procedures US KIDNEY/BLADDER US RETROPERITONEAL REAL TIME W/IMAGE COMPLETE Enrique Viera DO [address] [employer] [place] [address] Us Imaging Referral ID Status Reason Start Date Expiration Date V isits Requested Visits Authorized [id number] Closed Auto-Generate d Referral 04/05/2022 04/04/2023 1 1 [facility] for visit Narrative* Diagnostic Procedure Only (Routine) - Closed Specialty Diagnoses / Procedures Referred By Contac t Referred To Contact BR IMAGING Diagnoses Abnormal mammogram of left breast Procedures CRESENCIO DIAGNOSTIC LT DIAGNOSTIC MAMMOGRAPHY COMPUTER-AIDED DETCJ UNI Mary Anne Bloom MD [address] [place] [address] Br Imaging [address] [place] [address] Referral ID Status Reason Start Date Expiration Date V isits Requested Visits Authorized [id number] Closed Auto-Generate d Referral 11/28/2022 12/28/2023 1 1 [facility] Advance Directives Documents on File Type Date Recorded Patient Licensed Dispensing Optician Expl anation Advance Directive(s) 02/11/2022 9:58 AM Documents on File Type Date Recorded Patient Licensed Dispensing Optician Expl anation Advance Directive(s) 02/11/2022 9:58 AM Latest Code Status on File Code Status Date Activated Date Inactivated Comments Full Code 03/09/2023 8:38 AM 03/09/2023 6:57 PM Latest Code Status on File Code Status Date Activated Date Inactivated Comments Full Code 03/09/2023 8:38 AM 03/09/2023 6:57 PM Summary Purpose Family History No Family History Records FoundNo Family History Records FoundNo Family History Records FoundNo Family History Records FoundNo Family History Records FoundNo Family History Records FoundNo Family History Records Found Reason for Referral Specialty Diagnoses / Procedures Referred By Jolene mondragon Referred To Contact Nephrology Diagnoses Kidney stone Procedures CONSULT TO NEPHROLOGY OFFICE/OUTPATIENT [facility] 60-74 MINUTES Enrique Viera, [address] [facility] [address] [place] [address] Jose Luis Brown DO [address] [place] [address] Referral ID Status Reason Start Date Expiration Date Visits Requested Visits Authorized [id number] Authorized PCP Requested Referral 03/05/2022 03/05/2023 1 1 Specialty Diagnoses / Procedures Referred By Jolene mondragon Referred To Contact Ent - Otolaryngology Diagnoses Tongue burning sensation Procedures CONSULT TO ENT OFFICE/OUTPATIENT [facility] 60-74 MINUTES Enrique Viera DO [address] [facility] [address] Referral ID Status Reason Start Date Expiration Date Visits Requested Visits Authorized [id number] Authorized PCP Requested Referral 03/05/2022 03/05/2023 1 1 Specialty Diagnoses / Procedures Referred By Contac t Referred To Contact US IMAGING Diagnoses Kidney stone Procedures US KIDNEY/BLADDER US RETROPERITONEAL REAL TIME W/IMAGE COMPLETE Enrique Viera DO [address] [place] [address] Us Imaging Referral ID Status Reason Start Date Expiration Date Visits Requested Visits Authorized [id number] Authorized Auto-Generat ed Referral 04/05/2022 04/04/2023 1 1 Specialty Diagnoses / Procedures Referred By Contac t Referred To Contact XR IMAGING Diagnoses Kidney stone Procedures XR ABDOMEN 1V SUPINE RADIOLOGIC EXAM ABDOMEN 1 VIEW PaulinodamonEnrique nicholson DO [address] [place] [address] Xr Imaging Referral ID Status Reason Start Date Expiration Date Visits Requested Visits Authorized [id number] Authorized Auto-Generat ed Referral 04/05/2022 04/04/2023 1 1 Specialty Diagnoses / Procedures Referred By Contac t Referred To Contact CT IMAGING Diagnoses ADPKD (autosomal dominant polycystic kidney disease) Procedures CT VOLUME MEASUREMENT 3D RENDERING W/INTERP&POST[place] [address] [place] [address] Ct Imaging Referral ID Status Reason Start Date Expiration Date Visits Requested Visits Authorized [id number] Pending Review Auto-Generat ed Referral 12/04/2022 01/02/2024 1 1 Specialty Diagnoses / Procedures Referred By Contac t Referred To Contact CT IMAGING Diagnoses Calculus of kidney Procedures CT FLANK WO IVCON CT ABD & PELVIS [place] [address] [place] [address] Ct Imaging [place] [address] Referral ID Status Reason Start Date Expiration Date Visits Requested Visits Authorized [id number] Authorized Auto-Generat ed Referral 04/25/2024 05/25/2025 1 1 Specialty Diagnoses / Procedures Referred By Contac t Referred To Contact CT IMAGING Diagnoses Stage 3a chronic kidney disease (HCC) ADPKD (autosomal dominant polycystic kidney disease) Procedures CT VOLUME MEASUREMENT 3D RENDERING W/INTERP&POSTPROC [place] [address] [place] [address] Ct Imaging [place] [address] Referral ID Status Reason Start Date Expiration Date Visits Requested Visits Authorized [id number] Pending Review Auto-Generat ed Referral 04/25/2024 05/25/2025 1 1 Specialty Diagnoses / Procedures Referred By Contac t Referred To Contact MR IMAGING Diagnoses Family history of ischemic heart disease and other diseases of the circulatory system Procedures MRI BRAIN WO IVCON MRI BRAIN BRAIN STEM W/[place] [address] [place] [address] Mr Imaging [place] [address] Referral ID Status Reason Start Date Expiration Date V isits Requested Visits Authorized [id number] Closed Auto-Generate d Referral 05/20/2024 06/12/2025 1 1 Medications Administered Section Inactive Administered Medications - up to 3 most recent administrations Medication Order MAR Action Action Date Dose Rate Site ciprofloxacin HCl 500 mg tab(s) (CIPRO) 500 mg, ORAL, ONCE, 1 dose, On Thu03/05/22 at 1100, Administer 2 hours before or 6 hours after antacids, calcium, iron, zinc or foods containing these items. Tube feedings should be held 1 hour before and 1 hour after administration., Please document the antimicrobial indication: Empiric Given 03/05/2022 11:00 AM EDT 500 mg Additional Source Comments Source Comments (unrecognize d section and content) In the event this informatio n is protected by the Federal Confidentiality of Alcohol and Drug Abuse Patient Records regulations: The Federal rules restrict any use of the information to criminally investigate or prosecute any alcohol or drug abuse patient.[facility] the event this information is protected by the Federal Confidentiality of Alcohol and Drug Abuse Patient Records regulations: The Federal rules restrict any use of the information to criminally investigate or prosecute any alcohol or drug abuse patient.[facility] the event this information is protected by the Federal Confidentiality of Alcohol and Drug Abuse Patient Records regulations: The Federal rules restrict any use of the information to criminally investigate or prosecute any alcohol or drug abuse patient.[facility] the event this information is protected by the Federal Confidentiality of Alcohol and Drug Abuse Patient Records regulations: The Federal rules restrict any use of the information to criminally investigate or prosecute any alcohol or drug abuse patient.[facility] the event this information is protected by the Federal Confidentiality of Alcohol and Drug Abuse Patient Records regulations: The Federal rules restrict any use of the information to criminally investigate or prosecute any alcohol or drug abuse patient.[facility] the event this information is protected by the Federal Confidentiality of Alcohol and Drug Abuse Patient Records regulations: The Federal rules restrict any use of the information to criminally investigate or prosecute any alcohol or drug abuse patient.[facility] the event this information is protected by the Federal Confidentiality of Alcohol and Drug Abuse Patient Records regulations: The Federal rules restrict any use of the information to criminally investigate or prosecute any alcohol or drug abuse patient.[facility] HospitalIn the event this information is protected by the Federal Confidentiality of Alcohol and Drug Abuse Patient Records regulations: The Federal rules restrict any use of the information to criminally investigate or prosecute any alcohol or drug abuse patient.[facility] HospitalIn the event this information is protected by the Federal Confidentiality of Alcohol and Drug Abuse Patient Records regulations: The Federal rules restrict any use of the information to criminally investigate or prosecute any alcohol or drug abuse patient.[facility] HospitalIn the event this information is protected by the Federal Confidentiality of Alcohol and Drug Abuse Patient Records regulations: The Federal rules restrict any use of the information to criminally investigate or prosecute any alcohol or drug abuse patient.[facility] HospitalIn the event this information is protected by the Federal Confidentiality of Alcohol and Drug Abuse Patient Records regulations: The Federal rules restrict any use of the information to criminally investigate or prosecute any alcohol or drug abuse patient.[facility] Hospital[facility] the event this information is protected by the Federal Confidentiality of Alcohol and Drug Abuse Patient Records regulations: The Federal rules restrict any use of the information to criminally investigate or prosecute any alcohol or drug abuse patient.[facility] HospitalIn the event this information is protected by the Federal Confidentiality of Alcohol and Drug Abuse Patient Records regulations: The Federal rules restrict any use of the information to criminally investigate or prosecute any alcohol or drug abuse patient.[facility] Hospital[facility] the event this information is protected by the Federal Confidentiality of Alcohol and Drug Abuse Patient Records regulations: The Federal rules restrict any use of the information to criminally investigate or prosecute any alcohol or drug abuse patient.[facility] HospitalIn the event this information is protected by the Federal Confidentiality of Alcohol and Drug Abuse Patient Records regulations: The Federal rules restrict any use of the information to criminally investigate or prosecute any alcohol or drug abuse patient.[facility] HospitalIn the event this information is protected by the Federal Confidentiality of Alcohol and Drug Abuse Patient Records regulations: The Federal rules restrict any use of the information to criminally investigate or prosecute any alcohol or drug abuse patient.[facility] HospitalIn the event this information is protected by the Federal Confidentiality of Alcohol and Drug Abuse Patient Records regulations: The Federal rules restrict any use of the information to criminally investigate or prosecute any alcohol or drug abuse patient.[facility] HospitalIn the event this information is protected by the Federal Confidentiality of Alcohol and Drug Abuse Patient Records regulations: The Federal rules restrict any use of the information to criminally investigate or prosecute any alcohol or drug abuse patient.[facility] HospitalIn the event this information is protected by the Federal Confidentiality of Alcohol and Drug Abuse Patient Records regulations: The Federal rules restrict any use of the information to criminally investigate or prosecute any alcohol or drug abuse patient.[facility] HospitalIn the event this information is protected by the Federal Confidentiality of Alcohol and Drug Abuse Patient Records regulations: The Federal rules restrict any use of the information to criminally investigate or prosecute any alcohol or drug abuse patient.[facility] HospitalIn the event this information is protected by the Federal Confidentiality of Alcohol and Drug Abuse Patient Records regulations: The Federal rules restrict any use of the information to criminally investigate or prosecute any alcohol or drug abuse patient.[facility] HospitalIn the event this information is protected by the Federal Confidentiality of Alcohol and Drug Abuse Patient Records regulations: The Federal rules restrict any use of the information to criminally investigate or prosecute any alcohol or drug abuse patient.[facility] HospitalIn the event this information is protected by the Federal Confidentiality of Alcohol and Drug Abuse Patient Records regulations: The Federal rules restrict any use of the information to criminally investigate or prosecute any alcohol or drug abuse patient.[facility] HospitalIn the event this information is protected by the Federal Confidentiality of Alcohol and Drug Abuse Patient Records regulations: The Federal rules restrict any use of the information to criminally investigate or prosecute any alcohol or drug abuse patient.[facility] HospitalIn the event this information is protected by the Federal Confidentiality of Alcohol and Drug Abuse Patient Records regulations: The Federal rules restrict any use of the information to criminally investigate or prosecute any alcohol or drug abuse patient.[facility] Reason for Visit (unrecogniz ed section and content) Reason Comments Kidney Stones Reason Comments Pre-Op Exam No show for apt 02/11 at 8:20 Reason Comments Pre-Op Visit Reason Onset Date Comments Appointment 02/21/2022 Reason Comments Patient Question Reason Comments Stent Extraction Reason Comments New Patient Specialty Diagnoses / Procedures Referred By Contac t Referred To Contact Ent - Otolaryngology Diagnoses Tongue burning sensation Procedures CONSULT TO ENT OFFICE/OUTPATIENT [facility] 60-74 MINUTES Enrique Viera, DO [address] [place] [address] Referral ID Status Reason Start Date Expiration Date V isits Requested Visits Authorized [id number] Closed PCP Requested Referral 03/05/2022 03/05/2023 1 1 Reason Comments Kidney Problem Specialty Diagnoses / Procedures Referred By Contac t Referred To Contact Nephrology Diagnoses Kidney stone Procedures CONSULT TO NEPHROLOGY OFFICE/OUTPATIENT [facility] 60-74 MINUTES Enrique Viera, [address] [place] [address] Jose Luis Brown, DO [address] [id number] Referral ID Status Reason Start Date Expiration Date V isits Requested Visits Authorized [id number] Closed PCP Requested Referral 03/05/2022 03/05/2023 1 1 Reason Comments Appointment Orders Reason Onset Date Comments Refill Request 11/03/2022 Reason Comments Mammogram Result Call Back Reason Comments Polycystic Kidney Disease Hypertension Chronic Kidney Disease Reason Comments Other Postmenopausal bleed ing, patient is having abdominal pain Reason Onset Date Comments surgery scheduling 02/13/2023 Scheduled at [facility] Reason Onset Date Comments Results 02/12/2023 Reason Onset Date Comments surgery info 03/02/2023 Specialty Diagnoses / Procedures Referred By Jolene mondragon Referred To Contact Diagnoses Postmenopausal bleeding Pelvic and perineal pain Postmenopausal bleeding [N95.0] Pelvic and perineal pain [R10.2] Procedures MS LAPS TOTAL HYSTERECT 250 GM/< W/RMVL TUBE/OVARY MS LMTD LMPHADEC STAGING SPX PEL&PARA-AORTIC ROBOTIC ASSISTED TOTAL LAPAROSCOPIC HYSTERECTOMY, BILATERAL SALPINGO OOPHORECTOMY, POSSIBLE STAGING LYMPHADENECTOMY FOR STAGING PELVIC AND PARA-AORTIC Pascual Sanchez MD [address] [place] [address] [facility] [address] [place] [address] Referral ID Status Reason Start Date Expiration Date Visits Re quested Visits Authorized [id number] 1 Reason Comments Post-op Visit Post op Reason Comments Follow-up 4 week check Reason Comments Ear Pain L ear x3 weeks, muff led hearing Reason Comments Chronic Kidney Disease Reason Comments Radiology CT Specialty Diagnoses / Procedures Referred By Jolene mondragon Referred To Contact CT IMAGING Diagnoses Calculus of kidney Procedures CT FLANK WO IVCON CT ABD & PEL[place] [address] [place] [phone] Imaging [place] [address] Referral ID Status Reason Start Date Expiration Date V isits Requested Visits Authorized [id number] Closed Auto-Generate d Referral 04/25/2024 05/25/2025 1 1 Specialty Diagnoses / Procedures Referred By Jolene mondragon Referred To Contact MR IMAGING Diagnoses Family history of ischemic heart disease and other diseases of the circulatory system Procedures MRI BRAIN WO IVCON MRI BRAIN BRAIN STEM W/[place] [id number] [place] [phone] Mr Imaging [facility] Referral ID Status Reason Start Date Expiration Date V isits Requested Visits Authorized [id number] Closed Auto-Generate d Referral 05/20/2024 06/12/2025 1 1 Reason Comments Chronic Kidney Disease Care Teams (unrecognized sec tion and content) Night Shift Manager Relationship Specialty Start Date End Date Sayda Fall PCP - General 01/08/07 Night Shift Manager Relationship Specialty Start Date End Date Sayda Fall PCP - General 01/08/07 Night Shift Manager Relationship Specialty Start Date End Date Emma Conte DO [address] [id number] PCP - General Internal Medicine 02/11/22 Night Shift Manager Relationship Specialty Start Date End Date Emma Conte DO [address] [address] PCP - General Internal Medicine 02/11/22 Night Shift Manager Relationship Specialty Start Date End Date Emma Conte DO [address] [address] PCP - General Internal Medicine 02/11/22 Night Shift Manager Relationship Specialty Start Date End Date Emma Conte DO [address] [address] PCP - General Internal Medicine 02/11/22 Night Shift Manager Relationship Specialty Start Date End Date Emma Conte DO [address] [address] PCP - General Internal Medicine 02/11/22 Night Shift Manager Relationship Specialty Start Date End Date Emma Conte DO [address] [address] PCP - General Internal Medicine 02/11/22 Night Shift Manager Relationship Specialty Start Date End Date Emma Conte DO [address] [place] [address] PCP - General Internal Medicine 02/11/22 Night Shift Manager Relationship Specialty Start Date End Date Emma Conte DO [address] [place] [address] PCP - General Internal Medicine 02/11/22 Night Shift Manager Relationship Specialty Start Date End Date Emma Conte DO [address] [place] [address] PCP - General Internal Medicine 02/11/22 Night Shift Manager Relationship Specialty Start Date End Date Emma Conte DO [address] [place] [address] PCP - General Internal Medicine 02/11/22 Night Shift Manager Relationship Specialty Start Date End Date Emma Conte DO [address] [place] [address] PCP - General Internal Medicine 02/11/22 Night Shift Manager Relationship Specialty Start Date End Date Emma Conte DO [address] [place] [address] PCP - General Internal Medicine 02/11/22 Night Shift Manager Relationship Specialty Start Date End Date Emma Conte DO [address] [place] [address] PCP - General Internal Medicine 02/11/22 Night Shift Manager Relationship Specialty Start Date End Date Emma Conte DO [address] [place] [address] PCP - General 05/12/22 Pascual Sanchez MD [address] [place], [place] [phone] Consulting Physician Gynecologic Oncology 02/04/23 Night Shift Manager Relationship Specialty Start Date End Date AntwonEmma DO [address] [phone] PCP - General 05/12/22 Pascual Sanchez MD [address] [place], [place] [phone] Consulting Physician Gynecologic Oncology 02/04/23 Night Shift Manager Relationship Specialty Start Date End Date Emma Conte DO [address] [phone] PCP - General 05/12/22 Pascual Sanchez MD [address] [facility] [address] [place] [address] Consulting Physician Gynecologic Oncology 02/04/23 Night Shift Manager Relationship Specialty Start Date End Date Emma Conte, DO [address] [phone] PCP - General 05/12/22 Pascual Sanchez MD [address] [facility] [address] [place] [address] Consulting Physician Gynecologic Oncology 02/04/23 Night Shift Manager Relationship Specialty Start Date End Date Emma Conte DO [address] [phone] PCP - General 05/12/22 Pascual Sanchez MD [address] [facility] [address] [place], [place] [phone] Consulting Physician Gynecologic Oncology 02/04/23 Night Shift Manager Relationship Specialty Start Date End Date Emma Conte DO [address] [phone] PCP - General 05/12/22 Pascual Sanchez MD [address] [facility], [address] [place], [place] [phone] Consulting Physician Gynecologic Oncology 02/04/23 Night Shift Manager Relationship Specialty Start Date End Date Emma Conte DO [address] [phone] PCP - General 05/12/22 Pascual Sanchez MD [address] [facility], [address] [place] [address] Consulting Physician Gynecologic Oncology 02/04/23 Night Shift Manager Relationship Specialty [place] [address] [place] [phone] PCP - General 05/12/22 Pascual Sanchez MD [address] [place] [address], [address] [place] [address] Consulting Physician Gynecologic Oncology 02/04/23 Night Shift Manager Relationship Specialty [place] [address] [place] [phone] PCP - General 05/12/22 Pascual Sanchez MD [address] [place] [address], [address] [place], [place] [phone] Consulting Physician Gynecologic Oncology 02/04/23 Anna Rodriguez, RN SHIFT MGR - MANAGER SALES [employer] MARKETING [address] [facility] [address] [place] [address] Nurse Practitioner Nurse Practitioner 04/30/23 Night Shift Manager Relationship Specialty Start Date End Date Antwon EmmaDO [address] [facility] [place] [address] PCP - General Internal Medicine 02/11/22 Night Shift Manager Relationship Specialty Start Date End Date Antwon EmmaDO [address] [address] PCP - General Internal Medicine 02/11/22 Night Shift Manager Relationship Specialty Start Date End Date Antwon EmmaDO [address] [facility] 2 [place] [phone] PCP - General Internal Medicine 02/11/22 Night Shift Manager Relationship Specialty Start Date End Date Antwon Emma, [address] [phone] PCP - General Internal Medicine 02/11/22 Night Shift Manager Relationship Specialty Start Date End Date Antwon EmmaDO [address] [phone] PCP - General Internal Medicine 02/11/22 Night Shift Manager Relationship Specialty Start Date End Date Antwon EmmaDO [address] [phone] PCP - General Internal Medicine 02/11/22 Night Shift Manager Relationship Specialty Start Date End Date Emma Conte DO [address] [phone] PCP - General Internal Medicine 02/11/22 Night Shift Manager Relationship Specialty Start Date End Date Emma Conte DO [address] [phone] PCP - General Internal Medicine 02/11/22 Night Shift Manager Relationship Specialty Start Date End Date Emma Conte DO [address] [phone] PCP - General Internal Medicine 02/11/22 INFORMATION SOURCE (unrecogn ized section and content) DATE CREATED AUTHOR 02/12/2022 [facility] DATE CREATED AUTHOR AUTHOR'S ORGANIZ ATION 02/12/2022 [facility] DATE CREATED AUTHOR AUTHOR'S ORGANIZ ATION 05/16/2022 [facility] DATE CREATED AUTHOR AUTHOR'S ORGANIZ ATION 10/26/2022 [facility] DATE CREATED AUTHOR AUTHOR'S ORGANIZ ATION 05/15/2023 [facility] DATE CREATED AUTHOR AUTHOR'S ORGANIZ ATION 07/31/2024 [facility] DATE CREATED AUTHOR AUTHOR'S ORGANIZ ATION 08/02/2024 [facility] Scheduled Active and Recently Administ ered Medications (unrecognized section and content) Medication Order 03/07/2023 03/08/2023 03/09/2023 acetaminophen (Tylenol) tablet 1,000 mg (COMPLETED) 1,000 mg, Oral, Once, On 03/09/23 at 0845, For 1 dose, Preprocedure, Maximum dose of acetaminophen is 4000 mg from all sources in 24 hours. Do not administer if patient has taken tylenol <4 hours earlier. Do not give if contraindicated ie. patient has active liver disease or cirrhosis. 03 (Given - Provid er: Ibis Marin RN) albuterol (2.5 MG/3ML) 0.083% nebulizer solution 2.5 mg (COMPLETED) 2.5 mg, Nebulization, Once, On Thu03/09/23 at 1530, For 1 dose, Recovery (only) 1527 (Given - Provid er: Rocío Cash RN) ciprofloxacin (Cipro) IVPB 400 mg (COMPLETED) 400 mg, IntraVENous, at 200 mL/hr, Administer over 60 Minutes, Independent Consultant to O.R., On Thu03/09/23 at 0845, For 1 dose, Preprocedure, Administer within 1 hour prior to incision premix bag, Suspected Indication (Select all that apply): Surgical Prophylaxis 0949 (Given - Provid er: Chase Fernandes APRN - FOOD PROCESSING PLANT MANAGER) famotidine (Pepcid) tablet 20 mg (COMPLETED) 20 mg, Oral, Once, On Thu03/09/23 at 0845, For 1 dose, Preprocedure 0903 (Given - Provid er: Ibis Marin RN) gabapentin (Neurontin) capsule 100 mg (COMPLETED) 100 mg, Oral, Once, On Thu03/09/23 at 0845, For 1 dose, Preprocedure, For Age >69 or Low GFR. 0903 (Given - Provid er: Ibis Marin RN) metroNIDAZOLE (Flagyl) IVPB 500 mg (COMPLETED) 500 mg, IntraVENous, at 100 mL/hr, Administer over 60 Minutes, Independent Consultant to O.R., On Thu03/09/23 at 0845, For 1 dose, Preprocedure, Administer within 1 hour prior to incision., Suspected Indication (Select all that apply): Surgical Prophylaxis 0956 (Given - Provid er: Chase Fernandes, RN SHIFT MGR - FOOD PROCESSING PLANT MANAGER) Nozin Nasal Sql S[employer] Developer Popswab 2 Swab (COMPLETED) 2 Swab (1 Package), Topical, Once, On Thu03/09/23 at 0845, For 1 dose, Preprocedure, Flip ampule around in paper sleeve to expose swab tip. Shake well. With sleeve on ampule, crush at dot to pop. Squeeze to wet swab tip. Swab around nostril rims 8 times in each direction. Squeeze to rewet swab tip and repeat. Repeat for other nostril. Caution : Do not extend in nose beyond swab tip. Appy to skin only. Discard after use. 0845 (Given - Provid er: Ibis Marin RN) sodium chloride 0.9% (NS) flush 10 mL 10 mL, IntraVENous, Every 12 hours scheduled (2 times per day), First dose on Thu03/09/23 at 2100, Recovery (only) sodium chloride 0.9% (NS) flush 5-40 mL 5-40 mL, IntraVENous, Every 12 hours, First dose on Thu03/09/23 at 0845, Preprocedure, For Line Patency: Peripheral IV = 5 mL; Midline or Central Line = 10 mL/lumen. If following IV push medication, administer flush at same rate as the IV push. Flush volume is determined by type of infusion therapy being given. For non-viscous solutions use: Peripheral IV = 5 mL Midline or Central Line = 10 mL/lumen For viscous solutions (i.e. blood components, parenteral nutrition, contrast media, or after obtaining blood sample) use: Peripheral IV = 10 mL Midline or Central Line = 20 mL/lumen 0845 (Canceled Entry - Provider: Automatic Discharge Provider - Comment: Automatically canceled at discontinue of medication order) Continuous Medication Order 03/07/2023 03/08/2023 03/09/2023 lactated Ringer's (LR) infusion 50 mL/hr, IntraVENous, Continuous, Starting on Thu03/09/23 at 0845, Preprocedure, Upon admission to sameday - please start iv if patient does not have iv access. Use 500ml NS for patients on dialysis. 0903 (New Bag - Prov ider: Ibis Marin RN)0936 (Continued by Anesthesia - Provider: KENISHA Ellis FOOD PROCESSING PLANT MANAGER)1200 (Stopped - Provider: KENISHA Washington CRNA) lactated ringers infusion 125 mL/hr, IntraVENous, Continuous, Starting on Thu03/09/23 at 1215, Recovery (only) 1215 (Canceled Entry - Provider: Automatic Discharge Provider - Comment: Automatically canceled at discontinue of medication order) PRN Medication Order 03/07/2023 03/08/2023 03/09/2023 ALPRAZolam (Xanax) disintegrating tablet 0.25 mg (COMPLETED) 0.25 mg, Oral, PRN, anxiety, Starting on Thu03/09/23 at 0838, For 1 dose, Preprocedure, Using dry hands, place tablet on top of tongue and allow to disintegrate. Administration with water is not necessary. 0903 (Given - Provid er: Ibis Marin RN) diphenhydrAMINE (BENADryl) injection 12.5 mg 12.5 mg, IntraVENous, Once PRN, itching, Starting on Thu03/09/23 at 1205, For 1 dose, Recovery (only) hydrALAZINE (Apresoline) injection 5 mg(Linked Group 1) 5 mg, IntraVENous, Every 15 min PRN, high blood pressure, for SBP greater than 160 mmHg for 2 consecutive measurements taken from different sites, Starting on Thu03/09/23 at 1205, For 2 doses, Recovery (only), PRN for SBP > 160 for 2 consecutive measurements, and if one of the following conditions is met: 1) If IV labetolol is ineffective. 2) If HR is under 60. 3) If patient has heart block, COPD or asthma. If both labetalol and hydralazine ineffective, notify anesthesia provider. HYDROmorphone (Dilaudid) injection 0.25 mg 0.25 mg, IntraVENous, Every 5 min PRN, moderate pain (4-6), Starting on Thu03/09/23 at 1205, For 4 doses, Recovery (only), Phase I and Phase II- Initial therapy for moderate pain (4-6). Restricted to a 90 minute time frame starting when the patient can verbally state their pain score. If after 2 doses the pain score does not decrease by more than one point, then call the provider. If oral meds are utilized, do not return to initial therapy medications. HYDROmorphone (Dilaudid) injection 0.5 mg 0.5 mg, IntraVENous, Every 5 min PRN, severe pain (7-10), Starting on Thu03/09/23 at 1205, For 4 doses, Recovery (only), Phase I and Phase II- Initial therapy for severe pain (7-10). Restricted to a 90 minute time frame starting when the patient can verbally state their pain score. If after 2 doses the pain score does not decrease by more than one point, then call the provider. If oral meds are utilized, do not return to initial therapy medications. 1237 (Given - Provid er: sIac Kendall RN) indocyanine green (IC-Green) injection (CANCELED) As needed, Starting on Thu03/09/23 at 1009, Intraprocedure 1009 (Given - Provid er: Pascual Sanchez MD - Comment: CERVIX; RECONSTITUTED WITH 20 ML STERILE WATER) labetalol (Normodyne,Trandate) injection 5 mg(Linked Group 1) 5 mg, IntraVENous, Every 10 min PRN, high blood pressure, for SBP greater than 160 mmHg for 2 consecutive measurements taken from different sites., Starting on Thu03/09/23 at 1205, For 2 doses, Recovery (only), PRN for SBP >160 for 2 consecutive measurements, if HR is 60 or greater. If beta rd is contraindicated (HR less than 60, heart block, COPD or asthma) use hydralazine IV order. LORazepam (Ativan) injection 0.5 mg (COMPLETED) 0.5 mg, IntraVENous, Once PRN, for anxiety or muscle spasm., Starting on Thu03/09/23 at 1205, For 1 dose, Recovery (only), For IV doses dilute dose with 1ml NS. 1227 (Given - Provid er: Isac Kendall RN) meperidine (Demerol) injection 12.5 mg 12.5 mg, IntraVENous, Every 5 min PRN, shivering, Starting on Thu03/09/23 at 1205, For 4 doses, Recovery (only), May give every 5 minutes to max of 50mg. ondansetron (Zofran) injection 4 mg 4 mg, IntraVENous, Once PRN, nausea, Starting on Thu03/09/23 at 1205, For 1 dose, Recovery (only), Initial antiemetic therapy. oxyCODONE (Roxicodone) immediate release tablet 10 mg (COMPLETED) 10 mg, Oral, PRN, severe pain (7-10), Starting on Thu03/09/23 at 1205, For 1 dose, Recovery (only), PHASE II 1418 (Given - Provid er: Isac Kendall RN) sodium chloride 0.9 % bolus 500 mL 500 mL, IntraVENous, at 1,000 mL/hr, Administer over 0.5 Hours, PRN, Anti-nausea, Starting on Thu03/09/23 at 1205, Recovery (only), Indications: Anti-nausea sodium chloride 0.9 % infusion 5-250 mL/hr, IntraVENous, PRN, if patient receiving piggyback infusions and maintenance fluids are not ordered OR KVO fluids to protect IV site / prevent frequent line interruptions / long duration, Starting on Thu03/09/23 at 0838, Preprocedure, For piggyback infusion, administer at same rate as piggyback for a total of 25 mL. Enter 25 mL into dose field and piggyback rate into rate field of order. If piggyback is infusing at a rate less than 100 mL/hr, enter 25 mL into dose field and 100 mL/hr into rate field of order. For KVO fluids, enter rate of 20 mL/hr or less into rate field of order. sodium chloride 0.9 % infusion 5-250 mL/hr, IntraVENous, PRN, if patient receiving piggyback infusions and maintenance fluids are not ordered OR KVO fluids to protect IV site / prevent frequent line interruptions/ long duration, Starting on Thu03/09/23 at 1205, Recovery (only), For piggyback infusion, administer at same rate as piggyback for a total of 25 mL. Enter 25 mL into dose field and piggyback rate into rate field of order. If piggyback is infusing at a rate less than 100 mL/hr, enter 25 mL into dose field and 100 mL/hr into rate field of order. For KVO fluids, enter rate of 20 mL/hr or less into rate field of order. sodium chloride 0.9 % irrigation solution (CANCELED) As needed, Starting on Thu03/09/23 at 1005, Intraprocedure 1005 (Given - Provid er: Pascual Sanchez MD - Comment: SUCTION ADULT CROSSING GUARD)1140 (Given - Provider: Pascual Sanchez MD - Comment: ON TABLE FOR CLEANING) sodium chloride 0.9% (NS) flush 10 mL 10 mL, IntraVENous, PRN, line care, Starting on Thu03/09/23 at 1205, Recovery (only), After every IV line use sodium chloride 0.9% (NS) flush 5-40 mL 5-40 mL, IntraVENous, PRN, line care, After every IV line use, Starting on Thu03/09/23 at 0838, Preprocedure, For Line Patency: Peripheral IV = 5 mL; Midline or Central Line = 10 mL/lumen. If following IV push medication, administer flush at same rate as the IV push. Flush volume is determined by type of infusion therapy being given. For non-viscous solutions use: Peripheral IV = 5 mL Midline or Central Line = 10 mL/lumen For viscous solutions (i.e. blood components, parenteral nutrition, contrast media, or after obtaining blood sample) use: Peripheral IV = 10 mL Midline or Central Line = 20 mL/lumen sterile water irrigation solution (CANCELED) As needed, Starting on Thu03/09/23 at 1005, Intraprocedure 1005 (Given - Provid er: Pascual Sanchez MD - Comment: INSTRUMENTS) Linked Groups Order Group 1: labetalol (Normodyne,Trandate) injection 5 mgJump to med 5 mg, IntraVENous, Every 10 min PRN, high blood pressure, for SBP greater than 160 mmHg for 2 consecutive measurements taken from different sites., Starting on Thu03/09/23 at 1205, For 2 doses, Recovery (only)
PRN for SBP >160 for 2 consecutive measurements, if HR is 60 or greater. If beta rd is contraindicated (HR less than 60, heart block, COPD or asthma) use hydralazine IV order.
Or hydrALAZINE (Apresoline) injection 5 mgJump to med 5 mg, IntraVENous, Every 15 min PRN, high blood pressure, for SBP greater than 160 mmHg for 2 consecutive measurements taken from different sites, Starting on Thu03/09/23 at 1205, For 2 doses, Recovery (only)
PRN for SBP > 160 for 2 consecutive measurements, and if one of the following conditions is met: 1) If IV labetolol is ineffective. 2) If HR is under 60. 3) If patient has heart block, COPD or asthma. If both labetalol and hydralazine ineffective, notify anesthesia provider.
FOR RECORDS PERTAINING TO PATIENTS WHO ARE OR HAVE BEEN ENROLLED IN A CHEMICAL DEPENDENCY/SUBSTANCEABUSE PROGRAM, SOME INFORMATION MAY BE OMITTED. This clinical summary was aggregated from multiple sources. Caution should be exercised in using it in the provision of clinical care. This summary normalizes information from multiple sources, and as a consequence, information in this document may materially change the coding, format and clinical context of patient data. In addition, data may be omitted in some cases. CLINICAL DECISIONS SHOULD BE BASED ON THE PRIMARY CLINICAL RECORDS. [facility] [employer] [facility]. provides no warranty or guarantee of the accuracy or completeness of information in this document.
== END | disposition home or self-care (01) ==
DX: R51.9 Headache, unspecified (principal)
CPT/HCPCS: 70553; A9575